=== PATIENT | female | born 1950 | race Caucasian/White ===

== ENCOUNTER 2016-02-12 08:45 | Outpatient (RCR) | payer BC ==
--- OUTSIDE RECORDS SUMMARY | 2015-11-29 13:26 | XMS REPORT | Continuity of Care Document ---
Author Author [facility] Organization [facility] Address Unknown Phone Unavailable Care Team Providers Care Architecture Intern Name Role Phone Charles Jesica PCP [phone] Source Comments Some departments are not documenting in the electronic medical record. If you do not see the information that you expected, contact Release of Information in the Health Information Management department at [phone] for further assistance in locating additional records.[facility] Active Allergies and Adverse Reactions Allergen Noted Date Severity Reactions Comments Penicillins 04/20/2014 HIVES, RASH, ITCHING, Entire body turned red, REDNESS had hives, itching and wouldn't go away for a week after only 1 pill. Pneumococcal Vaccine 04/20/2014 EDEMA Upper extremity swells, putting off heat. Current Medications Prescription Sig. Disp. Refills Start End Date Status Date lisinopril (PRINIVIL; Take 20 mg by mouth twice Active ZESTRIL) 20 mg tablet daily. pantoprazole DR Take 40 mg by mouth twice Active (PROTONIX) 40 mg tablet daily. aspirin EC 81 mg tablet Take 81 mg by mouth Active daily. cycloSPORINE (RESTASIS) Apply 1 Drop to both eyes Active 0.05 % ophthalmic twice daily. emulsion VIT A/VIT C/VIT Take 1 Tab by mouth Active E/ZINC/COPPER (OCUVITE daily. PRESERVISION PO) predniSONE (DELTASONE) 1 Take 10 mg by mouth Active mg tablet daily. Calcium-Cholecalciferol Take 1 Tab by mouth twice Active (D3) (CALCIUM 600 + D) daily. 600-125 mg-unit tab rivaroxaban (XARELTO) 20 Take 20 mg by mouth at Active mg tab tablet bedtime daily. traMADol (ULTRAM) 50 mg Take 50 mg by mouth every Active tablet 6 hours as needed. Indications: PAIN atorvastatin (LIPITOR) 20 Take 20 mg by mouth Active mg tablet daily. cetirizine (ZYRTEC) 10 mg Take 10 mg by mouth Active tablet daily. MULTIVITAMIN (MULTIPLE Take 1 Tab by mouth Active VITAMINS DAILY PO) daily. acetaminophen (TYLENOL) Take 325 mg by mouth four Active 325 mg tablet times daily with meals. montelukast (SINGULAIR) Take 10 mg by mouth at Active 10 mg tablet bedtime daily. fish oil /omega-3 fatty Take 1 Cap by mouth three Active acids (SEA-OMEGA) times daily. 340/1000 mg capsule Niacin 500 mg cpER Take 2 Caps by mouth Active daily. Methotrexate Sodium 2.5 Take 4 Tabs by mouth Active mg DsPk every 7 days. Levothyroxine 88 mcg cap Take 1 Cap by mouth at Active bedtime daily. ferrous sulfate 325 mg Take 325 mg by mouth Active (65 mg iron) tablet twice daily. folic acid (FOLVITE) 1 mg Take 1 mg by mouth daily. Active tablet polyethylene glycol 3350 Take 17 g by mouth daily. Active (GLYCOLAX; MIRALAX) 17 gram/dose powder BIFIDOBACTERIUM INFANTIS Take by mouth daily. Active (ALIGN PO) furosemide (LASIX) 40 mg Take 40 mg by mouth Active tablet daily. Patient takes 40mg in the AM and PRN 20mg in the evening if there is weight gain. OXYGEN-AIR DELIVERY Use as directed. Active SYSTEMS (HORIZON NASAL CPAP SYSTEM MISC) Active Problems Problem Noted Date Chronic venous stasis dermatitis of right lower extremity 09/13/2014 Diastolic dysfunction 08/04/2014 Pulmonary hypertension (HCC) 06/22/2014 HLD (hyperlipidemia) 06/22/2014 Chronic anticoagulation, on Xarelto 06/22/2014 Sleep apnea 04/24/2014 SLE (systemic lupus erythematosus) (HCC) 04/24/2014 Factor 5 Leiden mutation, heterozygous ([facility]) 04/24/2014 Raynaud's disease 04/24/2014 Hypertension 04/24/2014 Hypothyroidism 04/24/2014 Osteoporosis 04/24/2014 Resolved Problems Problem Noted Date Resolved Date Chronic renal insufficiency 04/24/2014 06/22/2014 Social History Tobacco Use Types Packs/Day Years Used Date Former Smoker Quit: 08/06/2002 Smokeless Tobacco: Never Used Comments: Start smoking at age 19, stopped in age 51. Alcohol Use Drinks/Week oz/Week Comments No No alcohol use in 40 years. Last Filed Vital Signs Vital Sign Reading Time Taken Blood Pressure 136/74 01/22/2015 1:32 PM FIRMWARE SOFTWARE VERIFICATION ENGINEER Pulse 102 01/22/2015 1:32 PM FIRMWARE SOFTWARE VERIFICATION ENGINEER Temperature 36.6 C (97.9 F) 01/22/2015 1:32 PM FIRMWARE SOFTWARE VERIFICATION ENGINEER Respiratory Rate 20 01/22/2015 1:32 PM FIRMWARE SOFTWARE VERIFICATION ENGINEER Height 1.654 m (5' 5.12") 01/22/2015 1:32 PM FIRMWARE SOFTWARE VERIFICATION ENGINEER Weight 94.802 kg (209 lb) 01/22/2015 1:32 PM FIRMWARE SOFTWARE VERIFICATION ENGINEER Body Mass Index 34.65 01/22/2015 1:32 PM FIRMWARE SOFTWARE VERIFICATION ENGINEER Oxygen Saturation 95% 08/03/2014 10:09 AM CDT Plan of Care Health Maintenance Due Date Last Done Comments Physical (Comprehensive) 04/26/1958 Exam Pertussis Vaccine 04/26/1962 Tetanus Vaccine 04/26/1968 Cervical Cancer Screening 04/26/1972 Breast Cancer Screening 1991 Colorectal Cancer 04/26/2001 Screening Shingles Vaccine 2011 Influenza Vaccine 10/25/2015 Hepatitis C Screening Completed 01/22/2015 Results from Last 3 Months Not on file
[~2016-02-12 08:45] MED LIST: ACET-461 PO; ALBU2.5V52 INH; ALBU8.5HRX INH; ALIGN 4 MG PO; ASP81TEC PO; ASPI81TA45 PO; ATOR20TA66 PO; ATR20T PO; Azithromycin PO; BETA1TAB15 PO; BIFI4CAP PO; CALC-80 PO; CEFD300C3 PO; CETI10TA17 PO; CYCL1DRO OU; DCS100C PO; DICL100G13 TOP; FAMO20TA13 PO; FERR-47 PO; FLC1T PO; FLUT16SP22 NS; FLUT1DIS26 INH; FOLI1TAB24 PO; FURO40TA4 PO; HYDR-3812 PO; LISI20TA PO; LVT.088T PO; LVT.1T PO; METH2.5T PO; METO-333 PO; MNTL10T PO; MONT10TA24 PO; MULT-974 PO; NIAC1CAP PO; OMEG1CAP51 PO; PANT40TA3 PO; POLY17PO6 PO; PRD10T PO; PRD1T PO; PRED1TAB PO; PRED5TAB PO; RIVA20TA2 PO; SILD20TA2 PO; TRAM50TA2 PO; VIT1CAPS5 PO; WARF-48 PO; ZOLE5INF IV
[2016-02-20] MEDS ORDERED: CYCL10TA9 PO (23:36)
[2016-02-20] MEDS ORDERED: CIPR-225 PO (23:36)
[2016-04-11] MEDS ORDERED: HYDR-3812 PO (08:44)
== END 2016-02-27 | disposition home or self-care (01) ==
LOC: WOUNDCARE 08:45
PROVIDERS: ATTEND Surgery
DX: L72.3 Sebaceous cyst (principal); T81.31XA Disruption of external operation (surgical) wound, not elsewhere classified, initial encounter
CPT/HCPCS: 10180; 11042; 87070; 87075; 87205; 99213

== ENCOUNTER 2016-02-27 14:01 | Outpatient (CLI) | payer BC ==
[~2016-02-27] VITALS: Ht 167.6 cm; Wt 82.6 kg
[~2016-02-27 14:01] MED LIST changes: +CIPR-225 PO; +CYCL10TA9 PO
--- OUTSIDE RECORDS SUMMARY | 2016-02-27 14:04 | XMS REPORT | Continuity of Care Document ---
Author Author [facility] Organization [facility] Address Unknown Phone Unavailable Care Team Providers Care Machine Lead Burner Name Role Phone Charles Jesica PCP [phone] Source Comments Some departments are not documenting in the electronic medical record. If you do not see the information that you expected, contact Release of Information in the Health Information Management department at [phone] for further assistance in locating additional records.[facility] Active Allergies and Adverse Reactions Allergen [...] (HCC) 04/24/2014 Factor 5 Leiden mutation, heterozygous ([facility]) 04/24/2014 Raynaud's disease 04/24/2014 Hypertension 04/24/2014 Hypothyroidism [...] Taken Blood Pressure 136/74 01/22/2015 1:32 PM INJECTION MOULDING MACHINE OPERATOR Pulse 102 01/22/2015 1:32 PM INJECTION MOULDING MACHINE OPERATOR Temperature 36.6 C (97.9 F) 01/22/2015 1:32 PM INJECTION MOULDING MACHINE OPERATOR Respiratory Rate 20 01/22/2015 1:32 PM INJECTION MOULDING MACHINE OPERATOR Height 1.654 m (5' 5.12") 01/22/2015 1:32 PM INJECTION MOULDING MACHINE OPERATOR Weight 94.802 kg (209 lb) 01/22/2015 1:32 PM INJECTION MOULDING MACHINE OPERATOR Body Mass Index 34.65 01/22/2015 1:32 PM INJECTION MOULDING MACHINE OPERATOR Oxygen Saturation 95% 08/03/2014 10:09 AM CDT [...]
[2016-04-11] MEDS ORDERED: HYDR-3812 PO (08:44)
== END 2016-02-27 14:16 ==
LOC: PREOP 14:01
PROVIDERS: ATTEND Orthopaedic Surgery Orthopaedic Surgery of the Spine
DX: Z01.818 Encounter for other preprocedural examination (principal); S22.069A Unspecified fracture of T7-T8 vertebra, initial encounter for closed fracture; X58.XXXA Exposure to other specified factors, initial encounter; Y99.8 Other external cause status

== ENCOUNTER 2016-02-29 06:54 | Day surgery (SDC) | payer BC ==
[~2016-02-29] VITALS: Ht 167.6 cm; Wt 82.6 kg
--- OUTSIDE RECORDS SUMMARY | 2016-02-29 06:59 | XMS REPORT | Continuity of Care Document ---
Author Author [facility] Organization [facility] Address Unknown Phone Unavailable Care Team Providers Care Sephora Product Consultant Name Role Phone Charles Jesica PCP [phone] Source Comments Some departments are not documenting in the electronic medical record. If you do not see the information that you expected, contact Release of Information in the Health Information Management department at [phone] for further assistance in locating additional records.[facility] Active Allergies and Adverse Reactions Allergen [...] (HCC) 04/24/2014 Factor 5 Leiden mutation, heterozygous ([facility]) 04/24/2014 Raynaud's disease 04/24/2014 Hypertension 04/24/2014 [...] Taken Blood Pressure 136/74 01/22/2015 1:32 PM HOSPITAL TRAY SERVICE WORKER Pulse 102 01/22/2015 1:32 PM HOSPITAL TRAY SERVICE WORKER Temperature 36.6 C (97.9 F) 01/22/2015 1:32 PM HOSPITAL TRAY SERVICE WORKER Respiratory Rate 20 01/22/2015 1:32 PM HOSPITAL TRAY SERVICE WORKER Height 1.654 m (5' 5.12") 01/22/2015 1:32 PM HOSPITAL TRAY SERVICE WORKER Weight 94.802 kg (209 lb) 01/22/2015 1:32 PM HOSPITAL TRAY SERVICE WORKER Body Mass Index 34.65 01/22/2015 1:32 PM HOSPITAL TRAY SERVICE WORKER Oxygen Saturation 95% 08/03/2014 10:09 AM CDT [...]
--- OUTSIDE RECORDS SUMMARY | 2016-02-29 06:59 | XMS REPORT | Continuity of Care Document ---
Author Author [facility] Organization [facility] Address Unknown Phone Unavailable Care Team Providers Care Ambulance Assistant Name Role Phone Charles Jesica PCP [phone] Source Comments Some departments are not documenting in the electronic medical record. If you do not see the information that you expected, contact Release of Information in the Health Information Management department at [phone] for further assistance in locating additional records.[facility] Active Allergies and Adverse Reactions Allergen Noted [...] (HCC) 04/24/2014 Factor 5 Leiden mutation, heterozygous ([facility]) 04/24/2014 Raynaud's disease 04/24/2014 Hypertension 04/24/2014 Hypothyroidism [...] Taken Blood Pressure 136/74 01/22/2015 1:32 PM POKER DEALER Pulse 102 01/22/2015 1:32 PM POKER DEALER Temperature 36.6 C (97.9 F) 01/22/2015 1:32 PM POKER DEALER Respiratory Rate 20 01/22/2015 1:32 PM POKER DEALER Height 1.654 m (5' 5.12") 01/22/2015 1:32 PM POKER DEALER Weight 94.802 kg (209 lb) 01/22/2015 1:32 PM POKER DEALER Body Mass Index 34.65 01/22/2015 1:32 PM POKER DEALER Oxygen Saturation 95% 08/03/2014 10:09 AM CDT [...]
[2016-02-29] MEDS ORDERED: LACTATED RINGERS 1,000 ML IV PRN (07:16)
[2016-02-29] MEDS ORDERED: ceFAZolin 2GM/50 ML DEXTROSE (PREMIX) IV ONE (07:30)
[2016-02-29] MEDS ORDERED: proPOfol 200 MG/20 ML (DIPRIVAN) VIAL IV ONE (07:36)
[2016-02-29] MEDS ORDERED: LIDOCAINE PF 2% 10 ML (XYLOCAINE) AMP ONE (07:36)
[2016-02-29] MEDS ORDERED: SEVOFLURANE (ULTANE) 15 ML INHAL SOLN ONE (07:36)
[2016-02-29] MEDS ORDERED: SUCCINYLCHOLINE INJ 100 MG/5 ML SYR ONE (07:36)
[2016-02-29] MEDS ORDERED: LACTATED RINGERS 1,000 ML IV ONE (07:36)
[2016-02-29] MEDS ORDERED: MIDAZOLAM 2 MG/2 ML (VERSED) VIAL ONE (07:37)
[2016-02-29] MEDS ORDERED: fentaNYL INJECTION 100 MCG/2 ML AMP ONE (07:37)
[2016-02-29 07:43] VITALS: BP 131/61
[2016-02-29 07:44] LABS: INR 1.1 (0.8-1.4); PROTHROMBIN TIME PATIENT 14.1 SEC (12.2-14.7)
[2016-02-29] MEDS ORDERED: LACT10SO PO (07:56)
[2016-02-29] MEDS ORDERED: MONT10TA21 PO (07:56)
[2016-02-29] MEDS ORDERED: CETI10CA PO (07:56)
[2016-02-29] MEDS ORDERED: OXYC-465 PO (07:56)
[2016-02-29] MEDS ORDERED: BUP/EPI 0.25% 1:200,000 (MARCAINE) 30 ML VIAL ONE (08:45)
--- NOTE | 2016-02-29 10:01 | Progress Note-Post Operative ---
Post-Operative Progess Note Net Finisher Mo Juárez, JEANNETTE Pre-Operative Diagnosis T8 compression Fracture Post-Operative Diagnosis Same, pathology pending Post-Op Procedure Note Date of Procedure: Feb 29, 2016 Name of Procedure: T8 kypho, biopsy with fluro Procedure Note/Findings fx Anesthesia Type GETA Estimated blood loss (mL): min Specimen(s) collected T8 biopsy GO GALVEZ MD Feb 29, 2016 10:01 am
[2016-02-29] MEDS ORDERED: ONDANSETRON 4 MG/2 ML (SDV) Z0FRAN ONE (10:08)
[2016-02-29 11:00] VITALS: BP 138/47
[2016-02-29 11:30] VITALS: BP 141/67
[2016-02-29 11:50] VITALS: BP 141/67
--- NOTE | 2016-02-29 14:48 | Diagnostic Imaging Report ---
INDICATION: Mid back pain, T8 compression fracture. DISCUSSION: Fluoroscopic support is provided during intraoperative T8 kyphoplasty. Please see the operative report for full detail. FLUOROSCOPY TIME: 56 seconds. IMPRESSION: 1. Intraoperative T8 kyphoplasty. Dictated by: Dictated on workstation # [id number]
--- NOTE | 2016-03-03 06:37 | OPERATIVE REPORT ---
PROCEDURE PHYSICIAN: GO HARRELL DATE OF PROCEDURE: 02/29/2016 PREOPERATIVE DIAGNOSIS: T8 osteoporotic pathologic compression fracture. POSTOPERATIVE DIAGNOSIS: T8 osteoporotic pathologic compression fracture. PROCEDURE PERFORMED: T8 kyphoplasty with fluoroscopy. DATE AND TIME OF SURGERY: Please see anesthesia record. SURGEON: Dr. Harrell. REGISTERED SAFETY ENGINEER: DIANA Pfeiffer ROLE OF PUBLIC POLICY ANALYST: Bilateral balloon insufflation, methylmethacrylate insertion. ANESTHESIA: General endotracheal. ESTIMATED BLOOD LOSS: Minimal. IV FLUIDS: Please see anesthesia record. ANTIBIOTICS: Ancef. COMPLICATIONS: None. INDICATIONS FOR THE PROCEDURE: Ms. Mccauley is a 65-year-old female with acute onset of back pain several months ago. She has been tolerating it but it has gotten markedly worse and increasing. She does not remember any inciting event but clearly has worsening pain and acute compression deformity. DESCRIPTION OF PROCEDURE: The patient was taken to the preoperative holding area and brought back to the operative suite after adequate induction of general anesthetic and preoperative antibiotics, she was turned prone on the OR table with chest roll, sterile prep and drape the posterior thoracic spine. Biplanar fluoroscopy was brought in. Localization of the T8 level was performed. Working cannulas were placed. Vertebral biopsy was obtained. Balloon insertion and bone tamp was utilized and then methylmethacrylate was inserted with great fill achieved. Cement was allowed to harden. Cannulas were removed. Wounds were closed and the patient tolerated the procedure well and transferred to the recovery room. Job ID: [id number] Dictated Date: 02/29/2016 10:00:12 Configuration Management Specialist Date: 03/03/2016 06:31:23 / bear
[2016-04-11] MEDS ORDERED: HYDR-3812 PO (08:44)
== END 2016-02-29 11:50 | disposition home or self-care (01) ==
LOC: SDC 06:54
PROVIDERS: ATTEND Orthopaedic Surgery Orthopaedic Surgery of the Spine
DX: M80.08XA Age-related osteoporosis with current pathological fracture, vertebra(e), initial encounter for fracture (principal); Z79.01 Long term (current) use of anticoagulants
CPT/HCPCS: 36415; 85610; 87081

== ENCOUNTER 2016-03-11 14:34 | Outpatient (RCR) | payer BC ==
--- OUTSIDE RECORDS SUMMARY | 2015-12-18 15:09 | XMS REPORT | Continuity of Care Document ---
Author Author [facility] Organization [facility] Address Unknown Phone Unavailable Care Team Providers Care Tower Operator Name Role Phone Charles Jesica PCP [phone] Source Comments Some departments are not documenting in the electronic medical record. If you do not see the information that you expected, contact Release of Information in the Health Information Management department at [phone] for further assistance in locating additional records.[facility] Active Allergies and Adverse Reactions Allergen [...] (HCC) 04/24/2014 Factor 5 Leiden mutation, heterozygous ([facility]) 04/24/2014 Raynaud's disease 04/24/2014 Hypertension 04/24/2014 Hypothyroidism [...] Taken Blood Pressure 136/74 01/22/2015 1:32 PM LICENSED CLINICAL PSYCHOLOGIST Pulse 102 01/22/2015 1:32 PM LICENSED CLINICAL PSYCHOLOGIST Temperature 36.6 C (97.9 F) 01/22/2015 1:32 PM LICENSED CLINICAL PSYCHOLOGIST Respiratory Rate 20 01/22/2015 1:32 PM LICENSED CLINICAL PSYCHOLOGIST Height 1.654 m (5' 5.12") 01/22/2015 1:32 PM LICENSED CLINICAL PSYCHOLOGIST Weight 94.802 kg (209 lb) 01/22/2015 1:32 PM LICENSED CLINICAL PSYCHOLOGIST Body Mass Index 34.65 01/22/2015 1:32 PM LICENSED CLINICAL PSYCHOLOGIST Oxygen Saturation 95% 08/03/2014 10:09 AM CDT [...]
[~2016-03-11 14:34] MED LIST changes: +CETI10CA PO; +LACT10SO PO; +MONT10TA21 PO; +OXYC-465 PO
[2016-04-11] MEDS ORDERED: HYDR-3812 PO (08:44)
== END 2016-03-17 | disposition home or self-care (01) ==
LOC: ONC 14:34
PROVIDERS: ATTEND Internal Medicine Hematology & Oncology
DX: D68.62 Lupus anticoagulant syndrome (principal); M32.10 Systemic lupus erythematosus, organ or system involvement unspecified; R76.9 Abnormal immunological finding in serum, unspecified; I42.8 Other cardiomyopathies; N18.9 Chronic kidney disease, unspecified; I12.9 Hypertensive chronic kidney disease with stage 1 through stage 4 chronic kidney disease, or unspecified chronic kidney disease; E03.9 Hypothyroidism, unspecified; I73.00 Raynaud's syndrome without gangrene; G47.33 Obstructive sleep apnea (adult) (pediatric); M81.0 Age-related osteoporosis without current pathological fracture; Z79.899 Other long term (current) drug therapy; Z79.01 Long term (current) use of anticoagulants
CPT/HCPCS: 99213

== ENCOUNTER → 2016-03-14 | Outpatient (CLI) | payer BC ==
[~2016-03-14] MED LIST changes: +FERR-84 PO; +iron PO
--- OUTSIDE RECORDS SUMMARY | 2016-03-14 07:03 | XMS REPORT | Continuity of Care Document ---
Author Author [facility] Organization [facility] Address Unknown Phone Unavailable Care Team Providers Care Courtesy Van Driver Name Role Phone Charles Jesica PCP [phone] Source Comments Some departments are not documenting in the electronic medical record. If you do not see the information that you expected, contact Release of Information in the Health Information Management department at [phone] for further assistance in locating additional records.[facility] [...] Factor 5 Leiden mutation, heterozygous ([facility]) 04/24/2014 Raynaud's disease 04/24/2014 Hypertension 04/24/2014 Hypothyroidism [...] Taken Blood Pressure 136/74 01/22/2015 1:32 PM SACK REPAIRER Pulse 102 01/22/2015 1:32 PM SACK REPAIRER Temperature 36.6 C (97.9 F) 01/22/2015 1:32 PM SACK REPAIRER Respiratory Rate 20 01/22/2015 1:32 PM SACK REPAIRER Height 1.654 m (5' 5.12") 01/22/2015 1:32 PM SACK REPAIRER Weight 94.802 kg (209 lb) 01/22/2015 1:32 PM SACK REPAIRER Body Mass Index 34.65 01/22/2015 1:32 PM SACK REPAIRER Oxygen Saturation 95% 08/03/2014 10:09 AM CDT [...]
[2016-03-14 08:01] LABS: ALANINE AMINOTRANSFERASE 17 U/L (0-55); ANION GAP 13 MMOL/L (5-14); ASPARTATE AMINO TRANSFERASE 17 U/L (5-34); BILIRUBIN,TOTAL 0.6 MG/DL (0.1-1.0); BLOOD UREA NITROGEN 14 MG/DL (7-18); BUN/CREATININE RATIO 16; CALCIUM 9.6 MG/DL (8.5-10.1); CARBON DIOXIDE 28 MMOL/L (21-32); CHLORIDE 102 MMOL/L (98-107); CREATININE SERUM 0.86 MG/DL (0.60-1.30); GFR ESTIMATED > 60; GLUCOSE 80 MG/DL (70-105); POTASSIUM 3.6 MMOL/L (3.6-5.0); SODIUM 143 MMOL/L (135-145); TOTAL PROTEIN 6.3 G/DL (6.4-8.2)
--- NOTE | 2016-03-14 08:27 | Diagnostic Imaging Report ---
PROCEDURE: US abdomen complete. TECHNIQUE: Multiple real-time grayscale images were obtained over the abdomen in various projections. Indication: Generalized abdominal pain. Comparison: None. Discussion: Sonographic evaluation of the abdomen was performed. The liver appears normal in echotexture and size. No hepatic mass identified. 2 mm echogenic focus within the nondependent gallbladder likely represents a small polyp, benign. Otherwise the gallbladder appears normal without evidence of cholelithiasis, wall thickening, or pericholecystic fluid. No evidence of intra or extrahepatic biliary duct dilatation. The common bile duct is normal measuring 0.4 cm. The pancreas appears normal as visualized. The spleen appears normal in echotexture and size measuring 8.4 cm. The visualized aorta and IVC appear within normal limits. There is mild thinning of the bilateral renal cortices. The right kidney is mildly atrophic as compared to the left. No hydronephrosis or solid renal mass. The right kidney measures 8.6 cm. The left kidney measures 10.5 cm. There is no ascites or abnormal bowel loops identified. No sonographic Blas sign was reported. Impression: 1. Mild renal atrophy, right greater than left. Stable from renal ultrasound 07/19/2013. 2. A 2 mm gallbladder polyp, incidental. No followup required. Dictated by: Dictated on workstation # [id number]
== END ==
LOC: RAD 06:58
PROVIDERS: ATTEND Internal Medicine
DX: R10.84 Generalized abdominal pain (principal); E78.1 Pure hyperglyceridemia
CPT/HCPCS: 36415; 76700; 80053

== ENCOUNTER → 2016-03-31 | Outpatient (CLI) | payer BC ==
[~2016-03-31] MED LIST changes: +CATHETER FLUSH 10 ML SYR IV PRN
--- OUTSIDE RECORDS SUMMARY | 2016-03-31 12:30 | XMS REPORT | Continuity of Care Document ---
Author Author [facility] Organization [facility] Address Unknown Phone Unavailable Care Team Providers Care Health Physics Technician Name Role Phone Charles Jesica PCP [phone] Source Comments Some departments are not documenting in the electronic medical record. If you do not see the information that you expected, contact Release of Information in the Health Information Management department at [phone] for further assistance in locating additional records.[facility] Active Allergies and Adverse Reactions Allergen Noted [...] (HCC) 04/24/2014 Factor 5 Leiden mutation, heterozygous ([facility]) 04/24/2014 Raynaud's disease 04/24/2014 Hypertension [...] Taken Blood Pressure 136/74 01/22/2015 1:32 PM POLICY DIRECTOR Pulse 102 01/22/2015 1:32 PM POLICY DIRECTOR Temperature 36.6 C (97.9 F) 01/22/2015 1:32 PM POLICY DIRECTOR Respiratory Rate 20 01/22/2015 1:32 PM POLICY DIRECTOR Height 1.654 m (5' 5.12") 01/22/2015 1:32 PM POLICY DIRECTOR Weight 94.802 kg (209 lb) 01/22/2015 1:32 PM POLICY DIRECTOR Body Mass Index 34.65 01/22/2015 1:32 PM POLICY DIRECTOR Oxygen Saturation 95% 08/03/2014 10:09 AM CDT [...]
--- NOTE | 2016-03-31 15:03 | Diagnostic Imaging Report ---
EXAMINATION: HIDA with EF measurements Indication: Abdominal pain TECHNIQUE: After the intravenous administration of 5.5 mCi of Tc 99m Choletec, imaging over the abdomen was obtained. This was followed by administration of Ensure orally to stimulate intrinsic CCK secretion, followed by continued imaging with ejection fraction measured. FINDINGS: There is homogeneous uptake in the liver with prompt bile duct and gallbladder filling seen. Bowel activity is seen at 20 minutes. Based on further imaging and gallbladder area of interest activity measurements after the administration of Ensure, the gallbladder ejection fraction is estimated at 4%. IMPRESSION: 1. Normal hepatobiliary uptake and Gallbladder filling. 2. Biliary dyskinesia. Very poor gallbladder ejection fraction. Dictated by: Dictated on workstation # [id number]
== END ==
LOC: CARD 12:26
PROVIDERS: ATTEND Internal Medicine
DX: R10.11 Right upper quadrant pain (principal)
CPT/HCPCS: 78227

== ENCOUNTER 2016-04-08 12:00 | Outpatient (CLI) | payer BC ==
[~2016-04-08] VITALS: Ht 167.6 cm; Wt 81.6 kg
[~2016-04-08 12:00] MED LIST changes: -CATHETER FLUSH 10 ML SYR IV PRN; -FERR-84 PO; -iron PO
[2016-04-08 12:05] VITALS: BP 133/63
--- OUTSIDE RECORDS SUMMARY | 2016-04-08 12:05 | XMS REPORT | Continuity of Care Document ---
Author Author [facility] Organization [facility] Address Unknown Phone Unavailable Care Team Providers Care Manager Foreign Name Role Phone Charles Jesica PCP [phone] Source Comments Some departments are not documenting in the electronic medical record. If you do not see the information that you expected, contact Release of Information in the Health Information Management department at [phone] for further assistance in locating additional records.[facility] [...] Factor 5 Leiden mutation, heterozygous ([facility]) 04/24/2014 Raynaud's disease 04/24/2014 Hypertension 04/24/2014 Hypothyroidism [...] Taken Blood Pressure 136/74 01/22/2015 1:32 PM RABBIT FANCIER Pulse 102 01/22/2015 1:32 PM RABBIT FANCIER Temperature 36.6 C (97.9 F) 01/22/2015 1:32 PM RABBIT FANCIER Respiratory Rate 20 01/22/2015 1:32 PM RABBIT FANCIER Height 1.654 m (5' 5.12") 01/22/2015 1:32 PM RABBIT FANCIER Weight 94.802 kg (209 lb) 01/22/2015 1:32 PM RABBIT FANCIER Body Mass Index 34.65 01/22/2015 1:32 PM RABBIT FANCIER Oxygen Saturation 95% 08/03/2014 10:09 AM CDT [...]
[2016-04-08] MEDS ORDERED: iron PO (12:30)
[2016-04-08] MEDS ORDERED: PRED5TAB PO (12:30)
== END 2016-04-08 12:20 | disposition home or self-care (01) ==
LOC: PREOP 12:00
PROVIDERS: ATTEND Surgery
DX: Z01.818 Encounter for other preprocedural examination (principal); Z11.2 Encounter for screening for other bacterial diseases; K82.4 Cholesterolosis of gallbladder; K82.8 Other specified diseases of gallbladder
CPT/HCPCS: 87081

== ENCOUNTER 2016-04-11 06:05 | Day surgery (SDC) | payer BC ==
[~2016-04-11] VITALS: Ht 167.6 cm; Wt 81.6 kg
[~2016-04-11 06:05] MED LIST changes: +iron PO
--- OUTSIDE RECORDS SUMMARY | 2016-04-11 06:12 | XMS REPORT | Continuity of Care Document ---
Author Author [facility] Organization [facility] Address Unknown Phone Unavailable Care Team Providers Care Silver Wrapper Name Role Phone Charles Jesica PCP [phone] Source Comments Some departments are not documenting in the electronic medical record. If you do not see the information that you expected, contact Release of Information in the Health Information Management department at [phone] for further assistance in locating additional records.[facility] Active Allergies and Adverse Reactions Allergen [...] (HCC) 04/24/2014 Factor 5 Leiden mutation, heterozygous ([facility]) 04/24/2014 Raynaud's disease 04/24/2014 Hypertension 04/24/2014 [...] Taken Blood Pressure 136/74 01/22/2015 1:32 PM BUILDING PERFORMANCE SPECIALIST Pulse 102 01/22/2015 1:32 PM BUILDING PERFORMANCE SPECIALIST Temperature 36.6 C (97.9 F) 01/22/2015 1:32 PM BUILDING PERFORMANCE SPECIALIST Respiratory Rate 20 01/22/2015 1:32 PM BUILDING PERFORMANCE SPECIALIST Height 1.654 m (5' 5.12") 01/22/2015 1:32 PM BUILDING PERFORMANCE SPECIALIST Weight 94.802 kg (209 lb) 01/22/2015 1:32 PM BUILDING PERFORMANCE SPECIALIST Body Mass Index 34.65 01/22/2015 1:32 PM BUILDING PERFORMANCE SPECIALIST Oxygen Saturation 95% 08/03/2014 10:09 AM CDT [...]
--- OUTSIDE RECORDS SUMMARY | 2016-04-11 06:12 | XMS REPORT | Continuity of Care Document ---
Author Author [facility] Organization [facility] Address Unknown Phone Unavailable Care Team Providers Care Industrial Manufacturing Technician Name Role Phone Charles Jesica PCP [phone] Source Comments Some departments are not documenting in the electronic medical record. If you do not see the information that you expected, contact Release of Information in the Health Information Management department at [phone] for further assistance in locating additional records.[facility] Active Allergies and Adverse Reactions Allergen [...] (HCC) 04/24/2014 Factor 5 Leiden mutation, heterozygous ([facility]) 04/24/2014 Raynaud's disease 04/24/2014 Hypertension 04/24/2014 Hypothyroidism [...] Taken Blood Pressure 136/74 01/22/2015 1:32 PM DIET COUNSELOR Pulse 102 01/22/2015 1:32 PM DIET COUNSELOR Temperature 36.6 C (97.9 F) 01/22/2015 1:32 PM DIET COUNSELOR Respiratory Rate 20 01/22/2015 1:32 PM DIET COUNSELOR Height 1.654 m (5' 5.12") 01/22/2015 1:32 PM DIET COUNSELOR Weight 94.802 kg (209 lb) 01/22/2015 1:32 PM DIET COUNSELOR Body Mass Index 34.65 01/22/2015 1:32 PM DIET COUNSELOR Oxygen Saturation 95% 08/03/2014 10:09 AM CDT [...]
[2016-04-11] MEDS ORDERED: LEVOFLOXACIN 500 MG/100 ML IV 100 ML ONE (06:40)
[2016-04-11] MEDS ORDERED: FAMOTIDINE 20MG/2ML IV (PEPCID) ONE (06:40)
[2016-04-11] MEDS ORDERED: LACTATED RINGERS 1,000 ML IV PRN (06:50)
[2016-04-11] MEDS: LACTATED RINGERS 1,000 ML IV PRN ×2 (06:52→08:25)
[2016-04-11 06:59] LABS: INR 1.3 (0.8-1.4); PROTHROMBIN TIME PATIENT 16.2 SEC (12.2-14.7)
[2016-04-11] MEDS ORDERED: FAMOTIDINE 20MG/2ML IV (PEPCID) IV ONE ×2 (07:00)
[2016-04-11 07:05] VITALS: BP 159/69
[2016-04-11] MEDS ORDERED: CATHETER FLUSH 10 ML SYR IV PRN (07:15)
[2016-04-11] MEDS ORDERED: LEVOFLOXACIN 500 MG/D5W 100 ML (PRE-MIX) IV ONE (07:15)
[2016-04-11] MEDS ORDERED: metroNIDAZOLE 500 MG/100 ML IVPB (PRE-MIX) IV ONE (07:15)
[2016-04-11] MEDS ORDERED: LIDOCAINE JELLY 2% (XYLOCAINE) 5 ML TUBE ONE (07:16)
[2016-04-11] MEDS ORDERED: LACTATED RINGERS 1,000 ML IV ONE ×2 (07:16→08:35)
[2016-04-11] MEDS ORDERED: fentaNYL INJECTION 250 MCG/5 ML AMP ONE (07:16)
[2016-04-11] MEDS ORDERED: ONDANSETRON 4 MG/2 ML (SDV) Z0FRAN ONE (07:16)
[2016-04-11] MEDS ORDERED: SEVOFLURANE (ULTANE) 15 ML INHAL SOLN ONE (07:16)
[2016-04-11] MEDS ORDERED: MIDAZOLAM 2 MG/2 ML (VERSED) VIAL ONE (07:16)
[2016-04-11] MEDS ORDERED: proPOfol 200 MG/20 ML (DIPRIVAN) VIAL IV ONE (07:16)
[2016-04-11] MEDS ORDERED: DEXAMETHASONE PF 10 MG/ML (DECADRON) VIAL ONE (07:16)
[2016-04-11] MEDS ORDERED: ROCURONIUM 50 MG/5 ML (ZEMURON) VIAL IV ONE (07:16)
[2016-04-11] MEDS ORDERED: BUP/EPI 0.25% 1:200,000 (MARCAINE) 30 ML VIAL ONE (07:30)
--- NOTE | 2016-04-11 07:52 | Progress Note-Pre Operative ---
Pre-Operative Progress Note H&P Reviewed The H&P was reviewed, patient examined and no changes noted. Date H&P Reviewed: Apr 11, 2016 Time H&P Reviewed: 07:34 Pre-Operative Diagnosis: GB polyp with dyskinesia ZAFAR RAMON MD Apr 11, 2016 7:52 am
[2016-04-11] MEDS ORDERED: NEOSTIGMINE (BLOXIVERZ ) 1 MG/1ML 10 ML VIAL ONE (08:42)
[2016-04-11] MEDS ORDERED: GLYCOPYRROLATE 0.2 MG/ML (ROBINUL) 2 ML VIAL ONE (08:42)
[2016-04-11] MEDS ORDERED: HYDR-3812 PO (08:44)
--- NOTE | 2016-04-11 08:44 | Progress Note-Post Operative ---
Post-Operative Progess Note Pre-Operative Diagnosis GB polyp with dyskinesia Post-Operative Diagnosis same Post-Op Procedure Note Date of Procedure: Apr 11, 2016 Name of Procedure: robotic-assisted cholecystectomy Anesthesia Type Gen. Estimated blood loss (mL): minimal Specimen(s) collected gallbladder ZAFAR RAMON MD Apr 11, 2016 8:44 am
--- NOTE | 2016-04-11 08:46 | Discharge Inst-Simple/Standard ---
Discharge Inst-Standard Discharge Medications New, Converted or Re-Newed RX: RX on Chart Patient Instructions/Follow Up Plan of Care/Instructions/FU: dressings off in 48 hours. Incentive spirometry. Follow-up in 3 weeks. Activity as Tolerated: Yes Discharge Diet: ADA ZAFAR Pedroza MD Apr 11, 2016 8:46 am
[2016-04-11] MEDS ORDERED: HYDROmorphone (DILAUDID) 2 MG/ML VIAL IVP PRN (09:15)
[2016-04-11] MEDS ORDERED: PROMETHAZINE INJ 25 MG/ML (PHENERGAN) AMP IVP PRN (09:15)
[2016-04-11] MEDS ORDERED: morphine INJ 10 MG/ML 1ML (SYR OR VIAL) IVP PRN (09:15)
[2016-04-11] MEDS ORDERED: ONDANSETRON 4 MG/2 ML (SDV) Z0FRAN IVP PRN ×2 (09:15→13:45)
[2016-04-11] MEDS ORDERED: MEPERIDINE (DEMEROL) INJ 50 MG/ML IVP PRN (09:15)
[2016-04-11 09:50] VITALS: BP 124/48
[2016-04-11 10:20] VITALS: BP 134/57
[2016-04-11 10:50] VITALS: BP 137/59
[2016-04-11] MEDS ORDERED: HYDROcodone/APAP 5 MG/325 MG (LORTAB) TAB PO PRN (13:45)
[2016-04-11] MEDS ORDERED: fentaNYL INJECTION 100 MCG/2 ML AMP IVP PRN (13:45)
[2016-04-11] MEDS ORDERED: FERR-84 PO (16:04)
[2016-04-11] MEDS ORDERED: BIFI4CAP PO (16:04)
[2016-04-11] MEDS ORDERED: ACETAMINOPHEN 500 MG TAB (TYLENOL) PO SCH (17:00)
[2016-04-11] MEDS ORDERED: lisINopril 20 MG (ZESTRIL) TAB PO SCH (21:00)
[2016-04-11] MEDS ORDERED: meTOprolol TARTRATE 25 MG (LOPRESSOR) TABLET PO SCH (21:00)
[2016-04-11] MEDS ORDERED: LEVOTHYROXINE 88 MCG (LEVOTHORID) TAB PO SCH (21:00)
[2016-04-12] MEDS ORDERED: FOLIC ACID 1 MG TAB PO SCH (09:00)
[2016-04-12] MEDS ORDERED: LORATADINE (CLARITIN) 10 MG TAB PO SCH (09:00)
[2016-04-12] MEDS ORDERED: ATORVASTATIN 20 MG (LIPITOR) TABLET PO SCH (09:00)
--- NOTE | 2016-04-12 11:12 | OPERATIVE REPORT ---
PROCEDURE PHYSICIAN: ZAFAR RAMON DATE OF PROCEDURE: 04/11/2016 PREOPERATIVE DIAGNOSES: 1. Gallbladder polyp. 2. Severe dyskinesia of the gallbladder. POSTOPERATIVE DIAGNOSES: 1. Gallbladder polyp. 2. Severe dyskinesia of the gallbladder. OPERATION: Robotic assisted cholecystectomy. SURGEON: Dr. Ramon. ANESTHESIA: General anesthesia. BLOOD LOSS: Minimal. FLUIDS: 600 mL crystalloids. TYPE OF WOUND: Type II (clean - contaminant wound). INDICATION FOR THE PROCEDURE: This lady presented with severe symptoms due to a combination of a polyp in the gallbladder and dyskinesia. Therefore, she was offered cholecystectomy using minimally invasive technique. An informed consent was obtained after reviewing the operative details and complications of wound infection, bile leak and persistence of her symptoms but. DESCRIPTION OF PROCEDURE: She was placed supine on the operative table and general anesthesia induced using an endotracheal tube. Levaquin and Flagyl were administered intravenously as prophylaxis against wound infection. Sequential compression devices were placed around her legs, to minimize the risk of venous thrombosis. The abdomen was prepared and draped in the usual sterile manner. A subumbilical incision was made and the pneumoperitoneum established using a Veress needle. Intra-abdominal pressure was maintained at 15 mmHg. A 12 mm trocar was placed and anatomy visualized using high definition, 3 dimensional laparoscope associated with the Coworks system. Under direct view, I placed an 8 mm cannula over each side of the abdomen, followed by a 5 mm trocar over the left upper quadrant. The patient was then turned into reverse Trendelenburg position with the right side tilted up. The robotic system was docked in place. The fundus of the gallbladder was retracted cephalad using a grasper introduced via the left upper quadrant. The omentum was then densely adherent to the body of the gallbladder and taken down using hook cautery. The infundibulum was then grasped with the Cadiere forceps and peritoneum overlying Calot's triangle incised using hook cautery, delineating the cystic duct and artery. Both were divided between locking clips. Cholecystectomy was then completed using hook cautery. The gallbladder was then placed in an Endo Catch bag and removed via the subumbilical trocar site. The fascia over this incision was closed using number 1 Vicryl under direct laparoscopic guidance, using an Endo Close device. The incisions were closed using 4-0 Vicryl, in a subcuticular fashion. 0.25% Marcaine with epinephrine was infiltrated along the incisions, both preemptively and at the conclusion of the operation. She tolerated the procedure well, was extubated in the operating room and taken to the recovery room in a stable condition. Port Reading, sponges, and instruments were correct at the end of the operation. Job ID: [id number] Dictated Date: 04/11/2016 08:42:50 [place] Machine Operator Automatic Date: 04/12/2016 11:03:46 / bear CADE
== END 2016-04-11 11:20 | disposition home or self-care (01) ==
LOC: SDC 06:05
PROVIDERS: ATTEND Surgery
DX: K81.1 Chronic cholecystitis (principal); Z79.01 Long term (current) use of anticoagulants
CPT/HCPCS: 36415; 85610; 88304; 94664

== ENCOUNTER 2016-04-11 12:21 | Inpatient (IN) | payer BC ==
[2016-04-11] VITALS (14 sets, daily range): BP systolic 75–173; BP diastolic 46–103
[~2016-04-11] VITALS: Ht 167.6 cm; Wt 81.6 kg
[~2016-04-11 12:21] MED LIST changes: +CLINDAMYCIN 600 MG/50 ML IVPB 50 ML IV SCH
--- OUTSIDE RECORDS SUMMARY | 2016-04-11 12:26 | XMS REPORT | Continuity of Care Document ---
Author Author [facility] Organization [facility] Address Unknown Phone Unavailable Care Team Providers Care [place] Manager Name Role Phone Charles Jesica PCP [phone] Source Comments Some departments are not documenting in the electronic medical record. If you do not see the information that you expected, contact Release of Information in the Health Information Management department at [phone] for further assistance in locating additional records.[facility] Active Allergies and Adverse Reactions [...] (HCC) 04/24/2014 Factor 5 Leiden mutation, heterozygous ([facility]) 04/24/2014 Raynaud's disease 04/24/2014 Hypertension 04/24/2014 Hypothyroidism [...] Taken Blood Pressure 136/74 01/22/2015 1:32 PM MANAGER [place] Pulse 102 01/22/2015 1:32 PM MANAGER [place] Temperature 36.6 C (97.9 F) 01/22/2015 1:32 PM MANAGER [place] Respiratory Rate 20 01/22/2015 1:32 PM MANAGER [place] Height 1.654 m (5' 5.12") 01/22/2015 1:32 PM MANAGER [place] Weight 94.802 kg (209 lb) 01/22/2015 1:32 PM MANAGER [place] Body Mass Index 34.65 01/22/2015 1:32 PM MANAGER [place] Oxygen Saturation 95% 08/03/2014 10:09 AM CDT [...]
--- OUTSIDE RECORDS SUMMARY | 2016-04-11 12:26 | XMS REPORT | Continuity of Care Document ---
Author Author [facility] Organization [facility] Address Unknown Phone Unavailable Care Team Providers Care Rate Supervisor Name Role Phone Charles Jesica PCP [phone] Source Comments Some departments are not documenting in the electronic medical record. If you do not see the information that you expected, contact Release of Information in the Health Information Management department at [phone] for further assistance in locating additional records.[facility] [...] 04/24/2014 Factor 5 Leiden mutation, heterozygous ([facility]) 04/24/2014 Raynaud's disease 04/24/2014 Hypertension [...] Taken Blood Pressure 136/74 01/22/2015 1:32 PM CERTIFIED TRAVEL COUNSELOR Pulse 102 01/22/2015 1:32 PM CERTIFIED TRAVEL COUNSELOR Temperature 36.6 C (97.9 F) 01/22/2015 1:32 PM CERTIFIED TRAVEL COUNSELOR Respiratory Rate 20 01/22/2015 1:32 PM CERTIFIED TRAVEL COUNSELOR Height 1.654 m (5' 5.12") 01/22/2015 1:32 PM CERTIFIED TRAVEL COUNSELOR Weight 94.802 kg (209 lb) 01/22/2015 1:32 PM CERTIFIED TRAVEL COUNSELOR Body Mass Index 34.65 01/22/2015 1:32 PM CERTIFIED TRAVEL COUNSELOR Oxygen Saturation 95% 08/03/2014 10:09 AM [...]
[2016-04-11] MEDS ORDERED: fentaNYL INJECTION 100 MCG/2 ML AMP IVP PRN (13:45)
[2016-04-11] MEDS ORDERED: LACTATED RINGERS 1,000 ML IV ONE (15:26)
[2016-04-11] MEDS ORDERED: BIFI4CAP PO (16:04)
[2016-04-11] MEDS ORDERED: FERR-84 PO (16:04)
[2016-04-11] MEDS ORDERED: HYDROcodone/APAP 5 MG/325 MG (LORTAB) TAB PO PRN (16:15)
[2016-04-11] MEDS ORDERED: ONDANSETRON 4 MG/2 ML (SDV) Z0FRAN IVP PRN (16:15)
[2016-04-11] MEDS ORDERED: proPOfol 200 MG/20 ML (DIPRIVAN) VIAL IV ONE (16:53)
[2016-04-11] MEDS ORDERED: MIDAZOLAM 2 MG/2 ML (VERSED) VIAL ONE (16:53)
[2016-04-11] MEDS ORDERED: ROCURONIUM 50 MG/5 ML (ZEMURON) VIAL IV ONE (16:53)
[2016-04-11] MEDS ORDERED: fentaNYL INJECTION 100 MCG/2 ML AMP ONE (16:53)
[2016-04-11 17:08] LABS: INR 1.2 (0.8-1.4); PROTHROMBIN TIME PATIENT 15.3 SEC (12.2-14.7)
--- NOTE | 2016-04-11 17:37 | History & Physicial ---
History of Present Illness History of Present Illness Reason for visit/HPI postoperative hematoma of the abdominal wall around the left upper quadrant, in relation to a 5 mm trocar placed during robotic-assisted cholecystectomy. Patient has become hypotensive during the observation period and thereforetoleration is reasonable. Date of Admission I consulted on this patient on 04/11/16 17:34 Attending Physician Zafar Ramon MD Admitting Physician Jesica Soto DO Consult Allergies and Home Medications Allergies Coded Allergies: Penicillins (Verified Allergy, Intermediate, 04/02/15) pneumococcal vaccine (Verified Allergy, Unknown, 04/02/15) PT STATES FEVER IN THE ARM Home Medications Acetaminophen 500 Mg Tablet 500 MG PO QID (Reported) Aspirin 81 Mg Tabec 81 MG PO DAILY (Reported) Atorvastatin Calcium 20 Mg Tablet 20 MG PO 1700 (Reported) Bifidobacterium Infantis 4 Mg Capsule 4 MG PO DAILY (Reported) Calcium Carbonate/Vitamin D3 1 Each Tablet 1 TAB PO 1200,1700 (Reported) Cetirizine Hcl 10 Mg Tablet 10 MG PO 1700 (Reported) Cyclosporine 32 Ea Droperette 1 DROP OU BID (Reported) Ferrous Sulfate 325 Mg Tablet 325 MG PO BID (Reported) Folic Acid 1 Mg Tablet 3 MG PO DAILY (Reported) TAKES 3 (1MG) TABLETS Furosemide 40 Mg Tablet 40 MG PO DAILY (Reported) Hydrocodone/Acetaminophen 1 Each Tablet #30 1-2 TAB PO 4-6HR PRN PRN PAIN Prescribed by: ZAFAR RAMON on 04/11/16 0844 Levothyroxine Sodium 88 Mcg Tablet 88 MCG PO HS (Reported) Lisinopril 20 Mg Tablet 20 MG PO BID (Reported) Methotrexate Sodium 2.5 Mg Tablet 10 MG PO (Reported) TAKES 4 (2.5MG) TABLETS ON TUESDAYS Metoprolol Tartrate 25 Mg Tablet 25 MG PO BID (Reported) Montelukast Sodium 10 Mg Tablet 10 MG PO 1700 (Reported) Multivitamin 1 Each Tablet 1 TAB PO DAILY (Reported) Niacin/Inositol Niacinate 1 Each Capsule 1,000 MG PO 1700 (Reported) TAKES 2 (500MG) CAPSULES [place]-3 Fatty Acids/Fish Oil 1 Each Capsule 1,000 MG PO TID (Reported) Pantoprazole Sodium 40 Mg Tablet.dr 40 MG PO BID (Reported) Polyethylene Glycol 3350 17 Gm Powd.pack 17 GM PO DAILY (Reported) Prednisone 5 Mg Tablet 10 MG PO DAILY (Reported) TAKES 2 (5MG) TABLETS Tramadol Hcl 50 Mg Tab 50 MG PO TID PRN PRN PAIN (Reported) Vit A/Vit C/Vit E/Zinc/Copper 1 Each Tablet 1 TAB PO 1700 (Reported) Warfarin Sodium 5 Mg Tablet 5 MG PO HS (Reported) Zoledronate 5 Mg/100 Ml Btl 5 MG IV ONCE A YEAR (Reported) Past Cutlkis-Swdxqx-Hqxeof Hx Patient Social History Marrital Status: Employed/Student: employed Alcohol Use: Denies Use Recreational Drug Use: No Smoking Status: Never a Smoker Type Used: Cigarettes Physical Abuse Screen: No Sexual Abuse: No Recent Foreign Travel: No Contact w/other who traveled: No Recent Hopitalizations: No Recent Infectious Disease Expo: No Immunizations Up To Date Tetanus Booster (TDap): Less than 5yrs Date of Influenza Vaccine: Nov 30, 2015 Seasonal Allergies Seasonal Allergies: Yes Surgeries HX Surgeries: No (BILAT CATARACTS, EYELID SX (TEAR DUCTS), BIG TOENAILS, CYST REMOVED, KYPHO) Surgeries: Gallbladder, Hysterectomy Respiratory Hx Respiratory Disorders: No (POSS COPD OR ASTHMA, STATES NO LONGER NEEDS MEDS , CPAP) Cardiovascular Hx Cardiovascular Disorders: Yes (VENOUS INSUFFICIENCY IN LEGS, CHF) Cardiac Disorders: High Cholesterol, Hypertension Neurological Hx Neurological Disorders: Yes (RAYNAUDS) Reproductive System Hx Reproductive Disorders: No Sexually Transmitted Disease: No HIV/AIDS: No Female Reproductive Disorders: Denies Genitourinary Hx Genitourinary Disorders: Yes (RENAL INSUFFICIENCY (HAS IMPROVED)) Gastrointestinal Hx Gastrointestinal Disorders: Yes (HX ESOPHAGEAL ULCERS) Gastrointestinal Disorders: Gastroesophageal Reflux, Chronic Constipation, Ulcer Musculoskeletal Hx Musculoskeletal Disorders: Yes (PELVIS FX x6 DUE TO OSTEOPOROSIS, SPINAL STENOSIS, OSTEOSCLEROSIS, BURSITIS) Musculoskeletal Disorders: Osteoporosis, Arthritis, Chronic Back Pain Endocrine Hx Endocrine Disorders: Yes Endocrine Disorders: Hypothyroidsim, Lupus HEENT HX ENT Disorders: Yes (BILAT CATARACT SX, GLASSES) HEENT Disorders: Cataract Loss of Vision: Bilateral Hearing Impairment: Denies Cancer Hx Cancer: No Psychosocial Hx Psychiatric Problems: No Integumentary HX Skin/Integumentary Disorder: Yes (STAGE III ULCER ON BUTTOCKS) Blood Transfusions Hx Blood Disorders: Yes (FACTOR V LEIDEN, 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, HOMOCYSTEINE HIGH) Adverse Reaction to a Blood Tr: No (HAS HAD BLOOD WITH NO REACTION) Family Medical History Family Hx: Cancer 19 FATHER, Onset:60 years & older Cardiovascular disease 19 MOTHER Family history: Cardiovascular disease 19 MOTHER, Onset:60 years & older Family history: Glaucoma 19 FATHER, Onset:40's - 50 Family history: Hypertension 19 MOTHER, Onset:60 years & older Family history: Thyroid disorder 19 MOTHER, Onset:50's - 60 Myocardial infarction 19 MOTHER, Onset:60 years & older Constitutional: dizziness EENTM: no symptoms reported Respiratory: no symptoms reported Cardiovascular: other Gastrointestinal: LUQ abdominal pain (LUQ) Genitourinary: no symptoms reported Skin: see HPI Psychiatric/Neurological: No Symptoms Reported Physical Exam Vital Signs Vital Sign - Last 12Hours Capillary Refill : General Appearance: Anxious HEENT: PERRL/EOMI Neck: Normal Inspection Respiratory: Lungs Clear Cardiovascular: Tachycardia Comments large hematoma over the left upper quadrant in relation to the 5 mm trocar site. Rest of the abdomen is unremarkable Assessment/Plan Assessment and Plan lady with a postoperative hematoma the abdominal wall involving the left upper quadrant. Most likely muscular hematoma. Due to hypotension, reasonable to explore Admission Diagnosis postoperatively hematoma of the abdominal wall Clinical Quality Measures DVT/VTE Risk/Contraindication: Risk Factor Score Per Nursin RFS Level Per Nursing on Admit: 4+=Very High ZAFAR RAMON MD Apr 11, 2016 5:37 pm
--- NOTE | 2016-04-11 17:37 | Progress Note-Pre Operative ---
Pre-Operative Progress Note H&P Reviewed The H&P was reviewed, patient examined and no changes noted. Date H&P Reviewed: Apr 11, 2016 Time H&P Reviewed: 17:37 Pre-Operative Diagnosis: ppostoperative hematoma of abdominal wall ZAFAR RAMON MD Apr 11, 2016 5:37 pm
[2016-04-11] MEDS ORDERED: CLINDAMYCIN 600 MG/4ML (CLEOCIN) VIAL IV ONE (17:45)
[2016-04-11] MEDS ORDERED: morphine INJ 10 MG/ML 1ML (SYR OR VIAL) ONE (17:47)
[2016-04-11] MEDS ORDERED: PHENYLEPHRINE INJ 10 MG/ML (NEO-SYNEPHRINE 1%) ONE (17:48)
[2016-04-11] MEDS ORDERED: GLYCOPYRROLATE 0.2 MG/ML (ROBINUL) 2 ML VIAL ONE (17:48)
[2016-04-11] MEDS ORDERED: PHENYLEPHRINE 100 MCG/ML 10 ML (ANESTHESIA) SYR ONE (17:48)
[2016-04-11] MEDS ORDERED: NS (IVPB) 0 ML ONE ×2 (17:48)
[2016-04-11] MEDS ORDERED: NEOSTIGMINE (BLOXIVERZ ) 1 MG/1ML 10 ML VIAL ONE (17:48)
[2016-04-11] MEDS ORDERED: SEVOFLURANE (ULTANE) 15 ML INHAL SOLN ONE (17:49)
[2016-04-11] MEDS ORDERED: SUCCINYLCHOLINE INJ 100 MG/5 ML SYR ONE (17:49)
[2016-04-11] MEDS ORDERED: NS (IVPB) 100 ML ONE ×2 (17:50)
[2016-04-11] MEDS: LACTATED RINGERS 1,000 ML IV SCH (17:53)
--- NOTE | 2016-04-11 17:55 | Progress Note-Post Operative ---
Post-Operative Progess Note Pre-Operative Diagnosis ppostoperative hematoma of abdominal wall Post-Operative Diagnosis same Post-Op Procedure Note Date of Procedure: Apr 11, 2016 Name of Procedure: incision and drainage of abdominal wall hematoma Anesthesia Type Gen. Estimated blood loss (mL): 550 mL of hematoma ZAFAR RAMON MD Apr 11, 2016 5:55 pm
[2016-04-11] MEDS ORDERED: SUGAMMADEX IV ONE (17:57)
[2016-04-11] MEDS ORDERED: ONDANSETRON 4 MG/2 ML (SDV) Z0FRAN IV PRN (18:15)
[2016-04-11] MEDS: morphine INJ 10 MG/ML 1ML (SYR OR VIAL) IV PRN ×2 (18:18→18:26)
[2016-04-11] MEDS: LEVOTHYROXINE 88 MCG (LEVOTHORID) TAB PO SCH (23:01)
[2016-04-11] MEDS ORDERED: ACETAMINOPHEN 500 MG TAB (TYLENOL) PO PRN (23:15)
[2016-04-12] VITALS (12 sets, daily range): BP systolic 106–136; BP diastolic 52–60
[2016-04-12] MEDS: LACTATED RINGERS 1,000 ML IV SCH ×3 (01:30→15:27)
[2016-04-12] MEDS: CLINDAMYCIN 600 MG/50 ML IVPB 50 ML IV SCH ×2 (01:30→10:52)
[2016-04-12 08:06] LABS: BASOPHILS % (AUTO) 0 % (0-10); EOSINOPHILS % (AUTO) 0 % (0-10); LYMPHOCYTES # (AUTO) 2.4 X 10^3 (1.0-4.0); LYMPHOCYTES % (AUTO) 19 % (12-44); MEAN CORPUSCULAR HEMOGLOBIN 33 PG (25-34); MEAN CORPUSCULAR HGB CONC 33 G/DL (32-36); MEAN CORPUSCULAR VOLUME 101 FL (80-99); MEAN PLATELET VOLUME 9.8 FL (7.4-10.4); MONOCYTES # (AUTO) 1.3 X 10^3 (0.0-1.0); MONOCYTES % (AUTO) 10 % (0-12); NEUTROPHILS # (AUTO) 9.3 X 10^3 (1.8-7.8); NEUTROPHILS % (AUTO) 71 % (42-75); PLATELET COUNT 288 10^3/uL (130-400); RED BLOOD COUNT 2.34 10^6/uL (4.35-5.85); RED CELL DISTRIBUTION WIDTH 13.6 % (10.0-14.5); WHITE BLOOD COUNT 13.1 10^3/uL (4.3-11.0)
[2016-04-12] MEDS ORDERED: NS IV 500 ML 500 ML ONE (08:35)
[2016-04-12] MEDS: ATORVASTATIN 20 MG (LIPITOR) TABLET PO SCH (08:37)
[2016-04-12] MEDS: LORATADINE (CLARITIN) 10 MG TAB PO SCH (08:37)
--- NOTE | 2016-04-12 12:34 | Anesthesia-General Post-Op ---
General Patient Condition Mental Status/LOC: Same as Preop Cardiovascular: Satisfactory Nausea/Vomiting: Absent Respiratory: Satisfactory Pain: Controlled Complications: Absent Post Op Complications Complications None Follow Up Care/Instructions Patient Instructions None needed. Anesthesia/Patient Condition Patient Condition Patient is doing well, no complaints, stable vital signs, no apparent adverse anesthesia problems. No complications reported per nursing. MOISES LEUNG CRNA Apr 12, 2016 12:34
--- NOTE | 2016-04-12 14:22 | Progress Note ---
Subjective Subjective/Events-last exam Pt seen and examined, states minimal LUQ pain. Still moderate amount of drainage looks like just blood. Tolerating diet. Review of Systems General: No Chills, No Night Sweats HEENT: No Head Aches, No Visual Changes Pulmonary: No Dyspnea, No Cough Cardiovascular: No: Chest Pain, Palpitations Gastrointestinal: : Abdominal PainNo: Nausea, Vomiting Objective Exam Vital Signs Date Time Temp Pulse Resp B/P Pulse Ox O2 Delivery O2 Flow Rate FiO2 04/12/16 12:40 98.1 94 18 117/54 97 04/12/16 12:22 98.7 93 20 119/57 97 04/12/16 12:19 98.7 93 20 119/57 97 04/12/16 12:00 98.7 115 18 115/59 96 Room Air 04/12/16 09:56 98.4 115 20 110/57 95 04/12/16 09:47 Room Air 04/12/16 09:32 98.5 117 18 109/52 96 04/12/16 08:00 98.4 126 18 127/56 96 Room Air 04/12/16 04:00 98.5 99 18 122/56 94 NIV/CPAP 04/12/16 00:00 97.5 99 18 106/53 96 NIV/CPAP 04/11/16 21:40 94 18 93/64 04/11/16 21:10 Room Air 04/11/16 20:17 92 20 82/53 95 Room Air 04/11/16 19:00 98.0 101 20 93/61 95 Room Air 04/11/16 16:59 113 97/51 97 04/11/16 16:24 98.4 100 30 84/48 96 Room Air 04/11/16 15:13 118 95/58 04/11/16 15:03 121 30 75/46 04/11/16 14:59 113 97 Room Air 04/11/16 14:55 119 30 92/66 98 Room Air 04/11/16 14:45 Room Air 04/11/16 14:30 99.2 116 18 129/74 97 Room Air I & O 04/12/16 07:00 Intake Total 25 ml Output Total 645 ml Balance -620 ml Capillary Refill : General Appearance: No Apparent Distress WD/WN Anxious HEENT: PERRL/EOMI Pharynx Normal Neck: Normal Inspection Supple Respiratory: Lungs Clear No Accessory Muscle Use Cardiovascular: Tachycardia Gastrointestinal: normal bowel sounds soft other (FRANK drain looks like blood, large hematoma on left side wall, outlined today) Neurologic/Psychiatric: Alert Oriented x3 Results Lab Laboratory Tests 04/11/16 15:17: Glucometer 211H 04/11/16 16:47: Activated Partial Thromboplast Time 26, INR Comment 1.2, Prothrombin Time 15.3H 04/11/16 17:40: Hematocrit 28L, Hemoglobin 9.2#L 04/12/16 07:50: Hematocrit 24L, Hemoglobin 7.8L, Basophils # (Auto) 0.0, Basophils (%) (Auto) 0 , Eosinophils # (Auto) 0.0, Eosinophils (%) (Auto) 0, Lymphocytes # (Auto) 2.4, Lymphocytes (%) (Auto) 19, Mean Corpuscular Hemoglobin 33, Mean Corpuscular Hemoglobin Concent 33, Mean Corpuscular Volume 101H, Mean Platelet Volume 9.8, Monocytes # (Auto) 1.3H, Monocytes (%) (Auto) 10, Neutrophils # (Auto) 9.3H, Neutrophils (%) (Auto) 71, Platelet Count 288, Red Blood Count 2.34L, Red Cell Distribution Width 13.6, White Blood Count 13.1H Assessment/Plan Assessment/Plan Assessment/Plan S/P Lap Roma with subsequent bleeding from port site - monitor output, pt's vitals are stable, ? try to hold pressure at this area. Anemia-- Dr. Yu ordered 2 units, output in drain is 70ml over past 8 hours , recheck Hg in am Clinical Quality Measures DVT/VTE Risk/Contraindication: Risk Factor Score Per Nursin RFS Level Per Nursing on Admit: 4+=Very High ASHLEE BOWLES DO Apr 12, 2016 14:22
[2016-04-12] MEDS: LEVOTHYROXINE 88 MCG (LEVOTHORID) TAB PO SCH (20:25)
[2016-04-13] VITALS: BP 129/70
[2016-04-13 06:57] LABS: BASOPHILS % (AUTO) 0 % (0-10); EOSINOPHILS # (AUTO) 0.2 10^3/uL (0.0-0.3); EOSINOPHILS % (AUTO) 2 % (0-10); LYMPHOCYTES # (AUTO) 3.7 X 10^3 (1.0-4.0); LYMPHOCYTES % (AUTO) 36 % (12-44); MEAN CORPUSCULAR HEMOGLOBIN 32 PG (25-34); MEAN CORPUSCULAR HGB CONC 34 G/DL (32-36); MEAN CORPUSCULAR VOLUME 94 FL (80-99); MEAN PLATELET VOLUME 9.5 FL (7.4-10.4); MONOCYTES # (AUTO) 0.9 X 10^3 (0.0-1.0); MONOCYTES % (AUTO) 9 % (0-12); NEUTROPHILS # (AUTO) 5.3 X 10^3 (1.8-7.8); NEUTROPHILS % (AUTO) 53 % (42-75); PLATELET COUNT 187 10^3/uL (130-400); RED BLOOD COUNT 3.01 10^6/uL (4.35-5.85); RED CELL DISTRIBUTION WIDTH 18.7 % (10.0-14.5); WHITE BLOOD COUNT 10.1 10^3/uL (4.3-11.0)
[2016-04-13 08:00] VITALS: BP 170/77
[2016-04-13] MEDS: LACTATED RINGERS 1,000 ML IV SCH ×2 (08:15→14:29)
[2016-04-13] MEDS: LORATADINE (CLARITIN) 10 MG TAB PO SCH (08:57)
[2016-04-13] MEDS: ATORVASTATIN 20 MG (LIPITOR) TABLET PO SCH (08:57)
--- NOTE | 2016-04-13 10:21 | Progress Note-Standard ---
Standard Progress Note Progress Notes/Assess & Plan Progress/Assessment & Plan Anesthesia Note ([id number]) Called for IV start. 20 G Lt wrist. Flushed with ease. Secured with tegaderm. Pt tolerated well, will be available if needed. CORNELIO ALMODOVAR DO Apr 13, 2016 10:21
[2016-04-13 12:00] VITALS: BP 145/71
[2016-04-13 14:47] VITALS: BP 137/59
[2016-04-13 16:00] VITALS: BP 139/64
--- NOTE | 2016-04-13 17:16 | Progress Note ---
Subjective Subjective/Events-last exam Pt seen and examined, she states she feels better than yesterday. Tolerating diet, + flatus, finally had BM. She states her heart has been racing and she is worried because she had not taken her prednisone for her lupus. She denies abdominal pain, but thinks the bruise is bigger and still has "blood in drain". Review of Systems General: No Chills, No Night Sweats HEENT: No Head Aches, No Visual Changes Pulmonary: No Dyspnea, No Cough Cardiovascular: : Other (heart is "racing")No: Chest Pain Gastrointestinal: : Abdominal Pain (very minimal)No: Nausea, Vomiting Neurological: : Numbness: Weakness Objective Exam Vital Signs Date Time Temp Pulse Resp B/P Pulse Ox O2 Delivery O2 Flow Rate FiO2 04/13/16 16:00 98.7 106 16 139/64 94 Room Air 04/13/16 14:47 98.0 103 18 137/59 97 Room Air 04/13/16 12:00 98.3 104 18 145/71 95 Room Air 04/13/16 09:00 Room Air 04/13/16 08:00 99.0 76 16 170/77 95 Room Air 04/13/16 04:30 98.9 04/13/16 00:00 99.7 88 18 129/70 97 Room Air 04/12/16 20:00 99.5 92 20 136/60 97 Room Air I & O 04/13/16 07:00 Intake Total 2760 ml Output Total 2865 ml Balance -105 ml Capillary Refill : General Appearance: No Apparent Distress WD/WN Anxious HEENT: PERRL/EOMI Pharynx Normal Neck: Normal Inspection Supple Respiratory: Lungs Clear No Accessory Muscle Use Cardiovascular: No Murmur Tachycardia Gastrointestinal: normal bowel sounds soft other (FRANK drain looks like blood, large hematoma on left side wall, has gone past outline today) Extremity: Normal Capillary Refill Non Tender No Calf Tenderness Neurologic/Psychiatric: Alert Oriented x3 Skin: Normal Color Warm/Dry Results Lab Laboratory Tests 04/13/16 06:30: Basophils # (Auto) 0.0, Basophils (%) (Auto) 0, Eosinophils # (Auto) 0.2, Eosinophils (%) (Auto) 2, Hematocrit 28L, Hemoglobin 9.5#L, Lymphocytes # (Auto ) 3.7, Lymphocytes (%) (Auto) 36, Mean Corpuscular Hemoglobin 32, Mean Corpuscular Hemoglobin Concent 34, Mean Corpuscular Volume 94, Mean Platelet Volume 9.5, Monocytes # (Auto) 0.9, Monocytes (%) (Auto) 9, Neutrophils # (Auto ) 5.3, Neutrophils (%) (Auto) 53, Platelet Count 187, Red Blood Count 3.01L, Red Cell Distribution Width 18.7H, White Blood Count 10.1 Assessment/Plan Assessment/Plan Assessment/Plan Hypertension and Tachycardia - will place patient back on Metoprolol Lupus - will restart Prednisone S/P Lap Roma with subsequent bleeding from port site - monitor output, pt's vitals are stable, ? try to hold pressure at this area. Anemia-- S/P 2 units of PRBC and Hg is remaining stable - recheck in am, output in drain is minimal but still looks like blood Clinical Quality Measures DVT/VTE Risk/Contraindication: Risk Factor Score Per Nursin RFS Level Per Nursing on Admit: 4+=Very High ASHLEE BOWLES DO Apr 13, 2016 17:16
[2016-04-13] MEDS ORDERED: predniSONE 10 MG TAB ONE (17:20)
[2016-04-13] MEDS: predniSONE 5 MG TAB PO SCH (17:27)
[2016-04-13 19:53] VITALS: BP 171/74
[2016-04-13] MEDS: LEVOTHYROXINE 88 MCG (LEVOTHORID) TAB PO SCH (21:07)
[2016-04-13] MEDS: meTOprolol TARTRATE 25 MG (LOPRESSOR) TABLET PO SCH (21:07)
[2016-04-14] VITALS: BP 180/73
[2016-04-14] MEDS: LACTATED RINGERS 1,000 ML IV SCH ×2 (00:26→08:55)
--- NOTE | 2016-04-14 03:53 | OPERATIVE REPORT ---
PROCEDURE PHYSICIAN: ZAFAR RAMON DATE OF PROCEDURE: 04/11/2016 PREOPERATIVE DIAGNOSIS: Postoperative abdominal wall hematoma, left upper quadrant of the abdomen. POSTOPERATIVE DIAGNOSIS: Postoperative abdominal wall hematoma, left upper quadrant of the abdomen. OPERATION: Incision and drainage of postop hematoma of the abdominal wall. SURGEON: Dr. Ramon. ANESTHESIA: General anesthesia. BLOOD LOSS: 550 mL of hematoma. FLUIDS: 1 liter of crystalloids. TYPE OF WOUND: Type I (clean wound). INDICATION FOR THE PROCEDURE: This lady underwent an uneventful robotic assisted cholecystomy this morning (04/11/2016). Her recovery was satisfactory and she was discharged as an outpatient. One hour following her arrival in the house, her reported a large swelling over the left upper quadrant. She was then brought back to the outpatient surgery and eventually admitted for observation. Postop hematoma of the abdominal wall was diagnosed and it was elected to observe her and achieve pain control. Due to hypotension and tachycardia, it was felt reasonable to bring her to surgery for exploration and possible evacuation of the hematoma. DESCRIPTION OF PROCEDURE: She was placed supine on the operative table and general anesthesia induced using an endotracheal tube. Clindamycin was administered intravenously as prophylaxis against wound infection. After adequate antiseptic preparation, the incision over the left upper quadrant was extended for about 3 cm. A hematoma containing 550 mL of old blood was found within the intermuscular plane along the left side of the abdomen. It was evacuated and the cavity irrigated with saline. There is no active bleeding encountered. A 15-Kyrgyz Darvin-Garcia drain was left in the hematoma cavity and secured with a 2-0 silk suture. The incision was then closed using 4-0 nylon in an interrupted fashion. A nonadherent dressing was applied. She tolerated the procedure reasonably well and was taken back to the nursing area in a stable condition. Job ID: [id number] Dictated Date: 04/11/2016 17:53:38 Animal Surgeon Date: 04/14/2016 03:48:13 / bear CADE
[2016-04-14 04:00] VITALS: BP 160/83
[2016-04-14 08:00] VITALS: BP 144/67
[2016-04-14] MEDS: ATORVASTATIN 20 MG (LIPITOR) TABLET PO SCH (08:53)
[2016-04-14] MEDS: predniSONE 5 MG TAB PO SCH (08:53)
[2016-04-14] MEDS: meTOprolol TARTRATE 25 MG (LOPRESSOR) TABLET PO SCH (08:53)
[2016-04-14] MEDS: LORATADINE (CLARITIN) 10 MG TAB PO SCH (08:53)
[2016-04-14 12:00] VITALS: BP 170/60
--- NOTE | 2016-04-14 12:36 | Progress Note-Standard ---
Standard Progress Note Progress Notes/Assess & Plan Progress/Assessment & Plan 04/14/16:hemodynamically stable. Last hemoglobin 9.5 g. Serosanguineous drainage from the FRANK. Ecchymosis over the left side of the abdomen. Could be discharged with instructions to monitor output from the FRANK drain. Due to her inherited regulation disorder, Lovenox would be used starting this evening. Final Diagnosis gallbladder polyp with chronic cholecystitis. Postoperative hematoma of the abdominal wall ZAFAR RAMON MD Apr 14, 2016 12:36 pm
[2016-04-14 13:10] VITALS: BP 144/67
--- OUTSIDE RECORDS SUMMARY | 2016-04-15 13:57 | XMS REPORT | Continuity of Care Document ---
Author Author [facility] Organization [facility] Address Unknown Phone Unavailable Care Team Providers Care Supervisor [place] Name Role Phone Charles Jesica PCP [phone] Source Comments Some departments are not documenting in the electronic medical record. If you do not see the information that you expected, contact Release of Information in the Health Information Management department at [phone] for further assistance in locating additional records.[facility] Active Allergies and Adverse Reactions [...] mutation, heterozygous ([facility]) 04/24/2014 Raynaud's disease 04/24/2014 Hypertension 04/24/2014 Hypothyroidism [...] Taken Blood Pressure 136/74 01/22/2015 1:32 PM MARKETING SENIOR RECRUITER Pulse 102 01/22/2015 1:32 PM MARKETING SENIOR RECRUITER Temperature 36.6 C (97.9 F) 01/22/2015 1:32 PM MARKETING SENIOR RECRUITER Respiratory Rate 20 01/22/2015 1:32 PM MARKETING SENIOR RECRUITER Height 1.654 m (5' 5.12") 01/22/2015 1:32 PM MARKETING SENIOR RECRUITER Weight 94.802 kg (209 lb) 01/22/2015 1:32 PM MARKETING SENIOR RECRUITER Body Mass Index 34.65 01/22/2015 1:32 PM MARKETING SENIOR RECRUITER Oxygen Saturation 95% 08/03/2014 10:09 AM CDT [...]
--- NOTE | 2016-04-21 11:07 | Physician Query ---
PQ-Further Specificity Admission/Discharge Admission Date: Apr 11, 2016 at 14:45 Discharge Date: Apr 14, 2016 at 13:10 The medical record reflects the following clinical scenario: History/Risk Factors: Postop hematoma abdominal wall. Bleeding from port site. Clinical Findings: WBC 12.1 on admit, 04/11 1330 down to 7.8 on 04/12 0750. Output in drain is 70 ml over past eight hrs. Treatment: transfused 2U PRBC's, I&D postop hematoma Question: Can you further specify the anemia per the clinical indicators above ? Please document below. 1. Anemia due to acute blood loss 2. Anemia due to chronic blood loss 3. Other, with explanation of the clinical findings. 4. Clinically undetermined, no explanation for the clinical findings. Can you specify per above: 1 Please remember a lack of response to the above will prompt a phone page by CDI/ coding staff. In responding to this query, please exercise your independent professional judgment. The purpose of this communication is to more accurately reflect the complexity of your patients condition. The fact that a question is asked does not imply that any particular answer is desired or expected. Thank you for your timely response to this clarification. Requestors name: Ranulfo THIS PHYSICIAN QUERY FORM IS A PERMANENT PART OF THE MEDICAL RECORD RANULFO PARKER Apr 21, 2016 11:07 ZAFAR RAMON MD Apr 21, 2016 11:59
--- NOTE | 2016-04-24 11:56 | DISCHARGE SUMMARY ---
DATE OF ADMISSION: 04/11 2016 DATE OF DISCHARGE: 04/14/2016 DIAGNOSIS: Postoperative abdominal wall hematoma. This lady underwent minimally invasive cholecystectomy using robotic assistance and was discharged home as an outpatient. About 4 hours following discharge, she returned with a hematoma over the abdominal wall, along the left side. Initially, it was observed. However, due to hypotension and acute anemia, the area was explored and the hematoma within the muscle layers evacuated. She has since made a reasonable recovery. Her anticoagulation was withheld in view of the bleeding. She required 2 units of blood transfusion and was able to maintain adequate hemoglobin levels. She will be followed up in my office in about 3 to 4 days. Job ID: [id number] Dictated Date: 04/23/2016 11:13:33 Site Leasing Agent Date: 04/24/2016 11:52:34/jaki CADE
== END 2016-04-14 13:10 | disposition home or self-care (01) | DRG 908 ==
LOC: SDC 12:21 → 4TH 14:45 → UNDOADMIN 04-12 21:21 → 4TH 04-12 21:21 → SDC 04-12 21:21 → 4TH 04-14 13:10 → SDC 04-14 13:10 → UNDODISIN 04-14 13:10 → EDSTATUS 04-15 13:47
PROVIDERS: ADMIT Surgery; ATTEND Surgery
PROC: 0W9F00Z Drainage of Abdominal Wall with Drainage Device, Open Approach (ICD-10-PCS; principal; 2016-04-11 17:23)
DX: M96.841 Postprocedural hematoma of a musculoskeletal structure following other procedure (principal); I95.9 Hypotension, unspecified; D62 Acute posthemorrhagic anemia; R00.0 Tachycardia, unspecified; I10 Essential (primary) hypertension; M32.9 Systemic lupus erythematosus, unspecified; M81.0 Age-related osteoporosis without current pathological fracture; E03.9 Hypothyroidism, unspecified; K21.9 Gastro-esophageal reflux disease without esophagitis
CPT/HCPCS: 36415; 82962; 85014; 85018; 85025; 85610; 85730; 86850; 86900; 86901; 86920; 88304; 94664

== ENCOUNTER → 2016-04-17 | Outpatient (CLI) | payer BC ==
[~2016-04-17] MED LIST changes: -CLINDAMYCIN 600 MG/50 ML IVPB 50 ML IV SCH; +FERR-84 PO
--- OUTSIDE RECORDS SUMMARY | 2016-04-17 13:34 | XMS REPORT | Continuity of Care Document ---
Author Author [facility] Organization [facility] Address Unknown Phone Unavailable Care Team Providers Care Land Law Examiner Name Role Phone Charles Jesica PCP [phone] Source Comments Some departments are not documenting in the electronic medical record. If you do not see the information that you expected, contact Release of Information in the Health Information Management department at [phone] for further assistance in locating additional records.[facility] [...] (HCC) 04/24/2014 Factor 5 Leiden mutation, heterozygous ([facility]) 04/24/2014 Raynaud's disease 04/24/2014 Hypertension [...] Taken Blood Pressure 136/74 01/22/2015 1:32 PM MOLD F[employer]ER [employer]LLS Pulse 102 01/22/2015 1:32 PM MOLD F[employer]ER [employer]LL[employer] Temperature 36.6 C (97.9 F) 01/22/2015 1:32 PM MOLD F[employer]ER [employer]LLS Respiratory Rate 20 01/22/2015 1:32 PM MOLD F[employer]ER [employer]LLS Height 1.654 m (5' 5.12") 01/22/2015 1:32 PM MOLD F[employer]ER [employer]LLS Weight 94.802 kg (209 lb) 01/22/2015 1:32 PM MOLD F[employer]ER [employer]LLS Body Mass Index 34.65 01/22/2015 1:32 PM MOLD F[employer]ER [employer]IC [employer]LLS Oxygen Saturation 95% 08/03/2014 10:09 AM CDT [...]
== END ==
LOC: LAB 13:29
PROVIDERS: ATTEND Surgery
DX: R53.83 Other fatigue (principal); Z98.890 Other specified postprocedural states
CPT/HCPCS: 36415; 85018

== ENCOUNTER 2016-04-29 08:49 | Outpatient (RCR) | payer BC ==
--- OUTSIDE RECORDS SUMMARY | 2016-03-04 08:48 | XMS REPORT | Continuity of Care Document ---
Author Author [facility] Organization [facility] Address Unknown Phone Unavailable Care Team Providers Care Tennis Instructor Name Role Phone Charles Jesica PCP [phone] Source Comments Some departments are not documenting in the electronic medical record. If you do not see the information that you expected, contact Release of Information in the Health Information Management department at [phone] for further assistance in locating additional records.[facility] Active Allergies and Adverse Reactions [...] mutation, heterozygous ([facility]) 04/24/2014 Raynaud's disease 04/24/2014 Hypertension 04/24/2014 Hypothyroidism [...] Taken Blood Pressure 136/74 01/22/2015 1:32 PM CASE WORK AIDE Pulse 102 01/22/2015 1:32 PM CASE WORK AIDE Temperature 36.6 C (97.9 F) 01/22/2015 1:32 PM CASE WORK AIDE Respiratory Rate 20 01/22/2015 1:32 PM CASE WORK AIDE Height 1.654 m (5' 5.12") 01/22/2015 1:32 PM CASE WORK AIDE Weight 94.802 kg (209 lb) 01/22/2015 1:32 PM CASE WORK AIDE Body Mass Index 34.65 01/22/2015 1:32 PM CASE WORK AIDE Oxygen Saturation 95% 08/03/2014 10:09 AM CDT [...]
== END 2016-04-29 16:00 | disposition home or self-care (01) ==
LOC: WOUNDCARE 08:49
PROVIDERS: ATTEND Surgery
DX: L72.3 Sebaceous cyst (principal); T81.31XA Disruption of external operation (surgical) wound, not elsewhere classified, initial encounter
CPT/HCPCS: 11042; 87070; 87075; 87205; 99212

== ENCOUNTER 2016-05-19 14:58 | Outpatient (RCR) | payer BC ==
--- OUTSIDE RECORDS SUMMARY | 2016-04-01 15:11 | XMS REPORT | Continuity of Care Document ---
Author Author [facility] Organization [facility] Address Unknown Phone Unavailable Care Team Providers Care Construction Site Crossing Guard Name Role Phone Charles Jesica PCP [phone] Source Comments Some departments are not documenting in the electronic medical record. If you do not see the information that you expected, contact Release of Information in the Health Information Management department at [phone] for further assistance in locating additional records.[facility] [...] (HCC) 04/24/2014 Factor 5 Leiden mutation, heterozygous ([facility]) 04/24/2014 Raynaud's disease 04/24/2014 Hypertension 04/24/2014 Hypothyroidism [...] Taken Blood Pressure 136/74 01/22/2015 1:32 PM COORDINATOR CARDIOPULMONARY SERVICES Pulse 102 01/22/2015 1:32 PM COORDINATOR CARDIOPULMONARY SERVICES Temperature 36.6 C (97.9 F) 01/22/2015 1:32 PM COORDINATOR CARDIOPULMONARY SERVICES Respiratory Rate 20 01/22/2015 1:32 PM COORDINATOR CARDIOPULMONARY SERVICES Height 1.654 m (5' 5.12") 01/22/2015 1:32 PM COORDINATOR CARDIOPULMONARY SERVICES Weight 94.802 kg (209 lb) 01/22/2015 1:32 PM COORDINATOR CARDIOPULMONARY SERVICES Body Mass Index 34.65 01/22/2015 1:32 PM COORDINATOR CARDIOPULMONARY SERVICES Oxygen Saturation 95% 08/03/2014 10:09 AM CDT [...]
== END 2016-06-17 | disposition home or self-care (01) ==
LOC: ONC 14:58
PROVIDERS: ATTEND Internal Medicine Hematology & Oncology
DX: D68.62 Lupus anticoagulant syndrome (principal); M32.10 Systemic lupus erythematosus, organ or system involvement unspecified; R76.9 Abnormal immunological finding in serum, unspecified; I42.8 Other cardiomyopathies; N18.9 Chronic kidney disease, unspecified; I12.9 Hypertensive chronic kidney disease with stage 1 through stage 4 chronic kidney disease, or unspecified chronic kidney disease; E03.9 Hypothyroidism, unspecified; I73.00 Raynaud's syndrome without gangrene; G47.33 Obstructive sleep apnea (adult) (pediatric); M81.0 Age-related osteoporosis without current pathological fracture; Z79.899 Other long term (current) drug therapy; Z79.01 Long term (current) use of anticoagulants
CPT/HCPCS: 99213

== ENCOUNTER 2016-09-10 14:59 | Outpatient (RCR) | payer BC | END 2016-10-01 | disposition home or self-care (01) | LOC: ONC 14:59 | PROVIDERS: ATTEND Internal Medicine Hematology & Oncology | DX: D68.62 Lupus anticoagulant syndrome (principal); M32.10 Systemic lupus erythematosus, organ or system involvement unspecified; R76.9 Abnormal immunological finding in serum, unspecified; I42.8 Other cardiomyopathies; N18.9 Chronic kidney disease, unspecified; I12.9 Hypertensive chronic kidney disease with stage 1 through stage 4 chronic kidney disease, or unspecified chronic kidney disease; E03.9 Hypothyroidism, unspecified; I73.00 Raynaud's syndrome without gangrene; G47.33 Obstructive sleep apnea (adult) (pediatric); M81.0 Age-related osteoporosis without current pathological fracture; Z79.899 Other long term (current) drug therapy; Z79.01 Long term (current) use of anticoagulants | CPT/HCPCS: 99213 ==

== ENCOUNTER 2017-02-10 10:57 | Outpatient (RCR) | payer MEDICARE, OTHER ==
[~2017-02-10 10:57] MED LIST changes: +ACHD5005 PO; -HYDR-3812 PO
== END 2017-03-11 | disposition home or self-care (01) ==
LOC: ONC 10:57
PROVIDERS: ATTEND Internal Medicine Hematology & Oncology
DX: D68.62 Lupus anticoagulant syndrome (principal); M32.10 Systemic lupus erythematosus, organ or system involvement unspecified; R76.9 Abnormal immunological finding in serum, unspecified; I42.8 Other cardiomyopathies; N18.9 Chronic kidney disease, unspecified; I12.9 Hypertensive chronic kidney disease with stage 1 through stage 4 chronic kidney disease, or unspecified chronic kidney disease; E03.9 Hypothyroidism, unspecified; I73.00 Raynaud's syndrome without gangrene; G47.33 Obstructive sleep apnea (adult) (pediatric); M81.0 Age-related osteoporosis without current pathological fracture; Z79.899 Other long term (current) drug therapy; Z79.01 Long term (current) use of anticoagulants
CPT/HCPCS: 99213

== ENCOUNTER → 2017-03-10 | Outpatient (CLI) | payer MEDICARE, OTHER | LOC: CARD 08:48 | PROVIDERS: ATTEND Internal Medicine Cardiovascular Disease | DX: I35.0 Nonrheumatic aortic (valve) stenosis (principal); I42.9 Cardiomyopathy, unspecified; I25.10 Atherosclerotic heart disease of native coronary artery without angina pectoris; R07.89 Other chest pain; I73.9 Peripheral vascular disease, unspecified | CPT/HCPCS: 93306 ==

== ENCOUNTER → 2017-03-30 | Outpatient (CLI) | payer MEDICARE, OTHER ==
--- NOTE | 2017-03-31 12:39 | Diagnostic Imaging Report ---
INDICATION: Digital mammogram bilateral screening. This study was compared to the prior exams of 02/01/16 and 02/06/15. At this time, there are no current complaints. The current study was also evaluated with a Computer Aided Detection (CAD) system. FINDINGS: There are scattered fibroglandular densities in both breasts which could obscure a lesion. Overall, there does not appear to have been any significant change when compared to the prior exam. No primary or secondary sign of malignancy is noted. IMPRESSION: There is no radiographic evidence for malignancy. ACR BI-RADS Category 1: Negative. Result letter will be mailed to the patient. Note: At least 10% of breast cancer is not imaged by mammography. Dictated by: Dictated on workstation # [id number]
== END ==
LOC: RAD 10:25
PROVIDERS: ATTEND Internal Medicine
DX: Z12.31 Encounter for screening mammogram for malignant neoplasm of breast (principal)
CPT/HCPCS: 77067

== ENCOUNTER 2017-04-14 10:25 | Outpatient (RCR) | payer MEDICARE, OTHER | END 2017-06-19 08:07 | disposition home or self-care (01) | LOC: ONC 10:25 | PROVIDERS: ATTEND Internal Medicine Hematology & Oncology | DX: D68.62 Lupus anticoagulant syndrome (principal); M32.10 Systemic lupus erythematosus, organ or system involvement unspecified; I42.8 Other cardiomyopathies; I12.9 Hypertensive chronic kidney disease with stage 1 through stage 4 chronic kidney disease, or unspecified chronic kidney disease; N18.3 Chronic kidney disease, stage 3 (moderate); E03.9 Hypothyroidism, unspecified; I73.00 Raynaud's syndrome without gangrene; G47.33 Obstructive sleep apnea (adult) (pediatric); M81.0 Age-related osteoporosis without current pathological fracture; M19.91 Primary osteoarthritis, unspecified site; I73.9 Peripheral vascular disease, unspecified; Z79.899 Other long term (current) drug therapy; Z79.01 Long term (current) use of anticoagulants | CPT/HCPCS: 99213 ==

== ENCOUNTER → 2017-05-12 | Outpatient (CLI) | payer MEDICARE, OTHER ==
--- NOTE | 2017-05-12 16:36 | Diagnostic Imaging Report ---
INDICATION: Left-sided rib pain. TECHNIQUE: A PA chest and three oblique views of the left ribs were obtained. FINDINGS: The lungs are clear. There is no effusion or pneumothorax. There are no displaced rib fractures seen. IMPRESSION: Negative left ribs and chest. Dictated by: Dictated on workstation # [id number]
== END ==
LOC: RAD 15:53
PROVIDERS: ATTEND Internal Medicine
DX: R07.81 Pleurodynia (principal)
CPT/HCPCS: 71101

== ENCOUNTER 2017-06-19 10:31 | Outpatient (RCR) | payer MEDICARE, OTHER | END 2017-09-17 10:56 | disposition home or self-care (01) | LOC: ONC 10:31 | PROVIDERS: ATTEND Internal Medicine Hematology & Oncology | DX: D68.62 Lupus anticoagulant syndrome (principal); M32.10 Systemic lupus erythematosus, organ or system involvement unspecified; I42.8 Other cardiomyopathies; I12.9 Hypertensive chronic kidney disease with stage 1 through stage 4 chronic kidney disease, or unspecified chronic kidney disease; N18.3 Chronic kidney disease, stage 3 (moderate); E03.9 Hypothyroidism, unspecified; I73.00 Raynaud's syndrome without gangrene; G47.33 Obstructive sleep apnea (adult) (pediatric); M81.0 Age-related osteoporosis without current pathological fracture; M19.91 Primary osteoarthritis, unspecified site; I73.9 Peripheral vascular disease, unspecified; Z79.899 Other long term (current) drug therapy; Z79.01 Long term (current) use of anticoagulants | CPT/HCPCS: 99213 ==

== ENCOUNTER → 2017-07-06 | Outpatient (CLI) | payer MEDICARE, OTHER ==
[~2017-07-06] MED LIST changes: +IOHEXOL 350 MG/ML 100 ML (OMNIPAQUE 350) VIAL IV ONE; +NS 250 ML (IVPB) BAG IV ONE
[2017-07-06 14:38] LABS: CREATININE SERUM 0.83 MG/DL (0.60-1.30)
--- NOTE | 2017-07-06 16:31 | Diagnostic Imaging Report ---
PROCEDURE: CT pelvis with contrast. TECHNIQUE: Oral and intravenous contrast were administered with pelvic CT performed. INDICATION: Right hip pain. COMPARISON: CT pelvis of 06/21/2007. FINDINGS: There are old nonunited fractures of the bilateral superior and inferior pubic rami. Each of these fractures show sclerosis of the margins without interosseous bridging. There is hypertrophic periosteal callus present which does not form a bridge across the fracture. The fractures are nondisplaced and have a fracture gap diastasis ranging from 2-4 mm. There is no acute or healing fracture in the proximal femurs. Hips are normal in alignment. No insufficiency fracture of the sacrum. Subchondral sclerosis of both SI joints is likely degenerative in nature. No free pelvic fluid. Sigmoid colon diverticulosis without diverticulitis. Urinary bladder is well distended without wall thickening. IMPRESSION: 1. 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 2. No acute or healing fractures. 3. Hips are normal in alignment without appreciable degenerative change. Dictated by: Dictated on workstation # [id number]
== END ==
LOC: RAD 14:04
PROVIDERS: ATTEND Nurse Practitioner Family
DX: M84.454K Pathological fracture, pelvis, subsequent encounter for fracture with nonunion (principal); M81.0 Age-related osteoporosis without current pathological fracture
CPT/HCPCS: 36415; 72193; 82565; 84520

== ENCOUNTER 2017-09-17 11:05 | Outpatient (RCR) | payer MEDICARE, OTHER ==
[~2017-09-17 11:05] MED LIST changes: -IOHEXOL 350 MG/ML 100 ML (OMNIPAQUE 350) VIAL IV ONE; -NS 250 ML (IVPB) BAG IV ONE
== END 2017-09-22 | disposition home or self-care (01) ==
LOC: ONC 11:05
PROVIDERS: ATTEND Internal Medicine Hematology & Oncology
DX: D68.62 Lupus anticoagulant syndrome (principal); M32.10 Systemic lupus erythematosus, organ or system involvement unspecified; I42.8 Other cardiomyopathies; I12.9 Hypertensive chronic kidney disease with stage 1 through stage 4 chronic kidney disease, or unspecified chronic kidney disease; N18.3 Chronic kidney disease, stage 3 (moderate); E03.9 Hypothyroidism, unspecified; I73.00 Raynaud's syndrome without gangrene; G47.33 Obstructive sleep apnea (adult) (pediatric); M81.0 Age-related osteoporosis without current pathological fracture; M19.91 Primary osteoarthritis, unspecified site; I73.9 Peripheral vascular disease, unspecified; Z79.899 Other long term (current) drug therapy; Z79.01 Long term (current) use of anticoagulants
CPT/HCPCS: 99213

== ENCOUNTER 2018-01-17 11:01 | Inpatient (IN) | payer MEDICARE, OTHER ==
[~2018-01-17] VITALS: Ht 167.6 cm; Wt 88.6 kg
[~2018-01-17 11:01] MED LIST changes: +ACET-168 PO; +AMLO5TAB7 PO; +ASPI-983 PO; +CALC-6 PO; +CYAN10006 PO; +ENOX40DI8 SC; +FLUT9.9S NS; +FOLI0.8T PO; +LEVO88TA54 PO; +LISI-552 PO; +MULT-35 PO; +OMG1KC PO; +POTA99TA21 PO; +WARF2.5T82 PO
--- NOTE | 2018-01-17 12:26 | Diagnostic Imaging Report ---
Portable chest Compared to prior study from 01/07/2018. Indication: Shortness of breath. Findings: There is minor atelectasis at the lung base which appears linear in morphology. No large effusion evident. Some obscuration of the left costophrenic angle is unchanged from prior examination and there was no effusion on recent CT abdomen and pelvis. Heart size appears stable. There is no pneumothorax. Central pulmonary vascularity appears appropriate. Impression: 1. Minimal linear atelectasis at the lung bases. The lungs otherwise appear clear. Dictated by: Dictated on workstation # [id number]
--- NOTE | 2018-01-17 13:16 | Diagnostic Imaging Report ---
PROCEDURE: US Venous Lower Ext Andrade. TECHNIQUE: Multiple real-time grayscale images were obtained over the lower extremities in various projections, bilaterally. Additional duplex Doppler and color Doppler images were also obtained. INDICATION: Shortness of breath. History of DVT. Recent surgery. COMPARISON: Venous Doppler ultrasound performed on 04/09/2012. FINDINGS: The visualized deep venous structures of bilateral lower extremities demonstrate normal compression, flow, and augmentation. IMPRESSION: No evidence of DVT in either lower extremity. Dictated by: Dictated on workstation # [id number]
[2018-01-17 13:25] LABS: BASOPHILS # (AUTO) 0.1 10^3/uL (0.0-0.1); BASOPHILS % (AUTO) 1 % (0-10); EOSINOPHILS # (AUTO) 0.2 10^3/uL (0.0-0.3); EOSINOPHILS % (AUTO) 2 % (0-10); HEMATOCRIT 39 % (35-52); HEMOGLOBIN 12.7 G/DL (11.5-16.0); LYMPHOCYTES % (AUTO) 20 % (12-44); MEAN CORPUSCULAR HEMOGLOBIN 34 PG (25-34); MEAN CORPUSCULAR HGB CONC 33 G/DL (32-36); MEAN CORPUSCULAR VOLUME 104 FL (80-99); MEAN PLATELET VOLUME 9.2 FL (7.4-10.4); MONOCYTES # (AUTO) 1.2 X 10^3 (0.0-1.0); MONOCYTES % (AUTO) 12 % (0-12); NEUTROPHILS # (AUTO) 6.7 X 10^3 (1.8-7.8); NEUTROPHILS % (AUTO) 66 % (42-75); PLATELET COUNT 522 10^3/uL (130-400); RED BLOOD COUNT 3.76 10^6/uL (4.35-5.85); RED CELL DISTRIBUTION WIDTH 15.3 % (10.0-14.5); WHITE BLOOD COUNT 10.2 10^3/uL (4.3-11.0)
[2018-01-17 13:54] LABS: INR 2.5 (0.8-1.4); PROTHROMBIN TIME PATIENT 26.8 SEC (12.2-14.7)
[2018-01-17 14:02] LABS: ALANINE AMINOTRANSFERASE 33 U/L (0-55); ALBUMIN 3.5 GM/DL (3.2-4.5); ALKALINE PHOSPHATASE 72 U/L (40-136); BILIRUBIN,TOTAL 0.7 MG/DL (0.1-1.0); BUN/CREATININE RATIO 11; CALCIUM 9.6 MG/DL (8.5-10.1); CARBON DIOXIDE 31 MMOL/L (21-32); CHLORIDE 94 MMOL/L (98-107); CREATININE SERUM 0.73 MG/DL (0.60-1.30); GFR ESTIMATED > 60; GLUCOSE 88 MG/DL (70-105); SODIUM 141 MMOL/L (135-145); TOTAL PROTEIN 6.3 GM/DL (6.4-8.2)
[2018-01-17 14:09] LABS: POTASSIUM 2.4 MMOL/L (3.6-5.0)
[2018-01-17 14:28] LABS: BILIRUBIN,URINE NEGATIVE (NEGATIVE); CLARITY,URINE SLIGHTLY CLOUDY; COLOR,URINE YELLOW; GLUCOSE, URINE (UA) NEGATIVE (NEGATIVE); KETONES,URINE 1+ (NEGATIVE); LEUKOCYTE ESTERASE ,URINE 3+ (NEGATIVE); NITRITE,URINE NEGATIVE (NEGATIVE); PH,URINE 8 (5-9); PROTEIN,URINE 2+ (NEGATIVE); UROBILINOGEN,URINE NORMAL (NORMAL)
[2018-01-17] MEDS ORDERED: POTASSIUM CL 10MEQ/50ML IVPB 50 ML IV ONE (14:30)
[2018-01-17 14:40] LABS: RBC,URINE RARE /HPF; WBC,URINE 50-100 /HPF
[2018-01-17 14:41] LABS: BACTERIA,URINE MODERATE /HPF
--- NOTE | 2018-01-17 15:09 | ED General ---
General Chief Complaint: Abdominal/GI Problems Stated Complaint: SWELLING AFTER INTESTINE REPAIR SURGERY Nursing Triage Note: PT PRESENTS TO ED WITH COMPLAINTS OF CONSTIPATION, BLOATING, SOA X 2 DAYS. PT REPORTS SHE HAD COLON RESECTION FOR PERF COLON ON 01/07/18. PT ALSO REPORTS R FOOT PAIN AND BILATERAL LEG SWELLING. Nursing Sepsis Screen: No Definite Risk Source of Information: Patient, Old Records Exam Limitations: No Limitations History of Present Illness Date Seen by Provider: Jan 17, 2018 Time Seen by Provider: 11:27 Initial Comments This 67-year-old woman presents to the emergency room with complaints of fatigue , dyspnea, and leg swelling after having surgery on January 07. She had a perforated diverticulitis and had a sigmoid colectomy. She has a history of factor V Leiden and is anticoagulated. She has been on Lovenox injections while bridging over with warfarin. Her last dose of Lovenox was last night. Patient states she is so fatigued she can hardly walk across the room or make it to the bathroom. She had some leg swelling over the past few days. She took 2 extra doses of Lasix, one on each of the last 2 days, which improved her swelling. Right leg is more swollen than the left. She has aching in her legs. She is afebrile. Allergies and Home Medications Allergies Coded Allergies: Penicillins (Verified Allergy, Intermediate, 04/02/15) pneumococcal vaccine (Verified Allergy, Unknown, 04/02/15) PT STATES FEVER IN THE ARM Home Medications Acetaminophen 500 Mg Tablet, 500 MG PO QID, (Reported) Amlodipine Besylate 5 Mg Tablet, 5 MG PO DAILY, (Reported) Aspirin 81 Mg Tablet.dr, 81 MG PO DAILY, (Reported) Atorvastatin Calcium 20 Mg Tablet, 20 MG PO 1800, (Reported) Bifidobacterium Infantis 4 Mg Capsule, 4 MG PO DAILY, (Reported) Calcium Carbonate/Vitamin D3 1 Each Tablet, 1 TAB PO 1200,1800, (Reported) Cetirizine HCl 10 Mg Tablet, 10 MG PO 1800, (Reported) Cyanocobalamin (Vitamin B-12) 1,000 Mcg Tablet, 1,000 MCG PO 1800, (Reported) Enoxaparin Sodium 40 Mg/0.4 Ml Syringe, 40 MG SC Q24H Prescribed by: MIKE CASANOVA on 01/11/18 1151 Ferrous Sulfate 325 Mg Tablet, 325 MG PO BID, (Reported) Fluticasone Propionate 9.9 Ml [place].susp, 2 SPRAY NS DAILY PRN for CONGESTION, ( Reported) Folic Acid 0.8 Mg Tablet, 2.4 MG PO DAILY, (Reported) Furosemide 40 Mg Tablet, 40 MG PO DAILY, (Reported) Levothyroxine Sodium 88 Mcg Tablet, 88 MCG PO HS, (Reported) Lisinopril 20 Mg Tablet, 20 MG PO BID, (Reported) Metoprolol Tartrate 25 Mg Tablet, 25 MG PO BID, (Reported) Montelukast Sodium 10 Mg Tablet, 10 MG PO HS, (Reported) Multivitamin 1 Each Tablet, 1 TAB PO DAILY, (Reported) Niacin (Inositol Niacinate) 500 Mg Capsule, 1,000 MG PO 1800, (Reported) Mutual 3 Polyunsat Fatty Acids 1,000 Mg Cap, 1,000 MG PO TID, (Reported) Pantoprazole Sodium 40 Mg Tablet.dr, 40 MG PO BID, (Reported) Potassium Gluconate 99 Mg Tablet, 99 MG PO DAILY, (Reported) Prednisone 5 Mg Tablet, 10 MG PO DAILY, (Reported) TAKES 2 (5MG) TABLETS Tramadol HCl 50 Mg Tablet, 50 MG PO 0800,1800,2200, (Reported) Vit A/Vit C/Vit E/Zinc/Copper 1 Each Tablet, 1 TAB PO 1700, (Reported) Warfarin Sodium 2.5 Mg Tablet, 2.5 MG PO 1800, (Reported) Zoledronate 5 Mg/100 Ml Btl, 5 MG IV ONCE A YEAR, (Reported) Patient Home Medication List Home Medication List Reviewed: Yes Review of Systems Review of Systems Constitutional: see HPI EENTM: no symptoms reported Respiratory: see HPI Cardiovascular: see HPI Gastrointestinal: see HPI Musculoskeletal: see HPI Skin: no symptoms reported Psychiatric/Neurological: No Symptoms Reported Hematologic/Lymphatic: No Symptoms Reported Past Lfcygti-Txpquo-Urpxix Hx Past Med/Social Hx: Reviewed and Corrections made Patient Social History Alcohol Use: Denies Use Recreational Drug Use: No Type Used: Cigarettes Former Smoker, Quit: Aug 05, 2002 Recent Foreign Travel: No Contact w/Someone Who Travel: No Recent Infectious Disease Expo: No Recent Hopitalizations: No Physical Abuse: No Sexual Abuse: No Mistreated: No Fear: No Immunizations Up To Date Tetanus Booster (TDap): Less than 5yrs Date of Influenza Vaccine: Nov 27, 2017 Seasonal Allergies Seasonal Allergies: Yes Past Medical History Surgeries: Yes Abdominal (sigmoid colon resection), Gallbladder, Hysterectomy Respiratory: Yes (POSS COPD OR ASTHMA, STATES NO LONGER NEEDS MEDS, CPAP) Asthma, Sleep Apnea, COPD Currently Using CPAP: Yes Cardiac: Yes (congestive heart failure) Cardiomyopathy, High Cholesterol, Hypertension Neurological: Yes (RAYNAUDS) Neuropathy Reproductive Disorders: No Female Reproductive Disorders: Denies Sexually Transmitted Disease: No HIV/AIDS: No Genitourinary: Yes (current UTI) Bladder Infection Gastrointestinal: Yes (ruptured diverticuli) Gastroesophageal Reflux, Chronic Constipation, Ulcer Musculoskeletal: Yes (hx broken pelvis) Osteoporosis, Arthritis, Chronic Back Pain, Fractures Endocrine: Yes (chronic prednisone use) Hypothyroidsim, Lupus HEENT: Yes Cataract Loss of Vision: Bilateral Hearing Impairment: Denies Cancer: Yes Melanoma Did You Recieve Any Treatments: Yes What Type of Treatment Did You: Surgical Intervention Psychosocial: No Integumentary: Yes (STAGE III ULCER ON BUTTOCKS, melanoma removed from nose) Blood Disorders: Yes (FACTOR V LEIDEN, 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, HOMOCYSTEINE HIGH) Adverse Reaction/Blood Tranf: No (HAS HAD BLOOD WITH NO REACTION) Family Medical History Reviewed Nursing Family Hx Cancer 19 FATHER, Onset:60 years & older Cardiovascular disease 19 MOTHER Family history: Cardiovascular disease 19 MOTHER, Onset:60 years & older Family history: Glaucoma 19 FATHER, Onset:40's - 50 Family history: Hypertension 19 MOTHER, Onset:60 years & older Family history: Thyroid disorder 19 MOTHER, Onset:50's - 60 Myocardial infarction 19 MOTHER, Onset:60 years & older Cancer, CAD Under 55 Years Old, Hypertension Physical Exam Vital Signs Vital Signs - First Documented 01/17/18 11:49 Temp 98.7 Pulse 98 Resp 18 B/P (MAP) 128/80 (96) Pulse Ox 92 Capillary Refill : Less Than 3 Seconds Height, Weight, BMI Height: 5'6.00" Weight: 191lbs. 8.0oz. 86.263387mt; 32.4 BMI Method:Stated General Appearance: WD/WN, Mild Distress HEENT: PERRL/EOMI, Normal ENT Inspection, Other (mucous membranes somewhat dry) Neck: Normal Inspection Respiratory: Lungs Clear, Normal Breath Sounds, No Accessory Muscle Use, No Respiratory Distress, Other (mild dyspnea) Cardiovascular: No Edema, No Murmur, Tachycardia Gastrointestinal: Normal Bowel Sounds, Non Tender, Soft Extremity: Calf Tenderness (mild bilaterally), Swelling (mild) Neurologic/Psychiatric: Alert, Oriented x3, No Motor/Sensory Deficits, Normal Mood/Affect, surgical resident II-XII Norm as Tested Skin: Normal Color, Warm/Dry Focused Exam Lactate Level 01/17/18 13:13: Lactic Acid Level 1.96 Lactic Acid Level Laboratory Tests Test 01/17/18 13:13 Lactic Acid Level 1.96 MMOL/L (0.50-2.00) Progress/Results/Core Measures Suspected Sepsis Recent Fever Within 48 Hours: No Infection Criteria Present: None New/Unexplained Altered Menta: No Sepsis Screen: No Definite Risk SIRS Temperature:98.7 Pulse: 98 Respiratory Rate: 18 Laboratory Tests 01/17/18 13:13: White Blood Count 10.2 Blood Pressure 128 /80 Mean: 96 01/17/18 13:13: Lactic Acid Level 1.96 Laboratory Tests 01/17/18 13:13: Creatinine 0.73, INR Comment 2.5H, Platelet Count 522H, Total Bilirubin 0.7 Results/Orders Lab Results Laboratory Tests Test 01/17/18 11:33 01/17/18 13:13 01/17/18 13:40 Range/Units B-Type Natriuretic Peptide 276.6 H <100.0 PG/ML White Blood Count 10.2 4.3-11.0 10^3/uL Red Blood Count 3.76 L 4.35-5.85 10^6/uL Hemoglobin 12.7 11.5-16.0 G/DL Hematocrit 39 35-52 % Mean Corpuscular Volume 104 H 80-99 FL Mean Corpuscular Hemoglobin 34 25-34 PG Mean Corpuscular Hemoglobin Concent 33 32-36 G/DL Red Cell Distribution Width 15.3 H 10.0-14.5 % Platelet Count 522 H 130-400 10^3/uL Mean Platelet Volume 9.2 7.4-10.4 FL Neutrophils (%) (Auto) 66 42-75 % Lymphocytes (%) (Auto) 20 12-44 % Monocytes (%) (Auto) 12 0-12 % Eosinophils (%) (Auto) 2 0-10 % Basophils (%) (Auto) 1 0-10 % Neutrophils # (Auto) 6.7 1.8-7.8 X 10^3 Lymphocytes # (Auto) 2.0 1.0-4.0 X 10^3 Monocytes # (Auto) 1.2 H 0.0-1.0 X 10^3 Eosinophils # (Auto) 0.2 0.0-0.3 10^3/uL Basophils # (Auto) 0.1 0.0-0.1 10^3/uL Prothrombin Time 26.8 H 12.2-14.7 SEC INR Comment 2.5 H 0.8-1.4 Activated Partial Thromboplast Time 40 H 24-35 SEC Sodium Level 141 135-145 MMOL/L Potassium Level 2.4 *L 3.6-5.0 MMOL/L Chloride Level 94 L 98-107 MMOL/L Carbon Dioxide Level 31 21-32 MMOL/L Anion Gap 16 H 5-14 MMOL/L Blood Urea Nitrogen 8 7-18 MG/DL Creatinine 0.73 0.60-1.30 MG/DL Estimat Glomerular Filtration Rate > 60 BUN/Creatinine Ratio 11 Glucose Level 88 70-105 MG/DL Lactic Acid Level 1.96 0.50-2.00 MMOL/L Calcium Level 9.6 8.5-10.1 MG/DL Corrected Calcium 10.0 8.5-10.1 MG/DL Magnesium Level 1.1 L 1.8-2.4 MG/DL Total Bilirubin 0.7 0.1-1.0 MG/DL Aspartate Amino Transf (AST/SGOT) 37 H 5-34 U/L Alanine Aminotransferase (ALT/SGPT) 33 0-55 U/L Alkaline Phosphatase 72 40-136 U/L C-Reactive Protein High Sensitivity 2.62 H 0.00-0.50 MG/DL Total Protein 6.3 L 6.4-8.2 GM/DL Albumin 3.5 3.2-4.5 GM/DL Urine Color YELLOW Urine Clarity SLIGHTLY CLOUDY Urine pH 8 5-9 Urine Specific Woodrow 1.010 L 1.016-1.022 Urine Protein 2+ H NEGATIVE Urine Glucose (UA) NEGATIVE NEGATIVE Urine Ketones 1+ H NEGATIVE Urine Nitrite NEGATIVE NEGATIVE Urine Bilirubin NEGATIVE NEGATIVE Urine Urobilinogen NORMAL NORMAL MG/DL Urine Leukocyte Esterase 3+ H NEGATIVE Urine RBC (Auto) 3+ H NEGATIVE Urine RBC RARE /HPF Urine WBC 50-100 H /HPF Urine Squamous Epithelial Cells 2-5 /HPF Urine Crystals NONE /LPF Urine Bacteria MODERATE H /HPF Urine Casts NONE /LPF Urine Mucus NEGATIVE /LPF Urine Culture Indicated YES My Orders Orders - JENNA PANDEY MD Cbc With Automated Diff (01/17/18 11:33) Comprehensive Metabolic Panel (01/17/18 11:33) Blood Culture (01/17/18 11:33) Sputum Culture (01/17/18 11:33) Urinalysis (01/17/18 11:33) Urine Culture (01/17/18 11:33) Protime With Inr (01/17/18 11:33) Partial Thromboplastin Time (01/17/18 11:33) Chest 1 View, Ap/Pa Only (01/17/18 11:33) Saline Lock/Iv-Start (01/17/18 11:33) Saline Lock/Iv-Start (01/17/18 11:33) Vital Signs Adult Sepsis Patie Q15M (01/17/18 11:33) O2 (01/17/18 11:33) Remove Rings In Anticipation O (01/17/18 11:33) Lactic Acid Analyzer (01/17/18 11:33) BNP (01/17/18 11:33) Hs C Reactive Protein (01/17/18 11:33) Ekg Tracing (01/17/18 11:33) Monitor-Rhythm Ecg Trace Only (01/17/18 11:33) Us Venous Lower Ext Toñito (01/17/18 12:23) Potassium Cl 10meq/50ml Ivpb (Kcl 10 Meq (01/17/18 14:30) Urine Culture (01/17/18 13:40) Magnesium (01/17/18 14:53) Cefepime Injection (Maxipime Injection) (01/17/18 15:15) Medications Given in ED Current Medications Medications Dose Ordered Sig/Elysia Route Start Time Stop Time Status Last Admin Dose Admin Potassium Chloride 50 ml @ 50 mls/hr ONCE ONCE IV 01/17/18 14:30 01/17/18 15:29 01/17/18 14:31 50 MLS/HR Vital Signs/I&O 01/17/18 11:49 Temp 98.7 Pulse 98 Resp 18 B/P (MAP) 128/80 (96) Pulse Ox 92 Capillary Refill : Less Than 3 Seconds Blood Pressure Mean: 96 Progress Note #1: Progress Note Patient was found to be severely hypokalemic with a potassium of 2.4. 10 mEq of potassium was infused in the ER. She was also found to have a urinary tract infection. Dr. Casanova requested an additional 80 mEq of potassium to run over 8 hours. She also requested magnesium 2 g to run over 2 hours. She selected cefepime as the initial antibiotic therapy. Cefepime 2 g IV was ordered to start in the ER. I requested recent urine culture results from [facility] Dr. Worthington was consulted at Dr. Casanova's request and presented to the ER to assess the patient. Progress Note #2: Time: 15:18 Progress Note Culture results were received [place] [facility]. On January 06 patient had a urine culture positive for pansensitive Escherichia coli. ECG Initial ECG Impression Date: Jan 17, 2018 Initial ECG Impression Time: 12:02 Initial ECG Rate: 98 Initial ECG Rhythm: Normal Sinus Comment Sinus rhythm with borderline tachycardia. No ST elevation or depression. No definite axis deviation. Normal intervals. Diagnostic Imaging Diagonstic Imaging: Xray Plain Films/CT/US/NM/MRI: chest Comments Chest x-ray viewed by me and report reviewed. See report below: NAME: JALIL VIDES [facility] REC#: [id number] PT STATUS: REG ER : 1950 PHYSICIAN: JENNA PANDEY MD ADMIT DATE: 01/17/18/ER Signed Date of Exam: 01/17/18 CHEST 1 VIEW, AP/PA ONLY Portable chest Compared to prior study from 01/07/2018. Indication: Shortness of breath. Findings: There is minor atelectasis at the lung base which appears linear in morphology. No large effusion evident. Some obscuration of the left costophrenic angle is unchanged from prior examination and there was no effusion on recent CT abdomen and pelvis. Heart size appears stable. There is no pneumothorax. Central pulmonary vascularity appears appropriate. Impression: 1. Minimal linear atelectasis at the lung bases. The lungs otherwise appear clear. Dictated by: Dictated on workstation # [id number] Dict: 01/17/18 1221 Trans: 01/17/18 1248 Interpreted by: EUGENE BRIONES MD Electronically signed by: EUGENE BRIONES MD 01/17/18 1248 Diagonstic Imaging: Ultrasound Plain Films/CT/US/NM/MRI: leg Comments NAME: JALIL VIDES [facility] REC#: [id number] PT STATUS: REG ER : 1950 PHYSICIAN: JENNA PANDEY MD ADMIT DATE: 01/17/18/ER Draft Date of Exam:01/17/18 US VENOUS LOWER EXT TOÑITO PROCEDURE: US Venous Lower Ext Toñito. TECHNIQUE: Multiple real-time grayscale images were obtained over the lower extremities in various projections, bilaterally. Additional duplex Doppler and color Doppler images were also obtained. INDICATION: Shortness of breath. History of DVT. Recent surgery. COMPARISON: Venous Doppler ultrasound performed on 04/09/2012. FINDINGS: The visualized deep venous structures of bilateral lower extremities demonstrate normal compression, flow, and augmentation. IMPRESSION: No evidence of DVT in either lower extremity. Dictated on workstation # [id number] Dict: 01/17/18 1312 Trans: 01/17/18 1316 [id number] Interpreted by: GARETH WHEAT DO Departure Communication (Admissions) Time/Spoke to Admitting Phy: 14:50 Dr. Casanova Time/Spoke to Consulting Phy: 15:10 Dr. Worthington on behalf of Dr. Koroma Impression Primary Impression: Hypokalemia Additional Impressions: Urinary tract infection Qualified Codes: N39.0 - Urinary tract infection, site not specified Dyspnea Qualified Codes: R06.00 - Dyspnea, unspecified Fatigue Qualified Codes: R53.83 - Other fatigue Disposition: ADMITTED INPATIENT Condition: Improved Admissions Decision to Admit Reason: Admit from ER (General) Decision to Admit/Date: Jan 17, 2018 Time/Decision to Admit Time: 14:15 Departure-Patient Inst. Referrals: MIKE CASANOVA DO (PCP/Family) Primary Care Physician JENNA PANDEY MD Jan 17, 2018 15:09
[2018-01-17] MEDS ORDERED: CEFEPIME INJECTION 2,000 MG in NS (IVPB) 50 ML IV ONE (15:15)
--- NOTE | 2018-01-17 15:30 | Consultation-Cardiology ---
HPI-Cardiology Cardiology Consultation: Date of Consultation 01/17/18 Date of Admission Attending Physician Admitting Physician Jesica Casanova DO Consulting Physician Samantha WORTHINGTON MD HPI: Time Seen by a Provider: 15:30 Chief Complaint: Shortness of breath This is a 67-year-old lady with history of congestive heart failure, atrial fibrillation. She presents with recent intestinal perforation requiring surgery. She presents with worsening shortness of breath and lower extremity swelling. She denies any chest pain, near-syncope, syncope, palpitation. Review of Systems-Cardiology Review of Systems Constitutional: As described under HPI; No As described under HPI, No no symptoms reported, No chills, No fever, No lightheadedness Eyes: No As described under HPI, No no symptoms reported, No blindness, No blurred vision, No contact lenses, No drainage, No decreased acuity, No foreign body sensation, No pain, No vision change Ears/Nose/Throat: No As described under HPI, No no symptoms reported, No chronic hearing loss, No ear discharge, No ear pain, No nasal drainage, No ulcerations Respiratory: No no symptoms reported; As described under HPI; No As described under HPI, No cough, No orthopnea; shortness of breath; No SOB with excertion Cardiovascular: No no symptoms reported; As described under HPI; No As described under HPI, No chest pain; edema; No irregular heart rate, No lightheadedness, No palpitations Gastrointestinal: No no symptoms reported, No As described under HPI, No abdomen distended, No abdominal pain, No blood streaked bowels, No constipation , No diarrhea, No nausea, No vomiting, No stool coloration changes Genitourinary: No As described under HPI, No burning, No dysuria, No discharge , No frequency, No flank pain, No hematuria, No urgency : Yes : No Musculoskeletal: No no symptoms reported, No As describe under HPI, No back pain, No gout, No joint pain, No joint swelling, No muscle pain, No muscle stiffness, No neck pain, No other Skin: No no symptoms reported, No As described under HPI, No change in color, No change in hair/nails, No dryness, No lesions, No lumps, No rash, No other, No skin related problems, No ulcerations, No rash on exposed areas, No ulcerations on exposed areas Psychiatric/Neurological: No anxiety, No depression, No seizure, No focal weakness, No syncope Hematologic: No bleeding abnormalities FWC-Frdpft-Lwybrz Hx Patient Social History Alcohol Use: Denies Use Recreational Drug Use: No Type Used: Cigarettes Recent Foreign Travel: No Recent Infectious Disease Expo: No Immunizations Up To Date Tetanus Booster (TDap): Less than 5yrs Date of Influenza Vaccine: Nov 27, 2017 Past Medical History PMH As described under Assessment. Family Medical History Family History: Cancer 19 FATHER, Onset:60 years & older Cardiovascular disease 19 MOTHER Family history: Cardiovascular disease 19 MOTHER, Onset:60 years & older Family history: Glaucoma 19 FATHER, Onset:40's - 50 Family history: Hypertension 19 MOTHER, Onset:60 years & older Family history: Thyroid disorder 19 MOTHER, Onset:50's - 60 Myocardial infarction 19 MOTHER, Onset:60 years & older Allergies and Home Medications Allergies Coded Allergies: Penicillins (Verified Allergy, Intermediate, 04/02/15) pneumococcal vaccine (Verified Allergy, Unknown, 04/02/15) PT STATES FEVER IN THE ARM Home Medications Acetaminophen 500 Mg Tablet, 500 MG PO QID, (Reported) Amlodipine Besylate 5 Mg Tablet, 5 MG PO DAILY, (Reported) Aspirin 81 Mg Tablet.dr, 81 MG PO DAILY, (Reported) Atorvastatin Calcium 20 Mg Tablet, 20 MG PO 1800, (Reported) Bifidobacterium Infantis 4 Mg Capsule, 4 MG PO DAILY, (Reported) Calcium Carbonate/Vitamin D3 1 Each Tablet, 1 TAB PO 1200,1800, (Reported) Cetirizine HCl 10 Mg Tablet, 10 MG PO 1800, (Reported) Cyanocobalamin (Vitamin B-12) 1,000 Mcg Tablet, 1,000 MCG PO 1800, (Reported) Enoxaparin Sodium 40 Mg/0.4 Ml Syringe, 40 MG SC Q24H Prescribed by: JESICA CASANOVA on 01/11/18 1151 Ferrous Sulfate 325 Mg Tablet, 325 MG PO BID, (Reported) Fluticasone Propionate 9.9 Ml [place].susp, 2 SPRAY NS DAILY PRN for CONGESTION, ( Reported) Folic Acid 0.8 Mg Tablet, 2.4 MG PO DAILY, (Reported) Furosemide 40 Mg Tablet, 40 MG PO DAILY, (Reported) Levothyroxine Sodium 88 Mcg Tablet, 88 MCG PO HS, (Reported) Lisinopril 20 Mg Tablet, 20 MG PO BID, (Reported) Metoprolol Tartrate 25 Mg Tablet, 25 MG PO BID, (Reported) Montelukast Sodium 10 Mg Tablet, 10 MG PO HS, (Reported) Multivitamin 1 Each Tablet, 1 TAB PO DAILY, (Reported) Niacin (Inositol Niacinate) 500 Mg Capsule, 1,000 MG PO 1800, (Reported) [place] 3 Polyunsat Fatty Acids 1,000 Mg Cap, 1,000 MG PO TID, (Reported) Pantoprazole Sodium 40 Mg Tablet.dr, 40 MG PO BID, (Reported) Potassium Gluconate 99 Mg Tablet, 99 MG PO DAILY, (Reported) Prednisone 5 Mg Tablet, 10 MG PO DAILY, (Reported) TAKES 2 (5MG) TABLETS Tramadol HCl 50 Mg Tablet, 50 MG PO 0800,1800,2200, (Reported) Vit A/Vit C/Vit E/Zinc/Copper 1 Each Tablet, 1 TAB PO 1700, (Reported) Warfarin Sodium 2.5 Mg Tablet, 2.5 MG PO 1800, (Reported) Zoledronate 5 Mg/100 Ml Btl, 5 MG IV ONCE A YEAR, (Reported) Patient Home Medication List Home Medication List Reviewed: Yes Physical Exam-Cardiology Physical Exam Vital Signs/I&O 01/17/18 01/17/18 01/17/18 01/17/18 11:49 16:13 16:20 16:30 Temp 98.7 98.3 Pulse 98 106 108 Resp 18 20 20 B/P (MAP) 128/80 (96) 147/88 (107) 158/74 (102) Pulse Ox 92 96 95 O2 Delivery Room Air Room Air 01/17/18 01/17/18 17:00 17:30 Temp 97.5 Pulse 106 108 Resp 20 B/P (MAP) 160/86 (110) Pulse Ox 96 94 O2 Delivery Room Air Capillary Refill : Less Than 3 Seconds Constitutional: appears stated age; No apparent distress; well-developed, well- nourished HEENT: PERRL; No normal ENT inspection, No TMs normal, No pharynx normal, No scleral icterus (R), No scleral icterus (L), No pale conjunctivae (R), No pale conjunctivae (L), No photophobia, No TM abnormal (R), No TM abnormal (L), No pharyngeal erythema, No tonsillar exudate, No other, No discharge, No EOMI; hearing is well preserved; No hard of hearing; oral hygience is good; No ulceration, No xanthelasmas are seen Neck: No non-tender, No full range of motion, No supple, No normal inspection, No carotid bruit, No limited range of motion, No lymphadenopathy (R), No lymphadenopathy (L), No tender lateral, No tender midline, No thyromegaly, No other; carotid pulses are 2 + bilaterally; No with good upstrokes Respiratory: No accessory muscle use, No respiratory distress, No chest tender , No chest expansion is symmetric; chest is bilaterally symmetric; No lungs clear to percussion; lungs clear to auscultation; No crackles, No rhonchi, No rales, No stridor, No wheezing, No pleural rub, No other Cardiovascular: irregularly irregular, S1 and S2 Gastrointestinal: No tender, No soft, No round, No distended, No pulsatile mass , No organomegaly, No guarding, No rebound, No tenderness, No hernia, No mass, No audible bowel sounds, No abnormal bowel sounds, No abdominal bruits, No spleenomegaly, No other Extremities: No normal range of motion, No non-tender, No normal inspection; pedal edema; No calf tenderness, No normal capillary refill, No pelvis stable, No calf tenderness, No inflammation, No pedal edema, No slow capillary refill; swelling; No other, No abrasion, No clubbing, No cyanosis, No ecchymosis, No laceration, No no lower extremity edema bilateral, No significant edema, No tenderness, No wound Neurologic/Psychiatric: no motor/sensory deficits, alert, normal mood/affect, oriented x 3, power is 5/5 both on sides Skin: No normal color, No warm/dry, No cyanosis, No cool, No diaphoresis, No damp, No ecchymosis, No jaundice, No mottled, No pallor, No rash, No tattoos/ piercings, No ulcerations, No rash on exposed areas, No ulcerations on exposed areas, No other Data Review Labs Laboratory Tests 01/17/18 11:33: B-Type Natriuretic Peptide 276.6H 01/17/18 13:13: White Blood Count 10.2, Red Blood Count 3.76L, Hemoglobin 12.7, Hematocrit 39, Mean Corpuscular Volume 104H, Mean Corpuscular Hemoglobin 34, Mean Corpuscular Hemoglobin Concent 33, Red Cell Distribution Width 15.3H, Platelet Count 522H, Mean Platelet Volume 9.2, Neutrophils (%) (Auto) 66, Lymphocytes (%) (Auto) 20, Monocytes (%) (Auto) 12, Eosinophils (%) (Auto) 2, Basophils (%) (Auto) 1, Neutrophils # (Auto) 6.7, Lymphocytes # (Auto) 2.0, Monocytes # (Auto) 1.2H, Eosinophils # (Auto) 0.2, Basophils # (Auto) 0.1, Prothrombin Time 26.8H, INR Comment 2.5H, Activated Partial Thromboplast Time 40H, Sodium Level 141, Potassium Level 2.4*L, Chloride Level 94L, Carbon Dioxide Level 31, Anion Gap 16H, Blood Urea Nitrogen 8, Creatinine 0.73, Estimat Glomerular Filtration Rate > 60, BUN/Creatinine Ratio 11, Glucose Level 88, Lactic Acid Level 1.96, Calcium Level 9.6, Corrected Calcium 10.0, Magnesium Level 1.1L, Total Bilirubin 0.7, Aspartate Amino Transf (AST/SGOT) 37H, Alanine Aminotransferase ( ALT/SGPT) 33, Alkaline Phosphatase 72, C-Reactive Protein High Sensitivity 2.62H , Total Protein 6.3L, Albumin 3.5 01/17/18 13:40: Urine Color YELLOW, Urine Clarity SLIGHTLY CLOUDY, Urine pH 8, Urine Specific [place] 1.010L, Urine Protein 2+H, Urine Glucose (UA) NEGATIVE, Urine Ketones 1+ H, Urine Nitrite NEGATIVE, Urine Bilirubin NEGATIVE, Urine Urobilinogen NORMAL, Urine Leukocyte Esterase 3+H, Urine RBC (Auto) 3+H, Urine RBC RARE, Urine WBC 50 -100H, Urine Squamous Epithelial Cells 2-5, Urine Crystals NONE, Urine Bacteria MODERATEH, Urine Casts NONE, Urine Mucus NEGATIVE, Urine Culture Indicated YES ECG Impression ECG Initial ECG Impression: Atrial Fibrillation A/P-Cardiology Assessment/Admission Diagnosis Shortness of breath, History of colonic perforation, Likely congestive heart failure, Persistent atrial fibrillation, UTI Plan Continue Lasix. Recommend echocardiogram. Likely acute diastolic congestive heart failure with elevated BNP. Normal oxygenation. Chest clear with no significant hypervolemia. Persistent atrial fibrillation: Continue beta rubi and warfarin. UTI: Defer to the primary team. Dr. Moore to take over cardiology care tomorrow. Thank you for your consultation. Please call me if you have any questions. Haris Worthington MD, FACP, FACC, FSCAI, FHRS, CCDS Interventional Cardiology Cardiac Electrophysiology Vascular Medicine and Endovascular Interventions Samantha WORTHINGTON MD Jan 17, 2018 3:30 pm
[2018-01-17] MEDS ORDERED: NS IV 1000 ML 1,000 ML ONE (16:20)
[2018-01-17] MEDS ORDERED: MAGNESIUM 1 GM/100 ML IVPB 200 ML IV ONE (16:21)
[2018-01-17 16:30] VITALS: BP 158/74
[2018-01-17 17:00] VITALS: BP 147/88
[2018-01-17] MEDS ORDERED: FLU QUADRIvalent (5+ YOA) 2018-2019 (AFLURIA) 0.5 ML IM ONE (17:00)
[2018-01-17] MEDS ORDERED: NS IV 1000 ML 1,000 ML IV SCH (17:00)
[2018-01-17] MEDS ORDERED: RT-ALBUTEROL/IPRATROPIUM 3 ML (DUONEB) VIAL INH PRN (17:15)
[2018-01-17 17:30] VITALS: BP 160/86
[2018-01-17] MEDS: MAGNESIUM 1 GM/D5W 100 ML IVPB IV SCH ×2 (17:33→17:34)
[2018-01-17] MEDS: POTASSIUM CL 10 MEQ/50 ML IVPB (PRE-MIX) IV SCH ×5 (17:34→22:30)
[2018-01-17] MEDS ORDERED: warFARin 3 MG (COUMADIN) TAB ONE (18:25)
[2018-01-17 18:30] VITALS: BP 134/63
[2018-01-17] MEDS ORDERED: warFARin 3 MG (COUMADIN) TAB PO ONE (18:30)
[2018-01-17] MEDS ORDERED: ONDANSETRON 4 MG/2 ML (SDV) Z0FRAN IVP PRN (18:30)
[2018-01-17] MEDS ORDERED: RX-TRAMADOL 50 MG (ULTRAM) TAB PPK#4 PO PRN (18:30)
[2018-01-17] MEDS ORDERED: fentaNYL INJECTION 100 MCG/2 ML AMP IVP PRN (18:30)
[2018-01-17] MEDS ORDERED: CALCIUM CARBONATE 500 MG (TUMS) TAB.CHEW PO PRN (18:30)
[2018-01-17] MEDS ORDERED: ALPRAZolam 0.25 MG (XANAX) TAB PO PRN (18:30)
[2018-01-17 19:30] VITALS: BP 136/60
[2018-01-17] MEDS: CEFEPIME 2 GM/NS 50 ML IVPB IV SCH ×2 (20:45)
[2018-01-18] VITALS (7 sets, daily range): BP systolic 113–195; BP diastolic 58–95
[2018-01-18] MEDS: POTASSIUM CL 10 MEQ/50 ML IVPB (PRE-MIX) IV SCH (00:01)
[2018-01-18] MEDS: ACETAMINOPHEN 500 MG TAB (TYLENOL) PO PRN ×2 (03:56→10:38)
[2018-01-18 06:06] LABS: BASOPHILS % (AUTO) 0 % (0-10); EOSINOPHILS # (AUTO) 0.2 10^3/uL (0.0-0.3); EOSINOPHILS % (AUTO) 2 % (0-10); HEMATOCRIT 38 % (35-52); HEMOGLOBIN 12.2 G/DL (11.5-16.0); LYMPHOCYTES # (AUTO) 1.6 X 10^3 (1.0-4.0); LYMPHOCYTES % (AUTO) 17 % (12-44); MEAN CORPUSCULAR HEMOGLOBIN 33 PG (25-34); MEAN CORPUSCULAR HGB CONC 32 G/DL (32-36); MEAN CORPUSCULAR VOLUME 103 FL (80-99); MEAN PLATELET VOLUME 9.3 FL (7.4-10.4); MONOCYTES # (AUTO) 1.2 X 10^3 (0.0-1.0); MONOCYTES % (AUTO) 13 % (0-12); NEUTROPHILS # (AUTO) 6.3 X 10^3 (1.8-7.8); NEUTROPHILS % (AUTO) 68 % (42-75); PLATELET COUNT 505 10^3/uL (130-400); RED BLOOD COUNT 3.65 10^6/uL (4.35-5.85); RED CELL DISTRIBUTION WIDTH 15.6 % (10.0-14.5); WHITE BLOOD COUNT 9.2 10^3/uL (4.3-11.0)
[2018-01-18 06:19] LABS: INR 2.2 (0.8-1.4); PROTHROMBIN TIME PATIENT 24.8 SEC (12.2-14.7)
[2018-01-18 06:32] LABS: BUN/CREATININE RATIO 8; CALCIUM 8.7 MG/DL (8.5-10.1); CARBON DIOXIDE 24 MMOL/L (21-32); CHLORIDE 101 MMOL/L (98-107); CREATININE SERUM 0.71 MG/DL (0.60-1.30); GFR ESTIMATED > 60; GLUCOSE 102 MG/DL (70-105); MAGNESIUM 1.5 MG/DL (1.8-2.4); POTASSIUM 2.9 MMOL/L (3.6-5.0); SODIUM 141 MMOL/L (135-145)
--- NOTE | 2018-01-18 08:47 | Cardiology Progress Note ---
Subjective Date Seen by Provider: Jan 18, 2018 Time Seen by Provider: 08:41 Subjective/Events-last exam Patient is sitting in chair. No new complaints. States dyspnea has improved. Denies any chest pain or dizziness. Focused Exam Lactate Level 01/17/18 13:13: Lactic Acid Level 1.96 Objective-Cardiology Exam Last Set of Vital Signs Vital Signs 01/18/18 01/18/18 04:00 07:00 Temp 99.7 Pulse 122 Resp 26 B/P (MAP) 175/85 (115) Pulse Ox 96 O2 Delivery Room Air Capillary Refill : Less Than 3 Seconds I&O Intake and Output 01/18/18 00:00 Intake Total 820 ml Output Total 300 ml Balance 520 ml Intake Oral 220 ml IV Total 600 ml Output Urine Total 300 ml Daily Weight Change No General: Alert, Oriented X3, Cooperative HEENT: Atraumatic, PERRLA Neck: Supple, No JVD, No Thyromegaly Lungs: Clear to Auscultation, Normal Air Movement Heart: Regular Rate, Normal S1, Normal S2, No Murmurs Abdomen: Normal Bowel Sounds, Soft, No Tenderness, No Hepatosplenomegaly, No Masses Extremities: No Clubbing, No Cyanosis, No Edema, Normal Pulses, No Tenderness/ Swelling Skin: No Rashes, No Breakdown, No Significant Lesion Neuro: Normal Gait, Normal Speech, Strength at 5/5 X4 Ext, Normal Tone, Sensation Intact Psych/Mental Status: Mental Status NL, Mood NL Results Lab Laboratory Tests 01/17/18 13:13 01/18/18 05:45 A/P-Cardiology Admission Diagnosis Dyspnea CHF Hypokalemia HTN Assessment/Plan Dyspnea, patient reports improvement. Continue to monitor. Congestive heart failure, last echocardiogram was done in February 2017 showing ejection fraction 60-65 percent, normal diastolic function, mild MR, PA 20-25 mmHg. Continue to diurese and continue to monitor. s/p colon perforation Hypokalemia- replace and continue to monitor. History of multiple cardiac catheterization done in 2004, 2013, 2014, showing moderate pulmonary hypertension and mild coronary artery disease nonobstructive disease, continue to monitor History of Moderate pulmonary hypertension, last evaluation showed PA pressure 20-25 mmHg Systemic lupus erythematous, antiphospholipid antibody syndrome, seen by stock cutter at [facility], no history of DVT, maintained on Coumadin. Has family history of DVT and factor V Leiden deficiency. Hypertension- controlled. Continue to monitor. Hyperlipidemia, continue to monitor as outpatient. Obesity, BMI is 31 Nonobstructive carotid artery stenosis per most recent carotid duplex done May 2016. Continue to monitor. Obstructive sleep apnea, COPD, followed and managed by Dr. Leeanne Ledesma, stopped smoking in July 2002. Encouraged to continue. Clinical Quality Measures DVT/VTE Risk/Contraindication: Risk Factor Score Per Nursin RFS Level Per Nursing on Admit: 4+=Very High WAYLON ZUÑIGA Jan 18, 2018 08:47
--- NOTE | 2018-01-18 09:28 | History & Physical-Hospitalist ---
JESICA CASANOVA DO 01/18/18 0928: History of Present Illness HPI/Chief Complaint CC: Dyspnea HPI: This is a 67yoWF clinic patient of mine who presented to the ER with dyspnea and severe weakness following an uncomplicated emergent partial colon resection following a perforated diverticula performed by DR Walsh. INR was 2.5 taking Lovenox and Coumadin once restarted at DC last week. Pt was found to have severe hypokalemia of 2.4 and edema in need of in-pt hospitalization. Source: patient, family, RN/MD Exam Limitations: no limitations Date Seen 01/18/18 Time Seen by a Provider: 09:00 Attending Physician Jesica Casanova DO PCP Jesica Casanova DO Referring Physician Date of Admission Jan 17, 2018 at 16:19 Home Medications & Allergies Home Medications Reviewed patient Home Medication Reconciliation performed by pharmacy medication reconciliations digital field service technician and/or nursing. Patients Allergies have been reviewed. Allergies Allergies Coded Allergies Penicillins (Verified Allergy, Intermediate, 04/02/15) pneumococcal vaccine (Verified Allergy, Unknown, 04/02/15) PT STATES FEVER IN THE ARM Past Nsqlyfw-[id number]-Inlxwa Hx Past Med/Social Hx: Reviewed Nursing Past Med/Soc Hx, Reviewed and Corrections made Patient Social History Marrital Status: Employed/Student: retired Alcohol Use: Denies Use Recreational Drug Use: No Smoking Status: Never a Smoker Former Smoker, Quit: Aug 06, 2002 Type Used: Cigarettes Physical Abuse Screen: No Sexual Abuse: No Recent Foreign Travel: No Contact w/other who traveled: No Recent Hopitalizations: No Recent Infectious Disease Expo: No Immunizations Up To Date Tetanus Booster (TDap): Less than 5yrs Pediatric: No Date of Influenza Vaccine: Nov 27, 2017 Seasonal Allergies Seasonal Allergies: Yes Past Medical History Surgeries: Abdominal (sigmoid colon resection), Gallbladder, Hysterectomy Respiratory: Pneumonia Currently Using CPAP: Yes Currently Using BIPAP: No Cardiac: Cardiomyopathy, High Cholesterol, Hypertension Neurological: Neuropathy Reproductive: No Sexually Transmitted Disease: No HIV/AIDS: No Female Reproductive Disorders: Denies Genitourinary: Bladder Infection Gastrointestinal: Gastroesophageal Reflux, Chronic Constipation, Ulcer Musculoskeletal: Osteoporosis, Arthritis, Chronic Back Pain, Fractures Endocrine: Hypothyroidsim, Lupus Are Your Blood Sugars Over 250: No HEENT: Cataract Loss of Vision: Bilateral Hearing Impairment: Denies Cancer: Melanoma Did You Recieve Any Treatments: Yes What Type of Treatment Did You: Surgical Intervention History of Blood Disorders: Yes (FACTOR V LEID[facility], 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, HOMOCYSTEINE HIGH) Adverse Reaction to Blood Dong: No (HAS HAD BLOOD WITH NO REACTION) Family History Reviewed Nursing Family Hx Cancer 19 FATHER, Onset:60 years & older Cardiovascular disease 19 MOTHER Family history: Cardiovascular disease 19 MOTHER, Onset:60 years & older Family history: Glaucoma 19 FATHER, Onset:40's - 50 Family history: Hypertension 19 MOTHER, Onset:60 years & older Family history: Thyroid disorder 19 MOTHER, Onset:50's - 60 Myocardial infarction 19 MOTHER, Onset:60 years & older Cancer, CAD Under 55 Years Old, Hypertension Review of Systems Constitutional: see HPI, weakness EENTM: no symptoms reported Respiratory: dyspnea on exertion, short of breath Cardiovascular: no symptoms reported Gastrointestinal: no symptoms reported Genitourinary: no symptoms reported Musculoskeletal: no symptoms reported Skin: no symptoms reported Psychiatric/Neurological: No Symptoms Reported All Other Systems Reviewed Negative Unless Noted: Yes Physical Exam Physical Exam Vital Signs Vital Signs - First Documented 01/17/18 01/17/18 11:49 16:20 Temp 98.7 Pulse 98 Resp 18 B/P (MAP) 128/80 (96) Pulse Ox 92 O2 Delivery Room Air Capillary Refill : Less Than 3 Seconds Height, Weight, BMI Height: 5'6.00" Weight: 195lbs. 4.0oz. [id number]; 31.5 BMI Method:Stated General Appearance: No Apparent Distress, WD/WN, Chronically ill Eyes: Bilateral Eye Normal Inspection, Bilateral Eye PERRL HEENT: PERRL/EOMI, Normal ENT Inspection, Pharynx Normal Neck: Full Range of Motion, Normal Inspection, Non Tender, Supple, Carotid Bruit Respiratory: Chest Non Tender, Lungs Clear, Normal Breath Sounds, No Accessory Muscle Use, No Respiratory Distress Cardiovascular: Regular Rate, Rhythm, No Edema, No Gallop, No JVD, No Murmur, Normal Peripheral Pulses Gastrointestinal: Normal Bowel Sounds, No Organomegaly, No Pulsatile Mass, Non Tender, Soft Back: Normal Inspection, No CVA Tenderness, No Vertebral Tenderness Extremity: Normal Capillary Refill, Normal Inspection, Normal Range of Motion, Non Tender, No Calf Tenderness, No Pedal Edema Neurologic/Psychiatric: Alert, Oriented x3, No Motor/Sensory Deficits, Normal Mood/Affect Skin: Normal Color, Warm/Dry Lymphatic: No Adenopathy Results Results/Procedures Labs Laboratory Tests 01/17/18 13:13 01/18/18 05:45 Patient resulted labs reviewed. Assessment/Plan Admission Diagnosis Assessment: Severe weakness following uncomplicated partial colon resection from diverticular perforation Severe hypokalemia Hypercoagulable state with therapeutic INR on admit taking both Lovenox and Coumadin at DC last week Elevated BNP HTN Plan: Potassium replacement with magnesium Monitor labs Admission Status: Inpatient Order (span 2 midnights) Reason for Inpatient Admission: Severe hypokalemia and weakness and edema will require 3 days of hospital stay Diagnosis/Problems Diagnosis/Problems (1) Weakness Status: Acute (2) Hypokalemia Status: Acute (3) Hypercoagulable state Status: Chronic (4) Elevated brain natriuretic peptide (BNP) level Status: Acute Clinical Quality Measures DVT/VTE Risk/Contraindication: Risk Factor Score Per Nursin RFS Level Per Nursing on Admit: 4+=Very High JENNA LLOYD MED STUDENT 01/18/18 1007: History of Present Illness HPI/Chief Complaint CC: Abdominal swelling HPI: The patient is a 67 y/o woman who present to [facility] ER with complaints of dyspnea, fatigue, and leg swelling after having surgery on January 07 for a perforated diverticulum that resulted in a sigmoid colectomy. The patient states that she is very fatigued and can hardly walk across the room or ambulate to the bathroom. She was found to be severely hypokalemic with a urinary tract infection. Potassium was given in the ER and she was admitted to the 4th floor for observation and continued potassium and antibiotic therapy. Home Medications & Allergies Home Medications Active Scripts Medications Dose Route/Sig Max Daily Dose Days Date Category Dose Instructions Enoxaparin Sodium 40 Mg/0.4 Ml Syringe 40 Mg SC Q24H 01/11/18 Rx Flonase Allergy Relief (Fluticasone Propionate) 9.9 Ml [place].susp 2 [place] NS DAILY PRN 01/08/18 Reported Vitamin B-12 (Cyanocobalamin (Vitamin B-12)) 1,000 Mcg Tablet 1,000 Mcg PO 1800 01/08/18 Reported Furosemide 40 Mg Tablet 40 Mg PO DAILY 01/08/18 Reported Potassium (Potassium Gluconate) 99 Mg Tablet 99 Mg PO DAILY 01/08/18 Reported Tramadol HCl 50 Mg Tablet 50 Mg PO 0800,1800,2200 01/08/18 Reported Montelukast Sodium 10 Mg Tablet 10 Mg PO HS 01/08/18 Reported Atorvastatin Calcium 20 Mg Tablet 20 Mg PO 1800 01/08/18 Reported Levothyroxine Sodium 88 Mcg Tablet 88 Mcg PO HS 01/08/18 Reported Lisinopril 20 Mg Tablet 20 Mg PO BID 01/08/18 Reported Amlodipine Besylate 5 Mg Tablet 5 Mg PO DAILY 01/08/18 Reported Warfarin Sodium 2.5 Mg Tablet 2.5 Mg PO 1800 01/08/18 Reported Folic Acid 0.8 Mg Tablet 2.4 Mg PO DAILY 01/08/18 Reported Aspirin EC (Aspirin) 81 Mg Tablet.dr 81 Mg PO DAILY 01/08/18 Reported Cetirizine HCl 10 Mg Tablet 10 Mg PO 1800 01/08/18 Reported Niacin 500 mg Capsule (Niacin (Inositol Niacinate)) 500 Mg Capsule 1,000 Mg PO 1800 01/08/18 Reported Calcium 600 + Vit D 200 Tablet (Calcium Carbonate/Vitamin D3) 1 Each Tablet 1 Tab PO 1200,1800 01/08/18 Reported Fish Oil 1,000 mg Capsule ([place] 3 Polyunsat Fatty Acids) 1,000 Mg Cap 1,000 Mg PO TID 01/08/18 Reported Acetaminophen Extra Strength (Acetaminophen) 500 Mg Tablet 500 Mg PO QID 01/08/18 Reported Daily Multiple Vitamin (Multivitamin) 1 Each Tablet 1 Tab PO DAILY 01/08/18 Reported Iron (Ferrous Sulfate) 325 Mg Tablet 325 Mg PO BID 04/11/16 Reported Align (Bifidobacterium Infantis) 4 Mg Capsule 4 Mg PO DAILY 04/11/16 Reported Prednisone 5 Mg Tablet 10 Mg PO DAILY 04/08/16 Reported TAKES 2 (5MG) TABLETS Reclast 5 mg/100 ml Solution (Zoledronate) 5 Mg/100 Ml Btl 5 Mg IV ONCE A YEAR 10/22/15 Reported Preservision Areds Tablet (Vit A/Vit C/Vit E/Zinc/Copper) 1 Each Tablet 1 Tab PO 1700 10/22/15 Reported Pantoprazole Sodium 40 Mg Tablet.dr 40 Mg PO BID 10/22/15 Reported Metoprolol Tartrate 25 Mg Tablet 25 Mg PO BID 10/22/15 Reported Past [id number]-Gkrcla-Qibcmo Hx Past Med/Social Hx: Reviewed Nursing Past Med/Soc Hx Family History Cancer 19 FATHER, Onset:60 years & older Cardiovascular disease 19 MOTHER Family history: Cardiovascular disease 19 MOTHER, Onset:60 years & older Family history: Glaucoma 19 FATHER, Onset:40's - 50 Family history: Hypertension 19 MOTHER, Onset:60 years & older Family history: Thyroid disorder 19 MOTHER, Onset:50's - 60 Myocardial infarction 19 MOTHER, Onset:60 years & older Review of Systems Constitutional: no symptoms reported EENTM: no symptoms reported Respiratory: dyspnea on exertion, short of breath Cardiovascular: no symptoms reported Gastrointestinal: no symptoms reported Genitourinary: no symptoms reported Musculoskeletal: no symptoms reported Skin: no symptoms reported Psychiatric/Neurological: No Symptoms Reported Physical Exam Physical Exam General Appearance: No Apparent Distress, WD/WN Respiratory: Chest Non Tender, Lungs Clear, Normal Breath Sounds, No Accessory Muscle Use, No Respiratory Distress Cardiovascular: Regular Rate, Rhythm, No Edema, No Gallop, No JVD, No Murmur Neurologic/Psychiatric: Alert, Oriented x3, No Motor/Sensory Deficits, Normal Mood/Affect Skin: Normal Color, Warm/Dry Results Results/Procedures Labs Assessment/Plan Assessment and Plan Assessment: 1) Hypokalemia 2) UTI Plan: 1) continue IV potassium infusion 2) continue broad spectrum abx JESICA CASANOVA DO Jan 18, 2018 09:28 JENNA LLOYD MED STUDENT Jan 18, 2018 10:07
[2018-01-18] MEDS ORDERED: NS IV 1000 ML 1,000 ML ONE (09:32)
[2018-01-18] MEDS: POTASSIUM CL 10MEQ/50ML IVPB 50 ML IV SCH ×8 (09:37→18:00)
[2018-01-18] MEDS: CEFEPIME 2 GM/NS 50 ML IVPB IV SCH ×4 (09:37→20:16)
[2018-01-18] MEDS: MAGNESIUM 1 GM/100 ML IVPB 100 ML IV SCH ×4 (09:38→12:56)
[2018-01-18] MEDS ORDERED: FUROSEMIDE 40 MG/4 ML INJ (LASIX) IVP NR (10:37)
--- NOTE | 2018-01-18 10:38 | Cardiology Progress Note ---
Subjective Date Seen by Provider: Jan 18, 2018 Time Seen by Provider: 10:34 Subjective/Events-last exam Patient is sitting in a chair, still having some dyspnea, mild pedal edema, events since admission reviewed Review of Systems General: No Chills, No Night Sweats, No Fatigue, No Malaise, No Appetite, No Other HEENT: No Head Aches, No Visual Changes, No Eye Pain, No Ear Pain, No Dysphasia , No Sinus Congestion, No Post Nasal Drip, No Sore Throat, No Other Pulmonary: Dyspnea; No Cough, No Pleuritic Chest Pain, No Other Cardiovascular: Edema; No: Chest Pain, Palpitations, Orthopnea, Paroxysmal Noc. Dyspnea, Lt Headedness, Other Focused Exam Lactate Level 01/17/18 13:13: Lactic Acid Level 1.96 Objective-Cardiology Exam Last Set of Vital Signs Vital Signs 01/18/18 08:00 Temp 98.7 Pulse 116 Resp 22 B/P (MAP) 195/95 (128) Pulse Ox 96 O2 Delivery Room Air Capillary Refill : Less Than 3 Seconds I&O Intake and Output 01/18/18 00:00 Intake Total 820 ml Output Total 300 ml Balance 520 ml Intake Oral 220 ml IV Total 600 ml Output Urine Total 300 ml Daily Weight Change No General: Alert, Oriented X3, Cooperative HEENT: Atraumatic, PERRLA Neck: Supple, No JVD, No Thyromegaly Lungs: Clear to Auscultation, Normal Air Movement Heart: Regular Rate, Normal S1, Normal S2, No Murmurs Abdomen: Normal Bowel Sounds, Soft, No Tenderness, No Hepatosplenomegaly, No Masses Extremities: No Clubbing, No Cyanosis, No Edema, Normal Pulses, No Tenderness/ Swelling Skin: No Rashes, No Breakdown, No Significant Lesion Neuro: Normal Gait, Normal Speech, Strength at 5/5 X4 Ext, Normal Tone, Sensation Intact Psych/Mental Status: Mental Status NL, Mood NL Results Lab Laboratory Tests 01/17/18 13:13 01/18/18 05:45 A/P-Cardiology Admission Diagnosis Dyspnea CHF Hypokalemia HTN Assessment/Plan Dyspnea, still having some shortness of breath, I will repeat BMP, give additional dose of Lasix and monitor closely. Hypokalemia, hypomagnesemia, receiving large amount of potassium and magnesium in addition to fluid, will give additional Lasix and monitor electrolytes closely. Congestive heart failure, last echocardiogram was done in February 2017 showing ejection fraction 60-65 percent, normal diastolic function, mild MR, PA 20-25 , mildly elevated BNP, repeat BMP tomorrow, reevaluate 2-D echocardiogram. S/p colon perforation, had surgical repair on 01/08/18, managed by Dr Walsh History of multiple cardiac catheterization done in 2004, 2013, 2014, showing moderate pulmonary hypertension and mild coronary artery disease nonobstructive disease, continue to monitor History of Moderate pulmonary hypertension, last PA pressure 20-25 mmHg, planning to repeat echocardiogram Obstructive sleep apnea, using C Pap. Managed by Dr. Fallon Systemic lupus erythematous, antiphospholipid antibody syndrome, seen by implementation project coordinator at [facility], strong family history of DVT, no history of DVT with the patient, maintained on Coumadin. Hypertension- controlled. Continue to monitor. Hyperlipidemia, continue to monitor as outpatient. Obesity, BMI is 31 Nonobstructive carotid artery stenosis per most recent carotid duplex done May 2016. Continue to monitor. Tobaccoism, stopped smoking in July 2002. Encouraged to continue. Clinical Quality Measures DVT/VTE Risk/Contraindication: Risk Factor Score Per Nursin RFS Level Per Nursing on Admit: 4+=Very High RADHA RANGEL MD Jan 18, 2018 10:38
--- NOTE | 2018-01-18 10:56 | Physical Therapy Evaluation ---
PT Evaluation-General Medical Diagnosis Admission Date Jan 17, 2018 at 16:19 Medical Diagnosis: Hypokalmeia, UTI, Fatigue Onset Date: Jan 17, 2018 Therapy Diagnosis Therapy Diagnosis: General weakness Height/Weight Height (Feet): 5 Height (Inches): 6.00 Weight (Pounds): 195 Weight (Ounces): 4.0 Precautions Precautions/Isolations: Fall Prevention, Standard Precautions Weight Bear Status Right Lower Extremity: Right Full Weight Bearing Left Lower Extremity: Left Full Weight Bearing Referral Physician: Jesica Love DO Reason for Referral: Evaluation/Treatment Medical History Pertinent Medical History: Arthritis, COPD, GERD, HTN, Hypothroidism Current History Pt reported to ER with C/O fatigue, dyspnea, and leg swelling after her surgery on 2017 Social History Home: Multilevel Current Living Status: Spouse Entry Into Home: Stairs With Railing PT Steps Into Home: 2 PT Steps Inside Home: 7 limits going upstairs to once a day Prior/Core FIM Prior Level of Function Functional [place] Measure 0=Not Assessed/NA 4=Minimal Assistance 1=Total Assistance 5=Supervision or Setup 2=Maximal Assistance 6=Modified [place] 3=Moderate Assistance 7=Complete IndependenceIRFPAI Quality Coding Scale 6 Independent with activity with or without an assistive device 5 Patient requires set up or clean up by helper. Patient completes activity by themselves 4 Supervision or touching assist (CGA). [place] provide cues , steadying assist 3 The helper provides less than half the effort to complete the activity 2 The helper provides more than half the effort to complete the activity 1 Dependent. The helper does all the effort to complete an activity 7 Patient refused to complete or attempt activity 9 The patient did not perform the activity before the current illness or injury 88 Not attempted due to Medical conditions or safety concerns Bed Mobility: 6 Transfers (B,C,W/C) (FIM): 6 Gait: 5 Stairs: 6 Wheelchair Mobility: 6 Prior Equipment Used: FWW, Electric WC PT Evaluation-Current Subjective Pt watching tv in chair with spouse when PT arrived. Pt agreed to PT evaluation. Pain Numeric Pain Scale: 0-No Pain Location: No Pain Reported Location Body Site: Abdomen Pain Description: Acute Objective Patient Orientation: Normal For Age Problem Solving: Fair Attachments: IV ROM/Strength ROM Upper Extremities WNL ROM Lower Extremities WNL Strength Upper Extremities NT Strength Lower Extremities 3+/5 BL Hip flexors, 4/5 BLE Integumentary/Posture Bowel Incontinence: No Bladder Incontinence: No Posture WFL Neuromuscular (Tone, Coordination, Reflexes) grossly intact Sensory Vision: Wears Glasses Hearing: Functional Sensation Right Upper Extremit: Intact Sensation Left Upper Extremity: Intact Sensation Right Lower Extremit: Intact Sensation Left Lower Extremity: Intact Transfers Functional [place] Measure 0=Not Assessed/NA 4=Minimal Assistance 1=Total Assistance 5=Supervision or Setup 2=Maximal Assistance 6=Modified [place] 3=Moderate Assistance 7=Complete [place] Transfers (B, C, W/C) (FIM): 5 Sit to/from Stand: 5 Gait Mode of Locomotion: Walk Anticipated Mode of Locomotion: Walk Gait (FIM): 1 Distance (FIM): 1=up to 49 ft Distance: 30' Gait Level of Assist: 4 Gait Persons Needed: 1 Gait Assistive Device: FWW Balance Sitting Static: Good Sitting Dynamic: Good Standing Static: Good Standing Dynamic: Good Assessment/Needs Pt was able to ambulate to hallway with a FWW requiring CGA. Patient wanted to return to chair due to fatigue like symptoms. Patient appears extremely tired throughout entire evaluation and will be monitored closely in future PT visits. Rehab Potential: Fair PT Retirement Goals Retirement Goals PT Retirement Goals Time Frame: Jan 25, 2018 Transfers (B,C,W/C) (FIM): 6 Gait (FIM): 6 Gait distance (FIM): 3=150 ft Distance: 150' Gait Level of Assist: 6 Gait Assistive Device: FWW PT Plan Problem List Problem List: Activity Tolerance, Functional Strength, Safety, Balance, Gait, Transfer, Bed Mobility, ROM Treatment/Plan Treatment Plan: Continue Plan of Care Treatment Plan: Bed Mobility, Education, Functional Activity Jes, Functional Strength, Gait, Safety, Therapeutic Exercise, Transfers Treatment Duration: Jan 25, 2018 Frequency: 6 times per week Estimated Hrs Per Day: .25 hour per day Patient and/or Family Agrees t: Yes Discharge Recommendations Therapy D/C Recommendations: Home w/ Family Support Time/GCodes Time In: 1015 Time Out: 1026 Total Billed Treatment Time: 11 [facility]ARINA [facility] PT Jan 18, 2018 10:56
[2018-01-18] MEDS ORDERED: NON-FORMULARY MEDICATION 1 EA EA (Fluticasone Propionate (Flonase Allergy Relief) 2 SPRAY) NS PRN (12:15)
[2018-01-18] MEDS ORDERED: FLUTICASONE NASAL SPRAY (FLONASE) 16 GM BTL NS PRN (12:45)
[2018-01-18] MEDS: ACETAMINOPHEN 500 MG TAB (TYLENOL) PO SCH ×3 (12:57→20:17)
[2018-01-18] MEDS ORDERED: NON-FORMULARY MEDICATION 1 EA EA (Acetaminophen (Acetaminophen Extra Strength) 500 MG) PO SCH (13:00)
[2018-01-18] MEDS ORDERED: METH2.5T PO (15:26)
--- NOTE | 2018-01-18 16:46 | Progress Note ---
Subjective Time Seen by a Provider: 09:12 Subjective/Events-last exam Patient states she came into the hospital because she was feeling weak and found to be dehydrated with hypokalemia and a UTI. She denies abdominal pain was otherwise tolerating diet. Review of Systems General: Fatigue, Malaise Pulmonary: No Dyspnea, No Cough Cardiovascular: No: Chest Pain, Palpitations Gastrointestinal: No: Nausea, Vomiting Focused Exam Lactate Level 01/17/18 13:13: Lactic Acid Level 1.96 Objective Exam Vital Signs Date Time Temp Pulse Resp B/P (MAP) Pulse Ox O2 Delivery O2 Flow Rate FiO2 01/18/18 15:10 97.3 118 18 134/70 (91) 96 Room Air 01/18/18 13:00 113 01/18/18 12:00 97.6 117 18 113/58 (76) 96 Room Air 01/18/18 08:00 96 Room Air 01/18/18 08:00 98.7 116 22 195/95 (128) 96 Room Air 01/18/18 07:00 122 01/18/18 04:00 99.7 121 26 175/85 (115) 96 Room Air 01/18/18 01:00 115 01/18/18 00:00 99.2 114 30 158/82 (107) 93 Room Air 01/17/18 20:00 Room Air 01/17/18 19:56 Room Air 01/17/18 19:30 98.6 112 20 136/60 (85) 95 Room Air 01/17/18 19:02 108 01/17/18 18:30 99.1 111 20 134/63 (86) 95 Room Air 01/17/18 17:30 97.5 108 20 160/86 (110) 94 Room Air 01/17/18 17:00 106 96 I & O 01/18/18 07:00 Intake Total 1270 ml Output Total 900 ml Balance 370 ml Capillary Refill : Less Than 3 Seconds General Appearance: WD/WN, Chronically ill, Mild Distress HEENT: PERRL/EOMI Respiratory: Chest Non Tender, Lungs Clear, Normal Breath Sounds, No Accessory Muscle Use, No Respiratory Distress Cardiovascular: Regular Rate, Rhythm, No Murmur, Normal Peripheral Pulses Gastrointestinal: other (abdomen is soft and incisions are clean dry and intact ) Neurologic/Psychiatric: Normal Mood/Affect Skin: Normal Color, Warm/Dry Results Lab Laboratory Tests 01/18/18 05:45: White Blood Count 9.2, Red Blood Count 3.65L, Hemoglobin 12.2, Hematocrit 38, Mean Corpuscular Volume 103H, Mean Corpuscular Hemoglobin 33, Mean Corpuscular Hemoglobin Concent 32, Red Cell Distribution Width 15.6H, Platelet Count 505H, Mean Platelet Volume 9.3, Neutrophils (%) (Auto) 68, Lymphocytes (%) (Auto) 17, Monocytes (%) (Auto) 13H, Eosinophils (%) (Auto) 2, Basophils (%) (Auto) 0, Neutrophils # (Auto) 6.3, Lymphocytes # (Auto) 1.6, Monocytes # (Auto) 1.2H, Eosinophils # (Auto) 0.2, Basophils # (Auto) 0.0, Prothrombin Time 24.8H, INR Comment 2.2H, Sodium Level 141, Potassium Level 2.9L, Chloride Level 101, Carbon Dioxide Level 24, Anion Gap 16H, Blood Urea Nitrogen 6L, Creatinine 0.71 , Estimat Glomerular Filtration Rate > 60, BUN/Creatinine Ratio 8, Glucose Level 102, Calcium Level 8.7, Magnesium Level 1.5L Microbiology 01/17/18 Urine Culture - Preliminary, Resulted Gram Negative Zbigniew Assessment/Plan Assessment/Plan Assessment/Plan Hypokalemia Dehydration Patient is getting her potassium replaced as well as her magnesium and is on IV fluids. She was told to drink as much fluid as possible; was supposed to see me in the office tomorrow, we will reschedule for next week. Clinical Quality Measures DVT/VTE Risk/Contraindication: Risk Factor Score Per Nursin RFS Level Per Nursing on Admit: 4+=Very High ASHLEE BOWLES DO Jan 18, 2018 16:46
[2018-01-18] MEDS: FERROUS SULF 325 MG (IRON) TAB PO SCH (16:53)
[2018-01-18] MEDS ORDERED: NON-FORMULARY MEDICATION 1 EA EA (Cetirizine HCl 10 MG) PO SCH (18:00)
[2018-01-18] MEDS: warFARin 3 MG (COUMADIN) TAB PO SCH (18:02)
[2018-01-18] MEDS: LORATADINE (CLARITIN) 10 MG TAB PO SCH (18:03)
[2018-01-18] MEDS: ATORVASTATIN 20 MG (LIPITOR) TABLET PO SCH (18:04)
[2018-01-18] MEDS: CYANOCOBALAMIN 1,000 MCG (VITAMIN B-12) TABLET PO SCH (18:09)
[2018-01-18] MEDS: lisINopril 20 MG (PRINIVIL) TABLET PO SCH (20:17)
[2018-01-18] MEDS: LEVOTHYROXINE 88 MCG (LEVOTHORID) TAB PO SCH (20:17)
[2018-01-18] MEDS: MONTELUKAST 10 MG (SINGULAIR) TAB PO SCH (20:17)
[2018-01-18] MEDS: meTOprolol TARTRATE 25 MG (LOPRESSOR) TABLET PO SCH (20:17)
[2018-01-18] MEDS: PANTOPRAZOLE 40 MG (PROTONIX) TAB PO SCH (20:17)
[2018-01-19 04:00] VITALS: BP 158/72
[2018-01-19 05:56] LABS: BASOPHILS % (AUTO) 0 % (0-10); EOSINOPHILS # (AUTO) 0.3 10^3/uL (0.0-0.3); EOSINOPHILS % (AUTO) 5 % (0-10); HEMATOCRIT 36 % (35-52); HEMOGLOBIN 12.3 G/DL (11.5-16.0); LYMPHOCYTES # (AUTO) 1.2 X 10^3 (1.0-4.0); LYMPHOCYTES % (AUTO) 16 % (12-44); MEAN CORPUSCULAR HEMOGLOBIN 35 PG (25-34); MEAN CORPUSCULAR HGB CONC 34 G/DL (32-36); MEAN CORPUSCULAR VOLUME 102 FL (80-99); MEAN PLATELET VOLUME 9.6 FL (7.4-10.4); MONOCYTES # (AUTO) 0.9 X 10^3 (0.0-1.0); MONOCYTES % (AUTO) 12 % (0-12); NEUTROPHILS # (AUTO) 4.9 X 10^3 (1.8-7.8); NEUTROPHILS % (AUTO) 67 % (42-75); PLATELET COUNT 509 10^3/uL (130-400); RED BLOOD COUNT 3.55 10^6/uL (4.35-5.85); RED CELL DISTRIBUTION WIDTH 15.4 % (10.0-14.5); WHITE BLOOD COUNT 7.3 10^3/uL (4.3-11.0)
[2018-01-19 06:12] LABS: INR 2.8 (0.8-1.4); PROTHROMBIN TIME PATIENT 29.4 SEC (12.2-14.7)
[2018-01-19 06:22] LABS: ALANINE AMINOTRANSFERASE 30 U/L (0-55); ALBUMIN 3.4 GM/DL (3.2-4.5); ALKALINE PHOSPHATASE 70 U/L (40-136); BILIRUBIN,TOTAL 0.6 MG/DL (0.1-1.0); BUN/CREATININE RATIO 5; CALCIUM 8.7 MG/DL (8.5-10.1); CARBON DIOXIDE 23 MMOL/L (21-32); CHLORIDE 103 MMOL/L (98-107); CREATININE SERUM 0.74 MG/DL (0.60-1.30); GFR ESTIMATED > 60; GLUCOSE 110 MG/DL (70-105); POTASSIUM 2.8 MMOL/L (3.6-5.0); SODIUM 142 MMOL/L (135-145); TOTAL PROTEIN 6.2 GM/DL (6.4-8.2)
[2018-01-19] MEDS: PANTOPRAZOLE 40 MG (PROTONIX) TAB PO SCH ×2 (06:48→20:28)
[2018-01-19] MEDS: predniSONE 10 MG TAB PO SCH (06:48)
[2018-01-19] MEDS: FERROUS SULF 325 MG (IRON) TAB PO SCH ×2 (06:50→16:35)
[2018-01-19 08:00] VITALS: BP 160/84
[2018-01-19] MEDS: lisINopril 20 MG (PRINIVIL) TABLET PO SCH ×2 (08:24→20:28)
[2018-01-19] MEDS: FOLIC ACID 1 MG TAB PO SCH (08:24)
[2018-01-19] MEDS: CEFEPIME 2 GM/NS 50 ML IVPB IV SCH ×4 (08:24→20:28)
[2018-01-19] MEDS: meTOprolol TARTRATE 25 MG (LOPRESSOR) TABLET PO SCH ×2 (08:24→20:28)
[2018-01-19] MEDS: ACETAMINOPHEN 500 MG TAB (TYLENOL) PO SCH ×4 (08:24→20:28)
[2018-01-19] MEDS: amLODIPine 5 MG (NORVASC) TAB PO SCH (08:24)
[2018-01-19] MEDS: ASPIRIN E.C. 81 MG (ECOTRIN) TAB PO SCH (08:25)
--- NOTE | 2018-01-19 08:27 | Cardiology Progress Note ---
Subjective Date Seen by Provider: Jan 19, 2018 Time Seen by Provider: 08:22 Subjective/Events-last exam Patient is sitting up in chair, no new complaints. Denies any chest pain or dyspnea. Review of Systems General: No Night Sweats, No Fatigue, No Malaise HEENT: No Visual Changes, No Ear Pain, No Dysphasia, No Sinus Congestion Pulmonary: No Dyspnea, No Pleuritic Chest Pain Cardiovascular: No: Chest Pain, Palpitations, Paroxysmal Noc. Dyspnea, Edema Gastrointestinal: No: Nausea, Vomiting, Abdominal Pain Genitourinary: No Dysuria, No Frequency Musculoskeletal: No: neck pain, back pain Neurological: No: Weakness, Numbness, Change in speech, Confusion Focused Exam Lactate Level 01/17/18 13:13: Lactic Acid Level 1.96 Objective-Cardiology Exam Last Set of Vital Signs Vital Signs 01/19/18 08:00 Temp 99.1 Pulse 104 Resp 16 B/P (MAP) 160/84 (109) Pulse Ox 95 O2 Delivery Room Air Capillary Refill : Less Than 3 Seconds I&O Intake and Output 01/19/18 00:00 Intake Total 3360 ml Output Total 3300 ml Balance 60 ml Intake Oral 1560 ml IV Total 1800 ml Output Urine Total 3300 ml # Bowel Movements 6 General: Alert, Oriented X3, Cooperative HEENT: Atraumatic, PERRLA Neck: Supple, No JVD, No Thyromegaly Lungs: Clear to Auscultation, Normal Air Movement Heart: Regular Rate, Normal S1, Normal S2, No Murmurs Abdomen: Normal Bowel Sounds, Soft, No Tenderness, No Hepatosplenomegaly, No Masses Extremities: No Clubbing, No Cyanosis, No Edema, Normal Pulses, No Tenderness/ Swelling Skin: No Rashes, No Breakdown, No Significant Lesion Neuro: Normal Gait, Normal Speech, Strength at 5/5 X4 Ext, Normal Tone, Sensation Intact Psych/Mental Status: Mental Status NL, Mood NL Results Lab Laboratory Tests 01/19/18 05:19 A/P-Cardiology Admission Diagnosis Dyspnea CHF Hypokalemia HTN Assessment/Plan Dyspnea, patient reports improvement today. Continue to monitor. Hypokalemia, hypomagnesemia, receiving large amount of potassium and magnesium in addition to fluid,magnesium improved, continues to be hypokalemic. Congestive heart failure, last echocardiogram was done yesterday showing ejection fraction 50-55 percent, PA 20mmHg. S/p colon perforation, had surgical repair on 01/08/18, managed by Dr Walsh History of multiple cardiac catheterization done in 2004, 2013, 2014, showing moderate pulmonary hypertension and mild coronary artery disease nonobstructive disease, continue to monitor History of Moderate pulmonary hypertension, last PA pressure 20-25 mmHg, planning to repeat echocardiogram Obstructive sleep apnea, using C Pap. Managed by Dr. Fallon Systemic lupus erythematous, antiphospholipid antibody syndrome, seen by software engineer sales at [facility], strong family history of DVT, no history of DVT with the patient, maintained on Coumadin. Hypertension- controlled. Continue to monitor. Hyperlipidemia, continue to monitor as outpatient. Obesity, BMI is 31 Nonobstructive carotid artery stenosis per most recent carotid duplex done May 2016. Continue to monitor. Tobaccoism, stopped smoking in July 2002. Encouraged to continue. Clinical Quality Measures DVT/VTE Risk/Contraindication: Risk Factor Score Per Nursin RFS Level Per Nursing on Admit: 4+=Very High WAYLON ZUÑIGA Jan 19, 2018 08:26
[2018-01-19] MEDS ORDERED: NON-FORMULARY MEDICATION 1 EA EA (Amlodipine Besylate 5 MG) PO SCH (09:00)
[2018-01-19] MEDS ORDERED: FOLIC ACID PO SCH (09:00)
[2018-01-19] MEDS ORDERED: predniSONE 5 MG TAB PO SCH (09:00)
[2018-01-19] MEDS ORDERED: KCL 10 MEQ TAB (MICRO K) PO NR (09:00)
--- NOTE | 2018-01-19 09:56 | Cardiology Progress Note ---
Subjective Date Seen by Provider: Jan 19, 2018 Time Seen by Provider: 09:55 Subjective/Events-last exam Patient is sitting in a chair, feeling better, denied any chest pain Review of Systems General: No Chills, No Night Sweats, No Fatigue, No Malaise, No Appetite, No Other HEENT: No Head Aches, No Visual Changes, No Eye Pain, No Ear Pain, No Dysphasia , No Sinus Congestion, No Post Nasal Drip, No Sore Throat, No Other Pulmonary: No Dyspnea, No Cough, No Pleuritic Chest Pain, No Other Cardiovascular: No: Chest Pain, Palpitations, Orthopnea, Paroxysmal Noc. Dyspnea, Edema, Lt Headedness, Other Focused Exam Lactate Level 01/17/18 13:13: Lactic Acid Level 1.96 Objective-Cardiology Exam Last Set of Vital Signs Vital Signs 01/19/18 08:00 Temp 99.1 Pulse 104 Resp 16 B/P (MAP) 160/84 (109) Pulse Ox 95 O2 Delivery Room Air Capillary Refill : Less Than 3 Seconds I&O Intake and Output 01/19/18 00:00 Intake Total 3360 ml Output Total 3300 ml Balance 60 ml Intake Oral 1560 ml IV Total 1800 ml Output Urine Total 3300 ml # Bowel Movements 6 General: Alert, Oriented X3, Cooperative HEENT: Atraumatic, PERRLA Neck: Supple, No JVD, No Thyromegaly Lungs: Clear to Auscultation, Normal Air Movement Heart: Regular Rate, Normal S1, Normal S2, No Murmurs Abdomen: Normal Bowel Sounds, Soft, No Tenderness, No Hepatosplenomegaly, No Masses Extremities: No Clubbing, No Cyanosis, No Edema, Normal Pulses, No Tenderness/ Swelling Skin: No Rashes, No Breakdown, No Significant Lesion Neuro: Normal Gait, Normal Speech, Strength at 5/5 X4 Ext, Normal Tone, Sensation Intact Psych/Mental Status: Mental Status NL, Mood NL Results Lab Laboratory Tests 01/19/18 05:19 A/P-Cardiology Admission Diagnosis Dyspnea CHF Hypokalemia HTN Assessment/Plan Dyspnea, patient reports improvement today. Continue to monitor. Hypokalemia, hypomagnesemia, continue to monitor and replace, managed by primary care team Congestive heart failure, last echocardiogram was done yesterday showing ejection fraction 50-55 percent, PA 20mmHg. S/p colon perforation, had surgical repair on 01/08/18, managed by Dr Walsh History of multiple cardiac catheterization done in 2004, 2013, 2014, showing moderate pulmonary hypertension and mild coronary artery disease nonobstructive disease, continue to monitor History of Moderate pulmonary hypertension, last PA pressure 20-25 mmHg, planning to repeat echocardiogram Obstructive sleep apnea, using C Pap. Managed by Dr. Fallon Systemic lupus erythematous, antiphospholipid antibody syndrome, seen by packing supervisor at [facility], strong family history of DVT, no history of DVT with the patient, maintained on Coumadin. Hypertension- controlled. Continue to monitor. Hyperlipidemia, continue to monitor as outpatient. Obesity, BMI is 31 Nonobstructive carotid artery stenosis per most recent carotid duplex done May 2016. Continue to monitor. Tobaccoism, stopped smoking in July 2002. Encouraged to continue. Clinical Quality Measures DVT/VTE Risk/Contraindication: Risk Factor Score Per Nursin RFS Level Per Nursing on Admit: 4+=Very High RADHA RANGEL MD Jan 19, 2018 09:56
--- NOTE | 2018-01-19 10:14 | Progress Note-Hospitalist ---
MIKE CASANOVA 01/19/18 1014: Subjective HPI/CC On Admission Date Seen by Provider: Jan 19, 2018 Time Seen by Provider: 09:00 CC: Dyspnea HPI: This is a 67yoWF clinic patient of mine who presented to the ER with dyspnea and severe weakness following an uncomplicated emergent partial colon resection following a perforated diverticula performed by DR Walsh. INR was 2.5 taking Lovenox and Coumadin once restarted at DC last week. Pt was found to have severe hypokalemia of 2.4 and edema in need of in-pt hospitalization. Subjective/Events-last exam Potassium level is still minimally improved Will DC Tely Initiate another round of aggressive potassium supplementation BM+ Review of Systems General: Fatigue Focused Exam Lactate Level 01/17/18 13:13: Lactic Acid Level 1.96 Objective Exam Vital Signs Vital Signs Date Time Temp Pulse Resp B/P (MAP) Pulse Ox O2 Delivery O2 Flow Rate FiO2 01/19/18 16:00 99.0 96 17 179/85 (116) 95 Room Air Capillary Refill : Less Than 3 Seconds General Appearance: No Apparent Distress, WD/WN, Chronically ill Respiratory: Chest Non Tender, Lungs Clear, Normal Breath Sounds, No Accessory Muscle Use, No Respiratory Distress Cardiovascular: Regular Rate, Rhythm, No Edema, No Gallop, No JVD, No Murmur, Normal Peripheral Pulses Neurologic/Psychiatric: Alert, Oriented x3, No Motor/Sensory Deficits, Normal Mood/Affect Skin: Normal Color, Warm/Dry Results/Procedures Lab Laboratory Tests 01/19/18 05:19 Patient resulted labs reviewed. Assessment/Plan Assessment and Plan Assess & Plan/Chief Complaint Assessment: Severe weakness from severe hypokalemia Recent perforated diverticula s/p resection Dr Walsh Hypercoagulable state Therapeutic INR Plan: Potassium supplement Monitor closely Diagnosis/Problems Diagnosis/Problems (1) Weakness Status: Acute (2) Hypokalemia Status: Acute (3) Hypercoagulable state Status: Chronic (4) Elevated brain natriuretic peptide (BNP) level Status: Acute Clinical Quality Measures DVT/VTE Risk/Contraindication: Risk Factor Score Per Nursin RFS Level Per Nursing on Admit: 4+=Very High JENNA LLOYD MED STUDENT 01/19/18 1103: Subjective Subjective/Events-last exam Patient states that she is feeling much better Still experiencing some SOB Is wanting to go home Appetite has increased Objective Exam General Appearance: No Apparent Distress, WD/WN Respiratory: Chest Non Tender, Lungs Clear, Normal Breath Sounds, No Accessory Muscle Use, No Respiratory Distress Cardiovascular: Regular Rate, Rhythm, No Edema, No Gallop, No JVD, No Murmur Neurologic/Psychiatric: Alert, Oriented x3, No Motor/Sensory Deficits, Normal Mood/Affect Skin: Normal Color, Warm/Dry Assessment/Plan Assessment and Plan Assess & Plan/Chief Complaint Assessment: 1) severe hypokalemia Plan: 1) continue IV potassium MIKE CASANOVA DO Jan 19, 2018 10:14 JENNA LLOYD MED STUDENT Jan 19, 2018 11:03
[2018-01-19] MEDS ORDERED: NS IV 1000 ML 1,000 ML IV ONE (11:00)
[2018-01-19] MEDS: POTASSIUM CL 10MEQ/50ML IVPB 50 ML IV SCH ×8 (11:03→21:15)
--- NOTE | 2018-01-19 11:56 | Physical Therapy Daily Note ---
PT Daily Note-Current Subjective Pt awake in chair visiting with when PT arrived. Pt agreed to get up and walk for therapy. Pain Numeric Pain Scale: 0-No Pain Location: No Pain Reported Mental Status Patient Orientation: Normal For Age Attachments: IV Transfers Functional [place] Measure 0=Not Assessed/NA 4=Minimal Assistance 1=Total Assistance 5=Supervision or Setup 2=Maximal Assistance 6=Modified [place] 3=Moderate Assistance 7=Complete [place] IRFPAI Quality Coding Scale 6 Independent with activity with or without an assistive device 5 Patient requires set up or clean up by helper. Patient completes activity by themselves 4 Supervision or touching assist (CGA). [place] provide cues , steadying assist 3 The helper provides less than half the effort to complete the activity 2 The helper provides more than half the effort to complete the activity 1 Dependent. The helper does all the effort to complete an activity 7 Patient refused to complete or attempt activity 9 The patient did not perform the activity before the current illness or injury 88 Not attempted due to Medical conditions or safety concerns Transfers (B, C, W/C) (FIM): 5 Scootin Sit to/from Stand: 5 Weight Bearing Right Lower Extremity: Right Full Weight Bearing Left Lower Extremity: Left Full Weight Bearing Gait Training Gait (FIM): 5 Distance (FIM): 3=150 ft Distance: 200' Gait Level of Assist: 5 Gait Persons Needed: 1 Gait Assistive Device: FWW Assessment Pt was able to ambulate for 200' with FWW requiring SBA. Patient informed if she can get up and walk with nursing staff as long as someone is guiding IV pole for her. Patient will continue with therapy to help increase endurance for daily demands. PT Application Manager Goals Application Manager Goals PT Application Manager Goals Time Frame: Jan 25, 2018 Transfers (B,C,W/C) (FIM): 6 Gait (FIM): 6 Gait distance (FIM): 3=150 ft Distance: 150' Gait Level of Assist: 6 Gait Assistive Device: FWW PT Plan Problem List Problem List: Activity Tolerance, Functional Strength, Balance, Gait, Transfer Treatment/Plan Treatment Plan: Continue Plan of Care Treatment Plan: Bed Mobility, Education, Functional Activity Jes, Functional Strength, Gait, Safety, Therapeutic Exercise, Transfers Treatment Duration: Jan 25, 2018 Frequency: 6 times per week Estimated Hrs Per Day: .25 hour per day Patient and/or Family Agrees t: Yes Time/GCodes Time In: 1109 Time Out: 1119 Total Billed Treatment Time: 10 Total Billed Treatment 1 Visit [facility] - 10' KARINA LIMA PT Jan 19, 2018 11:56
[2018-01-19 12:00] VITALS: BP 132/81
[2018-01-19] MEDS: KCL 10 MEQ TAB (MICRO K) PO SCH ×3 (12:36→20:28)
[2018-01-19 16:00] VITALS: BP 179/85
[2018-01-19] MEDS: warFARin 3 MG (COUMADIN) TAB PO SCH (17:52)
[2018-01-19] MEDS: LORATADINE (CLARITIN) 10 MG TAB PO SCH (17:52)
[2018-01-19] MEDS: CYANOCOBALAMIN 1,000 MCG (VITAMIN B-12) TABLET PO SCH (17:52)
[2018-01-19] MEDS: ATORVASTATIN 20 MG (LIPITOR) TABLET PO SCH (17:52)
[2018-01-19] MEDS: LEVOTHYROXINE 88 MCG (LEVOTHORID) TAB PO SCH (20:28)
[2018-01-19] MEDS: MONTELUKAST 10 MG (SINGULAIR) TAB PO SCH (20:28)
[2018-01-19 20:57] VITALS: BP 197/89
[2018-01-20] VITALS: BP 170/90
[2018-01-20 04:00] VITALS: BP 150/90
[2018-01-20 05:46] LABS: BASOPHILS % (AUTO) 1 % (0-10); EOSINOPHILS # (AUTO) 0.3 10^3/uL (0.0-0.3); EOSINOPHILS % (AUTO) 4 % (0-10); HEMATOCRIT 37 % (35-52); HEMOGLOBIN 11.8 G/DL (11.5-16.0); LYMPHOCYTES # (AUTO) 1.6 X 10^3 (1.0-4.0); LYMPHOCYTES % (AUTO) 20 % (12-44); MEAN CORPUSCULAR HEMOGLOBIN 34 PG (25-34); MEAN CORPUSCULAR HGB CONC 32 G/DL (32-36); MEAN CORPUSCULAR VOLUME 105 FL (80-99); MEAN PLATELET VOLUME 9.1 FL (7.4-10.4); MONOCYTES # (AUTO) 1.1 X 10^3 (0.0-1.0); MONOCYTES % (AUTO) 14 % (0-12); NEUTROPHILS # (AUTO) 5.2 X 10^3 (1.8-7.8); NEUTROPHILS % (AUTO) 62 % (42-75); PLATELET COUNT 498 10^3/uL (130-400); RED BLOOD COUNT 3.47 10^6/uL (4.35-5.85); RED CELL DISTRIBUTION WIDTH 15.2 % (10.0-14.5); WHITE BLOOD COUNT 8.3 10^3/uL (4.3-11.0)
[2018-01-20 06:15] LABS: INR 3.6 (0.8-1.4); PROTHROMBIN TIME PATIENT 36.3 SEC (12.2-14.7)
[2018-01-20 06:21] LABS: ALANINE AMINOTRANSFERASE 28 U/L (0-55); ALBUMIN 3.4 GM/DL (3.2-4.5); ALKALINE PHOSPHATASE 63 U/L (40-136); BILIRUBIN,TOTAL 0.4 MG/DL (0.1-1.0); BUN/CREATININE RATIO 10; CALCIUM 8.7 MG/DL (8.5-10.1); CARBON DIOXIDE 21 MMOL/L (21-32); CHLORIDE 110 MMOL/L (98-107); CREATININE SERUM 0.69 MG/DL (0.60-1.30); GFR ESTIMATED > 60; GLUCOSE 100 MG/DL (70-105); MAGNESIUM 1.7 MG/DL (1.8-2.4); POTASSIUM 4.3 MMOL/L (3.6-5.0); SODIUM 141 MMOL/L (135-145); TOTAL PROTEIN 6.2 GM/DL (6.4-8.2)
[2018-01-20] MEDS: PANTOPRAZOLE 40 MG (PROTONIX) TAB PO SCH (06:32)
[2018-01-20] MEDS: FERROUS SULF 325 MG (IRON) TAB PO SCH (06:32)
[2018-01-20] MEDS: KCL 10 MEQ TAB (MICRO K) PO SCH (06:32)
[2018-01-20] MEDS: predniSONE 10 MG TAB PO SCH (06:32)
--- NOTE | 2018-01-20 08:14 | Cardiology Progress Note ---
Subjective Date Seen by Provider: Jan 20, 2018 Time Seen by Provider: 08:13 Subjective/Events-last exam Patient is sitting in a chair, feeling cold, denied any chest pain or shortness of breath. No nausea or vomiting. Review of Systems General: No Chills, No Night Sweats, No Fatigue, No Malaise, No Appetite, No Other HEENT: No Head Aches, No Visual Changes, No Eye Pain, No Ear Pain, No Dysphasia , No Sinus Congestion, No Post Nasal Drip, No Sore Throat, No Other Pulmonary: No Dyspnea, No Cough, No Pleuritic Chest Pain, No Other Cardiovascular: No: Chest Pain, Palpitations, Orthopnea, Paroxysmal Noc. Dyspnea, Edema, Lt Headedness, Other Focused Exam Lactate Level 01/17/18 13:13: Lactic Acid Level 1.96 Objective-Cardiology Exam Last Set of Vital Signs Vital Signs 01/20/18 04:00 Temp 98.0 Pulse 92 Resp 18 B/P (MAP) 150/90 (110) Pulse Ox 97 O2 Delivery Room Air Capillary Refill : Less Than 3 Seconds I&O Intake and Output 01/20/18 00:00 Intake Total 1990 ml Output Total 2600 ml Balance -610 ml Intake Oral 1840 ml IV Total 150 ml Output Urine Total 2600 ml # Bowel Movements 5 General: Alert, Oriented X3, Cooperative HEENT: Atraumatic, PERRLA Neck: Supple, No JVD, No Thyromegaly Lungs: Clear to Auscultation, Normal Air Movement Heart: Regular Rate, Normal S1, Normal S2, No Murmurs Abdomen: Normal Bowel Sounds, Soft, No Tenderness, No Hepatosplenomegaly, No Masses Extremities: No Clubbing, No Cyanosis, No Edema, Normal Pulses, No Tenderness/ Swelling Skin: No Rashes, No Breakdown, No Significant Lesion Neuro: Normal Gait, Normal Speech, Strength at 5/5 X4 Ext, Normal Tone, Sensation Intact Psych/Mental Status: Mental Status NL, Mood NL Results Lab Laboratory Tests 01/20/18 05:30 01/20/18 05:34 A/P-Cardiology Admission Diagnosis Dyspnea CHF Hypokalemia HTN Assessment/Plan Dyspnea, reporting improvement, continue to monitor, no changes are recommended Hypokalemia, better today. Continue to monitor Hypomagnesemia, better, continue to monitor Congestive heart failure, last echocardiogram was done yesterday showing ejection fraction 50-55 percent, PA 20mmHg. continue to monitor S/p colon perforation, had surgical repair on 01/08/18, managed by Dr Walsh History of multiple cardiac catheterization done in 2004, 2013, 2014, showing moderate pulmonary hypertension and mild coronary artery disease nonobstructive disease, continue to monitor History of Moderate pulmonary hypertension, last PA pressure 20-25 mmHg, planning to repeat echocardiogram Obstructive sleep apnea, using C Pap. Managed by Dr. 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 Hypertension- controlled. Continue to monitor. Hyperlipidemia, continue to monitor as outpatient. Obesity, BMI is 31 Nonobstructive carotid artery stenosis per most recent carotid duplex done May 2016. Continue to monitor. Tobaccoism, stopped smoking in July 2002. Encouraged to continue. Clinical Quality Measures DVT/VTE Risk/Contraindication: Risk Factor Score Per Nursin RFS Level Per Nursing on Admit: 4+=Very High RADHA RANGEL MD Jan 20, 2018 8:14 am
--- NOTE | 2018-01-20 08:24 | Cardiology Progress Note ---
Subjective Date Seen by Provider: Jan 20, 2018 Time Seen by Provider: 08:22 Subjective/Events-last exam Patient sitting up in chair, no new complaints. Hoping to be discharged home today. Denies any CP or dyspnea. Review of Systems General: No Chills, No Night Sweats, No Fatigue, No Malaise, No Appetite, No Other HEENT: No Head Aches, No Visual Changes, No Eye Pain, No Ear Pain, No Dysphasia , No Sinus Congestion, No Post Nasal Drip, No Sore Throat, No Other Pulmonary: No Dyspnea, No Cough, No Pleuritic Chest Pain, No Other Cardiovascular: No: Chest Pain, Palpitations, Orthopnea, Paroxysmal Noc. Dyspnea, Edema, Lt Headedness, Other Gastrointestinal: No: Nausea, Vomiting, Abdominal Pain, Diarrhea, Constipation , Melena, Hematochezia, Other Genitourinary: No Dysuria, No Frequency, No Incontinence, No Hematuria, No Retention, No Other Musculoskeletal: No: other, neck pain, shoulder pain, arm pain, back pain, hand pain, leg pain, foot pain Neurological: No: Weakness, Numbness, Incoordination, Change in speech, Confusion, Seizures, Other Focused Exam Lactate Level 01/17/18 13:13: Lactic Acid Level 1.96 Objective-Cardiology Exam Last Set of Vital Signs Vital Signs 01/20/18 04:00 Temp 98.0 Pulse 92 Resp 18 B/P (MAP) 150/90 (110) Pulse Ox 97 O2 Delivery Room Air Capillary Refill : Less Than 3 Seconds I&O Intake and Output 01/20/18 00:00 Intake Total 1990 ml Output Total 2600 ml Balance -610 ml Intake Oral 1840 ml IV Total 150 ml Output Urine Total 2600 ml # Bowel Movements 5 General: Alert, Oriented X3, Cooperative HEENT: Atraumatic, PERRLA Neck: Supple, No JVD, No Thyromegaly Lungs: Clear to Auscultation, Normal Air Movement Heart: Regular Rate, Normal S1, Normal S2, No Murmurs Abdomen: Normal Bowel Sounds, Soft, No Tenderness, No Hepatosplenomegaly, No Masses Extremities: No Clubbing, No Cyanosis, No Edema, Normal Pulses, No Tenderness/ Swelling Skin: No Rashes, No Breakdown, No Significant Lesion Neuro: Normal Gait, Normal Speech, Strength at 5/5 X4 Ext, Normal Tone, Sensation Intact Psych/Mental Status: Mental Status NL, Mood NL Results Lab Laboratory Tests 01/20/18 05:30 01/20/18 05:34 A/P-Cardiology Admission Diagnosis Dyspnea CHF Hypokalemia HTN Assessment/Plan Dyspnea, reporting improvement, continue to monitor, no changes are recommended Hypokalemia, better today. Continue to monitor Hypomagnesemia, better, continue to monitor Congestive heart failure, last echocardiogram was done yesterday showing ejection fraction 50-55 percent, PA 20mmHg. continue to monitor S/p colon perforation, had surgical repair on 01/08/18, managed by Dr Walsh History of multiple cardiac catheterization done in 2004, 2013, 2014, showing moderate pulmonary hypertension and mild coronary artery disease nonobstructive disease, continue to monitor History of Moderate pulmonary hypertension, last PA pressure 20 mmHg. Obstructive sleep apnea, using C Pap. Managed by Dr. 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 Supratherapeutic INR today, hold Coumadin dose today. Hypertension- elevated, I will increase Lopressor, continue to monitor. Hyperlipidemia, continue to monitor as outpatient. Obesity, BMI is 31 Nonobstructive carotid artery stenosis per most recent carotid duplex done May 2016. Continue to monitor. Tobaccoism, stopped smoking in July 2002. Encouraged to continue. Clinical Quality Measures DVT/VTE Risk/Contraindication: Risk Factor Score Per Nursin RFS Level Per Nursing on Admit: 4+=Very High WAYLON ZUÑIGA Jan 20, 2018 08:24
[2018-01-20 08:48] VITALS: BP 163/83
[2018-01-20] MEDS ORDERED: meTOprolol TARTRATE 50 MG (LOPRESSOR) TAB PO SCH (09:00)
[2018-01-20] MEDS: lisINopril 20 MG (PRINIVIL) TABLET PO SCH (09:21)
[2018-01-20] MEDS: ASPIRIN E.C. 81 MG (ECOTRIN) TAB PO SCH (09:21)
[2018-01-20] MEDS: CEFEPIME 2 GM/NS 50 ML IVPB IV SCH ×2 (09:22)
[2018-01-20] MEDS: ACETAMINOPHEN 500 MG TAB (TYLENOL) PO SCH (09:22)
[2018-01-20] MEDS: amLODIPine 5 MG (NORVASC) TAB PO SCH (09:22)
[2018-01-20] MEDS: FOLIC ACID 1 MG TAB PO SCH (09:22)
--- NOTE | 2018-01-20 10:04 | Physical Therapy Daily Note ---
PT Daily Note-Current Subjective Agreeable to PT. no complaints. Mental Status Patient Orientation: Person, Place, Time, Situation Transfers Functional [place] Measure 0=Not Assessed/NA 4=Minimal Assistance 1=Total Assistance 5=Supervision or Setup 2=Maximal Assistance 6=Modified [place] 3=Moderate Assistance 7=Complete [place] IRFPAI Quality Coding Scale 6 Independent with activity with or without an assistive device 5 Patient requires set up or clean up by helper. Patient completes activity by themselves 4 Supervision or touching assist (CGA). [place] provide cues , steadying assist 3 The helper provides less than half the effort to complete the activity 2 The helper provides more than half the effort to complete the activity 1 Dependent. The helper does all the effort to complete an activity 7 Patient refused to complete or attempt activity 9 The patient did not perform the activity before the current illness or injury 88 Not attempted due to Medical conditions or safety concerns Transfers (B, C, W/C) (FIM): 7 Pt is indep with all transfers. Weight Bearing Right Lower Extremity: Right Full Weight Bearing Left Lower Extremity: Left Full Weight Bearing Gait Training Gait (FIM): 6 Distance (FIM): 3=150 ft Distance: 250 ft Gait Level of Assist: 6 Gait Assistive Device: Walker 4 Wheeled safe and steady gait; decreased foot clearance B but no noted LOB. Assessment Current Status: Good Progress Safe and steady with gait. PT Halfway Goals Infrastructure Design Engineer Goals PT Halfway Goals Time Frame: Jan 25, 2018 Transfers (B,C,W/C) (FIM): 6 (met) Gait (FIM): 6 Gait distance (FIM): 3=150 ft Distance: 150' Gait Level of Assist: 6 Gait Assistive Device: FWW PT Plan Problem List Problem List: Activity Tolerance, Functional Strength, Safety Treatment/Plan Treatment Plan: Continue Plan of Care Treatment Plan: Bed Mobility, Education, Functional Activity Jes, Functional Strength, Gait, Safety, Therapeutic Exercise, Transfers Treatment Duration: Jan 25, 2018 Frequency: 6 times per week Estimated Hrs Per Day: .25 hour per day Patient and/or Family Agrees t: Yes Safety Risks/Education Patient Education: Safety Issues Teaching Recipient: Patient Teaching Methods: Discussion Response to Teaching: Verbalize Understanding Discharge Recommendations Plan Plan dc tomorrow if pt remains at mod indep level. Time/GCodes Time In: 925 Time Out: 940 Total Billed Treatment Time: 15 Total Billed Treatment visit GT 15 CATRACHITO NIX PT Jan 20, 2018 10:03
[2018-01-20] MEDS ORDERED: POTA10CA43 PO (10:20)
[2018-01-20] MEDS ORDERED: CIPR-225 PO (10:20)
--- NOTE | 2018-01-20 10:23 | Discharge Summary-Hospitalist ---
Diagnosis/Chief Complaint Date of Admission Jan 17, 2018 at 16:19 Date of Discharge Discharge Date: Jan 20, 2018 Admission Diagnosis Assessment: Severe weakness following uncomplicated partial colon resection from diverticular perforation Severe hypokalemia Hypercoagulable state with therapeutic INR on admit taking both Lovenox and Coumadin at DC last week Elevated BNP HTN Plan: Potassium replacement with magnesium Monitor labs Discharge Diagnosis (1) Weakness Status: Resolved (2) Hypokalemia Status: Resolved (3) Hypercoagulable state Status: Chronic (4) Elevated brain natriuretic peptide (BNP) level Status: Resolved (5) UTI (urinary tract infection) Status: Acute (6) Anticoagulated on warfarin Status: Chronic (7) Steroid dependence Status: Chronic (8) [facility] Status: Chronic (9) Adult idiopathic generalized osteoporosis Status: Chronic (10) Brittle bone disease Status: Chronic (11) Coagulopathy Status: Chronic Discharge Summary Discharge Physical Exam Allergies: Coded Allergies: Penicillins (Verified Allergy, Intermediate, 04/02/15) pneumococcal vaccine (Verified Allergy, Unknown, 04/02/15) PT STATES FEVER IN THE ARM Vitals & I&Os Vital Signs Date Time Temp Pulse Resp B/P (MAP) Pulse Ox O2 Delivery O2 Flow Rate FiO2 01/20/18 11:20 97 14 163/83 97 Room Air 01/20/18 08:48 98.0 General Appearance: No Apparent Distress, WD/WN, Chronically ill Respiratory: Chest Non Tender, Lungs Clear, Normal Breath Sounds, No Accessory Muscle Use, No Respiratory Distress Cardiovascular: Regular Rate, Rhythm, No Edema, No Gallop, No JVD, No Murmur, Normal Peripheral Pulses Neurologic/Psychiatric: Alert, Oriented x3, No Motor/Sensory Deficits, Normal Mood/Affect Hospital Course Hospital course: patient had a short hospital course although aggressive potassium supplementation was required due to the severity of the hypokalemia. INR was monitored closely and Lovenox was DC due to therapeutic range. Dr Koroma was consulted along with Dr Walsh who monitored the patient closely. Pt did well throughout the stay and was deemed stable for DC with potassium normal at 4.3. UTI was treated with Cefepime and transitioned to Cipro at DC due to multiple abx allergies abd I notified Rach of the INR 3.6 and FQ initiated and they will monitor INR closely while holding the home 2.5mg dose. Labs (last 24 hrs) Laboratory Tests 11/28/18 05:30: Prothrombin Time 36.3H, INR Comment 3.6H, Sodium Level 141, Potassium Level 4.3 , Chloride Level 110H, Carbon Dioxide Level 21, Anion Gap 10, Blood Urea Nitrogen 7, Creatinine 0.69, Estimat Glomerular Filtration Rate > 60, BUN/ Creatinine Ratio 10, Glucose Level 100, Calcium Level 8.7, Corrected Calcium 9.2 , Magnesium Level 1.7L, Total Bilirubin 0.4, Aspartate Amino Transf (AST/SGOT) 27, Alanine Aminotransferase (ALT/SGPT) 28, Alkaline Phosphatase 63, Total Protein 6.2L, Albumin 3.4 01/20/18 05:34: White Blood Count 8.3, Red Blood Count 3.47L, Hemoglobin 11.8, Hematocrit 37, Mean Corpuscular Volume 105H, Mean Corpuscular Hemoglobin 34, Mean Corpuscular Hemoglobin Concent 32, Red Cell Distribution Width 15.2H, Platelet Count 498H, Mean Platelet Volume 9.1, Neutrophils (%) (Auto) 62, Lymphocytes (%) (Auto) 20, Monocytes (%) (Auto) 14H, Eosinophils (%) (Auto) 4, Basophils (%) (Auto) 1, Neutrophils # (Auto) 5.2, Lymphocytes # (Auto) 1.6, Monocytes # (Auto) 1.1H, Eosinophils # (Auto) 0.3, Basophils # (Auto) 0.0 Microbiology 01/17/18 Blood Culture - Preliminary, Resulted No growth 01/17/18 Urine Culture - Final, Complete Proteus mirabilis Escherichia coli Patient resulted labs reviewed. Pending Labs Discussion & Recommendations Discharge Planning: <30 minutes discharge planning Discharge Home Medications: Active Scripts Active Cipro (Ciprofloxacin HCl) 500 Mg Tablet 500 Mg PO BID Potassium Chloride 10 Meq Capsule.er 10 Meq PO DAILY Reported Methotrexate (Methotrexate Sodium) 2.5 Mg Tablet 10 Mg PO TU TAKES 4 (2.5MG) TABLETS Flonase Allergy Relief (Fluticasone Propionate) 9.9 Ml [place].susp 2 [place] NS DAILY PRN Vitamin B-12 (Cyanocobalamin (Vitamin B-12)) 1,000 Mcg Tablet 1,000 Mcg PO 1800 Furosemide 40 Mg Tablet 40 Mg PO DAILY Tramadol HCl 50 Mg Tablet 50 Mg PO 0800,1800,2200 Montelukast Sodium 10 Mg Tablet 10 Mg PO HS Atorvastatin Calcium 20 Mg Tablet 20 Mg PO 1800 Levothyroxine Sodium 88 Mcg Tablet 88 Mcg PO HS Lisinopril 20 Mg Tablet 20 Mg PO BID Amlodipine Besylate 5 Mg Tablet 5 Mg PO DAILY Folic Acid 0.8 Mg Tablet 2.4 Mg PO DAILY Aspirin EC (Aspirin) 81 Mg Tablet.dr 81 Mg PO DAILY Cetirizine HCl 10 Mg Tablet 10 Mg PO 1800 Niacin 500 mg Capsule (Niacin (Inositol Niacinate)) 500 Mg Capsule 1,000 Mg PO 1800 Calcium 600 + Vit D 200 Tablet (Calcium Carbonate/Vitamin D3) 1 Each Tablet 1 Tab PO 1200,1800 Fish Oil 1,000 mg Capsule ([place] 3 Polyunsat Fatty Acids) 1,000 Mg Cap 1,000 Mg PO TID Acetaminophen Extra Strength (Acetaminophen) 500 Mg Tablet 500 Mg PO QID Daily Multiple Vitamin (Multivitamin) 1 Each Tablet 1 Tab PO DAILY Iron (Ferrous Sulfate) 325 Mg Tablet 325 Mg PO BID Align (Bifidobacterium Infantis) 4 Mg Capsule 4 Mg PO DAILY Prednisone 5 Mg Tablet 10 Mg PO DAILY TAKES 2 (5MG) TABLETS Reclast 5 mg/100 ml Solution (Zoledronate) 5 Mg/100 Ml Btl 5 Mg IV ONCE A YEAR Preservision Areds Tablet (Vit A/Vit C/Vit E/Zinc/Copper) 1 Each Tablet 1 Tab PO 1700 Pantoprazole Sodium 40 Mg Tablet.dr 40 Mg PO BID Metoprolol Tartrate 25 Mg Tablet 25 Mg PO BID Instructions to patient/family Please see electronic discharge instructions given to patient. Clinical Quality Measures DVT/VTE Risk/Contraindication: Risk Factor Score Per Nursin RFS Level Per Nursing on Admit: 4+=Very High Problem Qualifiers (1) UTI (urinary tract infection): Urinary tract infection type: acute cystitis Hematuria presence: without hematuria Qualified Codes: N30.00 - Acute cystitis without hematuria MIKE CASANOVA DO Jan 20, 2018 10:22
[2018-01-20 11:20] VITALS: BP 163/83
== END 2018-01-20 11:20 | disposition home or self-care (01) | DRG 640 ==
LOC: EDUNIT# 11:01 → ER 11:02 → UNDOADMIN 15:11 → 4TH 15:11
PROVIDERS: ADMIT Internal Medicine; ATTEND Internal Medicine
DX: E87.6 Hypokalemia (principal); I11.0 Hypertensive heart disease with heart failure; I50.31 Acute diastolic (congestive) heart failure; N39.0 Urinary tract infection, site not specified; I48.1 Persistent atrial fibrillation; I42.9 Cardiomyopathy, unspecified; D68.2 Hereditary deficiency of other clotting factors; D68.61 Antiphospholipid syndrome; E86.0 Dehydration; J44.9 Chronic obstructive pulmonary disease, unspecified; E83.42 Hypomagnesemia; I25.10 Atherosclerotic heart disease of native coronary artery without angina pectoris; M32.9 Systemic lupus erythematosus, unspecified; G47.33 Obstructive sleep apnea (adult) (pediatric); E78.00 Pure hypercholesterolemia, unspecified; I73.00 Raynaud's syndrome without gangrene; I27.20 Pulmonary hypertension, unspecified; I34.0 Nonrheumatic mitral (valve) insufficiency; G62.9 Polyneuropathy, unspecified; K21.9 Gastro-esophageal reflux disease without esophagitis; E03.9 Hypothyroidism, unspecified; M81.0 Age-related osteoporosis without current pathological fracture; M19.91 Primary osteoarthritis, unspecified site; M54.9 Dorsalgia, unspecified; E66.9 Obesity, unspecified; Z68.31 Body mass index [BMI] 31.0-31.9, adult; Z79.01 Long term (current) use of anticoagulants; Z79.52 Long term (current) use of systemic steroids; Z87.891 Personal history of nicotine dependence
CPT/HCPCS: 36415; 71045; 80048; 80053; 81000; 83605; 83735; 83880; 85025; 85610; 85730; 86141; 87040; 87077; 87088; 87186; 93005; 93041; 93306; 93970; 96365; 96366; 96375

== ENCOUNTER 2018-01-26 13:46 | Outpatient (RCR) | payer MEDICARE, OTHER ==
[~2018-01-26 13:46] MED LIST changes: +POTA10CA43 PO
[2018-01-26] MEDS ORDERED: NS IV 1000 ML (CANCER CTR) 1,000 ML ONE (14:13)
[2018-01-26 15:42] LABS: BASOPHILS % (AUTO) 0 % (0-10); EOSINOPHILS # (AUTO) 0.1 10^3/uL (0.0-0.3); EOSINOPHILS % (AUTO) 2 % (0-10); HEMATOCRIT 39 % (35-52); HEMOGLOBIN 12.4 G/DL (11.5-16.0); LYMPHOCYTES # (AUTO) 1.2 X 10^3 (1.0-4.0); LYMPHOCYTES % (AUTO) 15 % (12-44); MEAN CORPUSCULAR HEMOGLOBIN 33 PG (25-34); MEAN CORPUSCULAR HGB CONC 32 G/DL (32-36); MEAN CORPUSCULAR VOLUME 105 FL (80-99); MEAN PLATELET VOLUME 9.2 FL (7.4-10.4); MONOCYTES # (AUTO) 0.8 X 10^3 (0.0-1.0); MONOCYTES % (AUTO) 9 % (0-12); NEUTROPHILS % (AUTO) 74 % (42-75); PLATELET COUNT 404 10^3/uL (130-400); RED BLOOD COUNT 3.73 10^6/uL (4.35-5.85); RED CELL DISTRIBUTION WIDTH 14.9 % (10.0-14.5); WHITE BLOOD COUNT 8.1 10^3/uL (4.3-11.0)
== END 2018-02-05 10:54 | disposition home or self-care (01) ==
LOC: ONC 13:46
PROVIDERS: ATTEND Internal Medicine Hematology & Oncology
DX: D68.62 Lupus anticoagulant syndrome (principal); M32.10 Systemic lupus erythematosus, organ or system involvement unspecified; I42.8 Other cardiomyopathies; I12.9 Hypertensive chronic kidney disease with stage 1 through stage 4 chronic kidney disease, or unspecified chronic kidney disease; N18.3 Chronic kidney disease, stage 3 (moderate); E03.9 Hypothyroidism, unspecified; I73.00 Raynaud's syndrome without gangrene; G47.33 Obstructive sleep apnea (adult) (pediatric); M81.0 Age-related osteoporosis without current pathological fracture; M19.91 Primary osteoarthritis, unspecified site; I73.9 Peripheral vascular disease, unspecified; Z79.899 Other long term (current) drug therapy; Z79.01 Long term (current) use of anticoagulants
CPT/HCPCS: 36415; 83883; 84155; 84165; 85025; 96360; 96361; 99213

== ENCOUNTER → 2018-02-05 | Outpatient (CLI) | payer MEDICARE, OTHER ==
[2018-02-05 13:10] LABS: ALANINE AMINOTRANSFERASE 21 U/L (0-55); ALBUMIN 4.4 GM/DL (3.2-4.5); ALKALINE PHOSPHATASE 55 U/L (40-136); BILIRUBIN,TOTAL 0.5 MG/DL (0.1-1.0); BUN/CREATININE RATIO 14; CALCIUM 9.2 MG/DL (8.5-10.1); CARBON DIOXIDE 23 MMOL/L (21-32); CHLORIDE 103 MMOL/L (98-107); CREATININE SERUM 0.87 MG/DL (0.60-1.30); GFR ESTIMATED > 60; GLUCOSE 130 MG/DL (70-105); PHOSPHORUS 3.5 MG/DL (2.3-4.7); SODIUM 141 MMOL/L (135-145); TOTAL PROTEIN 7.5 GM/DL (6.4-8.2)
== END ==
LOC: ONC 10:57
PROVIDERS: ATTEND Internal Medicine Hematology & Oncology
DX: E83.52 Hypercalcemia (principal); E55.9 Vitamin D deficiency, unspecified; D68.62 Lupus anticoagulant syndrome; M32.10 Systemic lupus erythematosus, organ or system involvement unspecified; I42.8 Other cardiomyopathies; I12.9 Hypertensive chronic kidney disease with stage 1 through stage 4 chronic kidney disease, or unspecified chronic kidney disease; N18.3 Chronic kidney disease, stage 3 (moderate); E03.9 Hypothyroidism, unspecified; I73.00 Raynaud's syndrome without gangrene; G47.33 Obstructive sleep apnea (adult) (pediatric); M81.0 Age-related osteoporosis without current pathological fracture; M19.91 Primary osteoarthritis, unspecified site; Z79.899 Other long term (current) drug therapy; Z79.01 Long term (current) use of anticoagulants
CPT/HCPCS: 80053; 82306; 82330; 82652; 83519; 83970; 84100; 99213

== ENCOUNTER → 2018-02-08 | Outpatient (CLI) | payer MEDICARE, OTHER ==
--- NOTE | 2018-02-08 14:47 | Diagnostic Imaging Report ---
PROCEDURE: CT chest without contrast. TECHNIQUE: Multiple contiguous axial images were obtained through the chest without the use of intravenous contrast. INDICATION: CT from 07/07/2013. FINDINGS: The heart is mildly large. There is coronary and aortic atherosclerosis which appears mild. There is no pericardial effusion. No mediastinal adenopathy is seen. There is mild elevation of the right hemidiaphragm. There is a stable subpleural 7 mm nodule in the anterior right upper lobe (image 17 series 2). There is atelectasis at the right lung base. There is atelectasis/scarring at the left lower lobe, which appear stable. No pleural effusion is seen. There is no pneumothorax. Imaged portions of the upper abdomen demonstrate no acute abnormality. There are kyphoplasty changes at T8, with chronic compression deformity of T9 and degenerative changes at these levels as well. IMPRESSION: 1. Stable subpleural pulmonary nodule in the right upper lobe compared to 2014. No new nodules or new consolidation is seen. There is atelectasis/scarring in the lung bases with elevation of the right hemidiaphragm. 2. Kyphoplasty changes at T8. Compression deformity of T9 appears chronic as well. Dictated by: Dictated on workstation # [id number]
== END ==
LOC: RAD 13:48
PROVIDERS: ATTEND Internal Medicine Hematology & Oncology
DX: M43.8X4 Other specified deforming dorsopathies, thoracic region (principal); R91.1 Solitary pulmonary nodule; R06.02 Shortness of breath; Z47.89 Encounter for other orthopedic aftercare
CPT/HCPCS: 71250

== ENCOUNTER → 2018-02-19 | Outpatient (CLI) | payer MEDICARE, OTHER ==
[~2018-02-19] MED LIST changes: +IOHEXOL 350 MG/ML 150 ML (OMNIPAQUE 350) VIAL IV ONE; +NS 100 ML (IVPB) BAG IV ONE; +RECEIVED CONTRAST (Hold Metformin) IV SCH
--- NOTE | 2018-02-19 12:48 | Diagnostic Imaging Report ---
PROCEDURE: CT angiography of the chest with contrast. TECHNIQUE: Multiple contiguous axial images were obtained through the chest after uneventful bolus administration of intravenous contrast. 2D reconstructed CTA MIP acquisitions were also performed. INDICATION: Shortness of breath, chronic anticoagulation. COMPARISON: 02/08/2018. FINDINGS: There are no intraluminal pulmonary arterial filling defects. There are no findings of pulmonary arterial embolus. Elevation of the right hemidiaphragm with subjacent lower lobe and right middle lobe dependent basilar atelectasis, unchanged. There is a tiny amount of right-sided pleural fluid of less than 1 cm thickness. There is some benign prominence of the mediastinal fat. No pericardial effusion. There is mild enlargement of the heart, unchanged. There are coronary and aortic nonaneurysmal atherosclerotic vascular calcifications. The upper abdomen demonstrates tiny stones within what is presumed to be contracted gallbladder, unchanged. IMPRESSION: Negative for PE. New tiny right pleural effusion. Chronic elevation of the right diaphragm with subjacent atelectasis. Cholelithiasis noted. Dictated by: Dictated on workstation # [id number]
== END ==
LOC: RAD 08:29
PROVIDERS: ATTEND Nurse Practitioner Adult Health
DX: K80.20 Calculus of gallbladder without cholecystitis without obstruction (principal); J98.11 Atelectasis; Q79.1 Other congenital malformations of diaphragm; R06.02 Shortness of breath; D68.51 Activated protein C resistance; Z79.01 Long term (current) use of anticoagulants
CPT/HCPCS: 71275

== ENCOUNTER → 2018-03-22 | Outpatient (CLI) | payer MEDICARE, OTHER ==
[~2018-03-22] MED LIST changes: -AMLO5TAB7 PO; +AMLO5TAB9 PO; -IOHEXOL 350 MG/ML 150 ML (OMNIPAQUE 350) VIAL IV ONE; -NS 100 ML (IVPB) BAG IV ONE; -RECEIVED CONTRAST (Hold Metformin) IV SCH; +RT-ALBUTEROL SULF 2.5 MG/3 ML PRE-MIX VIAL INH ONE; +RT-ALBUTEROL SULF 2.5 MG/3 ML PRE-MIX VIAL ONE
--- NOTE | 2018-03-22 12:25 | Diagnostic Imaging Report ---
INDICATION: DYSPNEA COMPARISON: 01/17/2018. FINDINGS: Frontal and lateral views of the chest demonstrate normal heart size and pulmonary vascularity. The lungs show asymmetric elevation of the right hemidiaphragm, but are otherwise clear. There are no signs of infiltrate, pleural effusions or pneumothoraces. The visualized osseous structures show no acute abnormalities. IMPRESSION: 1. No acute process. No signs of infiltrates, effusions or pneumothoraces. Dictated by: Dictated on workstation # [id number]
== END ==
LOC: RT 11:54
PROVIDERS: ATTEND Internal Medicine
DX: R06.00 Dyspnea, unspecified (principal)
CPT/HCPCS: 71046; 94060; 94726; 94729

== ENCOUNTER → 2018-04-06 | Outpatient (CLI) | payer MEDICARE, OTHER ==
[~2018-04-06] MED LIST changes: -RT-ALBUTEROL SULF 2.5 MG/3 ML PRE-MIX VIAL INH ONE; -RT-ALBUTEROL SULF 2.5 MG/3 ML PRE-MIX VIAL ONE
--- NOTE | 2018-04-06 16:14 | Diagnostic Imaging Report ---
INDICATION: Routine screening. COMPARISON: 03/30/2017 and 02/01/2016. TECHNIQUE: 2D and 3D bilateral screening mammography was performed with CAD. FINDINGS: Scattered fibroglandular densities are identified bilaterally. Benign-appearing parenchymal and vascular calcifications are noted bilaterally. A small nodular density in the outer left breast appears stable. No mass or malignant appearing microcalcifications are seen. The axillae are unremarkable. IMPRESSION: No mammographic features suspicious for malignancy are identified. ACR BI-RADS Category 2: Benign findings. Result letter will be mailed to the patient. Note: At least 10% of breast cancer is not imaged by mammography. Dictated by: Dictated on workstation # [id number]
== END ==
LOC: RAD 09:30
PROVIDERS: ATTEND Internal Medicine
DX: Z12.31 Encounter for screening mammogram for malignant neoplasm of breast (principal)
CPT/HCPCS: 77067

== ENCOUNTER 2018-04-15 13:54 | Outpatient (RCR) | payer MEDICARE, OTHER | END 2018-05-19 | disposition home or self-care (01) | LOC: ONC 13:54 | PROVIDERS: ATTEND Internal Medicine Hematology & Oncology | DX: D68.62 Lupus anticoagulant syndrome (principal); M32.10 Systemic lupus erythematosus, organ or system involvement unspecified; I42.8 Other cardiomyopathies; I12.9 Hypertensive chronic kidney disease with stage 1 through stage 4 chronic kidney disease, or unspecified chronic kidney disease; N18.3 Chronic kidney disease, stage 3 (moderate); E03.9 Hypothyroidism, unspecified; I73.00 Raynaud's syndrome without gangrene; G47.33 Obstructive sleep apnea (adult) (pediatric); M81.0 Age-related osteoporosis without current pathological fracture; M19.91 Primary osteoarthritis, unspecified site; I73.9 Peripheral vascular disease, unspecified; Z79.899 Other long term (current) drug therapy; Z79.01 Long term (current) use of anticoagulants | CPT/HCPCS: 99213 ==

== ENCOUNTER 2018-04-26 08:05 | Outpatient (RCR) | payer MEDICARE, OTHER | END 2018-07-25 | disposition home or self-care (01) | LOC: PULM 08:05 | PROVIDERS: ATTEND Nurse Practitioner Family | DX: I42.9 Cardiomyopathy, unspecified (principal); R06.02 Shortness of breath; M32.8 Other forms of systemic lupus erythematosus; R94.2 Abnormal results of pulmonary function studies; J98.4 Other disorders of lung | CPT/HCPCS: 99211 ==

== ENCOUNTER 2018-08-12 12:48 | Outpatient (RCR) | payer MEDICARE, OTHER ==
[~2018-08-12 12:48] MED LIST changes: +CYAN-41 PO; -CYAN10006 PO
== END 2018-11-10 | disposition home or self-care (01) ==
LOC: ONC 12:48
PROVIDERS: ATTEND Internal Medicine Hematology & Oncology
DX: D68.62 Lupus anticoagulant syndrome (principal); M32.10 Systemic lupus erythematosus, organ or system involvement unspecified; I42.8 Other cardiomyopathies; I12.9 Hypertensive chronic kidney disease with stage 1 through stage 4 chronic kidney disease, or unspecified chronic kidney disease; N18.3 Chronic kidney disease, stage 3 (moderate); E03.9 Hypothyroidism, unspecified; I73.00 Raynaud's syndrome without gangrene; G47.33 Obstructive sleep apnea (adult) (pediatric); M81.0 Age-related osteoporosis without current pathological fracture; M19.91 Primary osteoarthritis, unspecified site; I73.9 Peripheral vascular disease, unspecified; Z79.899 Other long term (current) drug therapy; Z79.01 Long term (current) use of anticoagulants
CPT/HCPCS: 99213

== ENCOUNTER → 2018-08-27 | Outpatient (CLI) | payer MEDICARE, OTHER ==
[~2018-08-27] MED LIST changes: -CYAN-41 PO; +CYAN10006 PO; +HOLD METFORMIN - RECEIVED CONTRAST 20 ML VIAL IV SCH; +IOHEXOL 350 MG/ML 100 ML (OMNIPAQUE 350) VIAL IV ONE; +NS 100 ML (IVPB) BAG IV ONE
[2018-08-27 08:35] LABS: BUN/CREATININE RATIO 20; CREATININE SERUM 0.85 MG/DL (0.60-1.30); GFR ESTIMATED > 60
--- NOTE | 2018-08-27 11:31 | Diagnostic Imaging Report ---
PROCEDURE: CT chest with contrast only. TECHNIQUE: Multiple contiguous axial images were obtained through the chest after administration of intravenous contrast. Auto Exposure Controls were utilized during the CT exam to meet ALARA standards for radiation dose reduction. INDICATION: Shortness of breath. FINDINGS: There is no edema or pneumonia. No suspicious nodules. There is mild dependent atelectasis. No pleural effusion or pneumothorax. No central pulmonary embolism. Aorta is normal in caliber. There is hypoenhancement and thinning of the myocardium at the apex suggestive of a prior infarction. No axillary, supraclavicular or mediastinal lymphadenopathy. Limited views of the upper abdomen reveal atherosclerosis of the aorta. There are no suspicious osseous lesions. There is a chronic healed fracture deformity of the spinous process of the scapula. There has been vertebroplasty of a mid thoracic vertebrae. There is an unchanged compression fracture of multiple lower thoracic vertebrae. There is unchanged cortical thickening and increased trabeculation of the sternum likely reflecting Paget's disease. IMPRESSION: 1. No acute abnormality in the chest to explain shortness of breath. 2. CT findings suggestive of prior left anterior descending artery territory myocardial infarction. Dictated by: Dictated on workstation # [id number]
== END ==
LOC: RAD 07:49
PROVIDERS: ATTEND Nurse Practitioner Family
DX: J45.998 Other asthma (principal); J98.4 Other disorders of lung; M32.8 Other forms of systemic lupus erythematosus; I42.9 Cardiomyopathy, unspecified
CPT/HCPCS: 36415; 71260; 82565; 84520

== ENCOUNTER 2018-09-16 19:51 | Outpatient (CLI) | payer MEDICARE, OTHER ==
[~2018-09-16 19:51] MED LIST changes: -HOLD METFORMIN - RECEIVED CONTRAST 20 ML VIAL IV SCH; -IOHEXOL 350 MG/ML 100 ML (OMNIPAQUE 350) VIAL IV ONE; -NS 100 ML (IVPB) BAG IV ONE
== END 2018-09-17 06:35 | disposition home or self-care (01) ==
LOC: RAD 19:51
PROVIDERS: ATTEND Nurse Practitioner Family
DX: G47.34 Idiopathic sleep related nonobstructive alveolar hypoventilation (principal); G47.36 Sleep related hypoventilation in conditions classified elsewhere; G47.30 Sleep apnea, unspecified; J98.4 Other disorders of lung; I42.9 Cardiomyopathy, unspecified; M32.8 Other forms of systemic lupus erythematosus; J45.998 Other asthma
CPT/HCPCS: 95811

== ENCOUNTER 2018-11-30 12:46 | Outpatient (RCR) | payer MEDICARE, OTHER ==
[~2018-11-30 12:46] MED LIST changes: +CYAN-41 PO; -CYAN10006 PO; +TRM50T PO
[2019-02-02] MEDS ORDERED: POTA10TA36 PO (13:07)
[2019-02-02] MEDS ORDERED: RT-ALBUINH IH (13:09)
[2019-02-02] MEDS ORDERED: WARF2.5T82 PO (13:09)
[2019-02-02] MEDS ORDERED: METO50TA15 PO (13:10)
[2019-02-02] MEDS ORDERED: POLY17PO6 PO (13:14)
[2019-02-02] MEDS ORDERED: FLUT1DIS26 IH (13:14)
[2019-02-02] MEDS ORDERED: PRD10T PO (13:32)
== END 2019-02-28 | disposition home or self-care (01) ==
LOC: ONC 12:46
PROVIDERS: ATTEND Internal Medicine Hematology & Oncology
DX: D68.62 Lupus anticoagulant syndrome (principal); M32.10 Systemic lupus erythematosus, organ or system involvement unspecified; I42.8 Other cardiomyopathies; I12.9 Hypertensive chronic kidney disease with stage 1 through stage 4 chronic kidney disease, or unspecified chronic kidney disease; N18.3 Chronic kidney disease, stage 3 (moderate); E03.9 Hypothyroidism, unspecified; I73.00 Raynaud's syndrome without gangrene; G47.33 Obstructive sleep apnea (adult) (pediatric); M81.0 Age-related osteoporosis without current pathological fracture; M19.91 Primary osteoarthritis, unspecified site; I73.9 Peripheral vascular disease, unspecified; E83.52 Hypercalcemia; M19.90 Unspecified osteoarthritis, unspecified site; Z86.73 Personal history of transient ischemic attack (TIA), and cerebral infarction without residual deficits; Z79.899 Other long term (current) drug therapy; Z79.01 Long term (current) use of anticoagulants
CPT/HCPCS: 99213

== ENCOUNTER 2019-01-19 10:13 | Outpatient (RCR) | payer MEDICARE, OTHER ==
[~2019-01-19 10:13] MED LIST changes: +MONT10TA26 PO
[2019-02-02] MEDS ORDERED: POTA10TA36 PO (13:07)
[2019-02-02] MEDS ORDERED: WARF2.5T82 PO (13:09)
[2019-02-02] MEDS ORDERED: RT-ALBUINH IH (13:09)
[2019-02-02] MEDS ORDERED: METO50TA15 PO (13:10)
[2019-02-02] MEDS ORDERED: FLUT1DIS26 IH (13:14)
[2019-02-02] MEDS ORDERED: POLY17PO6 PO (13:14)
[2019-02-02] MEDS ORDERED: PRD10T PO (13:32)
== END 2019-04-19 | disposition home or self-care (01) ==
LOC: CARD 10:13
PROVIDERS: ATTEND Physician Assistant
DX: I25.10 Atherosclerotic heart disease of native coronary artery without angina pectoris (principal); I10 Essential (primary) hypertension; I35.0 Nonrheumatic aortic (valve) stenosis; R06.09 Other forms of dyspnea
CPT/HCPCS: 93225; 93226

== ENCOUNTER → 2019-01-25 | Outpatient (CLI) | payer MEDICARE, OTHER ==
[~2019-01-25] MED LIST changes: +FLUT1DIS26 IH; +METO50TA15 PO; -MONT10TA26 PO; +POTA10TA36 PO; +RT-ALBUINH IH; -TRM50T PO
== END ==
LOC: CARD 08:18
PROVIDERS: ATTEND Physician Assistant
DX: I08.1 Rheumatic disorders of both mitral and tricuspid valves (principal); I35.0 Nonrheumatic aortic (valve) stenosis; I25.10 Atherosclerotic heart disease of native coronary artery without angina pectoris; I10 Essential (primary) hypertension
CPT/HCPCS: 93306

== ENCOUNTER → 2019-01-26 | Outpatient (CLI) | payer MEDICARE, OTHER ==
[~2019-01-26] VITALS: Ht 167 cm; Wt 87.0 kg
[~2019-01-26] MED LIST changes: +CATHETER FLUSH 10 ML SYR IV PRN; +REGADENOSON 0.4 MG/5 ML SYR (LEXISCAN) IV ONE; +TRM50T PO
[2019-01-26 09:23] VITALS: BP 156/82
[2019-01-26 09:24] VITALS: BP 157/82
--- NOTE | 2019-01-26 15:51 | STRESS TEST ---
DATE OF SERVICE: 01/26/2019 LEXISCAN MYOVIEW STRESS TEST REPORT REFERRING PHYSICIAN: Dr. Love. Baseline heart rate is 79, baseline blood pressure 156/82. Baseline EKG is sinus rhythm with no ischemic changes. In summary, the patient was injected with 10.61 mCi of technetium-99 Myoview and the resting images were obtained. Then, the patient received 0.4 mg of Lexiscan followed by 31.0 mCi of technetium-99 Myoview. Throughout the test, there were no EKG changes. The resting and stress images were reviewed and compared in the short axis, horizontal long axis, and vertical long axis views. Review of the images showed breast attenuation affecting the quality of the images, there is mild decreased uptake involving the mid to apical anterolateral wall and inferolateral wall. SSS is 10. SDS 8. TID value 1.1. On the gated images, the left ventricle is small in size with normal contractility. Calculated ejection fraction 87%. CONCLUSION: 1. The patient tolerated Lexiscan well. 2. Reversible ischemia involving the mid to apical anterolateral and inferolateral wall. 3. Normal left ventricular size with normal contractility. Calculated ejection fraction 87%. Job ID: [id number] DocumentID: [id number] Dictated Date: 01/26/2019 13:27:38 Warehouse Supervisor Date: 01/26/2019 15:50:45 Dictated By: RADHA RANGEL MD
== END ==
LOC: CARD 07:17
PROVIDERS: ATTEND Physician Assistant
DX: I35.0 Nonrheumatic aortic (valve) stenosis (principal); I25.10 Atherosclerotic heart disease of native coronary artery without angina pectoris; I10 Essential (primary) hypertension
CPT/HCPCS: 78452; 93017

== ENCOUNTER 2019-02-02 12:05 | Day surgery (SDC) | payer MEDICARE, OTHER ==
[~2019-02-02] VITALS: Ht 167 cm; Wt 87.0 kg
[~2019-02-02 12:05] MED LIST changes: -CATHETER FLUSH 10 ML SYR IV PRN; -FLUT1DIS26 IH; -METO50TA15 PO; -POTA10TA36 PO; -REGADENOSON 0.4 MG/5 ML SYR (LEXISCAN) IV ONE; -RT-ALBUINH IH; -TRM50T PO
[2019-02-02] MEDS ORDERED: NS IV 1000 ML 1,000 ML ONE (12:11)
[2019-02-02] MEDS ORDERED: NS IV 1000 ML 2,000 ML ONE (12:11)
[2019-02-02] MEDS ORDERED: LIDOCAINE 1% INJ 20 ML 20 ML VIAL ONE (12:11)
[2019-02-02] MEDS ORDERED: HEParin 1000 UNIT/ML (10ML VIAL) FOR BOLUS ONE (12:11)
[2019-02-02] MEDS ORDERED: NS IV 1000 ML 1,000 ML IV SCH ×2 (12:15→16:14)
[2019-02-02 12:27] VITALS: BP 162/77
[2019-02-02 12:45] LABS: HEMOGLOBIN 13.6 G/DL (11.5-16.0); MEAN PLATELET VOLUME 9.9 FL (7.4-10.4); RED CELL DISTRIBUTION WIDTH 13.9 % (10.0-14.5)
--- NOTE | 2019-02-02 12:58 | Diagnostic Imaging Report ---
INDICATION: Pre-heart catheterization. Chest pain. COMPARISON: 08/27/2018. FINDINGS: A single frontal radiographic view of the chest was obtained. There is enlargement of the cardiac silhouette but this may be related to prominent pericardial fat. The pulmonary vasculature is within normal limits. The lungs show low inspiratory volumes with bibasilar scarring and/or atelectasis. There is no large effusion or pneumothorax. There is a nodular appearing opacity projecting over the lateral right midlung but this appears to be associated with a posterolateral right rib and may be on the basis of an old healed rib fracture. IMPRESSION: 1. Low lung volumes with bibasilar scarring and/or atelectasis. 2. Prominent cardiac silhouette which again may be exaggerated by portable technique and prominent pericardial fat. 3. Probable healing right-sided rib fracture. A noncontrast CT of the chest could be performed to exclude a true soft tissue pulmonary nodule. Dictated by: Dictated on workstation # [id number]
[2019-02-02 13:03] LABS: INR 1.6 (0.8-1.4); PROTHROMBIN TIME PATIENT 20.2 SEC (12.2-14.7)
[2019-02-02] MEDS ORDERED: POTA10TA36 PO (13:07)
[2019-02-02] MEDS ORDERED: WARF2.5T82 PO (13:09)
[2019-02-02] MEDS ORDERED: RT-ALBUINH IH (13:09)
[2019-02-02 13:10] LABS: ALANINE AMINOTRANSFERASE 22 U/L (0-55); ALBUMIN 4.6 GM/DL (3.2-4.5); ALKALINE PHOSPHATASE 51 U/L (40-136); BILIRUBIN,TOTAL 0.8 MG/DL (0.1-1.0); BUN/CREATININE RATIO 16; CALCIUM 9.3 MG/DL (8.5-10.1); CARBON DIOXIDE 24 MMOL/L (21-32); CHLORIDE 105 MMOL/L (98-107); CHOLESTEROL 233 MG/DL (< 200); CREATININE SERUM 1.01 MG/DL (0.60-1.30); GFR ESTIMATED 55; GLUCOSE 79 MG/DL (70-105); HDL CHOLESTEROL 57 MG/DL (40-60); POTASSIUM 3.8 MMOL/L (3.6-5.0); SODIUM 142 MMOL/L (135-145); TOTAL PROTEIN 7.1 GM/DL (6.4-8.2); TRIGLYCERIDES 360 MG/DL (<150); VLDL CHOLESTEROL 72 MG/DL (5-40)
[2019-02-02] MEDS ORDERED: METO50TA15 PO (13:10)
[2019-02-02] MEDS ORDERED: POLY17PO6 PO (13:14)
[2019-02-02] MEDS ORDERED: FLUT1DIS26 IH (13:14)
[2019-02-02] MEDS ORDERED: PRD10T PO (13:32)
--- NOTE | 2019-02-02 14:04 | NUR ---
SPOKE WITH THE PT (SHE HAD A HOME MED LIST AND HER BOTTLES) WELL CALLING [facility] TO COMPLETE THE MED REC. THE PT WAS ABLE TO TELL ME HOW/WHEN SHE TAKES ALL HER MEDICATIONS. THE FOLLOWING ARE FILL DATES FROM [facility]: 10-19-2018 LISINOPRIL #90/90DS 10-20-2018 LEVOTHYROXINE #90/90DS 11-24-2018 AMLODIPINE #90/90DS 12-21-2018 POTASSIUM #180/90DS 01-06-2019 ADVAIR #1/30DS (PICKED UP FROM [employer]) 01-19-2019 TRAMADOL #90/30DS 01-26-2019 ATORVASTATIN #90/90DS 01-26-2019 FUROSEMIDE #90/90DS 01-27-2019 MONTELUKAST #90/90DS 01-27-2019 PANTOPRAZOLE #90/90DS 01-31-2019 WARFARIN #90/90DS 01-31-2019 PREDNISONE #90/90DS 01-31-2019 METOPROLOL #180/90DS 01-31-2019 METHOTREXATE #48/90DS OTC MEDS: TYLENOL ASPIRIN ALIGN CETIRIZINE VIT B12 IRON FLONASE FOLIC ACID NIACIN OMEGA 3 MIRALAX PRESERVISION
[2019-02-02] MEDS ORDERED: fentaNYL INJECTION 100 MCG/2 ML AMP ONE (15:21)
[2019-02-02] MEDS ORDERED: MIDAZOLAM 5 MG/5 ML (VERSED) VIAL ONE (15:21)
[2019-02-02] MEDS ORDERED: VERAPAMIL 5 MG/2 ML (CALAN) VIAL IV ONE (15:24)
[2019-02-02] MEDS ORDERED: NITRO DRIP 25000 MCG/D5W 250 ML IV ONE (15:25)
--- NOTE | 2019-02-02 16:14 | Cardiac Procedure Note-CS/ASA ---
Pre-Procedure Note Pre-Op Procedure Note H&P Reviewed The H&P was reviewed, patient examined and no changes noted. Date H&P Reviewed: Feb 02, 2019 Time H&P Reviewed: 13:00 Conscious Sedation Pre-Proced Time 13:00 ASA Score 3 For ASA 3 and 4: Consider anesthesia and medical clearance. Also, for patients with a history of failed moderate sedation consider anesthesia. Airway Lungs Heart ASA score ASA 1: a normal healthy patient ASA 2: a patient with a mild systemic disease (mid diabetes, controlled hypertension, obesity x ASA 3: a patient with a severe systemic disease that limits activity (angina, COPD, prior Myocardial infarction) ASA 4: a patient with an incapacitating disease that is a constant threat to life (CHF, renal failure) ASA 5: a moribund patient not expected to survive 24 hrs. (ruptured aneurysm) ASA 6: a declared brain- patient whose organs are being harvested. For emergent operations, add the letter E after the classification Mallampati Classification Grade 3 Sedation Plan Analgesia, Amnesia, Plan communicated to team members, Discussed options with patient/fam, Discussed risks with patient/fam The patient is an appropriate candidate to undergo the planned procedure, sedation, and anesthesia. The patient immediately re-assessed prior to indication. RADHA RANGEL MD Feb 02, 2019 16:14 POS
--- NOTE | 2019-02-02 16:16 | Discharge Inst-Post CATH ---
Discharge Inst-CATH/EP Problems Reviewed?: Yes Post Cardiac Cath/EP D/C Inst Follow Up/Plan Appointment with Dr. Moore's office in 2-4 weeks <b>CARDIAC CATH/EP PROCEDURE DISCHARGE INSTRUCTIONS</b> ACTIVITY * Go Home directly and rest. * Limit activity of the leg (or wrist if it was used) for 7 days including aerob ics, swimming, jogging, bicycling, etc. * Restrict stair-climbing for 7 days if possible, if not, climb up with your non-cath leg, then bring together on the same step. * Avoid lifting, pushing, pulling or excessive movement of the affected extremity for 7 days. * Customary sexual activity may be resumed after 2 days-use caution not to use a position that strains or causes pain to the affected extremity. * No driving for 24 hours. * NO SMOKING. * Avoid straining for bowel movements for 7 days. * Gentle walking on level ground is allowed. * Returning to work will depend on the type of procedure and the results. Your doctor will discuss this with you. CALL YOUR DOCTOR FOR ANY OF THE FOLLOWING: *If bleeding from the puncture site occurs- Apply gentle pressure to site with clean cloth and call your doctor or EMS. * If a knot or lump forms under the skin, increases in size, or causes pain. * If bruising appears to be worsening or moving further down your leg instead of disappearing. * Temperature above 101 F. CARE OF YOUR GROIN INCISION; * Bruising or purple discoloration of the skin near the puncture site is common. * You may shower only, no bathtub bathing for 5 days. Be careful to avoid slipping as your leg may feel stiff. * If a closure device was used on your femoral artery, please see the attached guide regarding care of the device and your leg. * Leave dressing on FOR 24 hours. CARE OF YOUR WRIST INCISION; * Bruising or purple discoloration of the skin near the puncture site is common. * You may shower. * DO NOT submerge wrist. * Leave dressing on FOR 24 hours. RADHA MOORE MD Feb 02, 2019 16:16 POS
--- NOTE | 2019-02-02 16:20 | Cardiac Cath Report ---
Cardiac Cath Report Physician (s)/Tariff Clerk (s) Physician RADHA RANGEL MD Pre-Procedure Diagnosis Pre-Procedure Diagnosis: Coronary artery disease Post-Procedure Note Procedure Start Date: Feb 02, 2019 Name of Procedure: Left heart catheterization Findings/Procedure Note PROCEDURE NOTE: 68-year-old lady with history of mild coronary artery disease has been having increasing chest pain, had borderline stress test, continue to have worsening chest is scheduled for cardiac catheterization possible PTCA. After explaining the procedure to the patient, all pros and cons were explained, all questions were answered. The patient signed the consent and then she was placed on the cardiac catheterization laboratory. Groin was prepped SL fashion local anesthesia was used. Sheath placed in the Right radial artery, Tigrer catheter was used to access the right and left carotid system and advanced to the left ventricular cavity, angiogram was done, no left ventricular gram was done, pressure was measured At the end of the procedure the sheath was removed. vascular band was used FINDINGS: Hemodynamics LV 113/17, end-diastolic pressure of 17 Aorta 108/70 mean of 85 ANATOMY: Left Main is free of obstructive disease Left Anterior Descending has mild disease nonobstructive disease Left Circumflex has mild disease with no obstructive disease Right Coronory Artery has mild disease with no obstructive disease LV Gram was not done, pressure was measured CONCLUSION: 1. Mild coronary artery disease nonobstructive disease 2. Normal left ventricular end-diastolic pressure DISCUSSION AND RECOMMENDATION: medical therapy is requested no intervention is needed Anesthesia Type: Conscious Sedation Estimated blood loss (mL): 5 ml Contrast Amount: 27 ml Total Radiation Dose: 327 mGy Post-Procedure Diagnosis Post-operative diagnosis: Chest pain Coronary artery disease Hypertension Hyperlipidemia RADHA RANGEL MD Feb 02, 2019 16:20 POS
[2019-02-02 16:26] VITALS: BP 147/82
--- NOTE | 2019-02-02 16:26 | NUR ---
Patient arrived to floor via bed. Vasc band in place to left radial wrist. No bleeding or oozing noted at puncture site to right wrist. Patient is alert and oriented, VSS. Bed in low position, call light in reach, will continue to monitor. Patients is at bedside. 1737- 2mL air removed from vasc band, no bleeding or oozing from puncture site noted, brachial and radial pulses palpable and equal bilaterally. 1757- 2mL air removed from vasc band, no bleeding or oozing from puncture site noted, brachial and radial pulses palpable and equal bilaterally. 1820- 2mL air removed from vasc band, no bleeding or oozing from puncture site noted, brachial and radial pulses palpable and equal bilaterally. 1837- 2mL air removed from vasc band, no bleeding or oozing from puncture site noted, brachial and radial pulses palpable and equal bilaterally. 1855-2mL air removed from vasc band, no bleeding or oozing from puncture site noted, brachial and radial pulses palpable and equal bilaterally.
[2019-02-02 20:00] VITALS: BP 131/73
--- NOTE | 2019-02-02 20:18 | NUR ---
VASC BAND REMOVED FROM PT'S RT WRIST, NO BLEEDING NOTED. 2INCH BANDAID APPLIED.
[2019-02-02 20:45] VITALS: BP 119/73
--- NOTE | 2019-02-02 20:45 | NUR ---
JALIL VIDES demonstrates understanding of discharge instructions and accurately returns instructions upon questioning. Copy of Post-Discharge Instructions given to . JALIL VIDES is able to manage continuing needs after discharge. Patients belongings returned to PATIENT. Patient discharged from [facility]- on 02/02/19 at 2045. JALIL VIDES left floor via WHEELCHAIR, accompanied by PCCT AND SIGNIFICANT OTHER.
== END 2019-02-02 20:45 | disposition home or self-care (01) ==
LOC: CATH 12:05 → CSD 16:35 → CATH 20:45
PROVIDERS: ATTEND Internal Medicine Cardiovascular Disease
DX: I25.10 Atherosclerotic heart disease of native coronary artery without angina pectoris (principal); E11.51 Type 2 diabetes mellitus with diabetic peripheral angiopathy without gangrene; I73.00 Raynaud's syndrome without gangrene; M32.9 Systemic lupus erythematosus, unspecified; I42.8 Other cardiomyopathies; I50.9 Heart failure, unspecified; I08.3 Combined rheumatic disorders of mitral, aortic and tricuspid valves; I13.0 Hypertensive heart and chronic kidney disease with heart failure and stage 1 through stage 4 chronic kidney disease, or unspecified chronic kidney disease; I25.2 Old myocardial infarction; I87.2 Venous insufficiency (chronic) (peripheral); N18.9 Chronic kidney disease, unspecified; E78.5 Hyperlipidemia, unspecified; G47.36 Sleep related hypoventilation in conditions classified elsewhere; I27.20 Pulmonary hypertension, unspecified; M81.0 Age-related osteoporosis without current pathological fracture; E03.9 Hypothyroidism, unspecified; D38.2 Neoplasm of uncertain behavior of pleura; M19.90 Unspecified osteoarthritis, unspecified site; Z88.0 Allergy status to penicillin; Z88.7 Allergy status to serum and vaccine; Z79.82 Long term (current) use of aspirin; Z90.710 Acquired absence of both cervix and uterus; Z90.49 Acquired absence of other specified parts of digestive tract; Z87.891 Personal history of nicotine dependence; Z82.49 Family history of ischemic heart disease and other diseases of the circulatory system
CPT/HCPCS: 36415; 71045; 80053; 80061; 85027; 85610; 85730; 87081; 93458

== ENCOUNTER 2019-03-29 12:55 | Outpatient (RCR) | payer MEDICARE, OTHER ==
[~2019-03-29 12:55] MED LIST changes: +FLUT1DIS26 IH; +METO50TA15 PO; +MONT10TA26 PO; +POTA10TA36 PO; +RT-ALBUINH IH; +TRM50T PO
== END 2019-06-27 | disposition home or self-care (01) ==
LOC: ONC 12:55
PROVIDERS: ATTEND Internal Medicine Hematology & Oncology
DX: D68.62 Lupus anticoagulant syndrome (principal); M32.10 Systemic lupus erythematosus, organ or system involvement unspecified; I42.8 Other cardiomyopathies; I12.9 Hypertensive chronic kidney disease with stage 1 through stage 4 chronic kidney disease, or unspecified chronic kidney disease; N18.3 Chronic kidney disease, stage 3 (moderate); E03.9 Hypothyroidism, unspecified; I73.00 Raynaud's syndrome without gangrene; G47.33 Obstructive sleep apnea (adult) (pediatric); M81.0 Age-related osteoporosis without current pathological fracture; M19.91 Primary osteoarthritis, unspecified site; I73.9 Peripheral vascular disease, unspecified; E83.52 Hypercalcemia; M19.90 Unspecified osteoarthritis, unspecified site; Z86.73 Personal history of transient ischemic attack (TIA), and cerebral infarction without residual deficits; Z79.899 Other long term (current) drug therapy; Z79.01 Long term (current) use of anticoagulants
CPT/HCPCS: 99213

== ENCOUNTER → 2019-04-11 | Outpatient (CLI) | payer MEDICARE, OTHER ==
[~2019-04-11] MED LIST changes: -MONT10TA26 PO
--- NOTE | 2019-04-11 11:42 | Diagnostic Imaging Report ---
INDICATION: Screening. The current study was also evaluated with a Computer Aided Detection (CAD) system. 3-D Tomographic imaging was also performed. Comparison made with prior examinations from 04/06/2018, 03/30/2017, and 02/01/2016. FINDINGS: There are scattered fibroglandular densities bilaterally. There are vascular and benign-type calcifications in both breasts. There is no new dominant mass, spiculated lesion, or suspicious calcification identified. Skin, nipples, and axillae are unremarkable. IMPRESSION: Benign. ACR BI-RADS Category 2: Benign findings. Result letter will be mailed to the patient. Note: At least 10% of breast cancer is not imaged by mammography. Dictated by: Dictated on workstation # [id number]
== END ==
LOC: RAD 10:42
PROVIDERS: ATTEND Internal Medicine
DX: Z12.31 Encounter for screening mammogram for malignant neoplasm of breast (principal)
CPT/HCPCS: 77067

== ENCOUNTER → 2019-08-03 | Outpatient (CLI) | payer MEDICARE, OTHER ==
[~2019-08-03] MED LIST changes: +MONT10TA26 PO
--- NOTE | 2019-08-03 13:54 | Diagnostic Imaging Report ---
EXAMINATION: CT Chest without contrast. TECHNIQUE: Multiple contiguous axial images were obtained through the chest without the use of intravenous contrast. All CT scans use one or more of the following dose optimizing techniques: automated exposure control, MA and/or KvP adjustment based on a patient size and exam type, or iterative reconstruction. HISTORY: Dyspnea on exertion. COMPARISON: 08/27/2018. FINDINGS: There is no edema or pneumonia. No pleural effusion. No pneumothorax. Peripheral 5 mm right upper lobe nodule is stable. No follow-up required. There is basilar atelectasis. Heart size is normal. There are mild coronary artery calcifications. No pericardial effusion. Aorta is normal in caliber. There is no axillary or supraclavicular lymphadenopathy. There is no mediastinal lymphadenopathy. Limited views of the upper abdomen are unremarkable. There are no suspicious osseus lesions. There are old fractures of the right scapula and bilateral ribs. There has been vertebroplasty of a mid thoracic compression fracture. Lower thoracic compression fractures are unchanged. Heterogeneity of the sternum is stable. IMPRESSION: 1. No acute abnormality in the chest. Dictated by: Dictated on workstation # [id number]
== END ==
LOC: RAD 13:14
PROVIDERS: ATTEND Nurse Practitioner Family
DX: J45.998 Other asthma (principal); N18.9 Chronic kidney disease, unspecified; M32.8 Other forms of systemic lupus erythematosus
CPT/HCPCS: 71250

== ENCOUNTER → 2019-08-16 | Outpatient (CLI) | payer MEDICARE, OTHER | LOC: EDSTATUS 06-28 10:25 → ONC 09:55 | PROVIDERS: ATTEND Internal Medicine Hematology & Oncology | DX: D68.61 Antiphospholipid syndrome (principal); Z86.73 Personal history of transient ischemic attack (TIA), and cerebral infarction without residual deficits; E83.52 Hypercalcemia; R06.00 Dyspnea, unspecified | CPT/HCPCS: 99213 ==

== ENCOUNTER → 2020-03-05 | Outpatient (CLI) | payer MEDICARE, OTHER ==
[~2020-03-05] MED LIST changes: +AMLO-250 PO; -AMLO5TAB9 PO; +ASPI-1238 PO; -ASPI-983 PO; -CALC-6 PO; +CALC1TAB84 PO; -MONT10TA26 PO; +MONT10TA97 PO; -OXYC-465 PO; +OXYC-556 PO; -PANT40TA3 PO; +PANT40TA52 PO; -WARF2.5T82 PO; +WRF2.5T PO
== END ==
LOC: ONC 14:06
PROVIDERS: ATTEND Internal Medicine Hematology & Oncology
DX: Z51.81 Encounter for therapeutic drug level monitoring (principal); D68.62 Lupus anticoagulant syndrome
CPT/HCPCS: 99213

== ENCOUNTER → 2020-04-19 | Outpatient (CLI) | payer MEDICARE, OTHER ==
[~2020-04-19] MED LIST changes: -LACT10SO PO; +LACT10SO3 PO; -LISI-552 PO; +LISI20TA26 PO; +MONT10TA32 PO; -MONT10TA97 PO
== END ==
LOC: WOUNDCARE 10:09
PROVIDERS: ATTEND Surgery
DX: L97.312 Non-pressure chronic ulcer of right ankle with fat layer exposed (principal); I70.233 Atherosclerosis of native arteries of right leg with ulceration of ankle; E11.622 Type 2 diabetes mellitus with other skin ulcer; L03.115 Cellulitis of right lower limb; D68.51 Activated protein C resistance; I73.00 Raynaud's syndrome without gangrene
CPT/HCPCS: A6260; G0463; 99214

== ENCOUNTER → 2020-04-23 | Outpatient (CLI) | payer MEDICARE, OTHER ==
--- NOTE | 2020-04-24 12:33 | Diagnostic Imaging Report ---
Indication: Routine screening. Comparison is made with prior mammogram 04/11/2019 and 04/06/2018. 2-D and 3-D bilateral screening mammography was performed with CAD. Scattered fibroglandular densities are identified bilaterally. Parenchymal and vascular calcifications are again noted. The benign nodules in the outer left breast appears stable. No spiculated mass or malignant appearing microcalcifications are seen. Axillae are unremarkable. IMPRESSION: BI-RADS Category 2 No mammographic features suspicious for malignancy are identified. ACR BI-RADS Category 2: Benign findings. Result letter will be mailed to the patient. Note: At least 10% of breast cancer is not imaged by mammography. Dictated by: Dictated on workstation # [id number]
== END ==
LOC: RAD 15:15
PROVIDERS: ATTEND Internal Medicine
DX: Z12.31 Encounter for screening mammogram for malignant neoplasm of breast (principal)
CPT/HCPCS: 77063; 77067

== ENCOUNTER → 2020-04-26 | Outpatient (CLI) | payer MEDICARE, OTHER ==
[~2020-04-26] MED LIST changes: -FOLI0.8T PO; +FOLI0.8T4 PO
== END ==
LOC: WOUNDCARE 12:27
PROVIDERS: ATTEND Orthopaedic Surgery Hand Surgery
DX: I70.233 Atherosclerosis of native arteries of right leg with ulceration of ankle (principal); L97.312 Non-pressure chronic ulcer of right ankle with fat layer exposed; E11.622 Type 2 diabetes mellitus with other skin ulcer; L03.115 Cellulitis of right lower limb; D68.51 Activated protein C resistance; I73.00 Raynaud's syndrome without gangrene
CPT/HCPCS: 97597; G0463

== ENCOUNTER → 2020-05-02 | Outpatient (CLI) | payer MEDICARE, OTHER | LOC: WOUNDCARE 14:17 | PROVIDERS: ATTEND Surgery | DX: E11.622 Type 2 diabetes mellitus with other skin ulcer (principal); L97.312 Non-pressure chronic ulcer of right ankle with fat layer exposed; I73.01 Raynaud's syndrome with gangrene; L03.115 Cellulitis of right lower limb; D68.51 Activated protein C resistance; E11.52 Type 2 diabetes mellitus with diabetic peripheral angiopathy with gangrene | CPT/HCPCS: 99213 ==

== ENCOUNTER → 2020-05-10 | Outpatient (CLI) | payer MEDICARE, OTHER | LOC: WOUNDCARE 09:52 | PROVIDERS: ATTEND Surgery | DX: E11.621 Type 2 diabetes mellitus with foot ulcer (principal); L97.312 Non-pressure chronic ulcer of right ankle with fat layer exposed | CPT/HCPCS: A6454; G0463; 99212 ==

== ENCOUNTER → 2020-05-17 | Outpatient (CLI) | payer MEDICARE, OTHER | LOC: WOUNDCARE 13:11 | PROVIDERS: ATTEND Surgery | DX: E11.622 Type 2 diabetes mellitus with other skin ulcer (principal); L97.312 Non-pressure chronic ulcer of right ankle with fat layer exposed; I73.00 Raynaud's syndrome without gangrene; D68.51 Activated protein C resistance | CPT/HCPCS: 11042; A6454; G0463 ==

== ENCOUNTER → 2020-05-24 | Outpatient (CLI) | payer MEDICARE, OTHER | LOC: WOUNDCARE 13:03 | PROVIDERS: ATTEND Surgery | DX: E11.622 Type 2 diabetes mellitus with other skin ulcer (principal); L97.312 Non-pressure chronic ulcer of right ankle with fat layer exposed; I73.00 Raynaud's syndrome without gangrene; D68.51 Activated protein C resistance | CPT/HCPCS: 99212 ==

== ENCOUNTER → 2020-05-29 | Outpatient (CLI) | payer MEDICARE, OTHER | LOC: WOUNDCARE 12:22 | PROVIDERS: ATTEND Surgery | DX: L03.115 Cellulitis of right lower limb (principal); L97.322 Non-pressure chronic ulcer of left ankle with fat layer exposed; I73.00 Raynaud's syndrome without gangrene; E11.622 Type 2 diabetes mellitus with other skin ulcer; D68.51 Activated protein C resistance | CPT/HCPCS: A6260; G0463; 99213 ==

== ENCOUNTER → 2020-06-07 | Outpatient (CLI) | payer MEDICARE, OTHER | LOC: WOUNDCARE 13:07 | PROVIDERS: ATTEND Orthopaedic Surgery Hand Surgery | DX: E11.52 Type 2 diabetes mellitus with diabetic peripheral angiopathy with gangrene (principal); E11.622 Type 2 diabetes mellitus with other skin ulcer; I96 Gangrene, not elsewhere classified; L03.115 Cellulitis of right lower limb; L97.312 Non-pressure chronic ulcer of right ankle with fat layer exposed; D68.51 Activated protein C resistance | CPT/HCPCS: 99212 ==

== ENCOUNTER → 2020-06-14 | Outpatient (CLI) | payer MEDICARE, OTHER | LOC: WOUNDCARE 13:05 | PROVIDERS: ATTEND Surgery | DX: L03.115 Cellulitis of right lower limb (principal); L97.312 Non-pressure chronic ulcer of right ankle with fat layer exposed; I73.01 Raynaud's syndrome with gangrene; E11.622 Type 2 diabetes mellitus with other skin ulcer; D68.51 Activated protein C resistance; I87.331 Chronic venous hypertension (idiopathic) with ulcer and inflammation of right lower extremity; E11.52 Type 2 diabetes mellitus with diabetic peripheral angiopathy with gangrene | CPT/HCPCS: 99212 ==

== ENCOUNTER → 2020-06-21 | Outpatient (CLI) | payer MEDICARE, OTHER | LOC: WOUNDCARE 13:05 | PROVIDERS: ATTEND Surgery | DX: L95.8 Other vasculitis limited to the skin (principal); L03.115 Cellulitis of right lower limb; L97.312 Non-pressure chronic ulcer of right ankle with fat layer exposed; I73.00 Raynaud's syndrome without gangrene; E11.622 Type 2 diabetes mellitus with other skin ulcer; D68.51 Activated protein C resistance | CPT/HCPCS: A6197; G0463; 99212 ==

== ENCOUNTER → 2020-06-28 | Outpatient (CLI) | payer MEDICARE, OTHER | LOC: WOUNDCARE 13:01 | PROVIDERS: ATTEND Surgery | DX: L95.8 Other vasculitis limited to the skin (principal); M32.19 Other organ or system involvement in systemic lupus erythematosus; L97.312 Non-pressure chronic ulcer of right ankle with fat layer exposed; I73.01 Raynaud's syndrome with gangrene; E11.622 Type 2 diabetes mellitus with other skin ulcer; D68.51 Activated protein C resistance; E11.52 Type 2 diabetes mellitus with diabetic peripheral angiopathy with gangrene | CPT/HCPCS: A6212; G0463; 99212 ==

== ENCOUNTER → 2020-07-12 | Outpatient (CLI) | payer MEDICARE, OTHER | LOC: WOUNDCARE 13:03 | PROVIDERS: ATTEND Surgery | DX: L95.8 Other vasculitis limited to the skin (principal); M32.19 Other organ or system involvement in systemic lupus erythematosus; L97.312 Non-pressure chronic ulcer of right ankle with fat layer exposed; I73.00 Raynaud's syndrome without gangrene; E11.622 Type 2 diabetes mellitus with other skin ulcer; D68.51 Activated protein C resistance | CPT/HCPCS: A6212; G0463; 99212 ==

== ENCOUNTER 2020-07-19 11:18 | Outpatient (CLI) | payer MEDICARE, OTHER ==
[~2020-07-19] VITALS: Ht 165.1 cm; Wt 87.0 kg
[2020-07-19] MEDS ORDERED: DENOSUMAB 60 MG/1 ML (PROLIA) SQ SCH (12:00)
[2020-07-19 12:25] VITALS: BP 107/64
== END 2020-07-19 12:25 | disposition home or self-care (01) ==
LOC: SDC 11:18
PROVIDERS: ATTEND Internal Medicine
DX: M81.0 Age-related osteoporosis without current pathological fracture (principal)
CPT/HCPCS: 96372

== ENCOUNTER → 2020-07-19 | Outpatient (CLI) | payer MEDICARE, OTHER | LOC: WOUNDCARE 12:35 | PROVIDERS: ATTEND Surgery | DX: L95.8 Other vasculitis limited to the skin (principal); M32.19 Other organ or system involvement in systemic lupus erythematosus; L97.312 Non-pressure chronic ulcer of right ankle with fat layer exposed; I73.01 Raynaud's syndrome with gangrene; E11.622 Type 2 diabetes mellitus with other skin ulcer; D68.51 Activated protein C resistance; E11.52 Type 2 diabetes mellitus with diabetic peripheral angiopathy with gangrene | CPT/HCPCS: A6212; G0463; 99212 ==

== ENCOUNTER → 2020-07-27 | Outpatient (CLI) | payer MEDICARE, OTHER | LOC: WOUNDCARE 12:38 | PROVIDERS: ATTEND Orthopaedic Surgery Hand Surgery | DX: E11.622 Type 2 diabetes mellitus with other skin ulcer (principal); L97.315 Non-pressure chronic ulcer of right ankle with muscle involvement without evidence of necrosis; L95.8 Other vasculitis limited to the skin; M32.19 Other organ or system involvement in systemic lupus erythematosus; I73.00 Raynaud's syndrome without gangrene; D68.51 Activated protein C resistance | CPT/HCPCS: 97597; A6212; G0463 ==

== ENCOUNTER → 2020-08-03 | Outpatient (CLI) | payer MEDICARE, OTHER ==
[~2020-08-03] MED LIST changes: +CATHETER FLUSH 10 ML SYR IV PRN; +HOLD METFORMIN - RECEIVED CONTRAST 20 ML VIAL IV SCH; +IOHEXOL 350 MG/ML 100 ML (OMNIPAQUE 350) VIAL IV ONE; +NS 100 ML (IVPB) BAG IV ONE
[2020-08-03 13:50] LABS: BUN/CREATININE RATIO 22; CREATININE SERUM 0.74 MG/DL (0.60-1.30); GFR ESTIMATED > 60
--- NOTE | 2020-08-03 15:01 | Diagnostic Imaging Report ---
PROCEDURE: CT chest with contrast only. TECHNIQUE: Multiple contiguous axial images were obtained through the chest after administration of intravenous contrast. Auto Exposure Controls were utilized during the CT exam to meet ALARA standards for radiation dose reduction. INDICATION: Abnormal findings on diagnostic imaging of the lungs, shortness of air. COMPARISON: 08/03/2019 and 08/27/2018 FINDINGS: No significant adenopathy of the chest. Moderate scattered vascular calcifications. Thinning of the apex of the myocardium is again identified and stable from the prior examinations. The heart is mildly enlarged. No significant pericardial effusion. No pleural effusion. No pneumothorax. Mild bibasilar scarring and/or atelectasis. Pleural-based right upper lobe pulmonary nodules again identified and unchanged since August 2018, felt to be benign. The lungs are otherwise clear. The trachea is patent. Stable elevation right hemidiaphragm. The visualized upper abdomen is unchanged. Bilateral chronic rib fractures and chronic right scapular fracture again noted. Vertebroplasty changes within the T8 vertebral body are again identified. Chronic compression deformities of T9, T12, and L1 are again identified, stable from the prior examination. Inferior to the cavity within the lower cervical spine is again identified and stable. No new acute osseous abnormality with scattered osseous degenerative changes. Accentuation of normal thoracic kyphosis. IMPRESSION: Stable examination without acute abnormality with additional stable chronic findings as described above. Dictated by: Dictated on workstation # [id number]
== END ==
LOC: RAD 14:45
PROVIDERS: ATTEND Nurse Practitioner Family
DX: R91.8 Other nonspecific abnormal finding of lung field (principal); I51.7 Cardiomegaly; S22.43XD Multiple fractures of ribs, bilateral, subsequent encounter for fracture with routine healing; S42.101D Fracture of unspecified part of scapula, right shoulder, subsequent encounter for fracture with routine healing; S22.070D Wedge compression fracture of T9-T10 vertebra, subsequent encounter for fracture with routine healing; S22.080D Wedge compression fracture of T11-T12 vertebra, subsequent encounter for fracture with routine healing
CPT/HCPCS: 36415; 71260; 82565; 84520

== ENCOUNTER → 2020-08-03 | Outpatient (CLI) | payer MEDICARE, OTHER ==
[~2020-08-03] MED LIST changes: -CATHETER FLUSH 10 ML SYR IV PRN; -HOLD METFORMIN - RECEIVED CONTRAST 20 ML VIAL IV SCH; -IOHEXOL 350 MG/ML 100 ML (OMNIPAQUE 350) VIAL IV ONE; -NS 100 ML (IVPB) BAG IV ONE
== END ==
LOC: WOUNDCARE 12:29
PROVIDERS: ATTEND Orthopaedic Surgery Hand Surgery
DX: L95.8 Other vasculitis limited to the skin (principal); M32.19 Other organ or system involvement in systemic lupus erythematosus; L97.315 Non-pressure chronic ulcer of right ankle with muscle involvement without evidence of necrosis; I73.00 Raynaud's syndrome without gangrene; E11.622 Type 2 diabetes mellitus with other skin ulcer; D68.51 Activated protein C resistance
CPT/HCPCS: A6212; G0463; 99212

== ENCOUNTER → 2020-08-08 | Outpatient (CLI) | payer MEDICARE, OTHER | LOC: WOUNDCARE 14:52 | PROVIDERS: ATTEND Surgery | DX: E11.622 Type 2 diabetes mellitus with other skin ulcer (principal); L03.115 Cellulitis of right lower limb; L95.8 Other vasculitis limited to the skin; L97.312 Non-pressure chronic ulcer of right ankle with fat layer exposed; M32.19 Other organ or system involvement in systemic lupus erythematosus; I73.00 Raynaud's syndrome without gangrene; D68.51 Activated protein C resistance | CPT/HCPCS: A6197; A6212; G0463; 99212 ==

== ENCOUNTER 2020-08-15 09:00 | Day surgery (SDC) | payer MEDICARE, OTHER ==
[2020-08-15] VITALS (13 sets, daily range): BP systolic 97–151; BP diastolic 52–77
[~2020-08-15] VITALS: Ht 157 cm; Wt 59.0 kg
[2020-08-15 07:23] LABS: HEMATOCRIT 43 % (35-52); MEAN CORPUSCULAR HEMOGLOBIN 34 pg (25-34); MEAN CORPUSCULAR HGB CONC 33 g/dL (32-36); MEAN CORPUSCULAR VOLUME 105 fL (80-99); MEAN PLATELET VOLUME 9.6 fL (9.0-12.2); PLATELET COUNT 267 10^3/uL (130-400); WHITE BLOOD COUNT 9.1 10^3/uL (4.3-11.0)
[2020-08-15 07:34] LABS: INR 1.3 (0.8-1.4); PROTHROMBIN TIME PATIENT 16.5 SEC (12.2-14.7)
[2020-08-15 07:48] LABS: ALANINE AMINOTRANSFERASE 20 U/L (0-55); ALBUMIN 4.3 GM/DL (3.2-4.5); ALKALINE PHOSPHATASE 36 U/L (40-136); BILIRUBIN,TOTAL 0.6 MG/DL (0.1-1.0); BUN/CREATININE RATIO 24; CALCIUM 9.5 MG/DL (8.5-10.1); CARBON DIOXIDE 29 MMOL/L (21-32); CHLORIDE 97 MMOL/L (98-107); CHOLESTEROL 304 MG/DL (< 200); CREATININE SERUM 0.91 MG/DL (0.60-1.30); GFR ESTIMATED > 60; GLUCOSE 90 MG/DL (70-105); HDL CHOLESTEROL 52 MG/DL (40-60); POTASSIUM 3.2 MMOL/L (3.6-5.0); SODIUM 139 MMOL/L (135-145); TOTAL PROTEIN 6.7 GM/DL (6.4-8.2); TRIGLYCERIDES 317 MG/DL (<150); VLDL CHOLESTEROL 63 MG/DL (5-40)
--- NOTE | 2020-08-15 07:58 | Diagnostic Imaging Report ---
INDICATION: Preop for peripheral angiography. Time of exam 7:20 AM Correlation is made with prior chest 02/02/2019. Right convexity thoracic scoliotic curvature is noted. There appears to be midthoracic kyphoplasty changes. The heart is enlarged. There is some linear atelectasis or scarring right base. There is also some chronic-appearing opacity in the left base at the costophrenic angle which may represent some pleural thickening. Partially healed left posterior rib fractures noted. No infiltrates are seen. There is no pneumothorax. IMPRESSION: Chronic changes. No acute features detected. Dictated by: Dictated on workstation # [id number]
--- NOTE | 2020-08-15 08:45 | Conscious Sedation/ASA ---
Conscious Sedation Pre-Proced Time 08:45 ASA Score 3 For ASA 3 and 4: Consider anesthesia and medical clearance. Also, for patients with a history of failed moderate sedation consider anesthesia. Airway Lungs Heart ASA score ASA 1: a normal healthy patient ASA 2: a patient with a mild systemic disease (mid diabetes, controlled hypertension, obesity x ASA 3: a patient with a severe systemic disease that limits activity (angina, COPD, prior Myocardial infarction) ASA 4: a patient with an incapacitating disease that is a constant threat to life (CHF, renal failure) ASA 5: a moribund patient not expected to survive 24 hrs. (ruptured aneurysm) ASA 6: a declared brain- patient whose organs are being harvested. For emergent operations, add the letter E after the classification Mallampati Classification Grade 3 Sedation Plan Analgesia, Amnesia, Plan communicated to team members, Discussed options with patient/fam, Discussed risks with patient/fam The patient is an appropriate candidate to undergo the planned procedure, sedation, and anesthesia. The patient immediately re-assessed prior to indication. RADHA RANGEL MD Aug 15, 2020 08:45
[~2020-08-15 09:00] MED LIST changes: +ALLO100T PO; +CYAN50003 PO; +DENO60DI SQ; +DOXY-311 PO; +EVOL140P3 SQ; +FENO54TA PO; +FISH400C PO; +FOLI1TAB33 PO; +LATA2.5D19 OU; +NIAC1CAP12 PO; +NS IV 1000 ML 1,000 ML IV SCH; +TRAM50TA3 PO
[2020-08-15] MEDS ORDERED: NITRO DRIP 25000 MCG/D5W 250 ML IV ONE (09:36)
--- NOTE | 2020-08-15 09:52 | Discharge Inst-Post CATH ---
Discharge Inst-CATH/EP Problems Reviewed?: Yes Post Cardiac Cath/EP D/C Inst Follow Up/Plan Appointment with Dr. Moore's office in 2 to 4 weeks <b>CARDIAC CATH/EP PROCEDURE DISCHARGE INSTRUCTIONS</b> ACTIVITY * Go Home directly and rest. * Limit activity of the leg (or wrist if it was used) for 7 days including aer obics, swimming, jogging, bicycling, etc. * Restrict stair-climbing for 7 days if possible, if not, climb up with your non-cath leg, then bring together on the same step. * Avoid lifting, pushing, pulling or excessive movement of the affected extremi ty for 7 days. * Customary sexual activity may be resumed after 2 days-use caution not to use a position that strains or causes pain to the affected extremity. * No driving for 24 hours. * NO SMOKING. * Avoid straining for bowel movements for 7 days. * Gentle walking on level ground is allowed. * Returning to work will depend on the type of procedure and the results. Your doctor will discuss this with you. CALL YOUR DOCTOR FOR ANY OF THE FOLLOWING: *If bleeding from the puncture site occurs- Apply gentle pressure to site with clean cloth and call your doctor or EMS. * If a knot or lump forms under the skin, increases in size, or causes pain. * If bruising appears to be worsening or moving further down your leg instead of disappearing. * Temperature above 101 F. CARE OF YOUR GROIN INCISION; * Bruising or purple discoloration of the skin near the puncture site is common. * You may shower only, no bathtub bathing for 5 days. Be careful to avoid slipping as your leg may feel stiff. * If a closure device was used on your femoral artery, please see the attached guide regarding care of the device and your leg. * Leave dressing on FOR 24 hours. CARE OF YOUR WRIST INCISION; * Bruising or purple discoloration of the skin near the puncture site is common. * You may shower. * DO NOT submerge wrist. * Leave dressing on FOR 24 hours. RADHA MOORE MD Aug 15, 2020 09:52
--- NOTE | 2020-08-15 09:57 | Peripheral Report ---
Peripheral Report Physician (s)/Supervisor [place] (s) Physician RADHA RANGEL MD Pre-Procedure Diagnosis Pre-Procedure Diagnosis: Nonhealing foot ulcer Post-Procedure Note Procedure Start Date: Aug 15, 2020 Name of Procedure: Bilateral lower extremity runoff Third order Additional imaging x3 Findings/Procedure Note PROCEDURE NOTE: 70-year-old lady with history of peripheral arterial disease, hypertension, has nonhealing foot ulcer, HAYDEN was normal, has slightly abnormal TBI and abnormal waveforms at the foot, scheduled for bilateral runoff. After explaining the procedure to the patient, all pros and cons were explained, all questions were answered. The patient signed the consent and then she was placed on the cardiac catheterization laboratory. The patient was placed on the cardiac catheterization laboratory. Groin was prepped SL fashion local anesthesia was used. Sheath placed in the left femoral artery, runoff to the left leg was showing small vessel with good flow down to the trifurcation. I could not see the arteries below the trifurcation. I advanced the rim catheter and crossed over with Storq wire and exchanged it to straight catheter placed at the right common femoral artery and did runoff to the right leg. There was also small vessels, mild disease, below the trifurcation I could not see the arteries. I advanced the straight catheter down to the popliteal artery gave the patient 100 mcg of intra-arterial nitroglycerin and did DSA imaging at the level of the trifurcation which showed small arteries with good flow after nitroglycerin, repeat DSA imaging was done at the level of the foot showing small vessels patent vessel with no obstructive disease. The straight catheter was removed then I gave another 200 mcg of intra-arterial nitroglycerin through the left groin sheath and did DSA imaging at the level of the trifurcation showing good flow with small vessels. Nonobstructive disease FINDINGS: Right lower extremity, has overall small vessels, mild disease in the SFA and popliteal artery, below the trifurcation the arteries are fairly small with no significant obstructive disease, responded well to nitroglycerin with excellent flow. Left lower extremity, has small vessels overall, mild disease nonobstructive disease, below the trifurcation the posterior tibial artery and peroneal artery are fairly small with significant improvement in the flow after nitroglycerin injection. CONCLUSIONS: 1. Small vessel disease with slow flow, no significant obstructive disease, responded well to intra-arterial nitroglycerin injection 2. Venous stasis changes and probably the ulceration is due to venous stasis DISCUSSION AND RECOMMENDATIONS: Continue with medical therapy no intervention is warranted Anesthesia Type: Conscious Sedation Estimated blood loss (mL): 15 ml Contrast Amount: 25ml Total Radiation Dose: 42 mGy Post-Procedure Diagnosis Post-operative diagnosis: Nonhealing foot ulcer Peripheral arterial disease Venous stasis changes Hypertension RADHA RANEGL MD Aug 15, 2020 09:57
[2020-08-15] MEDS ORDERED: PATIENT MAY USE OWN MEDS, ALL PO SCH (10:00)
[2020-08-15] MEDS: NS IV 1000 ML 1,000 ML IV SCH (19:57)
[2020-08-16 04:25] VITALS: BP 100/50
[2020-08-16] MEDS: NS IV 1000 ML 1,000 ML IV SCH (06:11)
[2020-08-16 06:29] LABS: HEMATOCRIT 34 % (35-52); HEMOGLOBIN 11.5 g/dL (11.5-16.0); MEAN CORPUSCULAR HEMOGLOBIN 35 pg (25-34); MEAN CORPUSCULAR HGB CONC 33 g/dL (32-36); MEAN CORPUSCULAR VOLUME 104 fL (80-99); MEAN PLATELET VOLUME 9.5 fL (9.0-12.2); PLATELET COUNT 203 10^3/uL (130-400); WHITE BLOOD COUNT 7.8 10^3/uL (4.3-11.0)
[2020-08-16 07:09] LABS: BUN/CREATININE RATIO 24; CALCIUM 8.9 MG/DL (8.5-10.1); CARBON DIOXIDE 24 MMOL/L (21-32); CHLORIDE 101 MMOL/L (98-107); CREATININE SERUM 0.62 MG/DL (0.60-1.30); GFR ESTIMATED > 60; GLUCOSE 108 MG/DL (70-105); POTASSIUM 3.7 MMOL/L (3.6-5.0); SODIUM 136 MMOL/L (135-145)
[2020-08-16 07:44] VITALS: BP 118/61
--- NOTE | 2020-08-16 08:10 | Cardiology Progress Note ---
Subjective Date Seen by Provider: Aug 16, 2020 Time Seen by Provider: 08:09 Subjective/Events-last exam Patient was seen at bedside, laying down comfortably, has large bruise on her left groin Review of Systems General: No Chills, No Night Sweats, No Fatigue, No Malaise, No Appetite, No Ot her HEENT: No Head Aches, No Visual Changes, No Eye Pain, No Ear Pain, No Dysp hasia, No Sinus Congestion, No Post Nasal Drip, No Sore Throat, No Other Pulmonary: No Dyspnea, No Cough, No Pleuritic Chest Pain, No Other Cardiovascular: No: Chest Pain, Palpitations, Orthopnea, Paroxysmal Noc. Dyspnea, Edema, Lt Headedness, Other Objective-Cardiology Exam Last Set of Vital Signs Vital Signs 08/15/20 08/16/20 08/16/20 11:00 04:25 07:44 Temp 36.6 Pulse 73 Resp 18 B/P (MAP) 118/61 (80) Pulse Ox 96 O2 Delivery Room Air O2 Flow Rate 1.00 Capillary Refill : Less Than 3 Seconds I&O Intake and Output 08/16/20 00:00 Intake Total 2152 ml Balance 2152 ml Intake Oral 1752 ml IV Total 400 ml # Voids 4 # Bowel Movements 2 General: Alert, Oriented X3, Cooperative HEENT: Atraumatic, PERRLA Neck: Supple, No JVD, No Thyromegaly Lungs: Clear to Auscultation, Normal Air Movement Heart: Regular Rate, Normal S1, Normal S2, No Murmurs Abdomen: Normal Bowel Sounds, Soft, No Tenderness, No Hepatosplenomegaly, No Masses Extremities: No Clubbing, No Cyanosis, No Edema, Normal Pulses, No Tenderness/Swelling Skin: No Rashes, No Breakdown, No Significant Lesion Neuro: Normal Gait, Normal Speech, Strength at 5/5 X4 Ext, Normal Tone, Sensation Intact Psych/Mental Status: Mental Status NL, Mood NL Results Lab Laboratory Tests 08/16/20 06:15 A/P-Cardiology Admission Diagnosis Nonhealing foot ulcer Left groin hematoma Hypertension Hyperlipidemia Assessment/Plan Nonhealing foot ulcer, angiogram showed small vessel disease, slow flow, nonobstructive disease Venous stasis changes. Status post large hematoma on the left groin, H&H are stable. Monitor as an outpatient Hypertension, monitor blood pressure Hyperlipidemia RADHA RANGEL MD Aug 16, 2020 8:10 am
[2020-08-16 08:36] VITALS: BP 93/71
[2020-08-16 11:18] VITALS: BP 93/71
== END 2020-08-16 11:05 | disposition home or self-care (01) ==
LOC: CATH 09:00 → SDC 10:20 → CSD 16:45 → CATH 08-16 11:05
PROVIDERS: ATTEND Internal Medicine Cardiovascular Disease
DX: L97.519 Non-pressure chronic ulcer of other part of right foot with unspecified severity (principal); I73.9 Peripheral vascular disease, unspecified; I10 Essential (primary) hypertension; R00.2 Palpitations; M32.9 Systemic lupus erythematosus, unspecified; J44.9 Chronic obstructive pulmonary disease, unspecified; G47.33 Obstructive sleep apnea (adult) (pediatric); E78.2 Mixed hyperlipidemia; I65.29 Occlusion and stenosis of unspecified carotid artery; Z86.79 Personal history of other diseases of the circulatory system; Z79.82 Long term (current) use of aspirin; Z79.899 Other long term (current) drug therapy; Z79.891 Long term (current) use of opiate analgesic; Z87.891 Personal history of nicotine dependence; Z79.890 Hormone replacement therapy
CPT/HCPCS: 36247; 36248; 71045; 75716; 80048; 80053; 80061; 85027 ×2; 85610; 85730; 87081; C1760; C1769; C1887 ×2; C1894; 36415

== ENCOUNTER → 2020-08-16 | Outpatient (CLI) | payer MEDICARE, OTHER ==
[~2020-08-16] MED LIST changes: -NS IV 1000 ML 1,000 ML IV SCH
== END ==
LOC: WOUNDCARE 13:04
PROVIDERS: ATTEND Surgery
DX: L03.115 Cellulitis of right lower limb (principal); L95.8 Other vasculitis limited to the skin; M32.19 Other organ or system involvement in systemic lupus erythematosus; L97.312 Non-pressure chronic ulcer of right ankle with fat layer exposed; I73.01 Raynaud's syndrome with gangrene; E11.622 Type 2 diabetes mellitus with other skin ulcer; D68.51 Activated protein C resistance; E11.52 Type 2 diabetes mellitus with diabetic peripheral angiopathy with gangrene
CPT/HCPCS: 99212

== ENCOUNTER → 2020-08-28 | Outpatient (CLI) | payer MEDICARE, OTHER | LOC: ONC 13:02 | PROVIDERS: ATTEND Internal Medicine Hematology & Oncology | DX: D68.61 Antiphospholipid syndrome (principal); M32.9 Systemic lupus erythematosus, unspecified; Z79.01 Long term (current) use of anticoagulants; I42.9 Cardiomyopathy, unspecified; I12.9 Hypertensive chronic kidney disease with stage 1 through stage 4 chronic kidney disease, or unspecified chronic kidney disease; N18.30 Chronic kidney disease, stage 3 unspecified; E03.9 Hypothyroidism, unspecified; G47.33 Obstructive sleep apnea (adult) (pediatric); R06.00 Dyspnea, unspecified; L97.519 Non-pressure chronic ulcer of other part of right foot with unspecified severity; Z86.73 Personal history of transient ischemic attack (TIA), and cerebral infarction without residual deficits; Z79.82 Long term (current) use of aspirin; Z79.899 Other long term (current) drug therapy; Z87.891 Personal history of nicotine dependence | CPT/HCPCS: 87070; 87077; 87205; G0463; 99213 ==

== ENCOUNTER → 2020-08-30 | Outpatient (CLI) | payer MEDICARE, OTHER | LOC: WOUNDCARE 12:55 | PROVIDERS: ATTEND Surgery | DX: L03.115 Cellulitis of right lower limb (principal); L95.8 Other vasculitis limited to the skin; M32.19 Other organ or system involvement in systemic lupus erythematosus; L97.322 Non-pressure chronic ulcer of left ankle with fat layer exposed; I73.01 Raynaud's syndrome with gangrene; E11.622 Type 2 diabetes mellitus with other skin ulcer; D68.51 Activated protein C resistance; E11.52 Type 2 diabetes mellitus with diabetic peripheral angiopathy with gangrene | CPT/HCPCS: 99212 ==

== ENCOUNTER 2021-01-07 05:34 | Outpatient (CLI) | payer MEDICARE, OTHER ==
[~2021-01-07] VITALS: Ht 157.5 cm; Wt 54.2 kg
[2021-01-07] MEDS ORDERED: NIAC100045 PO (13:44)
[2021-01-07] MEDS ORDERED: MV-M1TAB20 PO (13:44)
[2021-01-07] MEDS ORDERED: CADE40GE TP (13:44)
[2021-01-07] MEDS ORDERED: LEVO88TA68 PO (13:44)
[2021-01-07] MEDS ORDERED: ATOR40TA70 PO (13:44)
[2021-01-07] MEDS ORDERED: POLY17PO6 PO (13:44)
== END 2021-01-07 16:18 | disposition home or self-care (01) ==
LOC: PREOP 05:34
PROVIDERS: ATTEND Surgery
DX: Z01.818 Encounter for other preprocedural examination (principal)

== ENCOUNTER 2021-01-14 07:05 | Day surgery (SDC) | payer MEDICARE, OTHER ==
[~2021-01-14] VITALS: Ht 157.5 cm; Wt 54.2 kg
[2021-01-14] VITALS (7 sets, daily range): BP systolic 110–176; BP diastolic 66–95
[~2021-01-14 07:05] MED LIST changes: +ATOR40TA70 PO; +CADE40GE TP; +CYCL10TA25 PO; -CYCL10TA9 PO; +LEVO88TA68 PO; +MONT-40 PO; -MONT10TA32 PO; +MV-M1TAB20 PO; +NIAC100045 PO; -POTA10TA36 PO; +POTA10TA37 PO; -POTA99TA21 PO; +POTA99TA26 PO
[2021-01-14] MEDS ORDERED: LACTATED RINGERS 1,000 ML IV STA (07:17)
[2021-01-14] MEDS ORDERED: PROPOFOL INJECTION 50 ML IV ONE (07:17)
[2021-01-14] MEDS ORDERED: MIDAZOLAM 2 MG/2 ML (VERSED) VIAL ONE (07:17)
[2021-01-14] MEDS ORDERED: LACTATED RINGERS 1,000 ML IV ONE (07:23)
--- NOTE | 2021-01-14 08:13 | Progress Note-Pre Operative ---
Pre-Operative Progress Note H&P Reviewed The H&P was reviewed, patient examined and no changes noted. Time Seen by Provider: 08:08 Date H&P Reviewed: Jan 14, 2021 Time H&P Reviewed: 08:08 Pre-Operative Diagnosis: Hx of diverticulitis ASHLEE BOWLES DO Jan 14, 2021 08:12
--- NOTE | 2021-01-14 08:40 | Progress Note-Post Operative ---
Post-Operative Progess Note Surgeon (s)/Vice President Sales (s) Surgeon ASHLEE BOWLES DO Vice President Sales: PURNIMA Johnson Pre-Operative Diagnosis Hx of diverticulitis Post-Operative Diagnosis polyp diverticula int hemorrhoids Procedure & Operative Findings Date of Procedure 01/14/21 Procedure Performed/Findings Colon with Snare PROCEDURE NOTE: After informed consent was obtained, the patient was brought to the endoscopy suite, placed in bed in left lateral decubitus position. She was administered IV sedation by the CREATIVE/ART DIRECTOR who then monitored her vitals the entire time, heart rate, blood pressure and pulse ox and the scope was inserted, pushed all the way to about 110 cm and pushed into the cecum. On the way in saw some diverticula and her colonic anastomosis; took a picture of these. Once in the cecum, noted the ileo-cecal valve and took a picture of appendiceal orifice,. Then started slowly withdrawing the scope insufflating to look circumferentially at the martel. From the cecum, up the ascending colon to the hepatic flexure, then down the transverse colon, splenic flexure, into the descending colon. Found a large polyp here, proximal to the anastomosis and did a snare polypectomy. Continued down to the rectum and in the rectal vault, retroflexed the scope. Took a picture of the internal hemorrhoids. The patient tolerated the procedure. She was recovered in endoscopy suite. Anesthesia Type IV sedation by CREATIVE/ART DIRECTOR Estimated Blood Loss Estimated blood loss (mL): scant Specimens/Packing Specimens Removed descending colon polyp ASHLEE BOWLES DO Jan 14, 2021 08:40
--- NOTE | 2021-01-14 08:41 | Endoscopy Discharge Instruct ---
Endo Procedure/Findings Findings 1.: Polyp 2.: Diverticulosis 3.: Internal Hemorrhoids Discharge Instructions - Activity: You might feel a little sleepy until tomorrow. This is due to the medicine you received to relax you. Until tomorrow, you should: NOT drive a car, operate machinery or power tools. NOT drink any alcoholic beverages. NOT make any important decisions or sign importortant papers. Do not return to work until tomorrow, unless otherwise instructed. Resume previous activities tomorrow. Diet: Start by taking liquids. If you tolerate liquids, advance to solid food. 1.: Colonscopy in 5 years Notify Physician - If you experience excessive bleeding, unusual abdominal pain, fever, or chest pain, contact your doctor immediately. ASHLEE BOWLES DO Jan 14, 2021 08:41
--- NOTE | 2021-01-14 11:41 | Anesthesia-General Post-Op ---
MAC Patient Condition Mental Status/LOC: Same as Preop Cardiovascular: Satisfactory Nausea/Vomiting: Absent Respiratory: Satisfactory Pain: Controlled Complications: Absent Post Op Complications Complications None Follow Up Care/Instructions Patient Instructions None needed. Anesthesiology Discharge Order Discharge Order Patient is doing well, no complaints, stable vital signs, no apparent adverse anesthesia problems. No complications reported per nursing. SILKE RIGN CRNA Jan 14, 2021 11:41
== END 2021-01-14 09:15 | disposition home or self-care (01) ==
LOC: ENDO 07:05
PROVIDERS: ATTEND Surgery
DX: D12.4 Benign neoplasm of descending colon (principal); K57.30 Diverticulosis of large intestine without perforation or abscess without bleeding; K64.8 Other hemorrhoids; E78.5 Hyperlipidemia, unspecified; I11.0 Hypertensive heart disease with heart failure; I50.30 Unspecified diastolic (congestive) heart failure; N28.9 Disorder of kidney and ureter, unspecified; M19.90 Unspecified osteoarthritis, unspecified site; M81.0 Age-related osteoporosis without current pathological fracture; D68.51 Activated protein C resistance; J45.909 Unspecified asthma, uncomplicated; G47.33 Obstructive sleep apnea (adult) (pediatric); J44.9 Chronic obstructive pulmonary disease, unspecified; E03.9 Hypothyroidism, unspecified; E66.9 Obesity, unspecified; Z98.0 Intestinal bypass and anastomosis status; Z79.82 Long term (current) use of aspirin; Z79.890 Hormone replacement therapy; Z79.899 Other long term (current) drug therapy; Z79.01 Long term (current) use of anticoagulants; Z87.891 Personal history of nicotine dependence; Z90.49 Acquired absence of other specified parts of digestive tract; Z90.710 Acquired absence of both cervix and uterus; Z80.1 Family history of malignant neoplasm of trachea, bronchus and lung
CPT/HCPCS: 82947; 88305

== ENCOUNTER 2021-02-01 11:28 | Inpatient (IN) | payer MEDICARE, OTHER ==
[2021-02-01] VITALS (31 sets, daily range): BP systolic 69–156; BP diastolic 23–90
[~2021-02-01] VITALS: Ht 157.5 cm; Wt 54.7 kg
--- NOTE | 2021-02-01 11:48 | ED General ---
General Stated Complaint: WEAK Source of Information: Patient Exam Limitations: No Limitations History of Present Illness Date Seen by Provider: Feb 01, 2021 Time Seen by Provider: 11:46 Initial Comments To ER by EMS from home with reports of weakness and cough onset Thursday of this week. She has fevers of 102 for EMS. She was 85% on room air on arrival. She has an appointment with Dr. Casanova this afternoon but felt too weak to go. She informs me that she has full CODE STATUS but does not want intubated. Timing/Duration: 3-4 Days Severity: Moderate, Severe Associated Systoms: Cough, Fever/Chills Allergies and Home Medications Allergies Coded Allergies: Penicillins (Verified Allergy, Intermediate, 04/02/15) pneumococcal vaccine (Verified Allergy, Unknown, 04/02/15) PT STATES FEVER IN THE ARM Patient Home Medication List Home Medication List Reviewed: Yes Acetaminophen (Acetaminophen Extra Strength) 500 Mg Tablet, 500 MG PO QID PRN f or PAIN-MILD (1-4), (Reported) Entered as Reported by: SAPNA DUNN on 01/08/18 0935 Albuterol Sulfate (Proair Hfa) 1 Puff Puff, 2 PUFF IH Q4H PRN for SHORTNESS OF BREATH, (Reported) Entered as Reported by: ROLDAN MATSON on 02/02/19 1309 Allopurinol (Allopurinol) 100 Mg Tablet, 100 MG PO DAILY, (Reported) Entered as Reported by: ROLDAN MATSON on 08/15/20 0836 Aspirin (Aspirin EC) 81 Mg Tablet.dr, 81 MG PO DAILY, (Reported) Entered as Reported by: SAPNA DUNN on 01/08/18 0935 Atorvastatin Calcium (Atorvastatin Calcium) 40 Mg Tablet, 40 MG PO DAILY, (Reported) Entered as Reported by: JAMARCUS LAW on 01/07/21 1344 Bifidobacterium Infantis (Align) 4 Mg Capsule, 4 MG PO DAILY, (Reported) Entered as Reported by: SAPNA DUNN on 04/11/16 1604 Cadexomer Iodine (Iodosorb) 40 Gm Gel..gram., 40 GM TP UD, (Reported) Entered as Reported by: JAMARCUS LAW on 01/07/21 1344 Cetirizine HCl (Cetirizine HCl) 10 Mg Tablet, 10 MG PO 1800, (Reported) Entered as Reported by: SAPNA DUNN on 01/08/18 0935 Cyanocobalamin (Vitamin B-12) (Vitamin B-12) 5,000 Mcg Tab.rapdis, 5,000 MCG PO 1800, (Reported) Entered as Reported by: ROLDAN MATSON on 08/15/20 0836 Denosumab (Prolia) 60 Mg/1 Ml Disp.syrin, 60 MG SQ EVERY 6 MONTHS, (Reported) Entered as Reported by: ROLDAN MATSON on 08/15/20 08 Evolocumab (Repatha Sureclick) 140 Mg/1 Ml Pen.injctr, 140 MG SQ EVERY 2 WEEKS, (Reported) Entered as Reported by: ROLDAN MATSON on 08/15/20 08 Fenofibrate (Fenofibrate) 54 Mg Tablet, 54 MG PO DAILY, (Reported) Entered as Reported by: ROLDAN MATSON on 08/15/20 0836 Ferrous Sulfate (Iron) 325 Mg Tablet, 325 MG PO BID WITH MEALS, (Reported) Entered as Reported by: SAPNA DUNN on 04/11/16 1604 Fish Oil/Borage/Flax/Om3,6,9#1 ([place] 3-6-9 Complex Softgel) 400 Mg Capsule, 800 MG PO BID WITH MEALS, (Reported) Entered as Reported by: ROLDAN MATSON on 08/15/20 0836 Fluticasone Propionate (Flonase Allergy Relief) 9.9 Ml [place].susp, 2 SPRAY NS DAILY PRN for CONGESTION, (Reported) Entered as Reported by: SAPNA DUNN on 01/08/18 0939 Fluticasone/Salmeterol (Advair 250-50 Diskus) 1 Each Blst.w.dev, 1 EACH IH BID, (Reported) Entered as Reported by: ROLDAN MATSON on 02/02/19 1314 Folic Acid (Folic Acid) 1 Mg Tablet, 3 MG PO DAILY, (Reported) Entered as Reported by: ROLDAN MATSON on 08/15/20 0836 Furosemide (Furosemide) 40 Mg Tablet, 40 MG PO DAILY, (Reported) Entered as Reported by: SAPNA DUNN on 01/08/18 0935 Latanoprost (Xalatan) 2.5 Ml Drops, 1 DROP OU HS, (Reported) Entered as Reported by: ROLDAN MATSON on 08/15/20 0836 Levothyroxine Sodium (Euthyrox) 88 Mcg Tablet, 88 MCG PO DAILY, (Reported) Entered as Reported by: JAMARCUS LAW on 01/07/21 1344 Lisinopril (Lisinopril) 20 Mg Tablet, 20 MG PO BID, (Reported) Entered as Reported by: SAPNA DUNN on 01/08/18 0935 Methotrexate Sodium (Methotrexate) 2.5 Mg Tablet, 10 MG PO Tu, (Reported) Entered as Reported by: SAPNA DUNN on 01/18/18 1526 Metoprolol Tartrate (Metoprolol Tartrate) 50 Mg Tablet, 50 MG PO BID, (Reported) Entered as Reported by: ROLDAN MATSON on 02/02/19 1310 Montelukast Sodium (Montelukast Sodium) 10 Mg Tablet, 10 MG PO 1800, (Reported) Entered as Reported by: SAPNA DUNN on 01/08/18 0935 Mv-Mn/Iron/FA/Herbal Cmplx#190 (Vitamin D3 Complete Caplet) 1 Each Tablet, 1 EACH PO DAILY, (Reported) Entered as Reported by: JAMARCUS LAW on 01/07/21 1344 Niacin (Niacin ER) 1,000 Mg Tab.er.24h, 1,000 MG PO DAILY, (Reported) Entered as Reported by: JAMARCUS LAW on 01/07/21 1344 Pantoprazole Sodium (Pantoprazole Sodium) 40 Mg Tablet.dr, 40 MG PO BID, (Reported) Entered as Reported by: LI DOMINGO on 10/22/15 1414 Polyethylene Glycol 3350 (Miralax) 17 Gm Powd.pack, 17 GM PO DAILY, (Reported) Entered as Reported by: JAMARCUS LAW on 01/07/21 1344 Potassium Chloride (Potassium Chloride) 10 Meq Tab.er.prt, 10 MEQ PO BID, (Reported) Entered as Reported by: ROLDAN MATSON on 02/02/19 1307 Prednisone (Prednisone) 10 Mg Tab, 10 MG PO DAILY, (Reported) Entered as Reported by: ROLDAN MATSON on 02/02/19 1332 Tramadol HCl (Tramadol HCl) 50 Mg Tablet, 50 MG PO 0800,1800,2200, (Reported) Entered as Reported by: SAPNA DNUN on 01/08/18 0935 Vit A/Vit C/Vit E/Zinc/Copper (Preservision Areds Tablet) 1 Each Tablet, 1 TAB PO 1800, (Reported) Entered as Reported by: LI DOMINGO on 10/22/15 1414 Warfarin Sodium (Warfarin Sodium) 2.5 Mg Tablet, 2.5 MG PO SUN,TU,WE,TH,SAT, (Reported) Entered as Reported by: ROLDAN MATSON on 02/02/19 1309 Warfarin Sodium (Warfarin Sodium) 2.5 Mg Tablet, 5 MG PO MON,FR, (Reported) Entered as Reported by: ROLDAN MATSON on 08/15/20 0836 Review of Systems Review of Systems Constitutional: see HPI, fever EENTM: see HPI Respiratory: see HPI, cough, short of breath Cardiovascular: no symptoms reported Genitourinary: no symptoms reported Musculoskeletal: no symptoms reported Skin: no symptoms reported Psychiatric/Neurological: No Symptoms Reported Hematologic/Lymphatic: No Symptoms Reported Past Vucalnc-Lsknds-Vxcrpb Hx Immunizations Up To Date Tetanus Booster (TDap): Less than 5yrs PED Vaccines UTD: No First/Initial COVID19 Vaccinat: MAY 09, 2020 Seasonal Allergies Seasonal Allergies: Yes Past Medical History Surgeries: Yes (BILAT CATARACTS, EYELID SX (TEAR DUCTS), BIG TOENAILS, CYST REMOVED, KYPHO) Abdominal, Gallbladder, Hysterectomy Respiratory: Yes (POSS COPD OR ASTHMA, STATES NO LONGER NEEDS MEDS, CPAP) Asthma, Sleep Apnea, COPD Currently Using CPAP: Yes Currently Using BIPAP: No Cardiac: Yes (congestive heart failure) Cardiomyopathy, High Cholesterol, Hypertension Neurological: Yes (RAYNAUDS) Neuropathy Reproductive Disorders: No Female Reproductive Disorders: Denies Sexually Transmitted Disease: No HIV/AIDS: No Genitourinary: Yes (current UTI) Bladder Infection Gastrointestinal: Yes (ruptured diverticuli) Gastroesophageal Reflux, Chronic Constipation, Ulcer Musculoskeletal: Yes (hx broken pelvis) Osteoporosis, Arthritis, Chronic Back Pain, Fractures Endocrine: Yes (chronic prednisone use, DIABETIC DIET CONTROLLED) Hypothyroidsim, Lupus HEENT: Yes Cataract Loss of Vision: Bilateral Hearing Impairment: Denies Cancer: Yes Melanoma Did You Recieve Any Treatments: Yes What Type of Treatment Did You: Surgical Intervention Psychosocial: No Integumentary: Yes (STAGE III ULCER ON BUTTOCKS, melanoma removed from nose) Blood Disorders: Yes (FACTOR V LEIDEN, 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, HOMOCYSTEINE HIGH) Adverse Reaction/Blood Tranf: No (HAS HAD BLOOD WITH NO REACTION) Family Medical History Cancer 19 FATHER, Onset:60 years & older Cardiovascular disease 19 MOTHER Family history: Cardiovascular disease 19 MOTHER, Onset:60 years & older Family history: Glaucoma 19 FATHER, Onset:40's - 50 Family history: Hypertension 19 MOTHER, Onset:60 years & older Family history: Thyroid disorder 19 MOTHER, Onset:50's - 60 Myocardial infarction 19 MOTHER, Onset:60 years & older Cancer, CAD Under 55 Years Old, Hypertension Physical Exam Vital Signs Vital Signs - First Documented Capillary Refill : Height, Weight, BMI Height: 5'6.00" Weight: 195lbs. 4.0oz. [id number]; 21.84 BMI Method:Stated General Appearance: Severe Distress, Thin, Other (Very weak. She is arousable to verbal stimuli and answers questions appropriately. She is 84% on 10 L simple mask. We will start BiPAP. Her heart rate is 103, respiratory rate 26 blood pressure 86/54.) Eyes: Bilateral Eye Normal Inspection, Bilateral Eye PERRL, Bilateral Eye EOMI Respiratory: No Accessory Muscle Use, No Respiratory Distress Cardiovascular: Normal Peripheral Pulses, Tachycardia Gastrointestinal: Normal Bowel Sounds, Non Tender, Soft Extremity: Normal Capillary Refill, Normal Inspection Neurologic/Psychiatric: Oriented x3, Other (Lethargic) Skin: Normal Color, Cool, Pallor Focused Exam Lactate Level 02/01/21 11:35: Lactic Acid Level 3.29*H Lactic Acid Level Laboratory Tests Test 02/01/21 11:35 Lactic Acid Level 3.29 MMOL/L (0.50-2.00) *H Procedures/Interventions Lumen: triple Central Line Procedure: betadine prep, sterile drapes applied, sterile dressing applied Position: internal jugular (L) Anesthesia: local Volume Anesthetic (ccs): 5 Complications: none Post Position: sutured, good blood return, position confirmed w/ CXR Progress/Results/Core Measures Suspected Sepsis SIRS Temperature: Pulse: Respiratory Rate: Laboratory Tests 02/01/21 11:35: White Blood Count 9.7 Blood Pressure / Mean: 02/01/21 11:35: Lactic Acid Level 3.29*H Laboratory Tests 02/01/21 11:35: Creatinine 1.30, INR Comment 3.6H, Platelet Count 269, Total Bilirubin 0.9 Results/Orders Lab Results Laboratory Tests Test 02/01/21 11:35 02/01/21 12:05 Range/Units White Blood Count 9.7 4.3-11.0 10^3/uL Red Blood Count 4.33 3.80-5.11 10^6/uL Hemoglobin 14.9 11.5-16.0 g/dL Hematocrit 44 35-52 % Mean Corpuscular Volume 103 H 80-99 fL Mean Corpuscular Hemoglobin 34 25-34 pg Mean Corpuscular Hemoglobin Concent 34 32-36 g/dL Red Cell Distribution Width 14.5 10.0-14.5 % Platelet Count 269 130-400 10^3/uL Mean Platelet Volume 10.0 9.0-12.2 fL Immature Granulocyte % (Auto) 1 % Neutrophils (%) (Auto) 68 42-75 % Lymphocytes (%) (Auto) 26 12-44 % Monocytes (%) (Auto) 6 0-12 % Eosinophils (%) (Auto) 0 0-10 % Basophils (%) (Auto) 0 0-10 % Neutrophils # (Auto) 6.5 1.8-7.8 10^3/uL Lymphocytes # (Auto) 2.5 1.0-4.0 10^3/uL Monocytes # (Auto) 0.6 0.0-1.0 10^3/uL Eosinophils # (Auto) 0.0 0.0-0.3 10^3/uL Basophils # (Auto) 0.0 0.0-0.1 10^3/uL Immature Granulocyte # (Auto) 0.1 0.0-0.1 10^3/uL Prothrombin Time 36.6 H 12.2-14.7 SEC INR Comment 3.6 H 0.8-1.4 Activated Partial Thromboplast Time 54 H 24-35 SEC D-Dimer 0.42 0.00-0.49 UG/ML Urine Color YELLOW Urine Clarity CLEAR Urine pH 6.0 5-9 Urine Specific [place] 1.010 L 1.016-1.022 Urine Protein NEGATIVE NEGATIVE Urine Glucose (UA) NEGATIVE NEGATIVE Urine Ketones NEGATIVE NEGATIVE Urine Nitrite NEGATIVE NEGATIVE Urine Bilirubin NEGATIVE NEGATIVE Urine Urobilinogen 0.2 < = 1.0 MG/DL Urine Leukocyte Esterase NEGATIVE NEGATIVE Urine RBC (Auto) NEGATIVE NEGATIVE Urine RBC RARE /HPF Urine WBC NONE /HPF Urine Squamous Epithelial Cells 2-5 /HPF Urine Crystals NONE /LPF Urine Bacteria NEGATIVE /HPF Urine Casts NONE /LPF Urine Mucus NEGATIVE /LPF Urine Culture Indicated NO Sodium Level 138 135-145 MMOL/L Potassium Level 2.9 L 3.6-5.0 MMOL/L Chloride Level 95 L 98-107 MMOL/L Carbon Dioxide Level 26 21-32 MMOL/L Anion Gap 17 H 5-14 MMOL/L Blood Urea Nitrogen 18 7-18 MG/DL Creatinine 1.30 0.60-1.30 MG/DL Estimat Glomerular Filtration Rate 41 BUN/Creatinine Ratio 14 Glucose Level 83 70-105 MG/DL Lactic Acid Level 3.29 *H 0.50-2.00 MMOL/L Calcium Level 9.5 8.5-10.1 MG/DL Corrected Calcium 9.6 8.5-10.1 MG/DL Total Bilirubin 0.9 0.1-1.0 MG/DL Aspartate Amino Transf (AST/SGOT) 31 5-34 U/L Alanine Aminotransferase (ALT/SGPT) 22 0-55 U/L Alkaline Phosphatase 35 L 40-136 U/L C-Reactive Protein High Sensitivity 13.53 H 0.00-0.50 MG/DL Total Protein 6.4 6.4-8.2 GM/DL Albumin 3.9 3.2-4.5 GM/DL Procalcitonin 20.05 H <0.10 NG/ML SARS-CoV-2 RNA (RT-PCR) Detected H Not Detecte Blood Gas Puncture Site R RADIAL Blood Gas Patient Temperature 102 Arterial Blood pH 7.37 7.37-7.43 Arterial Blood Partial Pressure CO2 39 35-45 MMHG Arterial Blood Partial Pressure O2 55 L 79-93 MMHG Arterial Blood HCO3 21 L 23-27 MMOL/L Arterial Blood Total CO2 22.5 21.0-31.0 MMOL/L Arterial Blood Oxygen Saturation 77 L 94-100 % Arterial Blood Base Excess -2.6 L -2.5-2.5 MMOL/L Ian Test YES-POS Blood Gas Ventilator Setting NO Blood Gas Inspired Oxygen 5 My Orders Orders - COREEN COOK APRN Cbc With Automated Diff (02/01/21 11:34) Comprehensive Metabolic Panel (02/01/21 11:34) Blood Culture (02/01/21 11:34) Sputum Culture (02/01/21 11:34) Urinalysis (02/01/21 11:34) Urine Culture (02/01/21 11:34) Protime With Inr (02/01/21 11:34) Partial Thromboplastin Time (02/01/21 11:34) Chest 1 View, Ap/Pa Only (02/01/21 11:34) Ed Iv/Invasive Line Start (02/01/21 11:34) Ed Iv/Invasive Line Start (02/01/21 11:34) Vital Signs Adult Sepsis Patie Q15M (02/01/21 11:34) O2 (02/01/21 11:34) Remove Rings In Anticipation O (02/01/21 11:34) Lactic Acid Analyzer (02/01/21 11:34) Procalcitonin (Pct) (02/01/21 11:34) Covid 19 Inhouse Test (02/01/21 11:34) Hydrocortisone Injection (Solu-Cortef In (02/01/21 11:56) Lactated Ringers (Lr 1000 Ml Iv Solution (02/01/21 11:58) Arterial Blood Gas (02/01/21 12:09) Ns Iv 1000 Ml (Sodium Chloride 0.9%) (02/01/21 12:23) Norepinephrine 8 Mg/250 Ml (Norepinephri (02/01/21 12:30) Lactated Ringers (Lr 1000 Ml Iv Solution (02/01/21 12:30) Cefepime Injection (Maxipime Injection) (02/01/21 12:30) Hydrocortisone Injection (Solu-Cortef In (02/01/21 12:30) C Difficile Ag + Toxin A/B. (02/01/21 12:32) Hs C Reactive Protein (02/01/21 12:32) Fibrin Degradation Products (02/01/21 12:32) Ed Admission (Communication) (02/01/21 12:46) Mehta Cath (02/01/21 12:51) Medications Given in ED Current Medications Medications Dose Ordered Sig/Elysia Route Start Time Stop Time Status Last Admin Dose Admin Cefepime HCl 1000 mg/Sodium Chloride 50 ml @ 100 mls/hr ONCE ONCE IV 02/01/21 12:30 02/01/21 12:59 DC 02/01/21 12:46 100 MLS/HR Hydrocortisone Sodium Succinate 100 mg STK-MED ONCE .ROUTE 02/01/21 11:56 02/01/21 12:00 DC 02/01/21 12:11 100 MG Lactated Ringer's 1,000 ml @ ud STK-MED ONCE IV 02/01/21 11:58 02/01/21 12:00 DC 02/01/21 12:11 1,000 MLS/HR Sodium Chloride 1,000 ml @ ud STK-MED ONCE .ROUTE 02/01/21 12:23 02/01/21 12:24 DC 02/01/21 12:20 999 MLS/HR Vital Signs/I&O 02/01/21 02/01/21 11:30 11:30 Temp 36.9 Pulse 110 Resp 14 B/P (MAP) 102/36 (58) Pulse Ox 94 O2 Delivery Nasal Cannula Nasal Cannula O2 Flow Rate 3.00 4.00 Capillary Refill : Departure Communication (Admissions) NAME: JALIL VDIES [facility] REC#: [id number] PT STATUS: ADM IN : 1950 PHYSICIAN: COREEN COOK APRN ADMIT DATE: 02/01/21/ICU Draft Date of Exam:02/01/21 CHEST 1 VIEW, AP/PA ONLY INDICATION: COVID positive COMPARISON: 08/15/2020 FINDINGS: Single view of the chest demonstrates infiltrate in the right base. The left lung is stable. The heart is prominent without pulmonary edema. There is no pneumothorax or large effusion. IMPRESSION: Infiltrate in the right lung base. Dictated on workstation # [id number] Dict: 02/01/21 1249 Trans: 02/01/[address] [facility] [id number] Interpreted by: [employer] Electronically signed by: Impression Primary Impression: Respiratory failure Additional Impressions: COVID-19 Septic shock Disposition: ADMITTED INPATIENT Condition: Stable Admissions Decision to Admit Reason: Admit from ER (General) Decision to Admit/Date: Feb 01, 2021 Time/Decision to Admit Time: 12:32 Departure-Patient Inst. Referrals: MIKE CASANOVA DO (PCP/Family) Primary Care Physician COREEN COOK APRN Feb 01, 2021 11:48
[2021-02-01 11:52] LABS: BASOPHILS % (AUTO) 0 % (0-10); EOSINOPHILS % (AUTO) 0 % (0-10); HEMATOCRIT 44 % (35-52); HEMOGLOBIN 14.9 g/dL (11.5-16.0); LYMPHOCYTES # (AUTO) 2.5 10^3/uL (1.0-4.0); LYMPHOCYTES % (AUTO) 26 % (12-44); MEAN CORPUSCULAR HEMOGLOBIN 34 pg (25-34); MEAN CORPUSCULAR HGB CONC 34 g/dL (32-36); MEAN CORPUSCULAR VOLUME 103 fL (80-99); MONOCYTES # (AUTO) 0.6 10^3/uL (0.0-1.0); MONOCYTES % (AUTO) 6 % (0-12); NEUTROPHILS # (AUTO) 6.5 10^3/uL (1.8-7.8); NEUTROPHILS % (AUTO) 68 % (42-75); PLATELET COUNT 269 10^3/uL (130-400); WHITE BLOOD COUNT 9.7 10^3/uL (4.3-11.0)
[2021-02-01] MEDS ORDERED: HYDROCORTISONE 100 MG/2 ML (Solu-CORTEF) VIAL ONE (11:56)
[2021-02-01] MEDS ORDERED: LACTATED RINGERS 1,000 ML IV ONE (11:58)
[2021-02-01 12:03] LABS: ALBUMIN 3.9 GM/DL (3.2-4.5); POTASSIUM 2.9 MMOL/L (3.6-5.0)
[2021-02-01 12:04] LABS: BILIRUBIN,URINE NEGATIVE (NEGATIVE); CLARITY,URINE CLEAR; COLOR,URINE YELLOW; GLUCOSE, URINE (UA) NEGATIVE (NEGATIVE); KETONES,URINE NEGATIVE (NEGATIVE); LEUKOCYTE ESTERASE ,URINE NEGATIVE (NEGATIVE); NITRITE,URINE NEGATIVE (NEGATIVE); PROTEIN,URINE NEGATIVE (NEGATIVE)
[2021-02-01 12:05] LABS: CALCIUM 9.5 MG/DL (8.5-10.1)
[2021-02-01 12:06] LABS: TOTAL PROTEIN 6.4 GM/DL (6.4-8.2)
[2021-02-01 12:07] LABS: INR 3.6 (0.8-1.4); PROTHROMBIN TIME PATIENT 36.6 SEC (12.2-14.7)
[2021-02-01 12:08] LABS: BILIRUBIN,TOTAL 0.9 MG/DL (0.1-1.0)
[2021-02-01 12:09] LABS: CREATININE SERUM 1.3 MG/DL (0.60-1.30)
[2021-02-01 12:13] LABS: BACTERIA,URINE NEGATIVE /HPF; RBC,URINE RARE /HPF
[2021-02-01 12:17] LABS: ABG BASE EXCESS -2.6 MMOL/L (-2.5-2.5); ABG OXYGEN SATURATION 77 % (94-100); ABG PCO2 39 MMHG (35-45); ABG PH 7.37 (7.37-7.43); ABG PO2 55 MMHG (79-93); ABG TCO2 22.5 MMOL/L (21.0-31.0)
[2021-02-01 12:19] LABS: ALLENS TEST YES-POS; INSPIRED O2 5; PATIENT TEMP 102; VENTILATOR NO
[2021-02-01] MEDS ORDERED: NS IV 1000 ML 1,000 ML ONE (12:23)
[2021-02-01] MEDS ORDERED: HYDROCORTISONE 100 MG/2 ML (Solu-CORTEF) VIAL IV ONE (12:30)
[2021-02-01] MEDS ORDERED: CEFEPIME INJECTION 1,000 MG in NS (IVPB) 50 ML IV ONE (12:30)
[2021-02-01] MEDS ORDERED: LACTATED RINGERS 1,000 ML IV SCH (12:30)
[2021-02-01] MEDS ORDERED: NOREPINEPHRINE 8 MG/250 ML 250 ML IV SCH (12:30)
--- NOTE | 2021-02-01 12:57 | Diagnostic Imaging Report ---
INDICATION: COVID positive COMPARISON: 08/15/2020 FINDINGS: Single view of the chest demonstrates infiltrate in the right base. The left lung is stable. The heart is prominent without pulmonary edema. There is no pneumothorax or large effusion. IMPRESSION: Infiltrate in the right lung base. Dictated by: Dictated on workstation # [id number]
[2021-02-01] MEDS ORDERED: ALPRAZolam 0.25 MG (XANAX) TAB PO PRN (14:00)
[2021-02-01] MEDS ORDERED: NS IV 1000 ML 1,000 ML IV SCH ×3 (14:00→21:59)
[2021-02-01] MEDS ORDERED: DOCUSATE SODIUM 100 MG (COLACE) CAP PO PRN (14:00)
[2021-02-01] MEDS ORDERED: guaiFENesin/CODEINE (ROBITUSSIN AC) 10ML UDC PO PRN (14:00)
[2021-02-01] MEDS ORDERED: diphenhydrAMINE 25 MG TAB (BENADRYL) PO PRN (14:00)
[2021-02-01] MEDS ORDERED: HYDROcodone/APAP 5 MG/325 MG (LORTAB) TAB PO PRN (14:00)
[2021-02-01] MEDS ORDERED: morphine INJ 10 MG/ML 1ML (SYR OR VIAL) IVP PRN (14:00)
[2021-02-01] MEDS ORDERED: LOPERAMIDE 2 MG (IMODIUM) TABLET PO PRN (14:00)
[2021-02-01] MEDS ORDERED: CALCIUM CARBONATE 500 MG (TUMS) TAB.CHEW PO PRN (14:00)
[2021-02-01] MEDS ORDERED: VANCOMYCIN INJECTION 1,000 MG in NS (IVPB) 250 ML IV SCH (14:00)
[2021-02-01] MEDS ORDERED: MELATONIN 3 MG TABLET PO PRN (14:00)
[2021-02-01] MEDS ORDERED: ACETAMINOPHEN 500 MG TAB (TYLENOL) PO PRN (14:00)
[2021-02-01] MEDS ORDERED: morphine INJ 4 MG/ML 1 ML (VIAL/SYRINGE) IV PRN (14:15)
[2021-02-01] MEDS ORDERED: ACETAMINOPHEN 325 MG TABLET PO PRN (14:15)
[2021-02-01] MEDS ORDERED: VANCOMYCIN 1250 MG/NS 250 ML IVPB IV SCH ×2 (14:30)
--- NOTE | 2021-02-01 14:33 | Tele-ICU Consult ---
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 Emergency room physician medical technician assistant called me with this patient and he did insert a CVC catheter. Subsequently she is transferred to the intensive care unit where I made a video visit and reviewed and discussed with the patient VOCATIONAL TRAINER in detail. Currently she is resting comfortably but blood pressure is still low. I have given additional orders to treat her blood pressure. She already received IV Solu- Cortef and subsequently IV dexamethasone has been ordered. Apparently she had some history of asthma per her she is on fluticasone salmeterol inhaler. Further details are still evolving. Allergies and Home Medications Allergies Coded Allergies: Penicillins (Verified Allergy, Intermediate, 04/02/15) pneumococcal vaccine (Verified Allergy, Unknown, 04/02/15) PT STATES FEVER IN THE ARM Home Medications Acetaminophen 500 Mg Tablet, 500 MG PO QID PRN for PAIN-MILD (1-4), (Reported) Albuterol Sulfate 1 Puff Puff, 2 PUFF IH Q4H PRN for SHORTNESS OF BREATH, (Reported) Allopurinol 100 Mg Tablet, 100 MG PO DAILY, (Reported) Aspirin 81 Mg Tablet.dr, 81 MG PO DAILY, (Reported) Atorvastatin Calcium 40 Mg Tablet, 40 MG PO DAILY, (Reported) Bifidobacterium Infantis 4 Mg Capsule, 4 MG PO DAILY, (Reported) Cadexomer Iodine 40 Gm Gel..gram., 40 GM TP UD, (Reported) Cetirizine HCl 10 Mg Tablet, 10 MG PO 1800, (Reported) Cyanocobalamin (Vitamin B-12) 5,000 Mcg Tab.rapdis, 5,000 MCG PO 1800, (Rep orted) Denosumab 60 Mg/1 Ml Disp.syrin, 60 MG SQ EVERY 6 MONTHS, (Reported) Evolocumab 140 Mg/1 Ml Pen.injctr, 140 MG SQ EVERY 2 WEEKS, (Reported) Fenofibrate 54 Mg Tablet, 54 MG PO DAILY, (Reported) Ferrous Sulfate 325 Mg Tablet, 325 MG PO BID WITH MEALS, (Reported) Fish Oil/Borage/Flax/Om3,6,9#1 400 Mg Capsule, 800 MG PO BID WITH MEALS, (Reported) Fluticasone Propionate 9.9 Ml Arpin.susp, 2 SPRAY NS DAILY PRN for CONGESTION, (Reported) Fluticasone/Salmeterol 1 Each Blst.w.dev, 1 EACH IH BID, (Reported) TAKES AT 0000 AND 1200 Folic Acid 1 Mg Tablet, 3 MG PO DAILY, (Reported) TAKES 3 (1MG) TABS Furosemide 40 Mg Tablet, 40 MG PO DAILY, (Reported) Latanoprost 2.5 Ml Drops, 1 DROP OU HS, (Reported) Levothyroxine Sodium 88 Mcg Tablet, 88 MCG PO DAILY, (Reported) Lisinopril 20 Mg Tablet, 20 MG PO BID, (Reported) Methotrexate Sodium 2.5 Mg Tablet, 10 MG PO Tu, (Reported) TAKES 4 (2.5MG) TABLETS Metoprolol Tartrate 50 Mg Tablet, 50 MG PO BID, (Reported) LAST FILLED 02-27-2020 #180/90 DAY SUPPLY Montelukast Sodium 10 Mg Tablet, 10 MG PO 1800, (Reported) Mv-Mn/Iron/FA/Herbal Cmplx#190 1 Each Tablet, 1 EACH PO DAILY, (Reported) Niacin 1,000 Mg Tab.er.24h, 1,000 MG PO DAILY, (Reported) Pantoprazole Sodium 40 Mg Tablet.dr, 40 MG PO BID, (Reported) Polyethylene Glycol 3350 17 Gm Powd.pack, 17 GM PO DAILY, (Reported) Potassium Chloride 10 Meq Tab.er.prt, 10 MEQ PO BID, (Reported) Prednisone 10 Mg Tab, 10 MG PO DAILY, (Reported) Tramadol HCl 50 Mg Tablet, 50 MG PO 0800,1800,2200, (Reported) Vit A/Vit C/Vit E/Zinc/Copper 1 Each Tablet, 1 TAB PO 1800, (Reported) Warfarin Sodium 2.5 Mg Tablet, 2.5 MG PO SUN,,,TH,SAT, (Reported) Warfarin Sodium 2.5 Mg Tablet, 5 MG PO MON,FR, (Reported) Past Medical/Social/Family Hx Patient Social History Tobacco Use?: No Smoking Status: Never a Smoker Smokeless Tobacco Frequency: Never a User E-Cig and/or Vaping Freq: Never a User Substance use?: No Alcohol Use?: No Pt stated abuse/neglect: No Immunizations Up To Date First/Initial COVID19 Vaccinat: UNKNOWN DATE Second COVID19 Vaccination Hesham: UNKNOWN DATE Tetanus Booster (TDap): Unknown Hepatitis A: No Hepatitis B: No TB Skin Test: None Current Status status: No status: No Advance Directives: Yes Communicates: Verbally Primary Language: Libyan Preferred Spoken Language: Libyan Is interpretation needed?: No Implanted or Applied Medical D: None Review of Systems Constitutional: see HPI Other ROS PER RN Sepsis Event Evaluation Sepsis Stage: Severe Sepsis Possible Source: Pulmonary Height, Weight, BMI Height: 5'6.00" Weight: 195lbs. 4.0oz. 88.758104xt; 20.00 BMI Method:Stated Exam Exam Patient acknowledged, consented, and participated in this virtual visit which was conducted using real time audio/video Vital Signs Date Time Temp Pulse Resp B/P (MAP) Pulse Ox O2 Delivery O2 Flow Rate FiO2 02/01/21 14:15 92 22 96/39 (58) 91 Nasal Cannula 5.00 02/01/21 14:07 101 02/01/21 14:00 91 28 95/31 (52) 92 Nasal Cannula 5.00 02/01/21 13:45 36.7 93 32 100/46 (64) 94 Nasal Cannula 5.00 02/01/21 13:40 103 17 102/56 94 Nasal Cannula 4.00 02/01/21 11:30 Nasal Cannula 4.00 02/01/21 11:30 36.9 110 14 102/36 (58) 94 Nasal Cannula 3.00 Height & Weight Height: 5'6.00" Weight: 195lbs. 4.0oz. 88.824357jf; 20.00 BMI Method:Stated General Appearance: Severe Distress, Thin, Other (Very weak. She is arousable to verbal stimuli and answers questions appropriately. She is 84% on 10 L simple mask. We will start BiPAP. Her heart rate is 103, respiratory rate 26 blood pressure 86/54.) Respiratory: No Accessory Muscle Use, No Respiratory Distress Cardiovascular: Normal Peripheral Pulses, Tachycardia Capillary Refill: Less Than 3 Seconds Extremity: Normal Capillary Refill, Normal Inspection Neurologic/Psychiatric: Oriented x3, Other (Lethargic) Skin: Normal Color, Cool, Pallor Other comments PE PER RN Results Lab Laboratory Tests 02/01/21 11:35 Radiology NAME: JALIL VIDES [facility] REC#: [id number] PT STATUS: ADM IN : 1950 PHYSICIAN: COREEN COOK APRN ADMIT DATE: 02/01/21/ICU Draft Date of Exam:02/01/21 CHEST 1 VIEW, AP/PA ONLY INDICATION: COVID positive COMPARISON: 08/15/2020 FINDINGS: Single view of the chest demonstrates infiltrate in the right base. The left lung is stable. The heart is prominent without pulmonary edema. There is no pneumothorax or large effusion. IMPRESSION: Infiltrate in the right lung base. Dictated on workstation # [id number] Dict: 02/01/21 1249 Trans: 02/01/21 1256 [facility] [id number] Interpreted by: [employer] Electronically signed by: Assessment/Plan Assessment/Plan 1. Possible septic shock due to pneumonia 2. Covid19 viral pneumonia 3. Hypoxic respiratory failure 4. Factor V Leyden mutation on chronic anticoagulant therapy. Recommendations 1. We will give her IV fluids and start on a Levophed to maintain SBP over 65 2. Continue IV antibiotics with vancomycin and cefepime 3. IV dexamethasone 4. We will start on remdesivir and acyclovir 5. Continue oral anticoagulant therapy to keep INR between 2 and 3 6. I have made a video visit and utilizing the telemetry ICU camera to interview the patient and the and I have discussed with the VOCATIONAL TRAINER. 7. Insulin with sliding scale coverage for hyperglycemia Critical Care: Critically Ill Patient Time spent with patient (mins): 50 IVONE SEALS MD Feb 01, 2021 14:33
[2021-02-01] MEDS ORDERED: NOREPINEPHRINE 8 MG/250 ML 250 ML IV ONE (14:34)
--- NOTE | 2021-02-01 15:23 | Diagnostic Imaging Report ---
INDICATION: Central line placement. TIME OF EXAM: 3:07 p.m. COMPARISON: Correlation is made with prior chest from earlier same day. FINDINGS: A left-sided line appears to have the tip overlying the left innominate vein. There is some consolidation that has increased in the right base. There is also consolidation and pleural fluid in the left base. This has increased since earlier today. Upper lung oates are clear. There is no pneumothorax. IMPRESSION: Central line placement, as described. There has been some increasing consolidation in both bases as well as a left effusion. Dictated by: Dictated on workstation # [id number]
[2021-02-01] MEDS: NS IV 1000 ML 1,000 ML IV SCH (15:32)
[2021-02-01] MEDS: NOREPINEPHRINE 8 MG/250 ML 250 ML IV SCH (15:45)
[2021-02-01] MEDS ORDERED: RT-ALBUTEROL HFA 8.5 GM INHALER IH PRN (16:00)
--- NOTE | 2021-02-01 16:15 | History & Physical ---
KVNG RODRIGUEZ 02/01/21 1615: History of Present Illness History of Present Illness Reason for visit/HPI Patient is a 70 year old female patient that is known to Dr. Casanova who presented to [facility] ER via EMS with complaints of cough and weakness that started on thursday of this week. Patient had a fever of 102 per EMS. Patient was found to be hypoxic at placed on oxygen via nasal cannula. Patient was hypotensive at 86/54 and was given wide open IV fluids. Patient had a central line placed for access. Patient was found to be COVID +. Chest x-ray showed an infiltrate in the right lung base. Patients labs showed a lactic acid of 4.24 and a pro-calcitonin of 20. Patient was administered IV hydrocoritsone and dexamethasone before being transferred to the ICU. Patient has a history of Facto V Leiden mutation and is on chronic anticoagulation therapy with oral warfarin. INR is 3.6. Date of Admission Feb 01, 2021 at 12:51 Time Seen by a Provider: 13:10 I consulted on this patient on 02/01/21 16:09 Attending Physician Jesica Casanova DO Admitting Physician Jesica Casanova DO Consult Allergies and Home Medications Allergies Coded Allergies: Penicillins (Verified Allergy, Intermediate, 04/02/15) pneumococcal vaccine (Verified Allergy, Unknown, 04/02/15) PT STATES FEVER IN THE ARM Patient Home Medication List Home Medication List Reviewed: Yes Acetaminophen (Acetaminophen Extra Strength) 500 Mg Tablet, 500 MG PO QID PRN for PAIN-MILD (1-4), (Reported) Entered as Reported by: SAPNA DUNN on 01/08/18 0935 Albuterol Sulfate (Proair Hfa) 1 Puff Puff, 2 PUFF IH Q4H PRN for SHORTNESS OF BREATH, (Reported) Entered as Reported by: ROLDAN MATSON on 02/02/19 1309 Allopurinol (Allopurinol) 100 Mg Tablet, 100 MG PO DAILY, (Reported) Entered as Reported by: ROLDAN MATSON on 08/15/20 0836 Aspirin (Aspirin EC) 81 Mg Tablet.dr, 81 MG PO DAILY, (Reported) Entered as Reported by: SAPNA DUNN on 01/08/18 0935 Atorvastatin Calcium (Atorvastatin Calcium) 40 Mg Tablet, 40 MG PO DAILY, ( Reported) Entered as Reported by: JAMARCUS LAW on 01/07/21 1344 Bifidobacterium Infantis (Align) 4 Mg Capsule, 4 MG PO DAILY, (Reported) Entered as Reported by: SAPNA DUNN on 04/11/16 1604 Cadexomer Iodine (Iodosorb) 40 Gm Gel..gram., 40 GM TP UD, (Reported) Entered as Reported by: JAMARCUS LAW on 01/07/21 1344 Cetirizine HCl (Cetirizine HCl) 10 Mg Tablet, 10 MG PO 1800, (Reported) Entered as Reported by: SAPNA DUNN on 01/08/18 0935 Cyanocobalamin (Vitamin B-12) (Vitamin B-12) 5,000 Mcg Tab.rapdis, 5,000 MCG PO 1800, (Reported) Entered as Reported by: ROLDAN MATSON on 08/15/20 0836 Denosumab (Prolia) 60 Mg/1 Ml Disp.syrin, 60 MG SQ EVERY 6 MONTHS, (Reported) Entered as Reported by: ROLDAN MATSON on 08/15/20 0836 Evolocumab (Repatha Sureclick) 140 Mg/1 Ml Pen.injctr, 140 MG SQ EVERY 2 WEEKS, (Reported) Entered as Reported by: ROLDAN MATSON on 08/15/20 0836 Fenofibrate (Fenofibrate) 54 Mg Tablet, 54 MG PO DAILY, (Reported) Entered as Reported by: ROLDAN MATSON on 08/15/20 0836 Ferrous Sulfate (Iron) 325 Mg Tablet, 325 MG PO BID WITH MEALS, (Reported) Entered as Reported by: SAPNA DUNN on 04/11/16 1604 Fish Oil/Borage/Flax/Om3,6,9#1 (Sandy 3-6-9 Complex Softgel) 400 Mg Capsule, 800 MG PO BID WITH MEALS, (Reported) Entered as Reported by: ROLDAN MATSON on 08/15/20 0836 Fluticasone Propionate (Flonase Allergy Relief) 9.9 Ml Rusk.susp, 2 SPRAY NS DAILY PRN for CONGESTION, (Reported) Entered as Reported by: SAPNA DUNN on 01/08/18 0939 Fluticasone/Salmeterol (Advair 250-50 Diskus) 1 Each Blst.w.dev, 1 EACH IH BID, (Reported) Entered as Reported by: ROLDAN MATSON on 02/02/19 1314 Folic Acid (Folic Acid) 1 Mg Tablet, 3 MG PO DAILY, (Reported) Entered as Reported by: ROLDAN MATSON on 08/15/20 0836 Furosemide (Furosemide) 40 Mg Tablet, 40 MG PO DAILY, (Reported) Entered as Reported by: SAPNA DUNN on 01/08/18 0935 Latanoprost (Xalatan) 2.5 Ml Drops, 1 DROP OU HS, (Reported) Entered as Reported by: ROLDAN MATSON on 08/15/20 0836 Levothyroxine Sodium (Euthyrox) 88 Mcg Tablet, 88 MCG PO DAILY, (Reported) Entered as Reported by: JAMARCUS LAW on 01/07/21 1344 Lisinopril (Lisinopril) 20 Mg Tablet, 20 MG PO BID, (Reported) Entered as Reported by: SAPNA DUNN on 01/08/18 0935 Methotrexate Sodium (Methotrexate) 2.5 Mg Tablet, 10 MG PO Tu, (Reported) Entered as Reported by: SAPNA DUNN on 01/18/18 1526 Metoprolol Tartrate (Metoprolol Tartrate) 50 Mg Tablet, 50 MG PO BID, (Reported) Entered as Reported by: ROLDAN MATSON on 02/02/19 1310 Montelukast Sodium (Montelukast Sodium) 10 Mg Tablet, 10 MG PO 1800, (Reported) Entered as Reported by: SAPNA DUNN on 01/08/18 0935 Mv-Mn/Iron/FA/Herbal Cmplx#190 (Vitamin D3 Complete Caplet) 1 Each Tablet, 1 EACH PO DAILY, (Reported) Entered as Reported by: JAMARCUS LAW on 01/07/21 1344 Niacin (Niacin ER) 1,000 Mg Tab.er.24h, 1,000 MG PO DAILY, (Reported) Entered as Reported by: JAMARCUS LAW on 01/07/21 1344 Pantoprazole Sodium (Pantoprazole Sodium) 40 Mg Tablet.dr, 40 MG PO BID, (Reported) Entered as Reported by: LI DOMINGO on 10/22/15 1414 Polyethylene Glycol 3350 (Miralax) 17 Gm Powd.pack, 17 GM PO DAILY, (Reported) Entered as Reported by: JAMARCUS LAW on 01/07/21 1344 Potassium Chloride (Potassium Chloride) 10 Meq Tab.er.prt, 10 MEQ PO BID, (Rep orted) Entered as Reported by: ROLDAN MATSON on 02/02/19 1307 Prednisone (Prednisone) 10 Mg Tab, 10 MG PO DAILY, (Reported) Entered as Reported by: ROLDAN MATSON on 02/02/19 1332 Tramadol HCl (Tramadol HCl) 50 Mg Tablet, 50 MG PO 0800,1800,2200, (Reported) Entered as Reported by: SAPNA DUNN on 01/08/18 0935 Vit A/Vit C/Vit E/Zinc/Copper (Preservision Areds Tablet) 1 Each Tablet, 1 TAB PO 1800, (Reported) Entered as Reported by: LI DOMINGO on 10/22/15 1414 Warfarin Sodium (Warfarin Sodium) 2.5 Mg Tablet, 2.5 MG PO SUN,TU,WE,TH,SAT, (Reported) Entered as Reported by: ROLDAN MATSON on 02/02/19 1309 Warfarin Sodium (Warfarin Sodium) 2.5 Mg Tablet, 5 MG PO MON,FR, (Reported) Entered as Reported by: ROLDAN MATSON on 08/15/20 0836 Past Qlljyjd-Memqai-Tqvknk Hx Patient Social History Tobacco Use?: No Smoking Status: Never a Smoker Smokeless Tobacco Frequency: Never a User Use of E-Cig and/or Vaping Juan J: Never a User Substance use?: No Alcohol Use?: No Pt feels they are or have been: No Immunizations Up To Date Date of Influenza Vaccine: Nov 23, 2018 First/Initial COVID19 Vaccinat: UNKNOWN DATE Second COVID19 Vaccination Hesham: UNKNOWN DATE Tetanus Booster (TDap): Unknown Hepatitis A: No Hepatitis B: No PED Vaccines UTD: No Seasonal Allergies Seasonal Allergies: Yes Current Status status: No status: No Advance Directives: Yes Communicates: Verbally Primary Language: Sri Lankan Preferred Spoken Language: Sri Lankan Is interpretation needed?: No Implanted or Applied Medical D: None Past Medical History Surgeries: Abdominal, Gallbladder, Hysterectomy Asthma, Sleep Apnea, COPD Currently Using CPAP: Yes Currently Using BIPAP: No Cardiomyopathy, High Cholesterol, Hypertension Neuropathy Sexually Transmitted Disease: No HIV/AIDS: No Bladder Infection Gastroesophageal Reflux, Chronic Constipation, Ulcer Osteoporosis, Arthritis, Chronic Back Pain, Fractures Hypothyroidsim, Lupus Cataract Loss of Vision: Bilateral Hearing Impairment: Denies Melanoma Did You Recieve Any Treatments: Yes What Type of Treatment Did You: Surgical Intervention Blood Disorders: Yes (FACTOR V LEIDEN, 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, HOMOCYSTEINE HIGH) Adverse Reaction/Blood Tranf: No (HAS HAD BLOOD WITH NO REACTION) Family Medical History Cancer 19 FATHER, Onset:60 years & older Cardiovascular disease 19 MOTHER Family history: Cardiovascular disease 19 MOTHER, Onset:60 years & older Family history: Glaucoma 19 FATHER, Onset:40's - 50 Family history: Hypertension 19 MOTHER, Onset:60 years & older Family history: Thyroid disorder 19 MOTHER, Onset:50's - 60 Myocardial infarction 19 MOTHER, Onset:60 years & older Cancer, CAD Under 55 Years Old, Hypertension Review of Systems Constitutional: fever, weakness, other Respiratory: cough, short of breath Physical Exam Vital Signs Vital Signs - First Documented 02/01/21 15:55 FiO2 97 Capillary Refill : Less Than 3 Seconds Height, Weight, BMI Height: 5'6.00" Weight: 195lbs. 4.0oz. [id number]; 20.00 BMI Method:Stated General Appearance: Moderate Distress, Thin, Other (lethargic) Respiratory: Chest Non Tender, No Accessory Muscle Use Cardiovascular: Normal Peripheral Pulses, Tachycardia Rectal: Deferred Neurologic/Psychiatric: Oriented x3, Other (lethargic) Skin: Normal Color, Cool Assessment/Plan Assessment and Plan Assessment Sepsis COVID pneumonia Acute hypoxic respiratory failure C. Diff Hypotension Hypokalemia Factor V Leiden mutation COPD Asthma Hyperlipidemia Hypertension GERD Osteoporosis Arthritis Plan IV Fluids IV Norepinephrine to maintain SBP over 65 Continue vancomycin and cefepime IV dexamethasone Continue oral anticoagulation with warfarin, target INR between 2-3 Potassium replacement Albuterol inhaler Pain medications PRN Repeat labs Repeat CXR Admission Diagnosis Sepsis due to possible pneumonia; COVID+ Admission Status: Inpatient Order (span 2 midnights) Reason for Inpatient Admission: Possible septic shock due to pneumonia; COVID + JESICA CASANOVA DO 02/02/21 0613: History of Present Illness History of Present Illness Reason for visit/HPI Chief complaint: Septic shock due to COVID-19 pneumonia History present illness: This is a 70-year-old white female clinic patient of mine for 16 years who has a past medical history of factor V Leiden and recurre nt thrombosis on warfarin therapy managed by hematology Dr. MOSQUEDA, oxygen dependent COPD, obstructive sleep apnea, lupus managed by rheumatology, right ankle wound bandaged and wound care at [facility] and prednisone dependency who presented to the ER by EMS in severe critical illness with hypotension and near complete decompensation and cardiac arrest. I assessed her upon arrival and or dered bilateral IV lines and fluid boluses. Central line was placed. Covid swab was positive. Patient received Eris & Eris vaccine 3 months ago. INR 3.6. eICU consulted along with Dr. Moore. Cefepime started empirically for bacterial pneumonia. Allergies and Home Medications Allergies Coded Allergies: Penicillins (Verified Allergy, Intermediate, 04/02/15) pneumococcal vaccine (Verified Allergy, Unknown, 04/02/15) PT STATES FEVER IN THE ARM Patient Home Medication List Home Medication List Reviewed: Yes Acetaminophen (Acetaminophen Extra Strength) 500 Mg Tablet, 500 MG PO QID PRN for PAIN-MILD (1-4), (Reported) Entered as Reported by: SAPNA DUNN on 01/08/18 0935 Albuterol Sulfate (Proair Hfa) 1 Puff Puff, 2 PUFF IH Q4H PRN for SHORTNESS OF BREATH, (Reported) Entered as Reported by: ROLDAN MATSON on 02/02/19 1309 Allopurinol (Allopurinol) 100 Mg Tablet, 100 MG PO DAILY, (Reported) Entered as Reported by: ROLDAN MATSON on 08/15/20 0836 Aspirin (Aspirin EC) 81 Mg Tablet.dr, 81 MG PO DAILY, (Reported) Entered as Reported by: SAPNA DUNN on 01/08/18 0935 Atorvastatin Calcium (Atorvastatin Calcium) 40 Mg Tablet, 40 MG PO DAILY, (Reported) Entered as Reported by: JAMARCUS LAW on 01/07/21 1344 Bifidobacterium Infantis (Align) 4 Mg Capsule, 4 MG PO DAILY, (Reported) Entered as Reported by: SAPNA DUNN on 04/11/16 1604 Cadexomer Iodine (Iodosorb) 40 Gm Gel..gram., 40 GM TP UD, (Reported) Entered as Reported by: JAMARCUS LAW on 01/07/21 1344 Cetirizine HCl (Cetirizine HCl) 10 Mg Tablet, 10 MG PO 1800, (Reported) Entered as Reported by: SAPNA DUNN on 01/08/18 0935 Cyanocobalamin (Vitamin B-12) (Vitamin B-12) 5,000 Mcg Tab.rapdis, 5,000 MCG PO 1800, (Reported) Entered as Reported by: ROLDAN MATSON on 08/15/20835 Denosumab (Prolia) 60 Mg/1 Ml Disp.syrin, 60 MG SQ EVERY 6 MONTHS, (Reported) Entered as Reported by: ROLDAN MATSON on 08/15/20835 Evolocumab (Repatha Sureclick) 140 Mg/1 Ml Pen.injctr, 140 MG SQ EVERY 2 WEEKS, (Reported) Entered as Reported by: ROLDAN MATSON on 08/15/20835 Fenofibrate (Fenofibrate) 54 Mg Tablet, 54 MG PO DAILY, (Reported) Entered as Reported by: ROLDAN MATSON on 08/15/20835 Ferrous Sulfate (Iron) 325 Mg Tablet, 325 MG PO BID WITH MEALS, (Reported) Entered as Reported by: SAPNA DUNN on 04/11/16 1604 Fish Oil/Borage/Flax/Om3,6,9#1 (Sandy 3-6-9 Complex Softgel) 400 Mg Capsule, 800 MG PO BID WITH MEALS, (Reported) Entered as Reported by: ROLDAN MATSON on 08/15/20835 Fluticasone Propionate (Flonase Allergy Relief) 9.9 Ml Rusk.susp, 2 SPRAY NS DAILY PRN for CONGESTION, (Reported) Entered as Reported by: SAPNA DUNN on 01/08/18 0939 Fluticasone/Salmeterol (Advair 250-50 Diskus) 1 Each Blst.w.dev, 1 EACH IH BID, (Reported) Entered as Reported by: ROLDAN MATSON on 02/02/19 1314 Folic Acid (Folic Acid) 1 Mg Tablet, 3 MG PO DAILY, (Reported) Entered as Reported by: ROLDAN MATSON on 08/15/20835 Furosemide (Furosemide) 40 Mg Tablet, 40 MG PO DAILY, (Reported) Entered as Reported by: SAPNA DUNN on 01/08/18 0935 Latanoprost (Xalatan) 2.5 Ml Drops, 1 DROP OU HS, (Reported) Entered as Reported by: ROLDAN MATSON on 6/23/21 0836 Levothyroxine Sodium (Euthyrox) 88 Mcg Tablet, 88 MCG PO DAILY, (Reported) Entered as Reported by: JAMARCUS LAW on 01/07/21 1344 Lisinopril (Lisinopril) 20 Mg Tablet, 20 MG PO BID, (Reported) Entered as Reported by: SAPNA DUNN on 01/08/18 0935 Methotrexate Sodium (Methotrexate) 2.5 Mg Tablet, 10 MG PO Tu, (Reported) Entered as Reported by: SAPNA DUNN on 01/18/18 1526 Metoprolol Tartrate (Metoprolol Tartrate) 50 Mg Tablet, 50 MG PO BID, (Reported) Entered as Reported by: ROLDAN MATSON on 02/02/19 1310 Montelukast Sodium (Montelukast Sodium) 10 Mg Tablet, 10 MG PO 1800, (Reported) Entered as Reported by: SAPNA DUNN on 01/08/18 0935 Mv-Mn/Iron/FA/Herbal Cmplx#190 (Vitamin D3 Complete Caplet) 1 Each Tablet, 1 EACH PO DAILY, (Reported) Entered as Reported by: JAMARCUS LAW on 01/07/21 1344 Niacin (Niacin ER) 1,000 Mg Tab.er.24h, 1,000 MG PO DAILY, (Reported) Entered as Reported by: JAMARCUS LAW on 01/07/21 1344 Pantoprazole Sodium (Pantoprazole Sodium) 40 Mg Tablet.dr, 40 MG PO BID, (Reported) Entered as Reported by: LI DOMINGO on 10/22/15 1414 Polyethylene Glycol 3350 (Miralax) 17 Gm Powd.pack, 17 GM PO DAILY, (Reported) Entered as Reported by: JAMARCUS LAW on 01/07/21 1344 Potassium Chloride (Potassium Chloride) 10 Meq Tab.er.prt, 10 MEQ PO BID, (Reported) Entered as Reported by: ROLDAN MATSON on 02/02/19 1307 Prednisone (Prednisone) 10 Mg Tab, 10 MG PO DAILY, (Reported) Entered as Reported by: ROLDAN MATSON on 02/02/19 1332 Tramadol HCl (Tramadol HCl) 50 Mg Tablet, 50 MG PO 0800,1800,2200, (Reported) Entered as Reported by: SAPNA DUNN on 01/08/18 0935 Vit A/Vit C/Vit E/Zinc/Copper (Preservision Areds Tablet) 1 Each Tablet, 1 TAB PO 1800, (Reported) Entered as Reported by: LI DOMINGO on 10/22/15 1414 Warfarin Sodium (Warfarin Sodium) 2.5 Mg Tablet, 2.5 MG PO SUN,TU,WE,TH,SAT, (Reported) Entered as Reported by: ROLDAN MATSON on 02/02/19 1309 Warfarin Sodium (Warfarin Sodium) 2.5 Mg Tablet, 5 MG PO MON,FR, (Reported) Entered as Reported by: ROLDAN MATSON on 08/15/20 0836 Past Gozigrz-Mkloiq-Iyjwgy Hx Patient Social History Marrital Status: Employed/Student: retired Tobacco Use?: No Smoking Status: Never a Smoker Alcohol Use?: No Current Status Implanted or Applied Medical D: CPAP Past Medical History Surgeries: Gallbladder Sleep Apnea, COPD Currently Using CPAP: Yes High Cholesterol, Hypertension Neuropathy Kidney Infection, Renal Failure Gastroesophageal Reflux Degenerate Disk Disease, Arthritis, Chronic Back Pain Recent Skin Changes Family Medical History Cancer 19 FATHER, Onset:60 years & older Cardiovascular disease 19 MOTHER Family history: Cardiovascular disease 19 MOTHER, Onset:60 years & older Family history: Glaucoma 19 FATHER, Onset:40's - 50 Family history: Hypertension 19 MOTHER, Onset:60 years & older Family history: Thyroid disorder 19 MOTHER, Onset:50's - 60 Myocardial infarction 19 MOTHER, Onset:60 years & older Review of Systems ROS-Unable to Obtain: Critical illness Constitutional: see HPI, weakness EENTM: no symptoms reported Respiratory: short of breath Cardiovascular: no symptoms reported Musculoskeletal: back pain Physical Exam General Appearance: Anxious, Chronically ill, Moderate Distress, Thin, Other (lethargic rose and ashen) Eyes: Bilateral Eye Normal Inspection, Bilateral Eye PERRL, Bilateral Eye EOMI HEENT: PERRL/EOMI, Normal ENT Inspection, Pharynx Normal Neck: Full Range of Motion, Normal Inspection, Non Tender, Supple, Carotid Bruit Respiratory: Chest Non Tender, Lungs Clear, Normal Breath Sounds, No Accessory Muscle Use, No Respiratory Distress Cardiovascular: Regular Rate, Rhythm, No Edema, No Gallop, No JVD, No Murmur, Normal Peripheral Pulses, Tachycardia Gastrointestinal: Normal Bowel Sounds, No Organomegaly, No Pulsatile Mass, Non Tender, Soft Back: Normal Inspection, No CVA Tenderness, No Vertebral Tenderness Extremity: Normal Capillary Refill, Normal Inspection, Normal Range of Motion, Non Tender, No Calf Tenderness, No Pedal Edema Neurologic/Psychiatric: Alert, Oriented x3, No Motor/Sensory Deficits, Normal Mood/Affect, Disoriented, Other (lethargic) Skin: Normal Color, Warm/Dry Lymphatic: No Adenopathy Assessment/Plan Assessment and Plan Assessment: Septic shock COVID-19 pneumonia Bacterial pneumonia Acute hypoxic respiratory failure Severe hypotension due to hypovolemia Factor V Leiden with recurrent thrombosis maintained on warfarin INR 3.6 Right ankle wound managed at [facility] COPD oxygen dependent Obstructive sleep apnea Lupus Prednisone dependency high risk for adrenal insufficiency status post hydrocortisone dose Plan: IV antibiotics ICU IV fluid Hold Coumadin Cardiology eICU Critically ill and updated who was swabbed today and will quarantine Problems: (1) Septic shock Status: Acute (2) Respiratory failure Status: Acute (3) COVID-19 Status: Acute (4) Anticoagulated on warfarin Status: Chronic (5) Steroid dependence Status: Chronic (6) Factor V Leiden Status: Chronic (7) Brittle bone disease Status: Chronic Admission Diagnosis Admission Status: Inpatient Order (span 2 midnights) Reason for Inpatient Admission: Septic shock Supervisory-Addendum Brief Verification & Attestation Participated in pt care: history, MDM, physical Personally performed: exam, history, MDM, supervision of care Care discussed with: Medical Student Procedures: n/a Results interpretation: Verified all documentation Verification and Attestation of Medical Student E/M Service A medical student performed and documented this service in my presence. I reviewed and verified all information documented by the medical student and made modifications to such information, when appropriate. I personally performed the physical exam and medical decision making. Jesica Casanova, Feb 02, 2021,06:07 KVNG RODRIGUEZ Feb 01, 2021 16:15 JESICA CASANOVA DO Feb 02, 2021 06:13
[2021-02-01] MEDS ORDERED: REMDESIVIR INJ 200 MG in NS (IVPB) 210 ML IV NR (16:30)
[2021-02-01] MEDS: ACYCLOVIR 400 MG TABLET (ZOVIRAX) PO SCH (16:59)
[2021-02-01] MEDS ORDERED: FUROSEMIDE 40 MG/4 ML INJ (LASIX) IVP ONE (17:15)
[2021-02-01] MEDS: SENNA W/DOCUSATE (SENOKOT S) TABLET PO SCH (19:30)
[2021-02-01] MEDS: guaiFENesin (MUCINEX) 600 MG TAB PO SCH (20:25)
[2021-02-01] MEDS: CEFEPIME INJECTION 1,000 MG in NS (IVPB) 50 ML IV SCH (20:25)
[2021-02-01 20:57] LABS: POTASSIUM 3.3 MMOL/L (3.6-5.0)
[2021-02-01 20:58] LABS: CALCIUM 7.8 MG/DL (8.5-10.1)
[2021-02-01 21:02] LABS: PHOSPHORUS 3.2 MG/DL (2.3-4.7)
[2021-02-01 21:05] LABS: MAGNESIUM 1.3 MG/DL (1.6-2.4)
[2021-02-01] MEDS: POTASSIUM CL 10MEQ/50ML IVPB 50 ML IV SCH ×2 (22:15→23:07)
[2021-02-01] MEDS: MAGNESIUM 1 GM/100 ML IVPB 100 ML IV SCH ×2 (22:15→23:07)
[2021-02-02] VITALS (24 sets, daily range): BP systolic 112–156; BP diastolic 61–91
[2021-02-02] MEDS: POTASSIUM CL 10MEQ/50ML IVPB 50 ML IV SCH ×3 (00:19→05:33)
[2021-02-02] MEDS: MAGNESIUM 1 GM/100 ML IVPB 100 ML IV SCH ×3 (00:19→05:34)
[2021-02-02] MEDS: RT-ALBUTEROL HFA 8.5 GM INHALER IH SCH ×3 (02:15→14:00)
[2021-02-02] MEDS: NS IV 1000 ML 1,000 ML IV SCH (02:50)
[2021-02-02] MEDS: CEFEPIME INJECTION 1,000 MG in NS (IVPB) 50 ML IV SCH ×3 (05:05→20:11)
[2021-02-02 05:32] LABS: BASOPHILS % (AUTO) 0 % (0-10); EOSINOPHILS % (AUTO) 0 % (0-10); HEMATOCRIT 37 % (35-52); HEMOGLOBIN 12.8 g/dL (11.5-16.0); LYMPHOCYTES # (AUTO) 0.6 10^3/uL (1.0-4.0); LYMPHOCYTES % (AUTO) 5 % (12-44); MEAN CORPUSCULAR HEMOGLOBIN 34 pg (25-34); MEAN CORPUSCULAR HGB CONC 34 g/dL (32-36); MEAN CORPUSCULAR VOLUME 99 fL (80-99); MEAN PLATELET VOLUME 9.6 fL (9.0-12.2); MONOCYTES # (AUTO) 0.8 10^3/uL (0.0-1.0); MONOCYTES % (AUTO) 6 % (0-12); NEUTROPHILS # (AUTO) 10.8 10^3/uL (1.8-7.8); NEUTROPHILS % (AUTO) 87 % (42-75); PLATELET COUNT 194 10^3/uL (130-400); WHITE BLOOD COUNT 12.3 10^3/uL (4.3-11.0)
[2021-02-02] MEDS: KCL 20 MEQ TAB (K-DUR) PO SCH (05:34)
[2021-02-02 05:45] LABS: INR 4.6 (0.8-1.4); PROTHROMBIN TIME PATIENT 43.8 SEC (12.2-14.7)
[2021-02-02 05:46] LABS: ALBUMIN 3.1 GM/DL (3.2-4.5); POTASSIUM 3.3 MMOL/L (3.6-5.0)
[2021-02-02 05:47] LABS: CALCIUM 8.1 MG/DL (8.5-10.1)
[2021-02-02 05:48] LABS: TOTAL PROTEIN 5.4 GM/DL (6.4-8.2)
[2021-02-02 05:50] LABS: BILIRUBIN,TOTAL 0.6 MG/DL (0.1-1.0)
[2021-02-02 05:52] LABS: BAND NEUTROPHILS 28 %; CREATININE SERUM 0.76 MG/DL (0.60-1.30); LYMPHOCYTES % (MANUAL) 7 %; MONOCYTES % (MANUAL) 8 %; NEUTROPHILS % (MANUAL) 57 %; PHOSPHORUS 1.5 MG/DL (2.3-4.7)
[2021-02-02 05:53] LABS: RBC MORPH NORMAL
[2021-02-02 05:55] LABS: MAGNESIUM 2.7 MG/DL (1.6-2.4)
--- NOTE | 2021-02-02 07:17 | Diagnostic Imaging Report ---
CHEST 1 VIEW, AP/PA ONLY Indication: COVID pneumonia Comparison: 02/01/2021 Findings: Unchanged asymmetric elevation of the right hemidiaphragm. Right basilar consolidations are stable. Stable marked enlargement of cardiac silhouette. Blunting of left costophrenic angle is unchanged and could be due to pleural effusion. No pneumothorax. Stable position of left IJ central venous catheter. Impression: 1. No change in bibasilar pulmonary consolidations. Dictated by: Dictated on workstation # [id number]
[2021-02-02] MEDS: ACYCLOVIR 400 MG TABLET (ZOVIRAX) PO SCH ×2 (07:52→14:15)
[2021-02-02] MEDS: guaiFENesin (MUCINEX) 600 MG TAB PO SCH ×2 (07:52→20:11)
[2021-02-02] MEDS: SENNA W/DOCUSATE (SENOKOT S) TABLET PO SCH ×2 (07:53→19:20)
[2021-02-02] MEDS ORDERED: KCL 20 MEQ TAB (K-DUR) PO ONE ×2 (08:00→10:00)
--- NOTE | 2021-02-02 09:40 | Consultation-Cardiology ---
HPI-Cardiology Cardiology Consultation Date of Consultation 02/02/21 Date of Admission Time Seen by Provider: 09:34 Indication: Hypertension HPI 70 years old lady with extensive cardiac history, was feeling tired and had upper respiratory tract infection for few days then progressed to extreme fatigue, on the morning of admission she had fever and hypotension and she was lethargic. EMS were called and she was brought to the emergency room. She was noted to be in hypotensive shock and septic shock. Currently sitting in bed feeling better. No active chest pain. Borderline tachycardic. Home Medications & Allergies Allergies: Coded Allergies: Penicillins (Verified Allergy, Intermediate, 04/02/15) pneumococcal vaccine (Verified Allergy, Unknown, 04/02/15) PT STATES FEVER IN THE ARM Home Medication List Reviewed: Yes [id number] Hx Patient Social History Marital Status: Employed/Student: retired Smoking Status: Never a Smoker Type Used: Cigarettes 2nd Hand Smoke Exposure: No Recent Hopitalizations: No Have you traveled recently?: No Alcohol Use?: No Immunizations Up To Date Tetanus Booster (TDap): Less than 5yrs Date of Influenza Vaccine: Nov 23, 2018 Past Medical History Discussed below Family Medical History Significant Family History: Cancer, CAD Under 55 Years Old, Hypertension Family History: Cancer 19 FATHER, Onset:60 years & older Cardiovascular disease 19 MOTHER Family history: Cardiovascular disease 19 MOTHER, Onset:60 years & older Family history: Glaucoma 19 FATHER, Onset:40's - 50 Family history: Hypertension 19 MOTHER, Onset:60 years & older Family history: Thyroid disorder 19 MOTHER, Onset:50's - 60 Myocardial infarction 19 MOTHER, Onset:60 years & older Review of Systems-General Review of Systems Constitutional: see HPI, weakness EENTM: no symptoms reported Respiratory: see HPI, cough, dyspnea on exertion, short of breath Cardiovascular: no symptoms reported, see HPI Gastrointestinal: no symptoms reported, see HPI Genitourinary: no symptoms reported Musculoskeletal: see HPI, back pain Skin: no symptoms reported, see HPI Psychiatric/Neurological: No Symptoms Reported, See HPI Reviewed Test Results Reviewed Test Results Lab Laboratory Tests Test 02/01/21 11:35 02/01/21 12:05 02/01/21 14:30 02/01/21 20:15 Range/Units White Blood Count 9.7 4.3-11.0 10^3/uL Red Blood Count 4.33 3.80-5.11 10^6/uL Hemoglobin 14.9 11.5-16.0 g/dL Hematocrit 44 35-52 % Mean Corpuscular Volume 103 H 80-99 fL Mean Corpuscular Hemoglobin 34 25-34 pg Mean Corpuscular Hemoglobin Concent 34 32-36 g/dL Red Cell Distribution Width 14.5 10.0-14.5 % Platelet Count 269 130-400 10^3/uL Mean Platelet Volume 10.0 9.0-12.2 fL Immature Granulocyte % (Auto) 1 % Neutrophils (%) (Auto) 68 42-75 % Lymphocytes (%) (Auto) 26 12-44 % Monocytes (%) (Auto) 6 0-12 % Eosinophils (%) (Auto) 0 0-10 % Basophils (%) (Auto) 0 0-10 % Neutrophils # (Auto) 6.5 1.8-7.8 10^3/uL Lymphocytes # (Auto) 2.5 1.0-4.0 10^3/uL Monocytes # (Auto) 0.6 0.0-1.0 10^3/uL Eosinophils # (Auto) 0.0 0.0-0.3 10^3/uL Basophils # (Auto) 0.0 0.0-0.1 10^3/uL Immature Granulocyte # (Auto) 0.1 0.0-0.1 10^3/uL Prothrombin Time 36.6 H 12.2-14.7 SEC INR Comment 3.6 H 0.8-1.4 Activated Partial Thromboplast Time 54 H 24-35 SEC D-Dimer 0.42 0.00-0.49 UG/ML Urine Color YELLOW Urine Clarity CLEAR Urine pH 6.0 5-9 Urine Specific [place] 1.010 L 1.016-1.022 Urine Protein NEGATIVE NEGATIVE Urine Glucose (UA) NEGATIVE NEGATIVE Urine Ketones NEGATIVE NEGATIVE Urine Nitrite NEGATIVE NEGATIVE Urine Bilirubin NEGATIVE NEGATIVE Urine Urobilinogen 0.2 < = 1.0 MG/DL Urine Leukocyte Esterase NEGATIVE NEGATIVE Urine RBC (Auto) NEGATIVE NEGATIVE Urine RBC RARE /HPF Urine WBC NONE /HPF Urine Squamous Epithelial Cells 2-5 /HPF Urine Crystals NONE /LPF Urine Bacteria NEGATIVE /HPF Urine Casts NONE /LPF Urine Mucus NEGATIVE /LPF Urine Culture Indicated NO Sodium Level 138 140 135-145 MMOL/L Potassium Level 2.9 L 3.3 L 3.6-5.0 MMOL/L Chloride Level 95 L 105 98-107 MMOL/L Carbon Dioxide Level 26 18 L 21-32 MMOL/L Anion Gap 17 H 17 H 5-14 MMOL/L Blood Urea Nitrogen 18 16 7-18 MG/DL Creatinine 1.30 1.00 0.60-1.30 MG/DL Estimat Glomerular Filtration Rate 41 55 BUN/Creatinine Ratio 14 16 Glucose Level 83 100 70-105 MG/DL Lactic Acid Level 3.29 *H 1.84 0.50-2.00 MMOL/L Calcium Level 9.5 7.8 L 8.5-10.1 MG/DL Corrected Calcium 9.6 8.5-10.1 MG/DL Total Bilirubin 0.9 0.1-1.0 MG/DL Aspartate Amino Transf (AST/SGOT) 31 5-34 U/L Alanine Aminotransferase (ALT/SGPT) 22 0-55 U/L Alkaline Phosphatase 35 L 40-136 U/L C-Reactive Protein High Sensitivity 13.53 H 0.00-0.50 MG/DL Total Protein 6.4 6.4-8.2 GM/DL Albumin 3.9 3.2-4.5 GM/DL Procalcitonin 20.05 H <0.10 NG/ML SARS-CoV-2 RNA (RT-PCR) Detected H Not Detecte Blood Gas Puncture Site R RADIAL Blood Gas Patient Temperature 102 Arterial Blood pH 7.37 7.37-7.43 Arterial Blood Partial Pressure CO2 39 35-45 MMHG Arterial Blood Partial Pressure O2 55 L 79-93 MMHG Arterial Blood HCO3 21 L 23-27 MMOL/L Arterial Blood Total CO2 22.5 21.0-31.0 MMOL/L Arterial Blood Oxygen Saturation 77 L 94-100 % Arterial Blood Base Excess -2.6 L -2.5-2.5 MMOL/L Ian Test YES-POS Blood Gas Ventilator Setting NO Blood Gas Inspired Oxygen 5 Phosphorus Level 3.2 2.3-4.7 MG/DL Magnesium Level 1.3 L 1.6-2.4 MG/DL Test 02/02/21 05:00 Range/Units White Blood Count 12.3 H 4.3-11.0 10^3/uL Red Blood Count 3.77 L 3.80-5.11 10^6/uL Hemoglobin 12.8 11.5-16.0 g/dL Hematocrit 37 35-52 % Mean Corpuscular Volume 99 80-99 fL Mean Corpuscular Hemoglobin 34 25-34 pg Mean Corpuscular Hemoglobin Concent 34 32-36 g/dL Red Cell Distribution Width 14.4 10.0-14.5 % Platelet Count 194 130-400 10^3/uL Mean Platelet Volume 9.6 9.0-12.2 fL Immature Granulocyte % (Auto) 1 % Neutrophils (%) (Auto) 87 H 42-75 % Lymphocytes (%) (Auto) 5 L 12-44 % Monocytes (%) (Auto) 6 0-12 % Eosinophils (%) (Auto) 0 0-10 % Basophils (%) (Auto) 0 0-10 % Neutrophils # (Auto) 10.8 H 1.8-7.8 10^3/uL Lymphocytes # (Auto) 0.6 L 1.0-4.0 10^3/uL Monocytes # (Auto) 0.8 0.0-1.0 10^3/uL Eosinophils # (Auto) 0.0 0.0-0.3 10^3/uL Basophils # (Auto) 0.0 0.0-0.1 10^3/uL Immature Granulocyte # (Auto) 0.1 0.0-0.1 10^3/uL Neutrophils % (Manual) 57 % Lymphocytes % (Manual) 7 % Monocytes % (Manual) 8 % Band Neutrophils 28 % Blood Morphology Comment NORMAL Prothrombin Time 43.8 H 12.2-14.7 SEC INR Comment 4.6 H 0.8-1.4 Sodium Level 136 135-145 MMOL/L Potassium Level 3.3 L 3.6-5.0 MMOL/L Chloride Level 102 98-107 MMOL/L Carbon Dioxide Level 19 L 21-32 MMOL/L Anion Gap 15 H 5-14 MMOL/L Blood Urea Nitrogen 12 7-18 MG/DL Creatinine 0.76 0.60-1.30 MG/DL Estimat Glomerular Filtration Rate 75 BUN/Creatinine Ratio 16 Glucose Level 104 70-105 MG/DL Calcium Level 8.1 L 8.5-10.1 MG/DL Corrected Calcium 8.8 8.5-10.1 MG/DL Phosphorus Level 1.5 L 2.3-4.7 MG/DL Magnesium Level 2.7 H 1.6-2.4 MG/DL Total Bilirubin 0.6 0.1-1.0 MG/DL Aspartate Amino Transf (AST/SGOT) 35 H 5-34 U/L Alanine Aminotransferase (ALT/SGPT) 22 0-55 U/L Alkaline Phosphatase 27 L 40-136 U/L Total Protein 5.4 L 6.4-8.2 GM/DL Albumin 3.1 L 3.2-4.5 GM/DL Physical Exam Physical Exam Vital Signs Vital Signs - First Documented 02/01/21 15:55 FiO2 97 Capillary Refill : Less Than 3 Seconds Height, Weight, BMI Height: 5'6.00" Weight: 195lbs. 4.0oz. [id number]; 20.00 BMI Method:Stated General Appearance: Anxious, Chronically ill, Moderate Distress, Thin, Other (lethargic rose and ashen) Eyes: Bilateral Eye Normal Inspection, Bilateral Eye PERRL, Bilateral Eye EOMI HEENT: PERRL/EOMI, Normal ENT Inspection, Pharynx Normal Neck: Full Range of Motion, Normal Inspection, Non Tender, Supple, Carotid Bruit Respiratory: Chest Non Tender, Lungs Clear, Normal Breath Sounds, No Accessory Muscle Use, No Respiratory Distress Cardiovascular: Regular Rate, Rhythm, No Edema, No Gallop, No JVD, No Murmur, Normal Peripheral Pulses, Tachycardia Gastrointestinal: Normal Bowel Sounds, No Organomegaly, No Pulsatile Mass, Non Tender, Soft Rectal: Deferred Back: Normal Inspection, No CVA Tenderness, No Vertebral Tenderness Extremity: Normal Capillary Refill, Normal Inspection, Normal Range of Motion, Non Tender, No Calf Tenderness, No Pedal Edema Neurologic/Psychiatric: Alert, Oriented x3, No Motor/Sensory Deficits, Normal Mood/Affect, Disoriented, Other (lethargic) Skin: Normal Color, Warm/Dry Lymphatic: No Adenopathy A/P-Cardiology Admission Diagnosis COVID-19 pneumonia Acute respiratory failure Atrial fibrillation Septic shock Assessment/Plan COVID-19 pneumonia, sepsis and septic shock, blood pressure is better, received IV fluids. Improving. Continue to monitor Acute respiratory failure, on Vapotherm, feeling better today. Managed by medical team. History of chest pain and palpitation, currently asymptomatic. Continue to monitor History of congestive heart failure, resolved, last echocardiogram was done in January 2019 showing normal LV function, ejection fraction 55-65 percent, mild MR, [id number] TR, small pericardial effusion, PA 35-40 mmHg. Continue to monitor History of multiple cardiac catheterization done in 2004, 2013, 2014, showing moderate pulmonary hypertension and mild coronary artery disease nonobstructive disease, last cardiac catheterization was done in January 2019 showing mild coronary artery disease. Continue to monitor History of Moderate pulmonary hypertension, echocardiogram done on January 25, 2019 showing normal LV size with EF 5565 percent, grade 1 diastolic dysfunction, mild MR, [id number] TR, small pericardial effusion, estimated PA pressure of 35-40 mmHg. Continue to monitor Systemic lupus erythematous, antiphospholipid antibody syndrome, seen by cylinder block mechanic at [facility], no history of DVT, maintained on Coumadin. Has family history of DVT and factor V Leiden deficiency. Elevated INR, continue to monitor Bilateral lower extremity claudication pain, right greater than left. HAYDEN November 2015 within normal limits, right lower extremity venous duplex November 2015 revealed no evidence of DVT, venous valvular insufficiency was noted in the GSV from SFG to mid thigh. Has nonhealing wound to right lateral ankle, per ipheral angiogram done July showing small vessel disease with slow flow, likely wound is d/t venous stasis. Will refer to Dr. Monzon. Hypertension, controlled, continue to monitor. Hyperlipidemia, maintained on Lipitor and fish oil. Monitor lipids No history of diabetes, increased risk of diabetes due to the chronic steroid use. Nonobstructive carotid artery stenosis per most recent carotid duplex doneFeb 2020. Obstructive sleep apnea, using C Pap, bronchial asthma, COPD, followed and managed by Dr. Fallon Ex Tobaccoism, stopped smoking in July 2002. Encouraged to continue RADHA RANGEL MD Feb 02, 2021 09:40
--- NOTE | 2021-02-02 11:26 | Progress Note ---
Subjective Date Seen by a Provider: Feb 02, 2021 Time Seen by a Provider: 11:30 Subjective/Events-last exam Patient stable Off pressors HLIVF due to volume overload Patient appears very debilitated acute on chronic though Weight loss noted that has progressed Decadron maintained Holding some home meds due to acute illness and steroid status Family wanted another swab to confirm but not necessary Review of Systems General: Fatigue, Malaise Neurological: Weakness Focused Exam Lactate Level 02/01/21 11:35: Lactic Acid Level 3.29*H 02/01/21 14:30: Lactic Acid Level 1.84 Objective Exam Last Set of Vital Signs Vital Signs Date Time Temp Pulse Resp B/P (MAP) Pulse Ox O2 Delivery O2 Flow Rate FiO2 02/02/21 11:00 102 23 140/79 (99) 94 High Flow N/C 5.00 02/02/21 08:30 37.2 02/01/21 20:59 36 Capillary Refill : Less Than 3 Seconds I&O Intake and Output 02/02/21 00:00 Intake Total 6762.5 ml Output Total 2250 ml Balance 4512.5 ml Intake Oral 350 ml IV Total 6412.5 ml Output Urine Total 2250 ml General: Alert, Oriented X3, Cooperative, No Acute Distress Lungs: Other (diminished) Heart: Regular Rate Psych/Mental Status: Mental Status NL Results Lab Laboratory Tests 02/01/21 11:35: White Blood Count 9.7, Red Blood Count 4.33, Hemoglobin 14.9, Hematocrit 44, Mean Corpuscular Volume 103H, Mean Corpuscular Hemoglobin 34, Mean Corpuscular Hemoglobin Concent 34, Red Cell Distribution Width 14.5, Platelet Count 269, Mean Platelet Volume 10.0, Immature Granulocyte % (Auto) 1, Neutrophils (%) (Auto) 68, Lymphocytes (%) (Auto) 26, Monocytes (%) (Auto) 6, Eosinophils (%) (Auto) 0, Basophils (%) (Auto) 0, Neutrophils # (Auto) 6.5, Lymphocytes # (Auto) 2.5, Monocytes # (Auto) 0.6, Eosinophils # (Auto) 0.0, Basophils # (Auto) 0.0, Immature Granulocyte # (Auto) 0.1, Prothrombin Time 36.6H, INR Comment 3.6H, Activated Partial Thromboplast Time 54H, D-Dimer 0.42, Urine Color YELLOW, Urine Clarity CLEAR, Urine pH 6.0, Urine Specific [place] 1.010L, Urine Protein NEGATIVE, Urine Glucose (UA) NEGATIVE, Urine Ketones NEGATIVE, Urine Nitrite NEGATIVE, Urine Bilirubin NEGATIVE, Urine Urobilinogen 0.2, Urine Leukocyte Esterase NEGATIVE, Urine RBC (Auto) NEGATIVE, Urine RBC RARE, Urine WBC NONE, Urine Squamous Epithelial Cells 2-5, Urine Crystals NONE, Urine Bacteria NEGATIVE, Urine Casts NONE, Urine Mucus NEGATIVE, Urine Culture Indicated NO, Sodium Level 138, Potassium Level 2.9L, Chloride Level 95L, Carbon Dioxide Level 26, Anion Gap 17H, Blood Urea Nitrogen 18, Creatinine 1.30, Estimat Glomerular Filtration Rate 41, BUN/Creatinine Ratio 14, Glucose Level 83, Lactic Acid Level 3.29*H, Calcium Level 9.5, Corrected Calcium 9.6, Total Bilirubin 0.9, Aspartate Amino Transf (AST/SGOT) 31, Alanine Aminotransferase (ALT/SGPT) 22, Alkaline Phosphatase 35L, C-Reactive Protein High Sensitivity 13.53H, Total Protein 6.4, Albumin 3.9, Procalcitonin 20.05H, SARS-CoV-2 RNA (RT-PCR) DetectedH 02/01/21 12:05: Blood Gas Puncture Site R RADIAL, Blood Gas Patient Temperature 102, Arterial Blood pH 7.37, Arterial Blood Partial Pressure CO2 39, Arterial Blood Partial Pressure O2 55L, Arterial Blood HCO3 21L, Arterial Blood Total CO2 22.5, Arterial Blood Oxygen Saturation 77L, Arterial Blood Base Excess -2.6L, Ian Test YES-POS, Blood Gas Ventilator Setting NO, Blood Gas Inspired Oxygen 5 02/01/21 14:30: Lactic Acid Level 1.84 02/01/21 20:15: Sodium Level 140, Potassium Level 3.3L, Chloride Level 105, Carbon Dioxide Level 18L, Anion Gap 17H, Blood Urea Nitrogen 16, Creatinine 1.00, Estimat Glomerular Filtration Rate 55, BUN/Creatinine Ratio 16, Glucose Level 100, Calcium Level 7.8L, Phosphorus Level 3.2, Magnesium Level 1.3L 02/02/21 05:00: White Blood Count 12.3H, Red Blood Count 3.77L, Hemoglobin 12.8, Hematocrit 37, Mean Corpuscular Volume 99, Mean Corpuscular Hemoglobin 34, Mean Corpuscular Hemoglobin Concent 34, Red Cell Distribution Width 14.4, Platelet Count 194, Mean Platelet Volume 9.6, Immature Granulocyte % (Auto) 1, Neutrophils (%) (Auto) 87H, Lymphocytes (%) (Auto) 5L, Monocytes (%) (Auto) 6, Eosinophils (%) (Auto) 0, Basophils (%) (Auto) 0, Neutrophils # (Auto) 10.8H, Lymphocytes # (Auto) 0.6L, Monocytes # (Auto) 0.8, Eosinophils # (Auto) 0.0, Basophils # (Auto) 0.0, Immature Granulocyte # (Auto) 0.1, Neutrophils % (Manual) 57, Lymphocytes % (Manual) 7, Monocytes % (Manual) 8, Band Neutrophils 28, Blood Morphology Comment NORMAL, Prothrombin Time 43.8H, INR Comment 4.6H, Sodium Level 136, Potassium Level 3.3L, Chloride Level 102, Carbon Dioxide Level 19L, Anion Gap 15H, Blood Urea Nitrogen 12, Creatinine 0.76, Estimat Glomerular Filtration Rate 75, BUN/Creatinine Ratio 16, Glucose Level 104, Calcium Level 8.1L, Corrected Calcium 8.8, Phosphorus Level 1.5L, Magnesium Level 2.7H, Total Bilirubin 0.6, Aspartate Amino Transf (AST/SGOT) 35H, Alanine Aminotransferase (ALT/SGPT) 22, Alkaline Phosphatase 27L, Total Protein 5.4L, Albumin 3.1L Microbiology 02/01/21 C. difficile GDH Antigen & Toxins - Final, Complete 02/01/21 Urine Culture - Preliminary, Resulted NO GROWTH Assessment/Plan Assessment/Plan Assess & Plan/Chief Complaint Assessment: Septic shock COVID-19 pneumonia Bacterial pneumonia Acute hypoxic respiratory failure Severe hypotension due to hypovolumia Factor V Leiden with recurrent thrombosis maintained on warfarin INR 3.6 Right ankle wound managed at [facility] wound [facility] COPD oxygen dependent Obstructive sleep apnea Lupus Prednisone dependency high risk for adrenal insufficiency status post hydrocortisone dose Coagulopathy due to Warfarin Plan: IV antibiotics ICU IV fluid Hold Coumadin Cardiology eICU Critically ill and updated who was swabbed today and will quarantine Bandemia 28% on CBC diff 02/02/21: Maintain ICU status today Updated No need for re-swab Checked meds and labs Home meds Hold Coumadin due to elevated INR Diagnosis/Problems Diagnosis/Problems (1) Septic shock Status: Acute (2) Respiratory failure Status: Acute (3) COVID-19 Status: Acute (4) Anticoagulated on warfarin Status: Chronic (5) Steroid dependence Status: Chronic (6) Factor V Leiden Status: Chronic (7) Brittle bone disease Status: Chronic Clinical Quality Measures Admission Status Admission Dx Assessment: Septic shock COVID-19 pneumonia Bacterial pneumonia Acute hypoxic respiratory failure Severe hypotension due to hypovolemia Factor V Leiden with recurrent thrombosis maintained on warfarin INR 3.6 Right ankle wound managed at [facility] COPD oxygen dependent Obstructive sleep apnea Lupus Prednisone dependency high risk for adrenal insufficiency status post hydrocortisone dose Plan: IV antibiotics ICU IV fluid Hold Coumadin Cardiology eICU Critically ill and updated who was swabbed today and will quarantine MIKE CASANOVA DO Feb 02, 2021 11:26
[2021-02-02] MEDS ORDERED: FLUTICASONE NASAL SPRAY (FLONASE) 16 GM BTL NS PRN (12:15)
--- NOTE | 2021-02-02 12:15 | Tele-ICU Progress Note ---
Subjective Date Seen by a Provider: Feb 02, 2021 Time Seen by a Provider: 12:09 Subjective/Events-last exam Patient today is awake alert and she is off the Levophed. She had a small wound on the leg for which she is being referred to wound care. She is currently on high flow nasal cannula with good oxygen saturation. Denies any chest pain or fever. Video visit made and discussed with the patient and assessment made with a telemetry ICU camera Sepsis Event Evaluation Sepsis Stage: Severe Sepsis Possible Source: Pulmonary Height, Weight, BMI Height: 5'6.00" Weight: 195lbs. 4.0oz. [id number]; 20.00 BMI Method:Stated Focused Exam Lactate Level 02/01/21 11:35: Lactic Acid Level 3.29*H 02/01/21 14:30: Lactic Acid Level 1.84 Exam Exam Patient acknowledged, consented, and participated in this virtual visit which was conducted using real time audio/video Vital Signs Date Time Temp Pulse Resp B/P (MAP) Pulse Ox O2 Delivery O2 Flow Rate FiO2 02/02/21 11:00 102 23 140/79 (99) 94 High Flow N/C 5.00 02/02/21 10:00 108 30 122/66 (84) 99 High Flow N/C 5.00 02/02/21 09:00 117 18 122/64 (83) 90 High Flow N/C 5.00 02/02/21 08:30 37.2 02/02/21 08:00 114 35 112/86 (95) 93 High Flow N/C 5.00 02/02/21 08:00 93 Nasal Cannula 5.00 02/02/21 07:36 95 High Flow N/C 5.00 02/02/21 07:00 107 02/02/21 07:00 109 30 144/69 (94) High Flow N/C 5.00 02/02/21 06:00 105 31 138/61 (86) High Flow N/C 5.00 02/02/21 05:00 103 27 136/63 (87) 89 High Flow N/C 5.00 02/02/21 04:00 94 Nasal Cannula 5.00 02/02/21 04:00 101 15 135/74 (94) 92 High Flow N/C 5.00 02/02/21 03:00 101 22 130/61 (84) 95 High Flow N/C 5.00 02/02/21 02:15 95 High Flow N/C 3.00 02/02/21 02:00 96 22 139/70 (93) 97 High Flow N/C 5.00 02/02/21 01:00 101 15 128/62 (84) 92 High Flow N/C 5.00 02/02/21 01:00 104 02/02/21 00:00 92 Nasal Cannula 5.00 02/02/21 00:00 104 20 142/71 (94) 96 High Flow N/C 5.00 02/01/21 23:12 High Flow N/C 5.00 02/01/21 23:00 103 22 156/79 (104) 96 Nasal Cannula 3.00 02/01/21 22:57 37.6 02/01/21 22:00 94 31 145/74 (97) 95 Nasal Cannula 3.00 02/01/21 21:30 94 High Flow N/C 3.00 02/01/21 21:00 89 26 139/71 (93) 95 Nasal Cannula 3.00 02/01/21 20:59 36.9 110 94 36 02/01/21 20:32 37.0 88 26 137/67 (90) 97 Nasal Cannula 3.00 02/01/21 20:00 92 27 137/75 (95) 99 Nasal Cannula 11.00 02/01/21 20:00 98 Nasal Cannula 3.00 02/01/21 20:00 36.7 02/01/21 19:00 Nasal Cannula 11.00 02/01/21 19:00 89 16 128/69 (88) 97 Nasal Cannula 11.00 02/01/21 19:00 90 02/01/21 18:15 86 19 126/62 (83) 96 Nasal Cannula 5.00 02/01/21 18:00 86 16 128/62 (84) 97 02/01/21 17:43 92 35 113/64 (80) 87 02/01/21 17:30 89 22 128/63 (84) 92 02/01/21 17:15 90 8 122/54 (76) 89 02/01/21 17:00 92 35 113/64 (80) 87 Nasal Cannula 5.00 02/01/21 16:45 88 20 119/60 (79) 95 02/01/21 16:30 91 23 119/55 (76) 88 02/01/21 16:15 86 16 109/52 (71) 95 02/01/21 16:00 93 Nasal Cannula 5.00 02/01/21 16:00 90 21 109/52 (71) 95 02/01/21 16:00 82 33 114/62 (79) 93 Nasal Cannula 5.00 02/01/21 15:55 97 02/01/21 15:45 92 22 96/39 (58) 91 Nasal Cannula 5.00 02/01/21 15:45 90 22 125/58 (80) 88 02/01/21 15:45 92 97/38 02/01/21 15:45 86 31 118/75 (89) 95 Nasal Cannula 5.00 02/01/21 15:30 95 27 124/53 (76) 88 02/01/21 15:30 93 36 104/72 (83) 91 Nasal Cannula 5.00 02/01/21 15:15 93 15 121/30 (60) 88 02/01/21 15:15 87 31 122/72 (89) 91 Nasal Cannula 5.00 02/01/21 15:00 90 20 92/50 (59) 96 02/01/21 15:00 36.4 02/01/21 15:00 82 39 115/74 (88) 96 Nasal Cannula 5.00 02/01/21 14:45 94/38 (64) 02/01/21 14:45 90 116/80 (92) 96 Nasal Cannula 5.00 02/01/21 14:30 92 20 95/40 (67) 89 02/01/21 14:20 97 26 91/23 (47) 94 02/01/21 14:15 92 22 96/39 (58) 91 Nasal Cannula 5.00 02/01/21 14:08 96 25 95/31 (60) 94 02/01/21 14:07 101 02/01/21 14:00 93 Nasal Cannula 5.00 02/01/21 14:00 101 49 83/32 (36) 93 Nasal Cannula 5.00 02/01/21 14:00 91 28 95/31 (52) 92 Nasal Cannula 5.00 02/01/21 13:50 100 25 100/46 (73) 91 02/01/21 13:48 101 27 89/30 (45) 90 02/01/21 13:47 95 23 69/29 (37) 90 02/01/21 13:45 36.7 93 32 100/46 (64) 94 Nasal Cannula 5.00 02/01/21 13:45 101 88/39 (70) 90 Nasal Cannula 5.00 02/01/21 13:40 103 17 102/56 94 Nasal Cannula 4.00 I & O 02/02/21 07:00 Intake Total 7412.5 ml Output Total 2900 ml Balance 4512.5 ml Height & Weight Height: 5'6.00" Weight: 195lbs. 4.0oz. 88.910231cv; 20.00 BMI Method:Stated General Appearance: Anxious, Chronically ill, Moderate Distress, Thin, Other (l ethargic rose and ashen) HEENT: PERRL/EOMI, Normal ENT Inspection, Pharynx Normal Neck: Full Range of Motion, Normal Inspection, Non Tender, Supple, Carotid Bruit Respiratory: Chest Non Tender, Lungs Clear, Normal Breath Sounds, No Accessory Muscle Use, No Respiratory Distress Cardiovascular: Regular Rate, Rhythm, No Edema, No Gallop, No JVD, No Murmur, Normal Peripheral Pulses, Tachycardia Capillary Refill: Less Than 3 Seconds Extremity: Normal Capillary Refill, Normal Inspection, Normal Range of Motion, Non Tender, No Calf Tenderness, No Pedal Edema Neurologic/Psychiatric: Alert, Oriented x3, No Motor/Sensory Deficits, Normal Mood/Affect, Disoriented, Other (lethargic) Skin: Normal Color, Warm/Dry Lymphatic: No Adenopathy Other comments PE PER ATTENDING PHYSICIAN Results Lab Laboratory Tests 02/01/21 11:35 02/01/21 20:15 02/02/21 05:00 Assessment/Plan Assessment/Plan 1. Possible septic shock due to pneumonia improving 2. Covid19 viral pneumonia 3. Hypoxic respiratory failure stable 4. Factor V Leyden mutation on chronic anticoagulant therapy. Recommendations 1. We will give her IV fluids and levophed has been weaned off 2. Continue IV antibiotics with vancomycin and cefepime 3. IV dexamethasone 4. We will start on remdesivir and acyclovir 5. Continue oral anticoagulant therapy to keep INR between 2 and 3 6. I have made a video visit and utilizing the telemetry ICU camera to intervie w the patient and the and I have discussed with the LEAD JAVASCRIPT ENGINEER. 7. Insulin with sliding scale coverage for hyperglycemia. Critical Care: Critically Ill Patient Time spent with patient (mins): 25 IVONE SEALS MD Feb 02, 2021 12:14
[2021-02-02] MEDS ORDERED: VANCOMYCIN 1 GM/NS 250 ML IVPB IV SCH ×2 (14:00)
[2021-02-02] MEDS: NOREPINEPHRINE 8 MG/250 ML 250 ML IV SCH (14:32)
[2021-02-02] MEDS ORDERED: REMDESIVIR INJ 100 MG in NS (IVPB) 230 ML IV SCH (15:00)
[2021-02-02 15:32] LABS: INR 5.8 (0.8-1.4); PROTHROMBIN TIME PATIENT 52.8 SEC (12.2-14.7)
[2021-02-02] MEDS: CYANOCOBALAMIN 1,000 MCG (VITAMIN B-12) TABLET PO SCH (17:46)
[2021-02-02] MEDS: MONTELUKAST 10 MG (SINGULAIR) TAB PO SCH (17:47)
[2021-02-02] MEDS: KCL 10 MEQ TAB (MICRO K) PO SCH (17:47)
[2021-02-02] MEDS: LORATADINE (CLARITIN) 10 MG TAB PO SCH (17:47)
[2021-02-02] MEDS: FERROUS SULF 325 MG (IRON) TAB PO SCH (17:47)
[2021-02-02] MEDS: meTOprolol TARTRATE 50 MG (LOPRESSOR) TAB PO SCH (20:11)
[2021-02-02] MEDS: PANTOPRAZOLE 40 MG (PROTONIX) TAB PO SCH (20:11)
[2021-02-02] MEDS: LATANOPROST 0.005% (XALATAN) OPHTH SOLN 2.5 ML OU SCH (20:11)
[2021-02-03] VITALS (15 sets, daily range): BP systolic 107–155; BP diastolic 67–98
[2021-02-03] MEDS: RT-ALBUTEROL HFA 8.5 GM INHALER IH SCH ×4 (02:42→21:12)
[2021-02-03] MEDS: CEFEPIME INJECTION 1,000 MG in NS (IVPB) 50 ML IV SCH ×3 (04:48→21:02)
[2021-02-03] MEDS: ONDANSETRON 4 MG/2 ML (SDV) Z0FRAN IVP PRN (04:48)
[2021-02-03 05:10] LABS: BASOPHILS # (AUTO) 0.1 10^3/uL (0.0-0.1); BASOPHILS % (AUTO) 0 % (0-10); EOSINOPHILS # (AUTO) 0.1 10^3/uL (0.0-0.3); EOSINOPHILS % (AUTO) 0 % (0-10); HEMATOCRIT 37 % (35-52); HEMOGLOBIN 12.6 g/dL (11.5-16.0); LYMPHOCYTES # (AUTO) 0.8 10^3/uL (1.0-4.0); LYMPHOCYTES % (AUTO) 5 % (12-44); MEAN CORPUSCULAR HEMOGLOBIN 34 pg (25-34); MEAN CORPUSCULAR HGB CONC 34 g/dL (32-36); MEAN CORPUSCULAR VOLUME 100 fL (80-99); MEAN PLATELET VOLUME 9.6 fL (9.0-12.2); MONOCYTES % (AUTO) 6 % (0-12); NEUTROPHILS # (AUTO) 14.7 10^3/uL (1.8-7.8); NEUTROPHILS % (AUTO) 88 % (42-75); PLATELET COUNT 180 10^3/uL (130-400); WHITE BLOOD COUNT 16.7 10^3/uL (4.3-11.0)
[2021-02-03 05:18] LABS: ALBUMIN 3.1 GM/DL (3.2-4.5); POTASSIUM 3.8 MMOL/L (3.6-5.0)
[2021-02-03 05:19] LABS: CALCIUM 8.3 MG/DL (8.5-10.1)
[2021-02-03 05:21] LABS: TOTAL PROTEIN 5.7 GM/DL (6.4-8.2)
[2021-02-03 05:22] LABS: BILIRUBIN,TOTAL 0.7 MG/DL (0.1-1.0)
[2021-02-03 05:24] LABS: CREATININE SERUM 0.61 MG/DL (0.60-1.30); PHOSPHORUS 1.2 MG/DL (2.3-4.7)
[2021-02-03 05:27] LABS: MAGNESIUM 2.1 MG/DL (1.6-2.4)
[2021-02-03 05:28] LABS: PROTHROMBIN TIME PATIENT 53.1 SEC (12.2-14.7)
[2021-02-03 05:29] LABS: INR 5.9 (0.8-1.4)
--- NOTE | 2021-02-03 05:39 | Cardiology Progress Note ---
Subjective Date Seen by Provider: Feb 03, 2021 Time Seen by Provider: 05:38 Subjective/Events-last exam Patient is laying down in bed, still having shortness of breath. No change. I did not examine the patient, I visited with the nurse and reviewed her chart. Review of Systems General: Fatigue Pulmonary: Dyspnea Focused Exam Lactate Level 02/01/21 11:35: Lactic Acid Level 3.29*H 02/01/21 14:30: Lactic Acid Level 1.84 Objective-Cardiology Exam Last Set of Vital Signs Vital Signs 02/01/21 02/02/21 02/02/21 02/03/21 02/03/21 20:59 20:09 23:00 01:00 04:00 Temp 37.4 Pulse 102 Resp 25 B/P (MAP) 151/82 (105) Pulse Ox 95 O2 Delivery Nasal Cannula O2 Flow Rate 4.00 FiO2 36 I&O Intake and Output 02/03/21 00:00 Intake Total 1630 ml Output Total 2125 ml Balance -495 ml Intake Oral 1230 ml IV Total 400 ml Output Urine Total 2125 ml # Bowel Movements 1 General: Alert, Cooperative Heart: Regular Rate Neuro: Normal Speech Psych/Mental Status: Mental Status NL Results Lab Laboratory Tests 02/03/21 04:50 A/P-Cardiology Admission Diagnosis COVID-19 pneumonia Acute respiratory failure Atrial fibrillation Septic shock Assessment/Plan COVID-19 pneumonia, sepsis and septic shock, blood pressure is better, received IV fluids. Improving. Continue to monitor Acute respiratory failure, on Vapotherm, feeling better today. Managed by medical team. Coumadin toxicity, INR 5.9, currently Coumadin on hold. No active bleeding was noted. Continue to monitor History of chest pain and palpitation, currently asymptomatic. Continue to monitor History of congestive heart failure, resolved, last echocardiogram was done in January 2019 showing normal LV function, ejection fraction 55-65 percent, mild MR, [id number] TR, small pericardial effusion, PA 35-40 mmHg. Continue to monitor History of multiple cardiac catheterization done in 2005, 2013, 2015, showing moderate pulmonary hypertension and mild coronary artery disease nonobstructive disease, last cardiac catheterization was done in January 2019 showing mild coronary artery disease. Continue to monitor History of Moderate pulmonary hypertension, echocardiogram done on January 25, 2019 showing normal LV size with EF 5565 percent, grade 1 diastolic dysfunction, mild MR, [id number] TR, small pericardial effusion, estimated PA pressure of 35-40 mmHg. Continue to monitor Systemic lupus erythematous, antiphospholipid antibody syndrome, seen by cell room supervisor at [facility], no history of DVT, maintained on Coumadin. Has family history of DVT and factor V Leiden deficiency. Elevated INR, continue to monitor Bilateral lower extremity claudication pain, right greater than left. HAYDEN November 2015 within normal limits, right lower extremity venous duplex November 2015 revealed no evidence of DVT, venous valvular insufficiency was noted in the GSV from SFG to mid thigh. Has nonhealing wound to right lateral ankle, peripheral angiogram done July showing small vessel disease with slow flow, likely wound is d/t venous stasis. Will refer to Dr. Monzon. Hypertension, controlled, continue to monitor. Hyperlipidemia, maintained on Lipitor and fish oil. Monitor lipids No history of diabetes, increased risk of diabetes due to the chronic steroid use. Nonobstructive carotid artery stenosis per most recent carotid duplex doneFeb 2020. Obstructive sleep apnea, using C Pap, bronchial asthma, COPD, followed and managed by Dr. Fallon Ex Tobaccoism, stopped smoking in July 2002. Encouraged to continue RADHA RANGEL MD Feb 03, 2021 05:39
--- NOTE | 2021-02-03 05:46 | Diagnostic Imaging Report ---
HISTORY: Covid COMPARISON: 02/02/2021 TECHNIQUE: Frontal view of the chest FINDINGS: Lung volumes are mildly low. There are central airspace opacities bilaterally, right greater than left. Overall aeration appears slightly improved compared to the prior exam. There is blunting of the left costophrenic angle. The cardiac silhouette is stable in size. There is no pneumothorax. There is old deformity of the right clavicle. IMPRESSION: 1. Perihilar opacities appear mildly improved compared to the prior exam, may be due to infection or edema. 2. Small right pleural effusion appears stable. Dictated by: Dictated on workstation # [id number]
[2021-02-03] MEDS: MAGNESIUM 1 GM/100 ML IVPB 100 ML IV SCH (05:51)
[2021-02-03] MEDS: KCL 20 MEQ TAB (K-DUR) PO SCH (05:51)
[2021-02-03] MEDS: POTASSIUM CL 10MEQ/50ML IVPB 50 ML IV SCH (05:51)
--- NOTE | 2021-02-03 06:12 | Progress Note ---
Subjective Date Seen by a Provider: Feb 03, 2021 Time Seen by a Provider: 11:00 Subjective/Events-last exam Patient doing much better No pain Oxygen supplement down to 3L/min Labs noted INR still high Will move to CSD Will need PT OT IRF likely Review of Systems General: Fatigue, Malaise Pulmonary: Dyspnea, Cough Focused Exam Lactate Level 02/01/21 11:35: Lactic Acid Level 3.29*H 02/01/21 14:30: Lactic Acid Level 1.84 Objective Exam Last Set of Vital Signs Vital Signs Date Time Temp Pulse Resp B/P (MAP) Pulse Ox O2 Delivery O2 Flow Rate FiO2 02/03/21 05:06 High Flow N/C 6.00 02/03/21 05:00 106 28 142/87 (105) 95 02/02/21 20:09 37.4 02/01/21 20:59 36 Capillary Refill : Less Than 3 Seconds I&O Intake and Output 02/03/21 00:00 Intake Total 1630 ml Output Total 2125 ml Balance -495 ml Intake Oral 1230 ml IV Total 400 ml Output Urine Total 2125 ml # Bowel Movements 1 General: Alert, Oriented X3, Cooperative, No Acute Distress Lungs: Clear to Auscultation, Normal Air Movement Heart: Regular Rate, Normal S1, Normal S2, No Murmurs Abdomen: Normal Bowel Sounds, Soft, No Tenderness, No Hepatosplenomegaly, No Masses Psych/Mental Status: Mental Status NL, Mood NL Results Lab Laboratory Tests 02/02/21 14:55: Prothrombin Time 52.8*H, INR Comment 5.8*H 02/03/21 04:50: Prothrombin Time 53.1*H, INR Comment 5.9*H, White Blood Count 16.7H, Red Blood Count 3.72L, Hemoglobin 12.6, Hematocrit 37, Mean Corpuscular Volume 100H, Mean Corpuscular Hemoglobin 34, Mean Corpuscular Hemoglobin Concent 34, Red Cell Distribution Width 14.6H, Platelet Count 180, Mean Platelet Volume 9.6, Immature Granulocyte % (Auto) 0, Neutrophils (%) (Auto) 88H, Lymphocytes (%) (Auto) 5L, Monocytes (%) (Auto) 6, Eosinophils (%) (Auto) 0, Basophils (%) (Auto) 0, Neutrophils # (Auto) 14.7H, Lymphocytes # (Auto) 0.8L, Monocytes # (Auto) 1.0, Eosinophils # (Auto) 0.1, Basophils # (Auto) 0.1, Immature Granulocyte # (Auto) 0.1, Sodium Level 137, Potassium Level 3.8, Chloride Level 105, Carbon Dioxide Level 20L, Anion Gap 12, Blood Urea Nitrogen 10, Creatinine 0.61, Estimat Glomerular Filtration Rate 97, BUN/Creatinine Ratio 16, Glucose Level 101, Calcium Level 8.3L, Corrected Calcium 9.0, Phosphorus Level 1.2L, Magnesium Level 2.1, Total Bilirubin 0.7, Aspartate Amino Transf (AST/SGOT) 29, Alanine Aminotransferase (ALT/SGPT) 17, Alkaline Phosphatase 45, Total Protein 5.7L, Albumin 3.1L Microbiology 02/01/21 C. difficile GDH Antigen & Toxins - Final, Complete 02/01/21 Blood Culture - Preliminary, Resulted No growth 02/01/21 Urine Culture - Final, Complete NO GROWTH Assessment/Plan Assessment/Plan Assess & Plan/Chief Complaint Assessment: Septic shock COVID-19 pneumonia Bacterial pneumonia Acute hypoxic respiratory failure Severe hypotension due to hypovolumia Factor V Leiden with recurrent thrombosis maintained on warfarin INR supratherapeutic Right ankle wound managed at [facility] COPD oxygen dependent Obstructive sleep apnea Lupus Prednisone dependency high risk for adrenal insufficiency status post hydrocortisone dose Coagulopathy due to Warfarin Plan: IV antibiotics ICU IV fluid Hold Coumadin Cardiology eICU Critically ill and updated who was swabbed today and will quarantine Bandemia 28% on CBC diff 02/02/21: Maintain ICU status today Updated No need for re-swab Checked meds and labs Home meds Hold Coumadin due to elevated INR 02/03/21: Transfer to [facility] Monitor closely DC Vanc Cefepime maintained Decadron Diagnosis/Problems Diagnosis/Problems (1) Septic shock Status: Acute (2) Respiratory failure Status: Acute (3) COVID-19 Status: Acute (4) Anticoagulated on warfarin Status: Chronic (5) Steroid dependence Status: Chronic (6) Factor V Leiden Status: Chronic (7) Brittle bone disease Status: Chronic Clinical Quality Measures Admission Status Admission Dx Assessment: Septic shock COVID-19 pneumonia Bacterial pneumonia Acute hypoxic respiratory failure Severe hypotension due to hypovolemia Factor V Leiden with recurrent thrombosis maintained on warfarin INR 3.6 Right ankle wound managed at [facility] COPD oxygen dependent Obstructive sleep apnea Lupus Prednisone dependency high risk for adrenal insufficiency status post hydrocortisone dose Plan: IV antibiotics ICU IV fluid Hold Coumadin Cardiology eICU Critically ill and updated who was swabbed today and will quarantine MIKE CASANOVA DO Feb 03, 2021 06:12
[2021-02-03] MEDS: FUROSEMIDE 40 MG (LASIX) TAB PO SCH (08:20)
[2021-02-03] MEDS: guaiFENesin (MUCINEX) 600 MG TAB PO SCH ×2 (08:20→21:01)
[2021-02-03] MEDS: ACYCLOVIR 400 MG TABLET (ZOVIRAX) PO SCH ×2 (08:20→18:09)
[2021-02-03] MEDS: PANTOPRAZOLE 40 MG (PROTONIX) TAB PO SCH ×2 (08:20→21:01)
[2021-02-03] MEDS: FOLIC ACID 1 MG TAB PO SCH (08:20)
[2021-02-03] MEDS: ASPIRIN E.C. 81 MG (ECOTRIN) TAB PO SCH (08:20)
[2021-02-03] MEDS: FERROUS SULF 325 MG (IRON) TAB PO SCH ×2 (08:21→18:09)
[2021-02-03] MEDS: ALLOPURINOL 100 MG (ZYLOPRIM) TAB PO SCH (08:21)
[2021-02-03] MEDS: SENNA W/DOCUSATE (SENOKOT S) TABLET PO SCH ×2 (08:21→21:01)
[2021-02-03] MEDS: meTOprolol TARTRATE 50 MG (LOPRESSOR) TAB PO SCH ×2 (08:21→21:01)
[2021-02-03] MEDS: KCL 10 MEQ TAB (MICRO K) PO SCH ×2 (08:21→18:09)
[2021-02-03] MEDS: LEVOTHYROXINE 88 MCG (LEVOTHORID) TAB PO SCH (08:21)
[2021-02-03] MEDS: polyethylene glycoL POWDER 17 GM (MIRALAX) PACK PO SCH (08:21)
--- NOTE | 2021-02-03 09:42 | Tele-ICU Progress Note ---
Subjective Date Seen by a Provider: Feb 03, 2021 Time Seen by a Provider: 07:45 Subjective/Events-last exam This virtual visit was conducted using real time audio/video. Thank you for asking us to see this patient for respiratory insufficiency due to Covid pna w septic shock Recent events: Off pressors. PE: resting comfortably. VSS. O2 sat 94% on 4 LPM. HEENT: No obvious masses, adenopathy or JVD. Chest: clear to auscultation. CV: RRR S1 S2 No murmur or added sounds. Abd: Non-tender. Bowel sounds Y. : Unremarkable. Mehta Y. DEVELOPMENT REP/psychiatric: Grossly intact. No obvious focal findings. Extremities: No edema. Capillary refill < 3 seconds. Skin: unremarkable. Results: Elevated WCC 16.7 (?Dex). CXR: B infilts. . Available chart/ vitals / labs / images reviewed. Video assessment done using teleICU camera, rest of exam as per RN. A/P: Respiratory insufficiency: Continue present management with Alb., O2 Monitor for increasing oxygenation needs and/or need for intubation. Critical Care: critically ill patient. Cont. Dex., Cefepime, Vanco, SSI, Remdesivir. Possible transfer. Discussed with ALDA Winkler. Asked RN to reach out to eICU if any questions or concerns later. Time spent with patient/coordination of care with other health professionals (mins): 15 Sepsis Event Evaluation Height, Weight, BMI Height: 5'6.00" Weight: 195lbs. 4.0oz. [id number]; 20.00 BMI Method:Stated Focused Exam Lactate Level 02/01/21 11:35: Lactic Acid Level 3.29*H 02/01/21 14:30: Lactic Acid Level 1.84 Exam Exam Patient acknowledged, consented, and participated in this virtual visit which was conducted using real time audio/video Vital Signs Date Time Temp Pulse Resp B/P (MAP) Pulse Ox O2 Delivery O2 Flow Rate FiO2 02/03/21 09:00 105 27 119/89 (99) 93 High Flow N/C 5.00 02/03/21 08:37 93 High Flow N/C 5.00 02/03/21 08:29 93 High Flow N/C 5.00 02/03/21 08:00 112 21 133/96 (108) 97 High Flow N/C 6.00 02/03/21 08:00 36.2 02/03/21 07:00 112 33 138/87 (104) 97 High Flow N/C 6.00 02/03/21 07:00 113 02/03/21 06:00 111 28 137/87 (104) 97 High Flow N/C 6.00 02/03/21 05:06 High Flow N/C 6.00 02/03/21 05:00 106 28 142/87 (105) 95 High Flow N/C 4.00 02/03/21 04:00 108 21 144/98 (113) 94 High Flow N/C 4.00 02/03/21 04:00 95 Nasal Cannula 4.00 02/03/21 03:00 108 25 135/83 (100) 93 High Flow N/C 4.00 02/03/21 02:43 92 Nasal Cannula 4.00 02/03/21 02:00 102 18 155/94 (114) 92 High Flow N/C 4.00 02/03/21 01:00 101 18 154/94 (114) 92 High Flow N/C 4.00 02/03/21 01:00 102 02/03/21 00:00 95 Nasal Cannula 4.00 02/03/21 00:00 98 18 133/80 (97) 94 High Flow N/C 4.00 02/02/21 23:00 95 25 151/82 (105) 96 High Flow N/C 4.00 02/02/21 22:00 98 22 153/88 (109) 98 High Flow N/C 4.00 02/02/21 21:00 118 25 155/91 (112) 99 High Flow N/C 4.00 02/02/21 20:09 37.4 123 22 146/70 (95) 96 High Flow N/C 4.00 02/02/21 20:00 96 Nasal Cannula 4.00 02/02/21 20:00 37.1 02/02/21 19:00 118 24 156/79 (104) 99 High Flow N/C 5.00 02/02/21 19:00 120 02/02/21 18:00 116 20 144/87 (106) 100 High Flow N/C 5.00 02/02/21 17:00 123 32 144/81 (102) 98 High Flow N/C 5.00 02/02/21 16:26 37.1 02/02/21 16:00 98 Nasal Cannula 5.00 02/02/21 16:00 117 16 140/74 (96) 97 High Flow N/C 5.00 02/02/21 15:00 114 29 137/65 (89) 100 High Flow N/C 5.00 02/02/21 14:00 109 9 133/73 (93) 91 High Flow N/C 5.00 02/02/21 14:00 93 High Flow N/C 6.00 02/02/21 13:00 104 13 138/74 (95) 92 High Flow N/C 5.00 02/02/21 13:00 110 02/02/21 12:21 37.0 02/02/21 12:00 101 20 126/69 (88) 100 High Flow N/C 5.00 02/02/21 12:00 98 Nasal Cannula 5.00 02/02/21 11:30 93 High Flow N/C 5.00 02/02/21 11:00 102 23 140/79 (99) 94 High Flow N/C 5.00 02/02/21 10:00 108 30 122/66 (84) 99 High Flow N/C 5.00 I & O 02/03/21 07:00 Intake Total 1180 ml Output Total 1875 ml Balance -695 ml Height & Weight Height: 5'6.00" Weight: 195lbs. 4.0oz. [id number]; 20.00 BMI Method:Stated General Appearance: No Apparent Distress (see free text), Anxious, Chronically ill, Moderate Distress, Thin, Other (lethargic rose and ashen) HEENT: PERRL/EOMI, Normal ENT Inspection, Pharynx Normal Neck: Full Range of Motion, Normal Inspection, Non Tender, Supple, Carotid Bruit Respiratory: Chest Non Tender, Lungs Clear, Normal Breath Sounds, No Accessory Muscle Use, No Respiratory Distress Cardiovascular: Regular Rate, Rhythm, No Edema, No Gallop, No JVD, No Murmur, Normal Peripheral Pulses, Tachycardia Capillary Refill: Less Than 3 Seconds Peripheral Pulses: 1+ Dorsalis Pedis (R), 1+ Left Dors-Pedis (L) Extremity: Normal Capillary Refill, Normal Inspection, Normal Range of Motion, Non Tender, No Calf Tenderness, No Pedal Edema Neurologic/Psychiatric: Alert, Oriented x3, No Motor/Sensory Deficits, Normal Mood/Affect, Disoriented, Other (lethargic) Skin: Normal Color, Warm/Dry Lymphatic: No Adenopathy Results Lab Laboratory Tests 02/01/21 11:35 02/01/21 20:15 02/02/21 05:00 02/03/21 04:50 Assessment/Plan Assessment/Plan See free text. Critical Care: Critically Ill Patient BLANQUITA JUAREZ MD Feb 03, 2021 09:42
[2021-02-03] MEDS: RT--FLUTICASONE/SALMETEROL 113-14 (AIRDUO RespiCLICK) IH SCH ×2 (09:48→21:11)
[2021-02-03] MEDS ORDERED: TROUGH ORDER-PHARMACY XX NR (13:00)
[2021-02-03] MEDS: CYANOCOBALAMIN 1,000 MCG (VITAMIN B-12) TABLET PO SCH (18:09)
[2021-02-03] MEDS: MONTELUKAST 10 MG (SINGULAIR) TAB PO SCH (18:09)
[2021-02-03] MEDS: LORATADINE (CLARITIN) 10 MG TAB PO SCH (18:10)
[2021-02-03] MEDS: LATANOPROST 0.005% (XALATAN) OPHTH SOLN 2.5 ML OU SCH (21:02)
[2021-02-04] VITALS (8 sets, daily range): BP systolic 96–127; BP diastolic 70–89
[2021-02-04] MEDS: RT-ALBUTEROL HFA 8.5 GM INHALER IH SCH ×4 (03:17→22:15)
[2021-02-04 04:39] LABS: BASOPHILS # (AUTO) 0.1 10^3/uL (0.0-0.1); BASOPHILS % (AUTO) 0 % (0-10); EOSINOPHILS % (AUTO) 0 % (0-10); HEMATOCRIT 38 % (35-52); HEMOGLOBIN 12.7 g/dL (11.5-16.0); LYMPHOCYTES # (AUTO) 0.6 10^3/uL (1.0-4.0); LYMPHOCYTES % (AUTO) 4 % (12-44); MEAN CORPUSCULAR HEMOGLOBIN 34 pg (25-34); MEAN CORPUSCULAR HGB CONC 34 g/dL (32-36); MEAN CORPUSCULAR VOLUME 100 fL (80-99); MEAN PLATELET VOLUME 10.3 fL (9.0-12.2); MONOCYTES # (AUTO) 1.4 10^3/uL (0.0-1.0); MONOCYTES % (AUTO) 8 % (0-12); NEUTROPHILS # (AUTO) 15.5 10^3/uL (1.8-7.8); NEUTROPHILS % (AUTO) 88 % (42-75); PLATELET COUNT 173 10^3/uL (130-400); WHITE BLOOD COUNT 17.7 10^3/uL (4.3-11.0)
[2021-02-04 04:53] LABS: POTASSIUM 3.9 MMOL/L (3.6-5.0)
[2021-02-04 04:54] LABS: CALCIUM 8.4 MG/DL (8.5-10.1)
[2021-02-04 04:55] LABS: TOTAL PROTEIN 5.5 GM/DL (6.4-8.2)
[2021-02-04 04:57] LABS: BILIRUBIN,TOTAL 0.8 MG/DL (0.1-1.0)
[2021-02-04 04:59] LABS: CREATININE SERUM 0.61 MG/DL (0.60-1.30)
[2021-02-04 05:01] LABS: PROTHROMBIN TIME PATIENT 51.8 SEC (12.2-14.7)
[2021-02-04 05:02] LABS: INR 5.7 (0.8-1.4); MAGNESIUM 1.9 MG/DL (1.6-2.4)
[2021-02-04] MEDS: CEFEPIME INJECTION 1,000 MG in NS (IVPB) 50 ML IV SCH ×3 (06:05→20:11)
--- NOTE | 2021-02-04 06:48 | Diagnostic Imaging Report ---
INDICATION: Covid pneumonia. COMPARISON: 02/03/2021. FINDINGS: Single view of the chest demonstrates unchanged bilateral pulmonary infiltrates and small effusions. There is no pneumothorax. Heart remains enlarged. There is no acute osseous abnormality. IMPRESSION: Unchanged bilateral pulmonary infiltrates. Dictated by: Dictated on workstation # [id number]
[2021-02-04] MEDS: RT--FLUTICASONE/SALMETEROL 113-14 (AIRDUO RespiCLICK) IH SCH ×2 (08:25→22:14)
--- NOTE | 2021-02-04 09:47 | Progress Note ---
Subjective Date Seen by a Provider: Feb 04, 2021 Time Seen by a Provider: 09:30 Subjective/Events-last exam Pt doing a lot better Transferring to the floor Very weak PT and OT will be ordered Checked meds and labs No falls Bowels are moving Eating a drinking a bit more Review of Systems General: Fatigue, Malaise Pulmonary: Dyspnea, Cough Focused Exam Lactate Level 02/01/21 11:35: Lactic Acid Level 3.29*H 02/01/21 14:30: Lactic Acid Level 1.84 Objective Exam Last Set of Vital Signs Vital Signs Date Time Temp Pulse Resp B/P (MAP) Pulse Ox O2 Delivery O2 Flow Rate FiO2 02/04/21 08:28 94 High Flow N/C 4.00 02/04/21 07:55 36.3 101 23 125/87 (100) 02/01/21 20:59 36 Capillary Refill : Less Than 3 Seconds I&O Intake and Output 02/04/21 00:00 Intake Total 1930 ml Output Total 1550 ml Balance 380 ml Intake Oral 1780 ml IV Total 150 ml Output Urine Total 1550 ml General: Alert, Oriented X3, Cooperative, No Acute Distress Lungs: Clear to Auscultation, Normal Air Movement Heart: Regular Rate, Normal S1, Normal S2, No Murmurs Psych/Mental Status: Mental Status NL, Mood NL Results Lab Laboratory Tests 02/03/21 10:33: Glucometer 137H 02/04/21 04:30: White Blood Count 17.7H, Red Blood Count 3.78L, Hemoglobin 12.7, Hematocrit 38, Mean Corpuscular Volume 100H, Mean Corpuscular Hemoglobin 34, Mean Corpuscular Hemoglobin Concent 34, Red Cell Distribution Width 14.6H, Platelet Count 173, Mean Platelet Volume 10.3, Immature Granulocyte % (Auto) 0, Neutrophils (%) (Auto) 88H, Lymphocytes (%) (Auto) 4L, Monocytes (%) (Auto) 8, Eosinophils (%) (Auto) 0, Basophils (%) (Auto) 0, Neutrophils # (Auto) 15.5H, Lymphocytes # (Auto) 0.6L, Monocytes # (Auto) 1.4H, Eosinophils # (Auto) 0.0, Basophils # (Auto) 0.1, Immature Granulocyte # (Auto) 0.1, Prothrombin Time 51.8*H, INR Comment 5.7*H, Sodium Level 138, Potassium Level 3.9, Chloride Level 104, Carbon Dioxide Level 21, Anion Gap 13, Blood Urea Nitrogen 14, Creatinine 0.61, Estimat Glomerular Filtration Rate 97, BUN/Creatinine Ratio 23, Glucose Level 111H, Calcium Level 8.4L, Corrected Calcium 9.2, Magnesium Level 1.9, Total Bilirubin 0.8, Aspartate Amino Transf (AST/SGOT) 23, Alanine Aminotransferase (ALT/SGPT) 16, Alkaline Phosphatase 48, Total Protein 5.5L, Albumin 3.0L Microbiology 02/01/21 C. difficile GDH Antigen & Toxins - Final, Complete 02/01/21 Blood Culture - Preliminary, Resulted No growth 02/01/21 Urine Culture - Final, Complete NO GROWTH Assessment/Plan Assessment/Plan Assess & Plan/Chief Complaint Assessment: Septic shock COVID-19 pneumonia Bacterial pneumonia Acute hypoxic respiratory failure Severe hypotension due to hypovolumia Factor V Leiden with recurrent thrombosis maintained on warfarin INR supratherapeutic Right ankle wound managed at [facility] COPD oxygen dependent Obstructive sleep apnea Lupus Prednisone dependency high risk for adrenal insufficiency status post hydrocortisone dose Coagulopathy due to Warfarin Plan: IV antibiotics ICU IV fluid Hold Coumadin Cardiology eICU Critically ill and updated who was swabbed today and will quarantine Bandemia 28% on CBC diff 02/02/21: Maintain ICU status today Updated No need for re-swab Checked meds and labs Home meds Hold Coumadin due to elevated INR 02/03/21: Transfer to [facility] Monitor closely DC Vanc Cefepime maintained Decadron 02/04/2021: Maintain Covid protocol Monitor INR Transfer to floor Diagnosis/Problems Diagnosis/Problems (1) Septic shock Status: Acute (2) Respiratory failure Status: Acute (3) COVID-19 Status: Acute (4) Anticoagulated on warfarin Status: Chronic (5) Steroid dependence Status: Chronic (6) Factor V Leiden Status: Chronic (7) Brittle bone disease Status: Chronic Clinical Quality Measures Admission Status Admission Dx Assessment: Septic shock COVID-19 pneumonia Bacterial pneumonia Acute hypoxic respiratory failure Severe hypotension due to hypovolemia Factor V Leiden with recurrent thrombosis maintained on warfarin INR 3.6 Right ankle wound managed at [facility] COPD oxygen dependent Obstructive sleep apnea Lupus Prednisone dependency high risk for adrenal insufficiency status post hydrocortisone dose Plan: IV antibiotics ICU IV fluid Hold Coumadin Cardiology eICU Critically ill and updated who was swabbed today and will quarantine MIKE CASANOVA DO Feb 04, 2021 09:47
[2021-02-04] MEDS: polyethylene glycoL POWDER 17 GM (MIRALAX) PACK PO SCH (10:08)
[2021-02-04] MEDS: LEVOTHYROXINE 88 MCG (LEVOTHORID) TAB PO SCH (10:08)
[2021-02-04] MEDS: FOLIC ACID 1 MG TAB PO SCH (10:09)
[2021-02-04] MEDS: guaiFENesin (MUCINEX) 600 MG TAB PO SCH ×2 (10:09→20:12)
[2021-02-04] MEDS: FERROUS SULF 325 MG (IRON) TAB PO SCH ×2 (10:10→16:43)
[2021-02-04] MEDS: SENNA W/DOCUSATE (SENOKOT S) TABLET PO SCH ×2 (10:10→20:12)
[2021-02-04] MEDS: KCL 10 MEQ TAB (MICRO K) PO SCH ×2 (10:11→16:42)
[2021-02-04] MEDS: meTOprolol TARTRATE 50 MG (LOPRESSOR) TAB PO SCH ×2 (10:11→20:12)
[2021-02-04] MEDS: ALLOPURINOL 100 MG (ZYLOPRIM) TAB PO SCH (10:11)
[2021-02-04] MEDS: ASPIRIN E.C. 81 MG (ECOTRIN) TAB PO SCH (10:11)
[2021-02-04] MEDS: PANTOPRAZOLE 40 MG (PROTONIX) TAB PO SCH ×2 (10:11→20:12)
[2021-02-04] MEDS: ACYCLOVIR 400 MG TABLET (ZOVIRAX) PO SCH ×2 (10:11→16:42)
[2021-02-04] MEDS: FUROSEMIDE 40 MG (LASIX) TAB PO SCH (10:11)
--- NOTE | 2021-02-04 14:58 | Occupational Therapy Eval ---
OT Evaluation-General/PLF Medical Diagnosis Admission Date Feb 01, 2021 at 12:51 Medical Diagnosis: Covid + Onset Date: Feb 01, 2021 Therapy Diagnosis Therapy Diagnosis: Impaired endurance, strength, balance, adls, iadls Height/Weight Height (Feet): 5 Height (Inches): 6.00 Weight (Pounds): 195 Weight (Ounces): 4.0 Precautions Precautions/Isolations: Airborne Isolation, Fall Prevention Referral Physician: shereen Referral Reason: Evaluation/Treatment Medical History Pertinent Medical History: Arthritis, COPD, GERD, HTN, Hypothroidism Additional Medical History lupus. Current History C/o cough, weakness and fever. Found to be hypoxic (placed on oxygen), hypotensive (86/54) and covid +. Pt reports living with her spouse in a multilevel home. Bed/bath located on second floor. She was indep with adls and shares iadls responsibilities with her spouse. She only walks short distances with a walker and will use a w/c at all other times. She uses an electric scooter at the store. Pt with wound on R foot for past year. Reviewed History: Yes Social History Home: Multilevel Current Living Status: Spouse ADL-Prior Level of Function SCALE: Activities may be completed with or without assistive devices. 3-[id number]-[id number] completes the activity by him/herself with no assistance from a helper. 5-Set-up or Clean-up Assistance-helper sets up or cleans up; patient completes activity. Sigourney assists only prior to or following the activity. 4-Supervision or Touching Assistance-helper provides verbal cues and/or touching/steadying and/or contact guard assistance as patient completes activity. Assistance may be provided throughout the activity or intermittently. 3-Partial/Moderate Assistance-helper does LESS THAN HALF the effort. Sigourney lifts, holds or supports trunk or limbs, but provides less than half the effort. 2-Substantial/Maximal Assistance-helper does MORE THAN HALF the effort. Sigourney lifts or holds trunk or limbs and provides more than half the effort. 7-[id number]-tfnfsd does ALL the effort. Patient does none of the effort to complete the activity. Or, the assistance of 2 or more helpers is required for the patient to complete the activity. If activity was not attempted, code reason: 7-Patient Refused. 9-Not Applicable-not attempted and the patient did not perform the activity before the current illness, exacerbation or injury. 10-Not Attempted due to Environmental Limitations-(lack of equipment, weather restraints, etc.). 88-Not Attempted due to Medical Conditions or Safety Concerns. Self Care: Independent Functional Cognition: Independent DME/Equipment: Bath Chair, Tub/Shower OT Current Status Subjective Denies pain, agreeable to treatment. Appearance Returned to supine, all needs within reach at end of session. Mental Status/Objective Patient Orientation: Person, Place, Situation Attachments: Mehta Catheter, IV, Oxygen, Telemetry Current Hearing Aids: No Dentures/Partials: No Hand Dominance: Right Upper Extremity ROM WNL Upper Extremity Strength 3+/5 grossly ADL-Treatment Eating (QC): 5 Lower Body Dressing (QC): 3 (steadying) On/Off Footwear (QC): 4 Other Treatments Pt supine at OT arrival. On 3L NC. Oxygen remains >92% with activity. Pt able to sit EOB with SBA-CGA. Mild c/o lightheadedness. Able to don/doff maximus socks with use of cross over method. Pt politely declined ambulating due to wound on foot. She was able to scoot to HOB without assist. Reports fatigue post minimal activity. Sit>supine: SBA Education OT Patient Education: Correct positioning, Modified ADL techniques, Progress toward Goal/Update tx plan, Purpose of tx/functional activities, Transfer techniques Teaching Recipient: Patient Teaching Methods: Discussion Response to Teaching: Return Demonstration OT Pigment Presser Goals Pigment Presser Goals Time Frame: Feb 15, 2021 Oral Hygiene (QC): 5 Toileting Hygiene (QC): 5 Upper Body Dressing (QC): 5 Lower Body Dressing (QC): 5 On/Off Footwear (QC): 5 1=Demonstrate adherence to instructed precautions during ADL tasks. 2=Patient will verbalize/demonstrate understanding of assistive devices/modifications for ADL. 3=Patient will improve strength/tolerance for activity to enable patient to perform ADL's. OT Education/Plan Problem List/Assessment Assessment: Decreased Activ Tolerance, Decreased UE Strength, Impaired Funct Balance, Impaired I ADL's, Impaired Self-Care Skills Discharge Recommendations Plan/Recommendations: Continue POC Target Placement Home health pending progress Treatment Plan/Plan of Care Treatment,Training & Education: Yes Patient would benefit from OT for education, treatment and training to promote independence in ADL's, mobility, safety and/or upper extremity function for ADL's. Plan of Care: ADL Retraining, Functional Mobility, Group Exercise/Act as Ind, UE Funct Exercise/Act, W/C Management Training Treatment Duration: Feb 15, 2021 Frequency: 3 times per week Estimated Hrs Per Day: .25 hour per day Agreement: Yes 3-5x/week Time/GCodes Start Time: 14:20 Stop Time: 14:40 Total Time Billed (hr/min): 20 Billed Treatment Time 1 Jennifer Morris OT Feb 04, 2021 14:58
--- NOTE | 2021-02-04 15:21 | Physical Therapy Evaluation ---
PT Evaluation-General Medical Diagnosis Admission Date Feb 01, 2021 at 12:51 Medical Diagnosis: Covid + Onset Date: Feb 01, 2021 Therapy Diagnosis Therapy Diagnosis: Gait deficit, strength deficit Height/Weight Height (Feet): 5 Height (Inches): 6.00 Weight (Pounds): 195 Weight (Ounces): 4.0 Precautions Precautions/Isolations: Airborne Isolation, Fall Prevention Referral Physician: shereen Reason for Referral: Evaluation/Treatment Medical History Pertinent Medical History: Arthritis, COPD, GERD, HTN, Hypothroidism Reviewed History: Yes Social History Home: Multilevel Current Living Status: Spouse Entry Into Home: Stairs With Railing PT Steps Into Home: 3 PT Steps Inside Home: 14 Prior Prior Level of Function SCALE: Activities may be completed with or without assistive devices. 6-Jnrwrkanrq-wedjyzj completes the activity by him/herself with no assistance from a helper. 5-Set-up or Clean-up Assistance-helper sets up or cleans up; patient completes activity. [place] assists only prior to or following the activity. 4-Supervision or Touching Assistance-helper provides verbal cues and/or touching/steadying and/or contact guard assistance as patient completes activity. Assistance may be provided throughout the activity or intermittently. 3-Partial/Moderate Assistance-helper does LESS THAN HALF the effort. [place] lifts, holds or supports trunk or limbs, but provides less than half the effort. 2-Substantial/Maximal Assistance-helper does MORE THAN HALF the effort. [place] lifts or holds trunk or limbs and provides more than half the effort. 4-Fjmtkowkk-wzrjcr does ALL the effort. Patient does none of the effort to complete the activity. Or, the assistance of 2 or more helpers is required for the patient to complete the activity. If activity was not attempted, code reason: 7-Patient Refused. 9-Not Applicable-not attempted and the patient did not perform the activity before the current illness, exacerbation or injury. 10-Not Attempted due to Environmental Limitations-(lack of equipment, weather restraints, etc.). 88-Not Attempted due to Medical Conditions or Safety Concerns. Bed Mobility: 6 Transfers (B,C,W/C): 6 Gait: 6 Stairs: 6 Indoor Mobility (Ambulation): Independent Stairs: Independent Prior Devices Use: Motorized wheelchair, Walker Patient reports she uses an electric wheelchair on the first floor of her house, has a walker at the top of her stairs, but is able to ascend/descend the steps in her home but it takes her a long time. PT Evaluation-Current Subjective Patient lying supine in bed upon PT arrival. States "Some lady just came in here and had me put my socks on, I dont' really think I can do two of you." Objective Patient Orientation: Person, Place, Time, Situation Attachments: Oxygen, Mehta Catheter, IV ROM/Strength ROM Lower Extremities WFLs bilaterally all planes Strength Lower Extremities 3+/5 bilaterally all planes Sensory Vision: Functional Hearing: Functional Hand Dominance: Right Sensation Right Lower Extremit: Intact Sensation Left Lower Extremity: Intact Transfers Roll Left to Right (QC): 3 Sit to Lying (QC): 3 Lying to Sitting/Side of Bed(Q: 3 Sit to Stand (QC): 3 Gait Does the Patient Walk?: No and Walking Goal IS indicated Mode of Locomotion: Walk Anticipated Mode of Locomotion: Walk Walk 10 feet (QC): 88 Balance Sitting Static: Good Sitting Dynamic: Good Standing Static: Fair Standing Dynamic: Fair Treatment Therapeutic exercise of sitting AP, LAQ, Hamstring curls, hip abd/add, marching x 10 each LE. Assessment/Needs Patient tolerated treatment fair. She requires min A for all observed bed mobility and transfers, may be fatigued from previous treatment. Patient performed sitting therapeutic exercise as listed above. Patient performed sit to stand with min A and was able to side step to the left 2-3 steps. Patient in bed post treatment with all needs met, nursing notified, call light in reach. Patient demonstrates good potential to demonstrate improvement with skilled Physical Therapy intervention to focus on the above listed deficits. Rehab Potential: Good PT Short Term Goals Short Term Goals Time Frame: Feb 11, 2021 Roll Left & Right: 4 Sit to lyin Lying to sitting on side of be: 4 Sit to stand: 4 Chair/bym-lj-sqohs transfer: 4 Toilet transfer: 4 Walk 10 feet: 4 Walk 50 feet with two turns: 4 Walk 150 feet: 4 PT Translator/Interpreter Goals Translator/Interpreter Goals PT Translator/Interpreter Goals Time Frame: Feb 22, 2021 Roll Left & Right (QC): 6 Sit to Lying (QC): 6 Lying-Sitting on Side/Bed(QC): 6 Sit to Stand (QC): 6 Chair/Hxh-pv-Nfzoz Xfer(QC): 6 Toilet Transfer (QC): 6 Does the Patient Walk: Yes Walk 10 feet (QC): 5 Walk 50ft with 2 Turns (QC): 5 Walk 150 ft (QC): 5 1 Step (curb) (QC): 5 4 Steps (QC): 5 12 Steps (QC): 5 PT Plan Problem List Problem List: Activity Tolerance, Functional Strength, Safety, Balance, Gait, Transfer, Bed Mobility, ROM Treatment/Plan Treatment Plan: Continue Plan of Care Treatment Plan: Bed Mobility, Education, Functional Activity Jes, Functional Strength, Group Therapy, Gait, Safety, Therapeutic Exercise, Transfers Treatment Duration: Mar 22, 2021 Frequency: 6 times per week Estimated Hrs Per Day: .25 hour per day Safety Risks/Education Patient Education: Gait Training, Transfer Techniques, Safety Issues Teaching Recipient: Patient Teaching Methods: Demonstration, Discussion Response to Teaching: Verbalize Understanding, Return Demonstration Discharge Recommendations Target Placement Home with assistance as patient appears to have all needed assistive devices. Time/GCodes Time In: 1449 Time Out: 1512 Total Billed Treatment Time: 23 Total Billed Treatment Visit, Gil denis, VONNIE ENRIQUEZ PT Feb 04, 2021 15:21
--- NOTE | 2021-02-04 15:53 | Cardiology Progress Note ---
Subjective Date Seen by Provider: Feb 04, 2021 Time Seen by Provider: 15:52 Subjective/Events-last exam Patient is in bed, complaining of generalized fatigue, loss of energy. No chest pain. She was transferred to the cardiac stepdown unit. I did not examine the patient, I reviewed with the nurse, reviewed the chart and reviewed the records and labs. Objective-Cardiology Exam Last Set of Vital Signs Vital Signs 02/01/21 02/04/21 02/04/21 02/04/21 20:59 12:00 12:04 14:56 Temp 36.3 Pulse 101 Resp 23 B/P (MAP) 125/87 (100) Pulse Ox 96 O2 Delivery High Flow N/C O2 Flow Rate 2.00 FiO2 36 I&O Intake and Output 02/04/21 00:00 Intake Total 1930 ml Output Total 1550 ml Balance 380 ml Intake Oral 1780 ml IV Total 150 ml Output Urine Total 1550 ml General: Alert, Cooperative, No Acute Distress Heart: Regular Rate, No Murmurs Abdomen: No Tenderness, No Hepatosplenomegaly, No Masses Neuro: Normal Speech Psych/Mental Status: Mood NL Results Lab Laboratory Tests 02/04/21 04:30 A/P-Cardiology Admission Diagnosis COVID-19 pneumonia Acute respiratory failure Atrial fibrillation Septic shock Assessment/Plan COVID-19 pneumonia, sepsis and septic shock, blood pressure is better, Managed by medical team. Continue to monitor Status post acute respiratory failure, improving, still having generalized fatigue and loss of energy, managed by medical team. Coumadin toxicity, INR 5.7, currently Coumadin on hold. No active bleeding was noted. Continue to monitor History of chest pain and palpitation, currently asymptomatic. Continue to monitor History of congestive heart failure, resolved, last echocardiogram was done in January 2019 showing normal LV function, ejection fraction 55-65 percent, mild MR, [id number]-[id number] TR, small pericardial effusion, PA 35-40 mmHg. Continue to monitor History of multiple cardiac catheterization done in 2004, 2013, 2015, showing moderate pulmonary hypertension and mild coronary artery disease nonobstructive disease, last cardiac catheterization was done in January 2019 showing mild coronary artery disease. Continue to monitor History of Moderate pulmonary hypertension, echocardiogram done on January 25, 2019 showing normal LV size with EF 5565 percent, grade 1 diastolic dysfunction, mild MR, qgdh-[id number] TR, small pericardial effusion, estimated PA pressure of 35-40 mmHg. Continue to monitor Systemic lupus erythematous, antiphospholipid antibody syndrome, seen by athletic team physician at [facility], no history of DVT, maintained on Coumadin. Has family history of DVT and factor V Leiden deficiency. Elevated INR, continue to monitor Bilateral lower extremity claudication pain, right greater than left. HAYDEN November 2015 within normal limits, right lower extremity venous duplex November 2015 revealed no evidence of DVT, venous valvular insufficiency was noted in the GSV from SFG to mid thigh. Has nonhealing wound to right lateral ankle, peripheral angiogram done July showing small vessel disease with slow flow, likely wound is d/t venous stasis. Will refer to Dr. Monzon. Hypertension, controlled, continue to monitor. Hyperlipidemia, maintained on Lipitor and fish oil. Monitor lipids No history of diabetes, increased risk of diabetes due to the chronic steroid use. Nonobstructive carotid artery stenosis per most recent carotid duplex doneFeb 2020. Obstructive sleep apnea, using C Pap, bronchial asthma, COPD, followed and managed by Dr. Fallon Ex Tobaccoism, stopped smoking in July 2002. Encouraged to continue RADHA RANGEL MD Feb 04, 2021 15:53
--- NOTE | 2021-02-04 16:17 | Wound Care Assessment ---
Wound Care Assessment Date Seen by Provider: Feb 04, 2021 Time Seen by Provider: 16:06 Chief Complaint R. ankle ulcer HPI This 70 year old female has been a patient at the [facility] as an outpatient in the past. Unfortunately, our computer system is down today so I am unable to look at her history. Yin is a poor historian and I am unable to ascertain the exact etiology of her R. lateral malleolus ulcer aside from an initial "scratch" on 2020. She does have a normal arterial doppler and venous doppler in our system from several years ago. I do not find segmental studies or a full venous duplex for reflux/valvular insufficiency in the system. I did ask whether this began as a pressure injury but she could not give me a direct answer to this question. She does have underlying autoimmune disease and is on chronic prednisone therapy. An autoimmune type wound is not out of the question either. She states that the wound has never healed but she was unhappy with the care received in our clinic. As a result she is quite resistant to suggestions for her wound care while she is admitted for [facility]. She is currently dressing this ulcer with dry gauze, roller gauze and Coban. She denies any drainage. She complains of significant pain but there is no erythema, edema or induration suggestive of infection. Her current wrap leaves the heal open and the border does seem to rub over the top of her wound. She is agreeable to having the wrap removed. She declines any new dressings but I did convince her to allow us to place a dry telfa over the top of this area in addition to roller gauze and coban to better protect the area from gauze rubbing. I did also offer Primo boots which she declined as well. She states that she plans to have surgery on this area in the near future. I was unable to ascertain what type of surgery or what surgeon would be performing this surgery. (Perhaps a flap or skin graft?) Her wound healing will be complicated by chronic prednisone use, protein energy malnutrition and her autoimmune condition. Past Medical History: Admits Lupas Factor V Leiden, COPD, DEMARCO, SLE, Atrial fibrillation Smoking Status: Never a Smoker Review of Systems Pulmonary: Dyspnea, Cough Exam Vital Signs Date Time Temp Pulse Resp B/P (MAP) Pulse Ox O2 Delivery O2 Flow Rate FiO2 02/04/21 14:56 96 High Flow N/C 2.00 02/04/21 12:04 101 02/04/21 12:00 36.3 23 125/87 (100) 02/01/21 20:59 36 Capillary Refill : Less Than 3 Seconds General Appearance: no apparent distress, thin Neck: full range of motion Cardiovascular: no edema Respiratory: no respiratory distress, no accessory muscle use Extremities: normal range of motion, no pedal edema Neurologic/Psychiatric: alert, normal mood/affect, oriented x 3, other (Poor historian) Skin: normal color, warm/dry Wound assessment: 0.3x0.3x0.2 cm. The epithelialization is none, there is no drainage, there is no tunneling or undermining, the granulation is small and necrotic is large and slough. The wound margins show epibole. This is a full thickness ulcer with subcutaneuous fat exposed. Results Laboratory Tests 02/04/21 04:30: White Blood Count 17.7H, Red Blood Count 3.78L, Hemoglobin 12.7, Hematocrit 38, Mean Corpuscular Volume 100H, Mean Corpuscular Hemoglobin 34, Mean Corpuscular Hemoglobin Concent 34, Red Cell Distribution Width 14.6H, Platelet Count 173, Mean Platelet Volume 10.3, Immature Granulocyte % (Auto) 0, Neutrophils (%) (Auto) 88H, Lymphocytes (%) (Auto) 4L, Monocytes (%) (Auto) 8, Eosinophils (%) (Auto) 0, Basophils (%) (Auto) 0, Neutrophils # (Auto) 15.5H, Lymphocytes # (Auto) 0.6L, Monocytes # (Auto) 1.4H, Eosinophils # (Auto) 0.0, Basophils # (Auto) 0.1, Immature Granulocyte # (Auto) 0.1, Prothrombin Time 51.8*H, INR Comment 5.7*H, Sodium Level 138, Potassium Level 3.9, Chloride Level 104, Carbon Dioxide Level 21, Anion Gap 13, Blood Urea Nitrogen 14, Creatinine 0.61, Estimat Glomerular Filtration Rate 97, BUN/Creatinine Ratio 23, Glucose Level 111H, Calcium Level 8.4L, Corrected Calcium 9.2, Magnesium Level 1.9, Total Bilirubin 0.8, Aspartate Amino Transf (AST/SGOT) 23, Alanine Aminotransferase (ALT/SGPT) 16, Alkaline Phosphatase 48, Total Protein 5.5L, Albumin 3.0L Microbiology 02/01/21 C. difficile GDH Antigen & Toxins - Final, Complete 02/01/21 Blood Culture - Preliminary, Resulted No growth 02/01/21 Urine Culture - Final, Complete NO GROWTH Assessment/Plan/Dx Assessment: 1. Full thickness ulcer R. lateral malleolus of uncertain etiology 2. SLE with chronic oral steroid use 3. COVID-19 4. Suspected PEM Plan: 1. Check Prealbumin and supplement as indicated 2. Remove current dressing. 3. Cleanse wound with NS. Cover with Telfa, roller gauze and Coban. Change qod 4. Patient declines advanced dressings or off loading with Primo boots. She is only agreeable to dry dressings and a new wrap. 5. F/U with wound care at [facility] in [place] as previous upon d/c home DAISY YA MD Feb 04, 2021 16:17
[2021-02-04] MEDS: MONTELUKAST 10 MG (SINGULAIR) TAB PO SCH (16:43)
[2021-02-04] MEDS: CYANOCOBALAMIN 1,000 MCG (VITAMIN B-12) TABLET PO SCH (16:43)
[2021-02-04] MEDS: LORATADINE (CLARITIN) 10 MG TAB PO SCH (16:43)
[2021-02-04] MEDS: LATANOPROST 0.005% (XALATAN) OPHTH SOLN 2.5 ML OU SCH (21:36)
[2021-02-05] VITALS (9 sets, daily range): BP systolic 88–145; BP diastolic 54–79
[2021-02-05] MEDS: RT-ALBUTEROL HFA 8.5 GM INHALER IH SCH ×4 (03:20→21:33)
[2021-02-05] MEDS: CEFEPIME INJECTION 1,000 MG in NS (IVPB) 50 ML IV SCH ×3 (03:44→20:17)
[2021-02-05] MEDS: ONDANSETRON 4 MG/2 ML (SDV) Z0FRAN IVP PRN (04:46)
[2021-02-05 05:50] LABS: BASOPHILS % (AUTO) 0 % (0-10); EOSINOPHILS % (AUTO) 0 % (0-10); HEMATOCRIT 36 % (35-52); LYMPHOCYTES # (AUTO) 0.5 10^3/uL (1.0-4.0); LYMPHOCYTES % (AUTO) 4 % (12-44); MEAN CORPUSCULAR HEMOGLOBIN 34 pg (25-34); MEAN CORPUSCULAR HGB CONC 34 g/dL (32-36); MEAN CORPUSCULAR VOLUME 101 fL (80-99); MEAN PLATELET VOLUME 10.6 fL (9.0-12.2); MONOCYTES # (AUTO) 1.3 10^3/uL (0.0-1.0); MONOCYTES % (AUTO) 10 % (0-12); NEUTROPHILS # (AUTO) 11.4 10^3/uL (1.8-7.8); NEUTROPHILS % (AUTO) 86 % (42-75); PLATELET COUNT 212 10^3/uL (130-400); WHITE BLOOD COUNT 13.4 10^3/uL (4.3-11.0)
[2021-02-05 06:07] LABS: POTASSIUM 4.4 MMOL/L (3.6-5.0)
--- NOTE | 2021-02-05 06:07 | Diagnostic Imaging Report ---
INDICATION: Covid pneumonia. COMPARISON: 02/04/2021 FINDINGS: Single frontal radiographic view of the chest was obtained and again demonstrates diffuse interstitial infiltrate throughout the right lung and more patchy scattered infiltrate on the left. There is also persistent small left basilar effusion. No large effusion is seen on the right. There is no pneumothorax on either side. Overall, aeration is stable. Cardiac silhouette is stable in size as well. Osseous structures show no acute adverse interval change. IMPRESSION: 1. Stable bilateral infiltrate and small left effusion Dictated by: Dictated on workstation # [id number]
[2021-02-05 06:08] LABS: CALCIUM 8.6 MG/DL (8.5-10.1)
[2021-02-05 06:10] LABS: TOTAL PROTEIN 5.6 GM/DL (6.4-8.2)
[2021-02-05 06:11] LABS: BILIRUBIN,TOTAL 0.9 MG/DL (0.1-1.0)
[2021-02-05 06:13] LABS: CREATININE SERUM 0.78 MG/DL (0.60-1.30)
[2021-02-05 06:16] LABS: MAGNESIUM 1.9 MG/DL (1.6-2.4)
[2021-02-05] MEDS: ACYCLOVIR 400 MG TABLET (ZOVIRAX) PO SCH ×2 (06:21→16:22)
[2021-02-05 06:40] LABS: INR 5.3 (0.8-1.4)
--- NOTE | 2021-02-05 07:05 | Progress Note ---
Subjective Date Seen by a Provider: Feb 05, 2021 Time Seen by a Provider: 10:30 Subjective/Events-last exam Pt doing okay Mehta catheter still in place Very weak Checked meds and labs Appears to be very debilitated Lungs are coarse but improved Checked meds and labs RN has no concerns After rounds she became tachycardic and hypotensive given 1 L of fluid by Dr. Moore but continued to have issues so moved to ICU Review of Systems General: Fatigue Pulmonary: Dyspnea Objective Exam Last Set of Vital Signs Vital Signs Date Time Temp Pulse Resp B/P (MAP) Pulse Ox O2 Delivery O2 Flow Rate FiO2 02/05/21 03:37 35.4 80 24 107/74 (85) 97 High Flow N/C 2.00 02/01/21 20:59 36 Capillary Refill : Less Than 3 Seconds I&O Intake and Output 02/05/21 00:00 Intake Total 5470 ml Output Total 1375 ml Balance 4095 ml Intake Oral 1470 ml IV Total 4000 ml Output Urine Total 1375 ml General: Alert, Oriented X3, Cooperative, No Acute Distress, Other (Pale and end stage appearance) Lungs: Other (Crackles lower lobes) Heart: Regular Rate Psych/Mental Status: Mental Status NL Results Lab Laboratory Tests 02/04/21 16:40: 02/05/21 05:38: White Blood Count 13.4H, Red Blood Count 3.53L, Hemoglobin 12.0, Hematocrit 36, Mean Corpuscular Volume 101H, Mean Corpuscular Hemoglobin 34, Mean Corpuscular Hemoglobin Concent 34, Red Cell Distribution Width 14.6H, Platelet Count 212, Mean Platelet Volume 10.6, Immature Granulocyte % (Auto) 1, Neutrophils (%) (Auto) 86H, Lymphocytes (%) (Auto) 4L, Monocytes (%) (Auto) 10, Eosinophils (%) (Auto) 0, Basophils (%) (Auto) 0, Neutrophils # (Auto) 11.4H, Lymphocytes # (Auto) 0.5L, Monocytes # (Auto) 1.3H, Eosinophils # (Auto) 0.0, Basophils # (Auto) 0.0, Immature Granulocyte # (Auto) 0.1, Prothrombin Time 49.0*H, INR Comment 5.3*H, Sodium Level 134L, Potassium Level 4.4, Chloride Level 102, Carbon Dioxide Level 20L, Anion Gap 12, Blood Urea Nitrogen 27H, Creatinine 0.78, Estimat Glomerular Filtration Rate 73, BUN/Creatinine Ratio 35, Glucose Level 137H, Calcium Level 8.6, Corrected Calcium 9.4, Magnesium Level 1.9, Total Bilirubin 0.9, Aspartate Amino Transf (AST/SGOT) 86H, Alanine Aminotransferase (ALT/SGPT) 70H, Alkaline Phosphatase 51, Total Protein 5.6L, Albumin 3.0L Microbiology 02/01/21 C. difficile GDH Antigen & Toxins - Final, Complete 02/01/21 Blood Culture - Preliminary, Resulted No growth 02/01/21 Urine Culture - Final, Complete NO GROWTH Assessment/Plan Assessment/Plan Assess & Plan/Chief Complaint Assessment: Septic shock COVID-19 pneumonia Bacterial pneumonia Acute hypoxic respiratory failure Severe hypotension due to hypovolumia Factor V Leiden with recurrent thrombosis maintained on warfarin INR supratherapeutic Right ankle wound managed at [facility] COPD oxygen dependent Obstructive sleep apnea Lupus Prednisone dependency high risk for adrenal insufficiency status post hydrocortisone dose Coagulopathy due to Warfarin Plan: IV antibiotics ICU IV fluid Hold Coumadin Cardiology eICU Critically ill and updated who was swabbed today and will quarantine Bandemia 28% on CBC diff 02/02/21: Maintain ICU status today Updated No need for re-swab Checked meds and labs Home meds Hold Coumadin due to elevated INR 02/03/21: Transfer to [facility] Monitor closely DC Vanc Cefepime maintained Decadron 02/04/2021: Maintain Covid protocol Monitor INR Transfer to floor 02/05/2021: Patient very fragile Moved to ICU Prognosis poor Diagnosis/Problems Diagnosis/Problems (1) Septic shock Status: Acute (2) Respiratory failure Status: Acute (3) COVID-19 Status: Acute (4) Anticoagulated on warfarin Status: Chronic (5) Steroid dependence Status: Chronic (6) Factor V Leiden Status: Chronic (7) Brittle bone disease Status: Chronic Clinical Quality Measures Admission Status Admission Dx Assessment: Septic shock COVID-19 pneumonia Bacterial pneumonia Acute hypoxic respiratory failure Severe hypotension due to hypovolemia Factor V Leiden with recurrent thrombosis maintained on warfarin INR 3.6 Right ankle wound managed at [facility] COPD oxygen dependent Obstructive sleep apnea Lupus Prednisone dependency high risk for adrenal insufficiency status post hydrocortisone dose Plan: IV antibiotics ICU IV fluid Hold Coumadin Cardiology eICU Critically ill and updated who was swabbed today and will quarantine MIKE CASANOVA DO Feb 05, 2021 07:05
[2021-02-05] MEDS: SENNA W/DOCUSATE (SENOKOT S) TABLET PO SCH ×2 (09:17→20:46)
[2021-02-05] MEDS: FOLIC ACID 1 MG TAB PO SCH (09:17)
[2021-02-05] MEDS: ALLOPURINOL 100 MG (ZYLOPRIM) TAB PO SCH (09:18)
[2021-02-05] MEDS: FUROSEMIDE 40 MG (LASIX) TAB PO SCH (09:18)
[2021-02-05] MEDS: meTOprolol TARTRATE 50 MG (LOPRESSOR) TAB PO SCH ×2 (09:18→20:17)
[2021-02-05] MEDS: ASPIRIN E.C. 81 MG (ECOTRIN) TAB PO SCH (09:18)
[2021-02-05] MEDS: FERROUS SULF 325 MG (IRON) TAB PO SCH ×2 (09:18→17:50)
[2021-02-05] MEDS: LEVOTHYROXINE 88 MCG (LEVOTHORID) TAB PO SCH (09:18)
[2021-02-05] MEDS: guaiFENesin (MUCINEX) 600 MG TAB PO SCH ×2 (09:18→20:17)
[2021-02-05] MEDS: polyethylene glycoL POWDER 17 GM (MIRALAX) PACK PO SCH (09:19)
[2021-02-05] MEDS: KCL 10 MEQ TAB (MICRO K) PO SCH ×2 (09:19→17:50)
[2021-02-05] MEDS: PANTOPRAZOLE 40 MG (PROTONIX) TAB PO SCH ×2 (09:21→20:18)
[2021-02-05] MEDS: RT--FLUTICASONE/SALMETEROL 113-14 (AIRDUO RespiCLICK) IH SCH ×2 (10:30→21:33)
--- NOTE | 2021-02-05 11:48 | Physical Therapy Progress Note ---
Therapy Progress Note Attempted to see patient for PT treatment. She refused stating that she is "just too worn out." Will attempt to see patient and progress at next available treatment if patient willing to participate. VONNIE SOUSA PT Feb 05, 2021 11:48
[2021-02-05] MEDS ORDERED: NS IV 1000 ML 1,000 ML IV ONE ×2 (12:15→16:00)
[2021-02-05] MEDS ORDERED: meTOprolol 5 MG/5 ML (LOPRESSOR) VIAL IV ONE (14:00)
--- NOTE | 2021-02-05 14:09 | Occ Therapy Progress Note ---
Therapy Progress Note Per nrsg, pt is having medical issues this pm. Hold per nrsg. Will attempt to see pt when pt is able to actively participate in skilled therapy. CATRACHITO CUELLAR Feb 05, 2021 14:09
--- NOTE | 2021-02-05 16:10 | Cardiology Progress Note ---
Subjective Date Seen by Provider: Feb 05, 2021 Time Seen by Provider: 16:04 Subjective/Events-last exam Patient became hypotensive and tachycardic complaining of fatigue and loss of energy Review of Systems General: Fatigue, Malaise Objective-Cardiology Exam Last Set of Vital Signs Vital Signs 02/01/21 02/05/21 20:59 15:40 Temp 36.2 Pulse 163 Resp 20 B/P (MAP) 88/62 (71) Pulse Ox 93 O2 Delivery High Flow N/C O2 Flow Rate 2.00 FiO2 36 I&O Intake and Output 02/05/21 00:00 Intake Total 5470 ml Output Total 1375 ml Balance 4095 ml Intake Oral 1470 ml IV Total 4000 ml Output Urine Total 1375 ml General: Alert, No Acute Distress Heart: Other (Tachycardia) Abdomen: No Masses Psych/Mental Status: Mood NL Results Lab Laboratory Tests 02/05/21 05:38 A/P-Cardiology Admission Diagnosis COVID-19 pneumonia Acute respiratory failure Atrial fibrillation Septic shock Assessment/Plan COVID-19 pneumonia, sepsis and septic shock, became hypotensive and tachycardic this afternoon BP is better after IVF, I started Cardizem oral and gave Lopressor IV Placing Telemetry, Evaluate ABG and stop Lasix and monitor May need to go back to ICU Status post acute respiratory failure, improving, still having generalized fatigue and loss of energy, managed by medical team. Coumadin toxicity, INR 5.3, currently Coumadin on hold. No active bleeding was noted. Continue to monitor History of chest pain and palpitation, continue to monitor History of congestive heart failure, resolved, last echocardiogram was done in January 2019 showing normal LV function, ejection fraction 55-65 percent, mild MR, [id number]-[id number] TR, small pericardial effusion, PA 35-40 mmHg. Continue to monitor History of multiple cardiac catheterization done in 2004, 2013, 2014, showing moderate pulmonary hypertension and mild coronary artery disease nonobstructive disease, last cardiac catheterization was done in January 2019 showing mild coronary artery disease. Continue to monitor History of Moderate pulmonary hypertension, echocardiogram done on January 25, 2019 showing normal LV size with EF 5565 percent, grade 1 diastolic dysfunction, mild MR, [id number] TR, small pericardial effusion, estimated PA pressure of 35-40 mmHg. Continue to monitor Systemic lupus erythematous, antiphospholipid antibody syndrome, seen by quality control director at [facility], no history of DVT, maintained on Coumadin. Has family history of DVT and factor V Leiden deficiency. Elevated INR, continue to monitor Bilateral lower extremity claudication pain, right greater than left. HAYDEN November 2015 within normal limits, right lower extremity venous duplex November 2015 revealed no evidence of DVT, venous valvular insufficiency was noted in the GSV from SFG to mid thigh. Has nonhealing wound to right lateral ankle, peripheral angiogram done July showing small vessel disease with slow flow, likely wound is d/t venous stasis. Will refer to Dr. Monzon. Hypertension, controlled, continue to monitor. Hyperlipidemia, maintained on Lipitor and fish oil. Monitor lipids No history of diabetes, increased risk of diabetes due to the chronic steroid use. Nonobstructive carotid artery stenosis per most recent carotid duplex doneFeb 2020. Obstructive sleep apnea, using C Pap, bronchial asthma, COPD, followed and managed by Dr. Fallon Ex Tobaccoism, stopped smoking in July 2002. Encouraged to continue RADHA RANGEL MD Feb 05, 2021 16:10
[2021-02-05 16:59] LABS: ABG OXYGEN SATURATION 96 % (94-100); ABG PCO2 28 MMHG (35-45); ABG PH 7.42 (7.37-7.43); ABG PO2 77 MMHG (79-93); ABG TCO2 18.7 MMOL/L (21.0-31.0)
[2021-02-05 17:05] LABS: ALLENS TEST POS; INSPIRED O2 2L; PATIENT TEMP 36.2; VENTILATOR NO
[2021-02-05] MEDS: MONTELUKAST 10 MG (SINGULAIR) TAB PO SCH (17:49)
[2021-02-05] MEDS: CYANOCOBALAMIN 1,000 MCG (VITAMIN B-12) TABLET PO SCH (17:49)
[2021-02-05] MEDS: LORATADINE (CLARITIN) 10 MG TAB PO SCH (17:50)
[2021-02-05] MEDS: LATANOPROST 0.005% (XALATAN) OPHTH SOLN 2.5 ML OU SCH (20:18)
[2021-02-05] MEDS ORDERED: AMIODARONE FOR BOLUS 150 MG in NS (IVPB) 100 ML IV SCH (20:56)
[2021-02-05] MEDS ORDERED: AMIODARONE INJECTION 450 MG in D5W IV SOLUTION (EXCEL) 250 ML IV SCH (21:00)
[2021-02-05] MEDS ORDERED: AMIODARONE (BOLUS) 150 MG/3 ML IV ONE (21:04)
[2021-02-05] MEDS ORDERED: D5W 100 ML IVPB 100 ML IV ONE (21:04)
--- NOTE | 2021-02-05 21:05 | Tele-ICU Progress Note ---
Progress Note 70F with mod pHTN, mild CAD, SLE, antiphospholipid AB sx, factor V leiden, HTN, HLD, DEMARCO on CPAP, COPD initially admitted 02/01 with COVID pna, septic shock. Transferred to floor 02/03, now returns after tachycardia and hypotension. Given IVF with improvement in BP followed by PO cardizema and IV metopropol. Current 92/72, rate 135. - afib with RVR: BP will probably not tolerate additional calcium channel or beta blockade. HR has improved from 150s to 130s. Will start amio if OK with cardiology. Will send electrolytes. - hypotension: has already received 2L IVF with marginal improvement from SBP 88 to 93. Will monitor closely with amio, may improve with rate control. If worsens, will start em. - cogulopathy: supratherapuetic INR, coumadin on hold. Will send h/h, but suspicion low with stable hg 12 and stable inr 5 on monitoring since admit. Focused Exam Height, Weight, BMI Height: 5'6.00" Weight: 195lbs. 4.0oz. [id number]; 20.00 BMI Method:Stated AMOS RAMÍREZ MD Feb 05, 2021 21:05
[2021-02-05] MEDS ORDERED: NS (IVPB) 100 ML ONE (21:12)
[2021-02-05] MEDS ORDERED: AMIODARONE 450 MG/9 ML (CORDARONE) VIAL IV ONE (21:25)
[2021-02-05] MEDS ORDERED: D5W IV SOLUTION (EXCEL) 250 ML IV ONE (21:26)
[2021-02-05] MEDS ORDERED: PHENYLEPHRINE INJ 10 MG/ML (FOR DRIP KITS ONLY) ONE (21:41)
[2021-02-05] MEDS ORDERED: NS (IVPB) 250 ML ONE (21:41)
[2021-02-05 21:46] LABS: BASOPHILS % (AUTO) 0 % (0-10); EOSINOPHILS % (AUTO) 0 % (0-10); HEMATOCRIT 36 % (35-52); LYMPHOCYTES # (AUTO) 0.4 10^3/uL (1.0-4.0); LYMPHOCYTES % (AUTO) 3 % (12-44); MEAN CORPUSCULAR HEMOGLOBIN 34 pg (25-34); MEAN CORPUSCULAR HGB CONC 33 g/dL (32-36); MEAN CORPUSCULAR VOLUME 103 fL (80-99); MEAN PLATELET VOLUME 10.8 fL (9.0-12.2); MONOCYTES # (AUTO) 1.8 10^3/uL (0.0-1.0); MONOCYTES % (AUTO) 15 % (0-12); NEUTROPHILS # (AUTO) 9.7 10^3/uL (1.8-7.8); NEUTROPHILS % (AUTO) 80 % (42-75); PLATELET COUNT 198 10^3/uL (130-400); WHITE BLOOD COUNT 12.1 10^3/uL (4.3-11.0)
[2021-02-05 21:54] LABS: ABG BASE EXCESS -15.4 MMOL/L (-2.5-2.5); ABG OXYGEN SATURATION 94 % (94-100); ABG PCO2 23 MMHG (35-45); ABG PO2 77 MMHG (79-93); ABG TCO2 11.4 MMOL/L (21.0-31.0)
[2021-02-05 21:56] LABS: ABG PH 7.27 (7.37-7.43)
[2021-02-05 21:57] LABS: ALLENS TEST POS; INSPIRED O2 14L; PATIENT TEMP 34.7; VENTILATOR NO
[2021-02-05 22:08] LABS: PROTHROMBIN TIME PATIENT 65.1 SEC (12.2-14.7)
[2021-02-05 22:09] LABS: INR 7.7 (0.8-1.4)
[2021-02-05 22:27] LABS: ALBUMIN 2.9 GM/DL (3.2-4.5); BILIRUBIN,DIRECT 1.1 MG/DL (0.0-0.3); BILIRUBIN,INDIRECT 0.5 MG/DL; BILIRUBIN,TOTAL 1.6 MG/DL (0.1-1.0); CREATININE SERUM 0.9 MG/DL (0.60-1.30); MAGNESIUM 1.9 MG/DL (1.6-2.4); PHOSPHORUS 3.2 MG/DL (2.3-4.7); POTASSIUM 5.6 MMOL/L (3.6-5.0); TOTAL PROTEIN 5.1 GM/DL (6.4-8.2)
[2021-02-05] MEDS ORDERED: NOREPINEPHRINE 8 MG/250 ML 250 ML IV ONE (22:28)
--- NOTE | 2021-02-05 22:28 | Tele-ICU Progress Note ---
Subjective Date Seen by a Provider: Feb 05, 2021 Time Seen by a Provider: 22:26 Subjective/Events-last exam low bp - we will start neosinephrine abg shows metabolic acidosis: pt is dni- we will proceed with bipap and follow up abg Sepsis Event Evaluation Height, Weight, BMI Height: 5'6.00" Weight: 195lbs. 4.0oz. 88.474436ox; 20.00 BMI Method:Stated Exam Exam Patient acknowledged, consented, and participated in this virtual visit which w as conducted using real time audio/video Vital Signs Date Time Temp Pulse Resp B/P (MAP) Pulse Ox O2 Delivery O2 Flow Rate FiO2 02/05/21 21:19 140 02/05/21 21:13 135 02/05/21 17:00 140 02/05/21 16:52 97 Nasal Cannula 2.00 02/05/21 15:40 36.2 163 20 88/62 (71) 93 High Flow N/C 2.00 02/05/21 12:15 34.2 156 19 93/54 (67) 97 High Flow N/C 2.00 02/05/21 10:30 97 Nasal Cannula 2.00 02/05/21 09:00 94 High Flow N/C 1.00 02/05/21 08:40 34.1 156 19 118/77 (91) 97 High Flow N/C 3.00 02/05/21 03:37 35.4 80 24 107/74 (85) 97 High Flow N/C 2.00 02/05/21 03:20 97 High Flow N/C 2.00 02/04/21 23:16 36.1 110 24 96/70 (79) 98 High Flow N/C 2.00 02/04/21 22:48 36.2 110 24 98/74 (82) 96 High Flow N/C 2.00 I & O 02/05/21 07:00 Intake Total 4420 ml Output Total 1150 ml Balance 3270 ml Height & Weight Height: 5'6.00" Weight: 195lbs. 4.0oz. 88.649439wr; 20.00 BMI Method:Stated General Appearance: No Apparent Distress (see free text), Anxious, Chronically ill, Moderate Distress, Thin, Other (lethargic rose and ashen) HEENT: PERRL/EOMI, Normal ENT Inspection, Pharynx Normal Neck: Full Range of Motion, Normal Inspection, Non Tender, Supple, Carotid Bruit Respiratory: Chest Non Tender, Lungs Clear, Normal Breath Sounds, No Accessory Muscle Use, No Respiratory Distress Cardiovascular: Regular Rate, Rhythm, No Edema, No Gallop, No JVD, No Murmur, Normal Peripheral Pulses, Tachycardia Capillary Refill: Less Than 3 Seconds Peripheral Pulses: 1+ Dorsalis Pedis (R), 1+ Left Dors-Pedis (L) Extremity: Normal Capillary Refill, Normal Inspection, Normal Range of Motion, Non Tender, No Calf Tenderness, No Pedal Edema Neurologic/Psychiatric: Alert, Oriented x3, No Motor/Sensory Deficits, Normal Mood/Affect, Disoriented, Other (lethargic) Skin: Normal Color, Warm/Dry Lymphatic: No Adenopathy Results Lab Laboratory Tests 02/04/21 04:30 02/05/21 05:38 02/05/21 21:20 Assessment/Plan Assessment/Plan Hypotension sepsis/ shock start em culture/ abx ro cva metabolic acidosis dni/ we will start bipap IRLANDA HIGGINS MD Feb 05, 2021 22:28
[2021-02-05] MEDS: NOREPINEPHRINE 8 MG/250 ML 250 ML IV SCH (22:30)
--- NOTE | 2021-02-05 22:41 | Diagnostic Imaging Report ---
INDICATION: Left-sided weakness. TECHNIQUE: Multiple contiguous axial images were obtained through the brain without the use of intravenous contrast. Auto Exposure Controls were utilized during the CT exam to meet ALARA standards for radiation dose reduction. COMPARISON made to 06/21/2013. There were no extra-axial fluid collections. No intracranial hemorrhage. No intracranial mass or mass effect. No midline shift. The ventricles are normal in size and position. There is an old lacunar infarct in the left deep frontal white matter. Calvarial windows appear unremarkable. IMPRESSION: No acute hemorrhage or mass effect. Old lacunar infarcts are seen in the left deep frontal white matter. Consider MRI if symptoms persist. Report given to Dr. Nolasco at 10:28 PM 02/05/2021/cb Dictated by: Dictated on workstation # [id number]
[2021-02-05] MEDS ORDERED: NS IV 1000 ML 1,000 ML IV SCH (22:45)
[2021-02-05] MEDS ORDERED: DexMEDEtomidine 250 ML DRIP 250 ML IV ONE (23:09)
[2021-02-05] MEDS ORDERED: NS IV 1000 ML 1,000 ML ONE (23:28)
[2021-02-05] MEDS: PHENYLEPHRINE INJECTION 20 MG in NS (IVPB) 250 ML IV SCH (23:51)
[2021-02-06] VITALS (14 sets, daily range): BP systolic 103–143; BP diastolic 60–92
[2021-02-06] MEDS: PHENYLEPHRINE INJECTION 20 MG in NS (IVPB) 250 ML IV SCH ×2 (00:34→03:21)
[2021-02-06] MEDS: DexMEDEtomidine 250 ML DRIP 250 ML IV SCH ×2 (01:57→13:14)
[2021-02-06] MEDS: CEFEPIME INJECTION 1,000 MG in NS (IVPB) 50 ML IV SCH (03:25)
[2021-02-06 04:02] LABS: ABG BASE EXCESS -15.8 MMOL/L (-2.5-2.5); ABG OXYGEN SATURATION 99 % (94-100); ABG PCO2 26 MMHG (35-45); ABG PH 7.22 (7.37-7.43); ABG PO2 281 MMHG (79-93); ABG TCO2 11.4 MMOL/L (21.0-31.0); BASOPHILS # (AUTO) 0.1 10^3/uL (0.0-0.1); BASOPHILS % (AUTO) 0 % (0-10); EOSINOPHILS % (AUTO) 0 % (0-10); HEMATOCRIT 34 % (35-52); HEMOGLOBIN 10.7 g/dL (11.5-16.0); LYMPHOCYTES # (AUTO) 0.4 10^3/uL (1.0-4.0); LYMPHOCYTES % (AUTO) 2 % (12-44); MEAN CORPUSCULAR HEMOGLOBIN 34 pg (25-34); MEAN CORPUSCULAR HGB CONC 32 g/dL (32-36); MEAN CORPUSCULAR VOLUME 106 fL (80-99); MEAN PLATELET VOLUME 11.3 fL (9.0-12.2); MONOCYTES # (AUTO) 2.1 10^3/uL (0.0-1.0); MONOCYTES % (AUTO) 10 % (0-12); NEUTROPHILS # (AUTO) 16.6 10^3/uL (1.8-7.8); NEUTROPHILS % (AUTO) 81 % (42-75); PLATELET COUNT 178 10^3/uL (130-400); WHITE BLOOD COUNT 20.7 10^3/uL (4.3-11.0)
[2021-02-06 04:03] LABS: ALLENS TEST YES-POS; INSPIRED O2 100%; VENTILATOR YES
[2021-02-06 04:15] LABS: ALBUMIN 2.8 GM/DL (3.2-4.5)
[2021-02-06 04:16] LABS: CALCIUM 7.2 MG/DL (8.5-10.1)
[2021-02-06 04:19] LABS: BILIRUBIN,TOTAL 2.2 MG/DL (0.1-1.0)
[2021-02-06 04:20] LABS: PHOSPHORUS 6.1 MG/DL (2.3-4.7)
[2021-02-06 04:21] LABS: CREATININE SERUM 1.32 MG/DL (0.60-1.30)
[2021-02-06 04:22] LABS: POTASSIUM 6.6 MMOL/L (3.6-5.0)
[2021-02-06 04:34] LABS: INR 14.2 (0.8-1.4)
[2021-02-06 04:45] LABS: BAND NEUTROPHILS 4 %; CRENATED RBC MARKED; LYMPHOCYTES % (MANUAL) 1 %; MONOCYTES % (MANUAL) 11 %; NEUTROPHILS % (MANUAL) 84 %
[2021-02-06] MEDS ORDERED: SOD POLYSTERENE 15 GM/60 ML (KAYEXALATE) UNIT DOSE PO ONE (04:45)
[2021-02-06] MEDS ORDERED: NS IV 500 ML 500 ML IV SCH ×2 (04:45)
[2021-02-06] MEDS ORDERED: inSUlin (REGULAR) HUMAN 1 UNIT/0.01 ML (CHARGE PER UNIT) IV ONE (04:45)
[2021-02-06] MEDS ORDERED: DEXTROSE 50% 50 ML (IMS) SYR IV ONE (04:45)
[2021-02-06] MEDS ORDERED: SODIUM BICARB 8.4% 50 MEQ/50 ML (ABBOTT) SYR IV ONE (04:45)
[2021-02-06] MEDS ORDERED: CALCIUM CHLORIDE 1 GM/10 ML (IMS) SYR IV ONE (04:45)
[2021-02-06] MEDS: NOREPINEPHRINE 8 MG/250 ML 250 ML IV SCH (05:10)
--- NOTE | 2021-02-06 05:49 | Progress Note ---
Subjective Date Seen by a Provider: Feb 06, 2021 Time Seen by a Provider: 09:30 Subjective/Events-last exam Pt is having signs of multisystem organ failure Liver shock and coagulopathy noted Pt unresponsive and comatose Updated family and obtained DNR Pt will be placed on comfort care protocol Grand Daughters at the bedside Objective Exam Last Set of Vital Signs Vital Signs Date Time Temp Pulse Resp B/P (MAP) Pulse Ox O2 Delivery O2 Flow Rate FiO2 02/06/21 05:10 78/53 02/06/21 04:00 36.3 79 23 NIV Bilevel 90.00 02/06/21 03:00 95 02/01/21 20:59 36 Capillary Refill : Less Than 3 Seconds I&O Intake and Output 02/06/21 00:00 Intake Total 5750 ml Output Total 1225 ml Balance 4525 ml Intake Oral 700 ml IV Total 5050 ml Output Urine Total 1225 ml General: Other (Comatose) Lungs: Other (Diminished breath sounds) Heart: Regular Rate Results Lab Laboratory Tests 02/05/21 16:50: Blood Gas Puncture Site RBRACH, Blood Gas Patient Temperature 36.2, Arterial Blood pH 7.42, Arterial Blood Partial Pressure CO2 28L, Arterial Blood Partial Pressure O2 77L, Arterial Blood HCO3 18L, Arterial Blood Total CO2 18.7L, Arterial Blood Oxygen Saturation 96, Arterial Blood Base Excess -6.0L, Ian Test POS, Blood Gas Ventilator Setting NO, Blood Gas Inspired Oxygen 2L 02/05/21 21:20: White Blood Count 12.1H, Red Blood Count 3.51L, Hemoglobin 12.0, Hematocrit 36, Mean Corpuscular Volume 103H, Mean Corpuscular Hemoglobin 34, Mean Corpuscular Hemoglobin Concent 33, Red Cell Distribution Width 14.8H, Platelet Count 198, Mean Platelet Volume 10.8, Immature Granulocyte % (Auto) 2, Neutrophils (%) (Auto) 80H, Lymphocytes (%) (Auto) 3L, Monocytes (%) (Auto) 15H, Eosinophils (%) (Auto) 0, Basophils (%) (Auto) 0, Neutrophils # (Auto) 9.7H, Lymphocytes # (Auto) 0.4L, Monocytes # (Auto) 1.8H, Eosinophils # (Auto) 0.0, Basophils # (Auto) 0.0, Immature Granulocyte # (Auto) 0.2H, Prothrombin Time 65.1*H, INR Comment 7.7*H, Sodium Level 136, Potassium Level 5.6H, Chloride Level 105, Carbon Dioxide Level 13L, Anion Gap 18H, Blood Urea Nitrogen 29H, Creatinine 0.90, Estimat Glomerular Filtration Rate 62, BUN/Creatinine Ratio 32, Glucose Level 96, Calcium Level 8.0L, Phosphorus Level 3.2, Magnesium Level 1.9, Total Bilirubin 1.6H, Direct Bilirubin 1.1H, Indirect Bilirubin 0.5, Aspartate Amino Transf (AST/SGOT) 1460#H, Alanine Aminotransferase (ALT/SGPT) 1009#H, Alkaline Phosphatase 87, Total Protein 5.1L, Albumin 2.9L, Thyroid Stimulating Hormone (TSH) 1.36 02/05/21 21:48: Blood Gas Puncture Site LFT RAD, Blood Gas Patient Temperature 34.7, Arterial Blood pH 7.27*L, Arterial Blood Partial Pressure CO2 23L, Arterial Blood Partial Pressure O2 77L, Arterial Blood HCO3 11*L, Arterial Blood Total CO2 11.4L, Arterial Blood Oxygen Saturation 94, Arterial Blood Base Excess -15.4L, Ian Test POS, Blood Gas Ventilator Setting NO, Blood Gas Inspired Oxygen 14L 02/06/21 03:55: Blood Gas Puncture Site LEFT RADIAL, Blood Gas Patient Temperature 36.0, Arterial Blood pH 7.22*L, Arterial Blood Partial Pressure CO2 26L, Arterial Blood Partial Pressure O2 281H, Arterial Blood HCO3 11*L, Arterial Blood Total CO2 11.4L, Arterial Blood Oxygen Saturation 99, Arterial Blood Base Excess - 15.8L, Ian Test YES-POS, Blood Gas Ventilator Setting YES, Blood Gas Inspired Oxygen 100%, White Blood Count 20.7H, Red Blood Count 3.15L, Hemoglobin 10.7L, Hematocrit 34L, Mean Corpuscular Volume 106H, Mean Corpuscular Hemoglobin 34, Mean Corpuscular Hemoglobin Concent 32, Red Cell Distribution Width 15.0H, Platelet Count 178, Mean Platelet Volume 11.3, Immature Granulocyte % (Auto) 7, Neutrophils (%) (Auto) 81H, Lymphocytes (%) (Auto) 2L, Monocytes (%) (Auto) 10, Eosinophils (%) (Auto) 0, Basophils (%) (Auto) 0, Neutrophils # (Auto) 16.6H, Lymphocytes # (Auto) 0.4L, Monocytes # (Auto) 2.1H, Eosinophils # (Auto) 0.0, Basophils # (Auto) 0.1, Immature Granulocyte # (Auto) 1.4H, Prothrombin Time 105.0*H, INR Comment 14.2*H, Sodium Level 138, Potassium Level 6.6#*H, Chloride Level 109H, Carbon Dioxide Level 10L, Anion Gap 19H, Blood Urea Nitrogen 34H, Creatinine 1.32H, Estimat Glomerular Filtration Rate 40, BUN/Creatinine Ratio 26, Glucose Level 52*L, Calcium Level 7.2L, Phosphorus Level 6.1H, Magnesium Level 2.0, Total Bilirubin 2.2H, Aspartate Amino Transf (AST/SGOT) 5876#H, Alanine Aminotransferase (ALT/SGPT) 3255#H, Alkaline Phosphatase 114, Total Protein 5.0L, Albumin 2.8L, Neutrophils % (Manual) 84, Lymphocytes % (Manual) 1, Monocytes % (Manual) 11, Band Neutrophils 4, Macrocytosis MODERATE, Crenated Cell MARKED, Fibrinogen 721H, Corrected Calcium 8.2L Microbiology 02/01/21 C. difficile GDH Antigen & Toxins - Final, Complete 02/01/21 Blood Culture - Preliminary, Resulted No growth 02/01/21 Urine Culture - Final, Complete NO GROWTH Assessment/Plan Assessment/Plan Assess & Plan/Chief Complaint Assessment: Multisystem organ failure requiring comfort care protocol 02/06/2021 DNR Liver shock Kidney failure Septic shock COVID-19 pneumonia Bacterial pneumonia Acute hypoxic respiratory failure Severe hypotension due to hypovolumia Factor V Leiden with recurrent thrombosis maintained on warfarin INR supratherapeutic Right ankle wound managed at [facility] COPD oxygen dependent Obstructive sleep apnea Lupus Prednisone dependency high risk for adrenal insufficiency status post hydrocortisone dose Coagulopathy due to Warfarin and liver shock Plan: IV antibiotics ICU IV fluid Hold Coumadin Cardiology eICU Critically ill and updated who was swabbed today and will quarantine Bandemia 28% on CBC diff 02/02/21: Maintain ICU status today Updated No need for re-swab Checked meds and labs Home meds Hold Coumadin due to elevated INR 02/03/21: Transfer to [facility] Monitor closely DC Vanc Cefepime maintained Decadron 02/04/2021: Maintain Covid protocol Monitor INR Transfer to floor 02/05/2021: Patient very fragile Moved to ICU Prognosis poor 02/06/2021: DNR Comfort care protocol Diagnosis/Problems Diagnosis/Problems (1) Septic shock Status: Acute (2) Respiratory failure Status: Acute (3) COVID-19 Status: Acute (4) Anticoagulated on warfarin Status: Chronic (5) Steroid dependence Status: Chronic (6) Factor V Leiden Status: Chronic (7) Brittle bone disease Status: Chronic Clinical Quality Measures Admission Status Admission Dx Assessment: Septic shock COVID-19 pneumonia Bacterial pneumonia Acute hypoxic respiratory failure Severe hypotension due to hypovolemia Factor V Leiden with recurrent thrombosis maintained on warfarin INR 3.6 Right ankle wound managed at [facility] COPD oxygen dependent Obstructive sleep apnea Lupus Prednisone dependency high risk for adrenal insufficiency status post hydrocortisone dose Plan: IV antibiotics ICU IV fluid Hold Coumadin Cardiology eICU Critically ill and updated who was swabbed today and will quarantine MIKE CASANOVA DO Feb 06, 2021 05:49
[2021-02-06] MEDS ORDERED: MAGNESIUM 1 GM/100 ML IVPB 100 ML IV SCH (06:00)
[2021-02-06] MEDS ORDERED: POTASSIUM CL 10MEQ/50ML IVPB 50 ML IV SCH (06:00)
[2021-02-06] MEDS ORDERED: KCL 20 MEQ TAB (K-DUR) PO SCH (06:00)
--- NOTE | 2021-02-06 06:51 | Occ Therapy Progress Note ---
Therapy Progress Note Due to decline in medical status, OT to discharge pt. New orders will be needed to initiate treatment when pt is medically stable to actively participate in skilled therapy. CATRACHITO CUELLAR Feb 06, 2021 06:51
[2021-02-06] MEDS: RT-ALBUTEROL HFA 8.5 GM INHALER IH SCH (07:24)
--- NOTE | 2021-02-06 09:37 | Therapy Team Discharge Summary ---
Therapy Discharge Summary Discharge Recommendations Date of Discharge Physical Therapy Patient transferred to ICU-2, PT received evaluation order due to change of medical status. Nursing reports patient place on comfort care. Patient will be D/C from PT plan of care at this time. Should medical changes arise, PT will need an additional order to resume treatment. Occupational Therapy Decreased Activ Tolerance, Decreased UE Strength, Impaired Funct Balance, Impaired I ADL's, Impaired Self-Care Skills PT Shaker Repairer Goals [facility] Goals PT Shaker Repairer Goals Time Frame: Feb 22, 2021 Roll Left to Right (QC): 6 Sit to Lying (QC): 6 Lying-Sitting on Side/Bed(QC): 6 Sit to Stand (QC): 6 Chair/Wdo-cs-Pwigd Xfer(QC): 6 Does the Patient Walk: Yes Walk 10 feet (QC): 5 Walk 50ft with 2 Turns (QC): 5 Walk 150 ft (QC): 5 1 Step (curb) (QC): 5 4 Steps (QC): 5 12 Steps (QC): 5 OT Shaker Repairer Goals Shaker Repairer Goals Time Frame: Feb 15, 2021 Oral Hygiene (QC): 5 Upper Body Dressing (QC): 5 Lower Body Dressing (QC): 5 On/Off Footwear (QC): 5 Toileting Hygiene (QC): 5 Toilet/Commode Transfer (QC): 6 1=Demonstrate adherence to instructed precautions during ADL tasks. 2=Patient will verbalize/demonstrate understanding of assistive devices/modifications for ADL. 3=Patient will improve strength/tolerance for activity to enable patient to perform ADL's. VONNIE SOUSA PT Feb 06, 2021 09:37
[2021-02-06] MEDS ORDERED: RT-ALBUTEROL/IPRATROPIUM 3 ML (DUONEB) VIAL INH PRN (09:45)
[2021-02-06] MEDS ORDERED: SALIVA STIMULANT MOUTH SPRAY (BIOTENE) 1.5 OZ MM PRN (09:45)
[2021-02-06] MEDS ORDERED: ONDANSETRON 4 MG/2 ML (SDV) Z0FRAN IVP PRN (09:45)
[2021-02-06] MEDS ORDERED: BISACODYL 10 MG SUPP (DULCOLAX) PR PRN (09:45)
[2021-02-06] MEDS ORDERED: GLYCOPYRROLATE 0.2 MG/ML (ROBINUL) 2 ML VIAL IV PRN (09:45)
[2021-02-06] MEDS ORDERED: ARTIFICAL TEARS 0.4 ML UNIT DOSE (REFRESH PLUS) OU PRN (09:45)
[2021-02-06] MEDS ORDERED: ACETAMINOPHEN 650 MG SUPP (TYLENOL) PR PRN (09:45)
--- NOTE | 2021-02-06 12:53 | Progress Note ---
JAQUELINE SHIRLEY MED STUDENT 02/06/21 1253: Progress Note Multi-system organ failure Sepsis PNA COPD Nocturnal Hypoxia Respiratory Failure Coagulopathy Factor V Leiden Acute Liver Failure Acute Kidney Failure Metabolic acidosis Hyperkalemia Hyperphosphatemia Covid + Lupus Hx of CHF Chronic Prednisone use Decubitus Ulcers C.diff Hypotension Sleep Apnea JESICA CASANOVA DO 02/07/21 0535: Supervisory-Addendum Brief Verification & Attestation Participated in pt care: history, MDM, physical Personally performed: exam, history, MDM, supervision of care Care discussed with: Medical Student Procedures: n/a Results interpretation: Verified all documentation Verification and Attestation of Medical Student E/M Service A medical student performed and documented this service in my presence. I reviewed and verified all information documented by the medical student and made modifications to such information, when appropriate. I personally performed the physical exam and medical decision making. Jesica Casanova, Feb 07, 2021,05:35 JAQUELINE SHIRLEY MED STUDENT Feb 06, 2021 12:53 JESICA CASANOVA DO Feb 07, 2021 05:35
--- NOTE | 2021-02-06 14:06 | Cardiology Progress Note ---
Subjective Date Seen by Provider: Feb 06, 2021 Time Seen by Provider: 08:00 Subjective/Events-last exam Patient was seen earlier this morning, family around her. Lethargic. On BiPAP Review of Systems General: Other (Unable to provide review of system) Objective-Cardiology Exam Last Set of Vital Signs Vital Signs 02/06/21 02/06/21 02/06/21 02/06/21 07:24 07:50 08:00 13:14 Temp 36.3 Pulse 80 Resp 39 B/P (MAP) 119/69 Pulse Ox 97 O2 Delivery NIV Bilevel O2 Flow Rate 85.00 FiO2 100 I&O Intake and Output 02/06/21 00:00 Intake Total 5750 ml Output Total 1225 ml Balance 4525 ml Intake Oral 700 ml IV Total 5050 ml Output Urine Total 1225 ml General: Alert, Severe Distress, Other (Pale and end stage appearance) Lungs: Other (Crackles lower lobes) Heart: Regular Rate, Normal S1 Abdomen: No Masses Psych/Mental Status: Other (Lethargic) Results Lab Laboratory Tests 02/05/21 21:20 02/06/21 03:55 A/P-Cardiology Admission Diagnosis COVID-19 pneumonia Acute respiratory failure Atrial fibrillation Septic shock Assessment/Plan Multiorgan failure including sepsis, metabolic acidosis, respiratory failure and DIC. Progressed fairly quickly and transferred to ICU. Family and patient requested to proceed with comfort care. Paroxysmal atrial flutter, had episode of atrial flutter with rapid ventricular response and converted to sinus rhythm on amiodarone drip overnight. Currently in sinus rhythm. COVID-19 pneumonia, sepsis and septic shock, still hypotensive, received fluid and pressors. Managed by medical team Coumadin toxicity, progressed to DIC. Secondary to sepsis. Managed by medical team History of congestive heart failure, resolved, last echocardiogram was done in January 2019 showing normal LV function, ejection fraction 55-65 percent, mild MR, [id number] TR, small pericardial effusion, PA 35-40 mmHg. Continue to monitor History of multiple cardiac catheterization done in 2005, 2013, 2015, showing moderate pulmonary hypertension and mild coronary artery disease nonobstructive disease, last cardiac catheterization was done in January 2019 showing mild coronary artery disease. Continue to monitor History of Moderate pulmonary hypertension, echocardiogram done on January 25, 2019 showing normal LV size with EF 55-65 percent, grade 1 diastolic dysfunction, mild MR, [id number] TR, small pericardial effusion, estimated PA pressure of 35-40 mmHg. Continue to monitor Systemic lupus erythematous, antiphospholipid antibody syndrome, seen by rivet hole puncher at Factor V Leiden, no history of DVT, maintained on Coumadin. Has family history of DVT and factor V Leiden deficiency. Elevated INR, continue to monitor Bilateral lower extremity claudication pain, right greater than left. [place] November 2015 within normal limits, right lower extremity venous duplex November 2015 revealed no evidence of DVT, venous valvular insufficiency was noted in the GSV from SFG to mid thigh. Has nonhealing wound to right lateral ankle, peripheral angiogram done July showing small vessel disease with slow flow, likely wound is d/t venous stasis. Will refer to Dr. Monzon. No history of diabetes, increased risk of diabetes due to the chronic steroid use. Nonobstructive carotid artery stenosis per most recent carotid duplex doneFeb 2020. Obstructive sleep apnea, using C Pap, bronchial asthma, COPD, followed and managed by Dr. Fallon Ex Tobaccoism, stopped smoking in July 2002. Encouraged to continue RADHA RANGEL MD Feb 06, 2021 14:06
[2021-02-06] MEDS: morphine INJ 4 MG/ML 1 ML (VIAL/SYRINGE) IV PRN ×2 (14:47→18:36)
[2021-02-06] MEDS: LORazepam INJ 2 MG/ML (ATIVAN) VIAL IVP PRN (18:13)
--- NOTE | 2021-02-07 05:56 | Progress Note ---
Subjective Date Seen by a Provider: Feb 07, 2021 Time Seen by a Provider: 10:30 Subjective/Events-last exam Multiple issues after she became awake and talked to the family briefly Family issues with discontinuing comfort care protocol and wanted to stay in the room but Covid restrictions from the [facility] preclude that Multiple family conferences with administrative team, eventually talked to the in depth but daughters are not very understanding Pt appears to be very declined She has a very poor and grave prognosis Will have speech therapy evaluate her Labs checked and INR is 7.4 and she is having heart failure so can not cause volume overload, she did have an WA with elevated Troponin and her kidneys are failing with creatinine of 1.8 My recommendation is comfort care protocol Family adamant to start IVF and IV abx so will start that. Review of Systems Neurological: Confusion Objective Exam Last Set of Vital Signs Vital Signs Date Time Temp Pulse Resp B/P (MAP) Pulse Ox O2 Delivery O2 Flow Rate FiO2 02/06/21 20:30 Room Air 02/06/21 13:14 80 119/69 02/06/21 12:00 19 86 90.00 02/06/21 08:00 100 02/06/21 07:50 36.3 Capillary Refill : Less Than 3 Seconds I&O Intake and Output 02/06/21 23:59 Intake Total 4500 ml Output Total 675 ml Balance 3825 ml Intake Oral 150 ml IV Total 4350 ml Output Urine Total 675 ml General: Other (end of life status, confused, semi-comatose) Lungs: Normal Air Movement Heart: Other (tachy) Psych/Mental Status: Other (semi-comatose, frail, rose, ashen) Results Lab Microbiology 02/01/21 C. difficile GDH Antigen & Toxins - Final, Complete 02/01/21 Blood Culture - Final, Complete No growth 02/01/21 Urine Culture - Final, Complete NO GROWTH Assessment/Plan Assessment/Plan Assess & Plan/Chief Complaint Assessment: Multisystem organ failure requiring comfort care protocol 02/06/2021 DNR Liver shock Kidney failure Septic shock COVID-19 pneumonia Bacterial pneumonia Acute hypoxic respiratory failure Severe hypotension due to hypovolumia Factor V Leiden with recurrent thrombosis maintained on warfarin INR supratherapeutic Right ankle wound managed at [facility] COPD oxygen dependent Obstructive sleep apnea Lupus Prednisone dependency high risk for adrenal insufficiency status post hydrocortisone dose Coagulopathy due to Warfarin and liver shock Plan: IV antibiotics ICU IV fluid Hold Coumadin Cardiology eICU Critically ill and updated who was swabbed today and will quarantine Bandemia 28% on CBC diff 02/02/21: Maintain ICU status today Updated No need for re-swab Checked meds and labs Home meds Hold Coumadin due to elevated INR 02/03/21: Transfer to [facility] Monitor closely DC Vanc Cefepime maintained Decadron 02/04/2021: Maintain Covid protocol Monitor INR Transfer to floor 02/05/2021: Patient very fragile Moved to ICU Prognosis poor 02/06/2021: DNR Comfort care protocol 02/07/21: Family wishes to reverse the comfort care protocol Family adamant for her to receive IVF and IV abx Palliative care nurse updated Updated at 1245 Diagnosis/Problems Diagnosis/Problems (1) Septic shock Status: Acute (2) Respiratory failure Status: Acute (3) COVID-19 Status: Acute (4) Anticoagulated on warfarin Status: Chronic (5) Steroid dependence Status: Chronic (6) Factor V Leiden Status: Chronic (7) Brittle bone disease Status: Chronic Clinical Quality Measures Admission Status Admission Dx Assessment: Septic shock COVID-19 pneumonia Bacterial pneumonia Acute hypoxic respiratory failure Severe hypotension due to hypovolemia Factor V Leiden with recurrent thrombosis maintained on warfarin INR 3.6 Right ankle wound managed at [facility] COPD oxygen dependent Obstructive sleep apnea Lupus Prednisone dependency high risk for adrenal insufficiency status post hydrocortisone dose Plan: IV antibiotics ICU IV fluid Hold Coumadin Cardiology eICU Critically ill and updated who was swabbed today and will quarantine MIKE CASANOVA DO Feb 07, 2021 05:56
--- NOTE | 2021-02-07 08:34 | Cardiology Progress Note ---
Subjective Date Seen by Provider: Feb 07, 2021 Time Seen by Provider: 08:28 Subjective/Events-last exam Patient is doing better, still on isolation due to COVID-19 She is maintained on comfort care Objective-Cardiology Exam Last Set of Vital Signs Vital Signs 02/06/21 02/06/21 02/06/21 02/06/21 02/06/21 07:50 08:00 12:00 13:14 20:30 Temp 36.3 Pulse 80 Resp 19 B/P (MAP) 119/69 Pulse Ox 86 O2 Delivery Room Air O2 Flow Rate 90.00 FiO2 100 I&O Intake and Output 02/07/21 00:00 Intake Total 4500 ml Output Total 675 ml Balance 3825 ml Intake Oral 150 ml IV Total 4350 ml Output Urine Total 675 ml General: Other (Comatose) Lungs: Other (Diminished breath sounds) Heart: Regular Rate Abdomen: No Masses Psych/Mental Status: Other (Lethargic) A/P-Cardiology Admission Diagnosis COVID-19 pneumonia Acute respiratory failure Atrial fibrillation Septic shock Assessment/Plan Patient is on comfort care, multiorgan failure. Overall poor prognosis I will sign off at this point, thank you for allowing me to part spent in the management of Mrs. Pino, please reconsult if needed Below is a summary of the management during her hospital stay Multiorgan failure including sepsis, metabolic acidosis, respiratory failure and DIC. Progressed fairly quickly and transferred to ICU. Family and patient requested to proceed with comfort care. Paroxysmal atrial flutter, had episode of atrial flutter with rapid ventricular response and converted to sinus rhythm COVID-19 pneumonia, sepsis and septic shock, still hypotensive, received fluid and pressors. Managed by medical team Coumadin toxicity, progressed to DIC. Secondary to sepsis. Managed by medical team History of congestive heart failure, resolved, last echocardiogram was done in January 2019 showing normal LV function, ejection fraction 55-65 percent, mild MR, [id number] TR, small pericardial effusion, PA 35-40 mmHg. Continue to monitor History of multiple cardiac catheterization done in 2004, 2013, 2014, showing m oderate pulmonary hypertension and mild coronary artery disease nonobstructive disease, last cardiac catheterization was done in January 2019 showing mild coronary artery disease. Continue to monitor History of Moderate pulmonary hypertension, echocardiogram done on January 25, 2019 showing normal LV size with EF 55-65 percent, grade 1 diastolic dysfunction, mild MR, [id number] TR, small pericardial effusion, estimated PA pressure of 35-40 mmHg. Continue to monitor Systemic lupus erythematous, antiphospholipid antibody syndrome, seen by assistant store director at [facility], no history of DVT, maintained on Coumadin. Has family history of DVT and factor V Leiden deficiency. Elevated INR, continue to monitor Bilateral lower extremity claudication pain, right greater than left. HAYDEN November 2015 within normal limits, right lower extremity venous duplex November 2015 revealed no evidence of DVT, venous valvular insufficiency was noted in the GSV from SFG to mid thigh. Has nonhealing wound to right lateral ankle, peripheral angiogram done July showing small vessel disease with slow flow, likely wound is d/t venous stasis. Will refer to Dr. Monzon. No history of diabetes, increased risk of diabetes due to the chronic steroid use. Nonobstructive carotid artery stenosis per most recent carotid duplex doneFeb 2020. Obstructive sleep apnea, using C Pap, bronchial asthma, COPD, followed and managed by Dr. Fallon Ex Tobaccoism, stopped smoking in July 2002. Encouraged to continue RADHA RANGEL MD Feb 07, 2021 08:34
[2021-02-07 11:18] VITALS: BP 137/75
[2021-02-07 11:48] LABS: BASOPHILS # (AUTO) 0.1 10^3/uL (0.0-0.1); BASOPHILS % (AUTO) 1 % (0-10); EOSINOPHILS % (AUTO) 0 % (0-10); HEMATOCRIT 36 % (35-52); HEMOGLOBIN 12.1 g/dL (11.5-16.0); LYMPHOCYTES # (AUTO) 0.7 10^3/uL (1.0-4.0); LYMPHOCYTES % (AUTO) 4 % (12-44); MEAN CORPUSCULAR HEMOGLOBIN 34 pg (25-34); MEAN CORPUSCULAR HGB CONC 34 g/dL (32-36); MEAN CORPUSCULAR VOLUME 102 fL (80-99); MEAN PLATELET VOLUME 11.4 fL (9.0-12.2); MONOCYTES # (AUTO) 0.5 10^3/uL (0.0-1.0); MONOCYTES % (AUTO) 3 % (0-12); NEUTROPHILS # (AUTO) 14.5 10^3/uL (1.8-7.8); NEUTROPHILS % (AUTO) 86 % (42-75); PLATELET COUNT 166 10^3/uL (130-400); WHITE BLOOD COUNT 16.9 10^3/uL (4.3-11.0)
[2021-02-07 11:57] LABS: ALBUMIN 2.7 GM/DL (3.2-4.5)
[2021-02-07 11:58] LABS: CHLORIDE 112 MMOL/L (98-107); SODIUM 143 MMOL/L (135-145)
[2021-02-07 11:59] LABS: CALCIUM 7.9 MG/DL (8.5-10.1)
[2021-02-07 12:00] LABS: GLUCOSE 68 MG/DL (70-105); TOTAL PROTEIN 5.1 GM/DL (6.4-8.2)
[2021-02-07 12:01] LABS: CARBON DIOXIDE 19 MMOL/L (21-32)
[2021-02-07 12:02] LABS: BILIRUBIN,TOTAL 1.8 MG/DL (0.1-1.0)
[2021-02-07 12:03] LABS: ALKALINE PHOSPHATASE 150 U/L (40-136)
[2021-02-07 12:04] LABS: CREATININE SERUM 1.81 MG/DL (0.60-1.30); GFR ESTIMATED 28
[2021-02-07 12:05] LABS: BUN/CREATININE RATIO 33
[2021-02-07 12:24] LABS: ALANINE AMINOTRANSFERASE 5037 U/L (0-55); INR 7.4 (0.8-1.4); PROTHROMBIN TIME PATIENT 63.6 SEC (12.2-14.7)
[2021-02-07] MEDS ORDERED: NS IV 1000 ML 1,000 ML ONE (12:28)
[2021-02-07] MEDS: NS IV 1000 ML 1,000 ML IV SCH (12:35)
--- NOTE | 2021-02-07 13:17 | ST Dysphagia Evaluation ---
Speech Evaluation-General Medical Diagnosis Covid + Onset Date: Feb 01, 2021 Therapy Diagnosis Therapy Diagnosis: Suspected Oropharyngeal Dysphagia Precautions Precautions: Aspiration Precautions/Isolations: Airborne Isolation, Droplet Isolation Medical History Pertinent Medical History: Arthritis, COPD, GERD, HTN, Hypothroidism Current History The patient is a 70 year-old female with a past medical history of congestive heart failure, moderate pulmonary hypertension, mild coronary artery disease, nonobstructive disease, systemic lupus erythematous, antiphospholipid antibody syndrome, Factor V Leiden, hypertension, hyperlipidemia, obstructive sleep apnea, bronchial asthma, and COPD, who presented to [facility] with cough and weakness. Upon admission, the patient was found to be COVID +. Chest Exam: 02/05/2021: 1. Stable bilateral infiltrate and small left effusion. Due to decreased responsiveness, the patient's family decided upon comfort care on 02/06/2021. Per RN, the patient displayed a brief period of increased responsiveness on this date therefore comfort care orders were removed. Reviewed History: Yes Social History Current Living Status: Spouse Speech PLF/Current-Dysphagia Prior Level of Function The patient's prior level of function is unknown to this clinician. The patient was unable to provide pertinent past medical history to the clinician. Family members were not present at bedside to receive additional information regarding the patient. Subjective The RN stated the patient does not appear to respond to moist oral swabs and was concerned of her aspiration risks with PO intake as the family requests to feed her while they are present in the patient's room. Due to the RN's concern, speech pathology was consulted for a formal clinical bedside swallowing evaluation. Cognitive Status Patient Orientation: Unresponsive The patient was lying supine in bed, eyes closed upon entrance to her room by the clinician. With increased volume levels, the patient briefly opened her eyes to a verbal greeting from the clinician. Regardless of maximum verbal prompting and encouragement, the patient was unable to remain at an appropriate level of alertness for safe P.O. intake. The patient was unable to respond (verbally or nonverbally) to simple yes/no questions including personal information (the patient's name). The patient does not follow verbal instructions or direct modeling. To note, the RN was present in the patient's room at the time of the evaluation. Oral Motor Skills Dentition: Natural Ability to Follow Directions: Unable Oral Expression Ability: Unable Face Facial Symmetry: Symmetrical (At rest.) The patient does not follow verbal instructions or direct modeling for completion of a formal oral mechanism evaluation. The oral mechanism evaluation was completed informally through clinician observation. Oral-Facial Assessment Oral-Facial Dentition: Normal Labial Seal Description: Weak (The patient is unable to display a labial seal and presents with an open-mouth posture.) Volitional Dry Swallow: No Voluntary Cough: No Can Clear Throat Volitionally: No Productive Cough: No Productive Throat Clear: No Dysphagia Evaluation Consistencies Presented: Thin Liquid (Ice Chip.) The patient received a moist oral swab and one, pencil eraser size ice chip Oral Phase: Anterior Spillage, Unable to Form Bolus, Left Pocketing, Absent Oral Transit The patient displayed minimal lingual or oral manipulation of a moist oral swab or the ice chip, allowing the ice chip to melt and pocket in the left inferior buccal space. The melted bolus displayed anterior spillage from the left labial side and was removed/cleaned from the patient's chin with a tissue. Throughout the clinical bedside swallowing evaluation, the patient was unable to elicit a voluntary swallow response regardless of tactile stimulation, verbal prompting, and the presence of a physical bolus (pencil eraser size ice chip). The patient was unable to elicit a pharyngeal swallow response regardless of tactile stimulation, verbal prompting, and the presence of a physical bolus (pencil eraser size ice chip). Due to the inability to trigger a pharyngeal swallow, the pharyngeal stage of the swallowing function could not be evaluated. Dietary Recommendations: NPO Liquid Recommendations: NPO Recommendations: - The patient should remain NPO at this time. - Frequent and excellent oral care to reduce the transfer of oral bacteria to the lungs should aspiration of secretions occur. - Moist oral swabs for patient comfort and care (by RN, only). - Repetition of oropharyngeal swallow assessment with increased alertness. - Speech pathology to follow the patient daily for ongoing evaluations of the oropharyngeal swallowing function. Dysphagia Evaluation Summary At this time, the patient's poor alertness level places her at an extremely high risk for aspiration (possibly of her own secretions). Throughout the clinical bedside swallowing evaluation, the patient was unable to elicit a voluntary swallow response regardless of tactile stimulation, verbal prompting, and the presence of a physical bolus (pencil eraser size ice chip). The patient displayed minimal lingual or oral manipulation of a moist oral swab or the ice chip, allowing the ice chip to melt and pocket in the left inferior buccal space. The melted bolus displayed anterior spillage from the left labial side and was removed/cleaned from the patient's chin with a tissue. The patient is not appropriate for PO intake at this time due to the above findings. Due to decreased responsiveness, excellent oral care is recommended to reduce the transfer of oral bacteria to the lungs should aspiration of secretions occur. The clinician requested contact from the RN should increased responsiveness be demonstrated from the patient. The results and recommendations were discussed with the RN who verbalized comprehension of the material. Barriers to Learning Decreased level of responsiveness. Speech Short Term Goals Short Term Goals Short Term Goals 1. The patient will display appropriate alertness for full and safe participation in the clinical bedside swallowing assessment. 2. The patient will tolerate the least restrictive diet without s/s of suspected aspiration. Time Frame-STG: Two Weeks Speech Jewel Sorter Goals Residential Goals 1. The patient will tolerate the least restrictive diet without s/s of suspected aspiration to meet nutritional needs. Time Frame: Three Weeks Speech-Plan Patient/Family Goals Patient/Family Goals: The patient's family's goal is to resume an oral diet and reach nutritional goals through PO intake. Treatment Plan Speech Therapy Treatment Plan: Continue Plan of Care Treatment Duration: Mar 07, 2021 Frequency: 4 times per week (Four to Five Times per Week) Estimated Hrs Per Day: .25 hour per day Rehab Potential: Guarded Barriers to Learning: Reduced responsiveness. Safety Risks/Education Teaching Recipient: Patient Teaching Methods: Discussion Response to Teaching: Unable to Comprehend Education Topics Provided: Plan of Care, Goals of Oropharyngeal Swallowing Assessment Time Speech Therapy Time In: 11:17 Speech Therapy Time Out: 11:40 Total Billed Time: 23 Billed Treatment Time 1, JESE ALVES [facility] ST Feb 07, 2021 13:17
[2021-02-07] MEDS: CEFEPIME INJECTION 1,000 MG in NS (IVPB) 50 ML IV SCH (13:46)
--- NOTE | 2021-02-07 14:12 | Diagnostic Imaging Report ---
INDICATION: Covid-19 positive and dyspnea. TIME OF EXAM: 1:47 PM Correlation is made with prior chest from 02/05/2021. FINDINGS: Heart is enlarged, but stable. There are increasing infiltrates in the left lung base, now with complete obscuration left hemidiaphragm. There appear to be some air bronchograms in the left base. There is also some slight increase in left pleural effusion. There is some infiltrate in the right perihilar and right basilar region as well, increasing since 2 days earlier. No pneumothorax is seen. IMPRESSION: Increasing bilateral pulmonary infiltrates and left effusion when with compared exam 2 days earlier. Dictated by: Dictated on workstation # [id number]
[2021-02-07 16:00] VITALS: BP 138/99
[2021-02-07] MEDS: LORazepam INJ 2 MG/ML (ATIVAN) VIAL IVP PRN (16:31)
[2021-02-07 19:19] VITALS: BP 138/93
[2021-02-07 21:54] VITALS: BP 134/92
[2021-02-07] MEDS: meTOprolol 5 MG/5 ML (LOPRESSOR) VIAL IV SCH (21:54)
[2021-02-07 23:06] VITALS: BP 135/98
[2021-02-08] MEDS: meTOprolol 5 MG/5 ML (LOPRESSOR) VIAL IV SCH ×4 (00:48→13:45)
[2021-02-08] MEDS: NS IV 1000 ML 1,000 ML IV SCH ×2 (00:49→08:12)
[2021-02-08] MEDS: CEFEPIME INJECTION 1,000 MG in NS (IVPB) 50 ML IV SCH ×2 (00:49→13:45)
[2021-02-08 03:58] VITALS: BP 145/85
--- NOTE | 2021-02-08 05:52 | Progress Note ---
Subjective Date Seen by a Provider: Feb 08, 2021 Time Seen by a Provider: 09:30 Subjective/Events-last exam Pt declining Mottling is noted Only opens her eye and does not communicate Speech therapy can not get her to follow any commands to safety give her anything PO Her mouth is very dry IV fluid was changed to D5 half normal Updated who required me to list all the medications she was given and and daughters are blaming Remdesivir for giving her these side effects Tachycardia still an issue receiving Lospressor 5mg IV push every six hrs Patient really needs comfort care she appears to be close to Focused Exam Lactate Level 02/07/21 11:40: Lactic Acid Level 2.51*H 02/07/21 13:40: Lactic Acid Level 2.43*H Objective Exam Last Set of Vital Signs Vital Signs Date Time Temp Pulse Resp B/P (MAP) Pulse Ox O2 Delivery O2 Flow Rate FiO2 02/08/21 03:58 36.6 158 32 145/85 (105) 95 Nasal Cannula 4.00 02/06/21 08:00 100 Capillary Refill : Less Than 3 Seconds I&O Intake and Output 02/08/21 00:00 Intake Total 0 ml Output Total 1550 ml Balance -1550 ml Intake Oral 0 ml Output Urine Total 1550 ml # Bowel Movements 2 General: Moderate Distress, Other (Lethargic, opens eyes, cannot communicate, tachypneic, rose, ashen) Lungs: Other (Diminished breath sounds) Heart: Other (Tachycardic) Skin: Other (Mottling) Results Lab Laboratory Tests 02/07/21 11:40: White Blood Count 16.9H, Red Blood Count 3.54L, Hemoglobin 12.1, Hematocrit 36, Mean Corpuscular Volume 102H, Mean Corpuscular Hemoglobin 34, Mean Corpuscular Hemoglobin Concent 34, Red Cell Distribution Width 15.0H, Platelet Count 166, Mean Platelet Volume 11.4, Immature Granulocyte % (Auto) 7, Neutrophils (%) (Auto) 86H, Lymphocytes (%) (Auto) 4L, Monocytes (%) (Auto) 3, Eosinophils (%) (Auto) 0, Basophils (%) (Auto) 1, Neutrophils # (Auto) 14.5H, Lymphocytes # (Auto) 0.7L, Monocytes # (Auto) 0.5, Eosinophils # (Auto) 0.0, Basophils # (Auto) 0.1, Immature Granulocyte # (Auto) 1.2H, Prothrombin Time 63.6*H, INR Comment 7.4*H, Sodium Level 143, Potassium Level 5.0, Chloride Level 112H, C arbon Dioxide Level 19L, Anion Gap 12, Blood Urea Nitrogen 59H, Creatinine 1.81H , Estimat Glomerular Filtration Rate 28, BUN/Creatinine Ratio 33, Glucose Level 68L, Lactic Acid Level 2.51*H, Calcium Level 7.9L, Corrected Calcium 8.9, Total Bilirubin 1.8H, Aspartate Amino Transf (AST/SGOT) > 4202#H, Alanine Aminotransferase (ALT/SGPT) 5037#H, Alkaline Phosphatase 150H, Troponin I 0.329*H, B-Type Natriuretic Peptide 1294.9H, Total Protein 5.1L, Albumin 2.7L, Procalcitonin 7.37H 02/07/21 13:40: Lactic Acid Level 2.43*H Microbiology 02/01/21 C. difficile GDH Antigen & Toxins - Final, Complete 02/01/21 Blood Culture - Final, Complete No growth 02/01/21 Urine Culture - Final, Complete NO GROWTH Assessment/Plan Assessment/Plan Assess & Plan/Chief Complaint Assessment: Multisystem organ failure requiring comfort care protocol 02/06/2021 DNR but family changed mind 2 days ago and required IV fluid and IV antibiotics to be restarted Liver shock Kidney failure Septic shock COVID-19 pneumonia Bacterial pneumonia Acute hypoxic respiratory failure Severe hypotension due to hypovolumia Factor V Leiden with recurrent thrombosis maintained on warfarin INR supratherapeutic Right ankle wound managed at [facility] COPD oxygen dependent Obstructive sleep apnea Lupus Prednisone dependency high risk for adrenal insufficiency status post hydrocortisone dose Coagulopathy due to Warfarin and liver shock Plan: IV antibiotics ICU IV fluid Hold Coumadin Cardiology eICU Critically ill and updated who was swabbed today and will quarantine Bandemia 28% on CBC diff 02/02/21: Maintain ICU status today Updated No need for re-swab Checked meds and labs Home meds Hold Coumadin due to elevated INR 02/03/21: Transfer to [facility] Monitor closely DC Vanc Cefepime maintained Decadron 02/04/2021: Maintain Covid protocol Monitor INR Transfer to floor 02/05/2021: Patient very fragile Moved to ICU Prognosis poor 02/06/2021: DNR Comfort care protocol 02/07/21: Family wishes to reverse the comfort care protocol Family adamant for her to receive IVF and IV abx Palliative care nurse updated Updated at 1245 02/08/2021: Patient appears end-of-life with no meaningful recovery Updated and daughters by phone Diagnosis/Problems Diagnosis/Problems (1) Septic shock Status: Acute (2) Respiratory failure Status: Acute (3) COVID-19 Status: Acute (4) Anticoagulated on warfarin Status: Chronic (5) Steroid dependence Status: Chronic (6) Factor V Leiden Status: Chronic (7) Brittle bone disease Status: Chronic Clinical Quality Measures Admission Status Admission Dx Assessment: Septic shock COVID-19 pneumonia Bacterial pneumonia Acute hypoxic respiratory failure Severe hypotension due to hypovolemia Factor V Leiden with recurrent thrombosis maintained on warfarin INR 3.6 Right ankle wound managed at [facility] COPD oxygen dependent Obstructive sleep apnea Lupus Prednisone dependency high risk for adrenal insufficiency status post hydrocortisone dose Plan: IV antibiotics ICU IV fluid Hold Coumadin Cardiology eICU Critically ill and updated who was swabbed today and will quarantine MIKE CASANOVA DO Feb 08, 2021 05:52
[2021-02-08 06:36] LABS: BASOPHILS # (AUTO) 0.1 10^3/uL (0.0-0.1); BASOPHILS % (AUTO) 1 % (0-10); EOSINOPHILS % (AUTO) 0 % (0-10); HEMATOCRIT 37 % (35-52); HEMOGLOBIN 12.2 g/dL (11.5-16.0); LYMPHOCYTES # (AUTO) 1.2 10^3/uL (1.0-4.0); LYMPHOCYTES % (AUTO) 9 % (12-44); MEAN CORPUSCULAR HEMOGLOBIN 34 pg (25-34); MEAN CORPUSCULAR HGB CONC 33 g/dL (32-36); MEAN CORPUSCULAR VOLUME 102 fL (80-99); MEAN PLATELET VOLUME 11.7 fL (9.0-12.2); MONOCYTES # (AUTO) 0.4 10^3/uL (0.0-1.0); MONOCYTES % (AUTO) 3 % (0-12); NEUTROPHILS # (AUTO) 10.9 10^3/uL (1.8-7.8); NEUTROPHILS % (AUTO) 80 % (42-75); PLATELET COUNT 175 10^3/uL (130-400); WHITE BLOOD COUNT 13.6 10^3/uL (4.3-11.0)
[2021-02-08 06:55] LABS: INR 4.9 (0.8-1.4)
[2021-02-08 06:57] LABS: PROTHROMBIN TIME PATIENT 46.1 SEC (12.2-14.7)
[2021-02-08 06:59] LABS: POTASSIUM 4.5 MMOL/L (3.6-5.0)
[2021-02-08 07:00] LABS: ALBUMIN 2.6 GM/DL (3.2-4.5); BILIRUBIN,TOTAL 1.8 MG/DL (0.1-1.0); CALCIUM 7.7 MG/DL (8.5-10.1); CREATININE SERUM 1.2 MG/DL (0.60-1.30)
[2021-02-08 08:25] VITALS: BP 125/83
[2021-02-08] MEDS ORDERED: D5 1/2 NS 1000 ML IV SOLUTION 1,000 ML IV SCH (09:15)
[2021-02-08 12:32] VITALS: BP 143/95
--- NOTE | 2021-02-08 13:32 | Speech Therapy Daily Note ---
Speech Daily Progress Note Subjective Date Seen by Provider: Feb 08, 2021 Time Seen by Provider: 10:10 The patient was lying supine in bed upon entrance from the clinician. The patient's physician, Dr. Soto, is present at bedside. The patient's eyes are closed with minimal opening appreciated following a verbal greeting from the clinician and physician. The patient currently has supplemental oxygen via nasal cannula present. The patient has audible, raspy, labored respirations at rest. The patient's head of bed is elevated by the clinician for safe swallowing posture. The clinician visited with the patient's RN and professional healthcare representative prior to entering her room. Both individuals stated the patient has remained with absent responsiveness throughout the shift, including periods of physical repositioning. CXR: 01/28/21: "Increasing bilateral pulmonary infiltrates and left effusion when with compared exam 2 days earlier." Objective The clinician instructed the patient verbally and through direct modeling to complete an oral mechanism. The patient does not follow the modeling attempts at this time. The clinician wipes the patient's exterior lips with a moist swab however the p atient does not attempt oral manipulation. Oral care is provided by the clinician with no participation from the patient. The moist oral swab is dampened and placed on the lingual surface. The patient is responsive to this task and does attempt to remove moisture from the swab by pressing her tongue against the palatal surface. The patient elicits a pharyngeal swallow response on this date. The task was repeated five times, each time the patient displayed a delayed pharyngeal swallow response with "rocking" of the larynx prior to completion. Regardless of the effortful pharyngeal swallows displayed, the patient remained with eyes closed and labored, audible wet respirations. Due to the patient's continued poor responsiveness, inability to follow directions (verbally or nonverbally), and worsening (increasing) bilateral pulmonary infiltrates in the absence of PO, the patient remains inappropriate or safe for PO intake at this time. The RN was asked to contact the clinician if increased responsiveness is exp erienced. Recommendations: - The patient should remain NPO at this time. - Frequent and excellent oral care to reduce the transfer of oral bacteria to the lungs should aspiration of secretions occur. - Moist oral swabs for patient comfort and care (by RN, only). - Repetition of oropharyngeal swallow assessment with increased alertness. - Speech pathology to follow the patient for ongoing evaluations of the oropharyngeal swallowing function. Assessment Assessment Current Status: Poor Progress Treatment Plan Continue Plan of Care Speech Short Term Goals Short Term Goals Short Term Goals 1. The patient will display appropriate alertness for full and safe participation in the clinical bedside swallowing assessment. 2. The patient will tolerate the least restrictive diet without s/s of suspected aspiration. Time Frame-STG: Two Weeks Speech Alf Goals Distribution Spec Goals 1. The patient will tolerate the least restrictive diet without s/s of suspected aspiration to meet nutritional needs. Time Frame: Three Weeks Speech-Plan Treatment Plan Speech Therapy Treatment Plan: Continue Plan of Care Treatment Duration: Mar 07, 2021 Frequency: 4 times per week (Four to Five Times per Week) Estimated Hrs Per Day: .25 hour per day Rehab Potential: Guarded Barriers to Learning: Decreased responsiveness. Pt/Family Agrees to Plan: No Safety Risks/Education Teaching Recipient: Patient Teaching Methods: Discussion Response to Teaching: Unable to Comprehend Education Topics Provided: Plam of care, risks of aspiration. Time Speech Therapy Time In: 10:10 Speech Therapy Time Out: 10:30 Total Billed Time: 20 Billed Treatment Time 1, LI Garcia Feb 08, 2021 13:32
--- NOTE | 2021-02-08 14:05 | Discharge Summary ---
Diagnosis/Chief Complaint Date of Admission Feb 01, 2021 at 12:51 Date of Discharge Discharge Diagnosis Assessment: Multisystem organ failure requiring comfort care protocol 02/06/2021 DNR but family changed mind 2 days ago and required IV fluid and IV antibiotics to be restarted Liver shock Kidney failure Septic shock COVID-19 pneumonia Bacterial pneumonia Acute hypoxic respiratory failure Severe hypotension due to hypovolumia Factor V Leiden with recurrent thrombosis maintained on warfarin INR supratherapeutic Right ankle wound managed at [facility] wound care COPD oxygen dependent Obstructive sleep apnea Lupus Prednisone dependency high risk for adrenal insufficiency status post hydro cortisone dose Coagulopathy due to Warfarin and liver shock Plan: IV antibiotics ICU IV fluid Hold Coumadin Cardiology eICU Critically ill and updated who was swabbed today and will quarantine Bandemia 28% on CBC diff 02/02/21: Maintain ICU status today Updated No need for re-swab Checked meds and labs Home meds Hold Coumadin due to elevated INR 02/03/21: Transfer to [facility]SD Monitor closely DC Vanc Cefepime maintained Decadron 02/04/2021: Maintain Covid protocol Monitor INR Transfer to floor 02/05/2021: Patient very fragile Moved to ICU Prognosis poor 02/06/2021: DNR Comfort care protocol 02/07/21: Family wishes to reverse the comfort care protocol Family adamant for her to receive IVF and IV abx Palliative care nurse updated Updated at 1245 02/08/2021: Patient appears end-of-life with no meaningful recovery Updated and daughters by phone Reason Hospital Visit Chief complaint: Septic shock due to COVID-19 pneumonia History present illness: This is a 70-year-old white female clinic patient of [facility] for 16 years who has a past medical history of factor V Leiden and recurrent thrombosis on warfarin therapy managed by hematology Dr. MOSQUEDA, oxygen dependent COPD, obstructive sleep apnea, lupus managed by rheumatology, right ankle wound bandaged and wound care at [facility] and prednisone dependency who presented to the ER by EMS in severe critical illness with hypotension and near complete decompensation and cardiac arrest. I assessed her upon arrival and ordered bilateral IV lines and fluid boluses. Central line was placed. Covid swab was positive. Patient received Eris & Eris vaccine 3 months ago. INR 3.6. eICU consulted along with Dr. Moore. Cefepime started empirically for bacterial pneumonia. Discharge Summary Discharge Physical Examination Allergies: Coded Allergies: Penicillins (Verified Allergy, Intermediate, has received Cefepime in the past, 02/07/21) pneumococcal vaccine (Verified Allergy, Unknown, 04/02/15) PT STATES FEVER IN THE ARM Vitals & I&Os Vital Signs Date Time Temp Pulse Resp B/P (MAP) Pulse Ox O2 Delivery O2 Flow Rate FiO2 02/08/21 12:39 161 02/08/21 12:32 36.9 52 143/95 (111) 93 Nasal Cannula 2.00 02/06/21 08:00 100 General Appearance: Other (Comatose, ashen, mottling, rose) Respiratory: Other ( diminished breath sounds) Cardiovascular: Other (Tachycardic) Psych/Mental Status: Other (Can't communicate) Hospital Course Was the Problem List Reviewed?: Yes Hospital course: Patient had a lengthy 7-day hospital course after she presented in critical status of septic shock from COVID-19 pneumonia. Aggressive IV fluids were initiated along with central line placement. Patient made it clear she did not want to be intubated so she was DO NOT INTUBATE. She was placed in the ICU and eICU help manage acute COVID-19 pneumonia with bacterial pneumonia and septic shock requiring aggressive IV fluid and pressor therapy. Hydrocortisone given due to prednisone dependence and that was switched to Decadron. Patient historically has had multiple medical issues of which I have managed in my clinic for the past 15 years including oxygen dependent COPD, DEMARCO on CPAP, osteoporosis, nonhealing ulcer right ankle managed with wound care at [facility], factor V Leiden maintained on Coumadin, and diastolic dysfunction heart failure status post septic shock on presentation precluded anything but a guarded prognosis. She was ultimately complete decompensation with liver shock and liver failure kidney failure and encephalopathy and the decision was made to withdraw aggressive care and place her on comfort care protocol after updating at the bedside. She was placed on comfort care protocol but daughters arrived from out of state and after 24 hours of comfort care protocol she opened her eyes and family changed her mind and wanted IV fluids and IV antibiotics restarted. She remained semi-comatose IV fluids and IV antibiotics were initiated. Palliative care nurse and all nurses agreed she was end-of-life. Patient continued to declined and was noted to have severe mottling over her entire body and was unable to tolerate p.o. due to comatose state but family decided to take patient out of the hospital AGAINST MEDICAL ADVICE and place her in a private vehicle because they were told she could not be transported by ambulance because [facility] was on diversion they would turn away an ambulance but they could not turn away a private vehicle so they placed the terminally ill nearly comatose patient in a private vehicle and took her to [facility]. Labs (last 24 hrs) Laboratory Tests 02/01/21 11:35: White Blood Count 9.7, Red Blood Count 4.33, Hemoglobin 14.9, Hematocrit 44, Mean Corpuscular Volume 103H, Mean Corpuscular Hemoglobin 34, Mean Corpuscular Hemoglobin Concent 34, Red Cell Distribution Width 14.5, Platelet Count 269, Mean Platelet Volume 10.0, Immature Granulocyte % (Auto) 1, Neutrophils (%) (Auto) 68, Lymphocytes (%) (Auto) 26, Monocytes (%) (Auto) 6, Eosinophils (%) (Auto) 0, Basophils (%) (Auto) 0, Neutrophils # (Auto) 6.5, Lymphocytes # (Auto) 2.5, Monocytes # (Auto) 0.6, Eosinophils # (Auto) 0.0, Basophils # (Auto) 0.0, Immature Granulocyte # (Auto) 0.1, Prothrombin Time 36.6H, INR Comment 3.6H, Activated Partial Thromboplast Time 54H, D-Dimer 0.42, Urine Color YELLOW, Urine Clarity CLEAR, Urine pH 6.0, Urine Specific [place] 1.010L, Urine Protein NEGATIVE, Urine Glucose (UA) NEGATIVE, Urine Ketones NEGATIVE, Urine Nitrite NEGATIVE, Urine Bilirubin NEGATIVE, Urine Urobilinogen 0.2, Urine Leukocyte Esterase NEGATIVE, Urine RBC (Auto) NEGATIVE, Urine RBC RARE, Urine WBC NONE, U rine Squamous Epithelial Cells 2-5, Urine Crystals NONE, Urine Bacteria NEGATIVE, Urine Casts NONE, Urine Mucus NEGATIVE, Urine Culture Indicated NO, Sodium Level 138, Potassium Level 2.9L, Chloride Level 95L, Carbon Dioxide Level 26, Anion Gap 17H, Blood Urea Nitrogen 18, Creatinine 1.30, Estimat Glomerular Filtration Rate 41, BUN/Creatinine Ratio 14, Glucose Level 83, Lactic Acid Level 3.29*H, Calcium Level 9.5, Corrected Calcium 9.6, Total Bilirubin 0.9, Aspartate Amino Transf (AST/SGOT) 31, Alanine Aminotransferase (ALT/SGPT) 22, Alkaline Phosphatase 35L, C-Reactive Protein High Sensitivity 13.53H, Total Protein 6.4, Albumin 3.9, Procalcitonin 20.05H, SARS-CoV-2 RNA (RT-PCR) DetectedH 02/01/21 12:05: Blood Gas Puncture Site R RADIAL, Blood Gas Patient Temperature 102, Arterial Blood pH 7.37, Arterial Blood Partial Pressure CO2 39, Arterial Blood Partial Pressure O2 55L, Arterial Blood HCO3 21L, Arterial Blood Total CO2 22.5, Arterial Blood Oxygen Saturation 77L, Arterial Blood Base Excess -2.6L, Ian Test YES-POS, Blood Gas Ventilator Setting NO, Blood Gas Inspired Oxygen 5 02/01/21 12:51: Lab Scanned Report Referred Lab Report 02/01/21 14:30: Lactic Acid Level 1.84 02/01/21 20:15: Sodium Level 140, Potassium Level 3.3L, Chloride Level 105, Carbon Dioxide Level 18L, Anion Gap 17H, Blood Urea Nitrogen 16, Creatinine 1.00, Estimat Glomerular Filtration Rate 55, BUN/Creatinine Ratio 16, Glucose Level 100, Calcium Level 7.8L, Phosphorus Level 3.2, Magnesium Level 1.3L 02/02/21 05:00: Sodium Level 136, Potassium Level 3.3L, Chloride Level 102, Carbon Dioxide Level 19L, Anion Gap 15H, Blood Urea Nitrogen 12, Creatinine 0.76, Estimat Glomerular Filtration Rate 75, BUN/Creatinine Ratio 16, Glucose Level 104, Calcium Level 8.1L, Phosphorus Level 1.5L, Magnesium Level 2.7H, White Blood Count 12.3H, Red Blood Count 3.77L, Hemoglobin 12.8, Hematocrit 37, Mean Corpuscular Volume 99, Mean Corpuscular Hemoglobin 34, Mean Corpuscular Hemoglobin Concent 34, Red Cell Distribution Width 14.4, Platelet Count 194, Mean Platelet Volume 9.6, Immature Granulocyte % (Auto) 1, Neutrophils (%) (Auto) 87H, Lymphocytes (%) (Auto) 5L, Monocytes (%) (Auto) 6, Eosinophils (%) (Auto) 0, Basophils (%) (Auto) 0, Neutrophils # (Auto) 10.8H, Lymphocytes # (Auto) 0.6L, Monocytes # (Auto) 0.8, Eosinophils # (Auto) 0.0, Basophils # (Auto) 0.0, Immature Granulocyte # (Auto) 0.1, Neutrophils % (Manual) 57, Lymphocytes % (Manual) 7, Monocytes % (Manual) 8, Band Neutrophils 28, Blood Morphology Comment NORMAL, Prothrombin Time 43.8H, INR Comment 4.6H, Corrected Calcium 8.8, Total Bilirubin 0.6, Aspartate Amino Transf (AST/SGOT) 35H, Alanine Aminotransferase (ALT/SGPT) 22, Alkaline Phosphatase 27L, Total Protein 5.4L, Albumin 3.1L 02/02/21 14:55: Prothrombin Time 52.8*H, INR Comment 5.8*H 02/03/21 04:50: Sodium Level 137, Potassium Level 3.8, Chloride Level 105, Carbon Dioxide Level 20L, Anion Gap 12, Blood Urea Nitrogen 10, Creatinine 0.61, Estimat Glomerular Filtration Rate 97, BUN/Creatinine Ratio 16, Glucose Level 101, Calcium Level 8.3L, Phosphorus Level 1.2L, Magnesium Level 2.1, White Blood Count 16.7H, Red Blood Count 3.72L, Hemoglobin 12.6, Hematocrit 37, Mean Corpuscular Volume 100H, Mean Corpuscular Hemoglobin 34, Mean Corpuscular Hemoglobin Concent 34, Red Cell Distribution Width 14.6H, Platelet Count 180, Mean Platelet Volume 9.6, Immature Granulocyte % (Auto) 0, Neutrophils (%) (Auto) 88H, Lymphocytes (%) (Auto) 5L, Monocytes (%) (Auto) 6, Eosinophils (%) (Auto) 0, Basophils (%) (Auto) 0, Neutrophils # (Auto) 14.7H, Lymphocytes # (Auto) 0.8L, Monocytes # (Auto) 1.0, Eosinophils # (Auto) 0.1, Basophils # (Auto) 0.1, Immature Granulocyte # (Auto) 0.1, Prothrombin Time 53.1*H, INR Comment 5.9*H, Corrected Calcium 9.0, Total Bi lirubin 0.7, Aspartate Amino Transf (AST/SGOT) 29, Alanine Aminotransferase (ALT/SGPT) 17, Alkaline Phosphatase 45, Total Protein 5.7L, Albumin 3.1L 02/03/21 10:33: Glucometer 137H 02/04/21 04:30: White Blood Count 17.7H, Red Blood Count 3.78L, Hemoglobin 12.7, Hematocrit 38, Mean Corpuscular Volume 100H, Mean Corpuscular Hemoglobin 34, Mean Corpuscular Hemoglobin Concent 34, Red Cell Distribution Width 14.6H, Platelet Count 173, Mean Platelet Volume 10.3, Immature Granulocyte % (Auto) 0, Neutrophils (%) (Auto) 88H, Lymphocytes (%) (Auto) 4L, Monocytes (%) (Auto) 8, Eosinophils (%) (Auto) 0, Basophils (%) (Auto) 0, Neutrophils # (Auto) 15.5H, Lymphocytes # (Auto) 0.6L, Monocytes # (Auto) 1.4H, Eosinophils # (Auto) 0.0, Basophils # (Auto) 0.1, Immature Granulocyte # (Auto) 0.1, Prothrombin Time 51.8*H, INR Comment 5.7*H, Sodium Level 138, Potassium Level 3.9, Chloride Level 104, Carbon Dioxide Level 21, Anion Gap 13, Blood Urea Nitrogen 14, Creatinine 0.61, Estimat Glomerular Filtration Rate 97, BUN/Creatinine Ratio 23, Glucose Level 111H, Calcium Level 8.4L, Corrected Calcium 9.2, Magnesium Level 1.9, Total Bilirubin 0.8, Aspartate Amino Transf (AST/SGOT) 23, Alanine Aminotransferase (ALT/SGPT) 16, Alkaline Phosphatase 48, Total Protein 5.5L, Albumin 3.0L 02/04/21 16:40: Prealbumin 8.8L 02/05/21 05:38: White Blood Count 13.4H, Red Blood Count 3.53L, Hemoglobin 12.0, Hematocrit 36, Mean Corpuscular Volume 101H, Mean Corpuscular Hemoglobin 34, Mean Corpuscular Hemoglobin Concent 34, Red Cell Distribution Width 14.6H, Platelet Count 212, Mean Platelet Volume 10.6, Immature Granulocyte % (Auto) 1, Neutrophils (%) (Auto) 86H, Lymphocytes (%) (Auto) 4L, Monocytes (%) (Auto) 10, Eosinophils (%) (Auto) 0, Basophils (%) (Auto) 0, Neutrophils # (Auto) 11.4H, Lymphocytes # (Auto) 0.5L, Monocytes # (Auto) 1.3H, Eosinophils # (Auto) 0.0, Basophils # (Auto) 0.0, Immature Granulocyte # (Auto) 0.1, Prothrombin Time 49.0*H, INR Comment 5.3*H, Sodium Level 134L, Potassium Level 4.4, Chloride Level 102, Carbon Dioxide Level 20L, Anion Gap 12, Blood Urea Nitrogen 27H, Creatinine 0.78, Estimat Glomerular Filtration Rate 73, BUN/Creatinine Ratio 35, Glucose Level 137H, Calcium Level 8.6, Corrected Calcium 9.4, Magnesium Level 1.9, Total Bilirubin 0.9, Aspartate Amino Transf (AST/SGOT) 86H, Alanine Aminotransferase (ALT/SGPT) 70H, Alkaline Phosphatase 51, Total Protein 5.6L, Albumin 3.0L 02/05/21 16:50: Blood Gas Puncture Site RBRACH, Blood Gas Patient Temperature 36.2, Arterial Blood pH 7.42, Arterial Blood Partial Pressure CO2 28L, Arterial Blood Partial Pressure O2 77L, Arterial Blood HCO3 18L, Arterial Blood Total CO2 18.7L, A rterial Blood Oxygen Saturation 96, Arterial Blood Base Excess -6.0L, Ian Test POS, Blood Gas Ventilator Setting NO, Blood Gas Inspired Oxygen 2L 02/05/21 21:20: White Blood Count 12.1H, Red Blood Count 3.51L, Hemoglobin 12.0, Hematocrit 36, Mean Corpuscular Volume 103H, Mean Corpuscular Hemoglobin 34, Mean Corpuscular Hemoglobin Concent 33, Red Cell Distribution Width 14.8H, Platelet Count 198, Mean Platelet Volume 10.8, Immature Granulocyte % (Auto) 2, Neutrophils (%) (Auto) 80H, Lymphocytes (%) (Auto) 3L, Monocytes (%) (Auto) 15H, Eosinophils (%) (Auto) 0, Basophils (%) (Auto) 0, Neutrophils # (Auto) 9.7H, Lymphocytes # (Auto) 0.4L, Monocytes # (Auto) 1.8H, Eosinophils # (Auto) 0.0, Basophils # (Auto) 0.0, Immature Granulocyte # (Auto) 0.2H, Prothrombin Time 65.1*H, INR Comment 7.7*H, Sodium Level 136, Potassium Level 5.6H, Chloride Level 105, Carbon Dioxide Level 13L, Anion Gap 18H, Blood Urea Nitrogen 29H, Creatinine 0.90, Estimat Glomerular Filtration Rate 62, BUN/Creatinine Ratio 32, Glucose Level 96, Calcium Level 8.0L, Phosphorus Level 3.2, Magnesium Level 1.9, Total Bilirubin 1.6H, Direct Bilirubin 1.1H, Indirect Bilirubin 0.5, Aspartate Amino Transf (AST/SGOT) 1460#H, Alanine Aminotransferase (ALT/SGPT) 1009#H, Alkaline Phosphatase 87, Total Protein 5.1L, Albumin 2.9L, Thyroid Stimulating Hormone (TSH) 1.36 02/05/21 21:48: Blood Gas Puncture Site LFT RAD, Blood Gas Patient Temperature 34.7, Arterial Blood pH 7.27*L, Arterial Blood Partial Pressure CO2 23L, Arterial Blood Partial Pressure O2 77L, Arterial Blood HCO3 11*L, Arterial Blood Total CO2 11.4L, Arterial Blood Oxygen Saturation 94, Arterial Blood Base Excess -15.4L, Ian Test POS, Blood Gas Ventilator Setting NO, Blood Gas Inspired Oxygen 14L 02/06/21 03:55: Blood Gas Puncture Site LEFT RADIAL, Blood Gas Patient Temperature 36.0, Arterial Blood pH 7.22*L, Arterial Blood Partial Pressure CO2 26L, Arterial Blood Partial Pressure O2 281H, Arterial Blood HCO3 11*L, Arterial Blood Total CO2 11.4L, Arterial Blood Oxygen Saturation 99, Arterial Blood Base Excess - 15.8L, Ian Test YES-POS, Blood Gas Ventilator Setting YES, Blood Gas Inspired Oxygen 100%, White Blood Count 20.7H, Red Blood Count 3.15L, Hemoglobin 10.7L, Hematocrit 34L, Mean Corpuscular Volume 106H, Mean Corpuscular Hemoglobin 34, Mean Corpuscular Hemoglobin Concent 32, Red Cell Distribution Width 15.0H, Plate let Count 178, Mean Platelet Volume 11.3, Immature Granulocyte % (Auto) 7, Neutrophils (%) (Auto) 81H, Lymphocytes (%) (Auto) 2L, Monocytes (%) (Auto) 10, Eosinophils (%) (Auto) 0, Basophils (%) (Auto) 0, Neutrophils # (Auto) 16.6H, Lymphocytes # (Auto) 0.4L, Monocytes # (Auto) 2.1H, Eosinophils # (Auto) 0.0, Basophils # (Auto) 0.1, Immature Granulocyte # (Auto) 1.4H, Prothrombin Time 105.0*H, INR Comment 14.2*H, Sodium Level 138, Potassium Level 6.6#*H, Chloride Level 109H, Carbon Dioxide Level 10L, Anion Gap 19H, Blood Urea Nitrogen 34H, Creatinine 1.32H, Estimat Glomerular Filtration Rate 40, BUN/Creatinine Ratio 26, Glucose Level 52*L, Calcium Level 7.2L, Phosphorus Level 6.1H, Magnesium Level 2.0, Total Bilirubin 2.2H, Aspartate Amino Transf (AST/SGOT) 5876#H, Alanine Aminotransferase (ALT/SGPT) 3255#H, Alkaline Phosphatase 114, Total Protein 5.0L, Albumin 2.8L, Neutrophils % (Manual) 84, Lymphocytes % (Manual) 1, Monocytes % (Manual) 11, Band Neutrophils 4, Macrocytosis MODERATE, Crenated Cell MARKED, Fibrinogen 721H, Corrected Calcium 8.2L 02/07/21 11:40: White Blood Count 16.9H, Red Blood Count 3.54L, Hemoglobin 12.1, Hematocrit 36, Mean Corpuscular Volume 102H, Mean Corpuscular Hemoglobin 34, Mean Corpuscular Hemoglobin Concent 34, Red Cell Distribution Width 15.0H, Platelet Count 166, Mean Platelet Volume 11.4, Immature Granulocyte % (Auto) 7, Neutrophils (%) (Auto) 86H, Lymphocytes (%) (Auto) 4L, Monocytes (%) (Auto) 3, Eosinophils (%) (Auto) 0, Basophils (%) (Auto) 1, Neutrophils # (Auto) 14.5H, Lymphocytes # (Auto) 0.7L, Monocytes # (Auto) 0.5, Eosinophils # (Auto) 0.0, Basophils # (Auto) 0.1, Immature Granulocyte # (Auto) 1.2H, Prothrombin Time 63.6*H, INR Comment 7.4*H, Sodium Level 143, Potassium Level 5.0, Chloride Level 112H, Carbon Dioxide Level 19L, Anion Gap 12, Blood Urea Nitrogen 59H, Creatinine 1.81H, Estimat Glomerular Filtration Rate 28, BUN/Creatinine Ratio 33, Glucose Level 68L, Lactic Acid Level 2.51*H, Calcium Level 7.9L, Corrected Calcium 8.9, Total Bilirubin 1.8H, Aspartate Amino Transf (AST/SGOT) > 4202#H, Alanine Aminotransferase (ALT/SGPT) 5037#H, Alkaline Phosphatase 150H, Troponin I 0.329*H, B-Type Natriuretic Peptide 1294.9H, Total Protein 5.1L, Albumin 2.7L, Procalcitonin 7.37H 02/07/21 13:40: Lactic Acid Level 2.43*H 02/08/21 06:25: White Blood Count 13.6H, Red Blood Count 3.59L, Hemoglobin 12.2, Hematocrit 37, Mean Corpuscular Volume 102H, Mean Corpuscular Hemoglobin 34, Mean Corpuscular Hemoglobin Concent 33, Red Cell Distribution Width 15.2H, Platelet Count 175, Mean Platelet Volume 11.7, Immature Granulocyte % (Auto) 7, Neutrophils (%) (Auto) 80H, Lymphocytes (%) (Auto) 9L, Monocytes (%) (Auto) 3, Eosinophils (%) (Auto) 0, Basophils (%) (Auto) 1, Neutrophils # (Auto) 10.9H, Lymphocytes # (Auto) 1.2, Monocytes # (Auto) 0.4, Eosinophils # (Auto) 0.0, Basophils # (Auto) 0.1, Immature Granulocyte # (Auto) 1.0H, Prothrombin Time 46.1*H, INR Comment 4.9H, Sodium Level 150H, Potassium Level 4.5, Chloride Level 120H, Carbon Dioxide Level 14L, Anion Gap 16H, Blood Urea Nitrogen 45H, Creatinine 1.20, Estimat Glomerular Filtration Rate 45, BUN/Creatinine Ratio 38, Glucose Level 70, Calcium Level 7.7L, Corrected Calcium 8.8, Total Bilirubin 1.8H, Aspartate Amino Transf (AST/SGOT) 2242#H, Alanine Aminotransferase (ALT/SGPT) 3022#H, Alkaline Phosphatase 143H, Total Protein 5.0L, Albumin 2.6L Microbiology 02/01/21 C. difficile GDH Antigen & Toxins - Final, Complete 02/01/21 Blood Culture - Final, Complete No growth 02/01/21 Urine Culture - Final, Complete NO GROWTH Pending Labs Microbiology Date/Time Source Procedure Growth Status 02/01/21 12:05 Stool C. difficile GDH Antigen & Toxins - Final Complete 02/01/21 11:52 Peripheral Rt Ac Blood Culture - Final No growth Complete 02/01/21 11:35 Urine Mehta Cath Urine Culture - Final NO GROWTH Complete 02/01/21 11:35 Peripheral Lt Ac Blood Culture - Final No growth Complete Laboratory Tests 02/01/21 11:35: White Blood Count 9.7, Red Blood Count 4.33, Hemoglobin 14.9, Hematocrit 44, Mean Corpuscular Volume 103, Mean Corpuscular Hemoglobin 34, Mean Corpuscular Hemoglobin Concent 34, Red Cell Distribution Width 14.5, Platelet Count 269, Mean Platelet Volume 10.0, Immature Granulocyte % (Auto) 1, Neutrophils (%) (Auto) 68, Lymphocytes (%) (Auto) 26, Monocytes (%) (Auto) 6, Eosinophils (%) (Auto) 0, Basophils (%) (Auto) 0, Neutrophils # (Auto) 6.5, Lymphocytes # (Auto) 2.5, Monocytes # (Auto) 0.6, Eosinophils # (Auto) 0.0, Basophils # (Auto) 0.0, Immature Granulocyte # (Auto) 0.1, Prothrombin Time 36.6, INR Comment 3.6, Activated Partial Thromboplast Time 54, D-Dimer 0.42, Urine Color YELLOW, Urine Clarity CLEAR, Urine pH 6.0, Urine Specific [place] 1.010, Urine Protein NEGATIVE, Urine Glucose (UA) NEGATIVE, Urine Ketones NEGATIVE, Urine Nitrite NEGATIVE, Urine Bilirubin NEGATIVE, Urine Urobilinogen 0.2, Urine Leukocyte Esterase NEGATIVE, Urine RBC (Auto) NEGATIVE, Urine RBC RARE, Urine WBC NONE, Urine Squamous Epithelial Cells 2-5, Urine Crystals NONE, Urine Bacteria NEGATIVE, Urine Casts NONE, Urine Mucus NEGATIVE, Urine Culture Indicated NO, Sodium Level 138, Potassium Level 2.9, Chloride Level 95, Carbon Dioxide Level 26, Anion Gap 17, Blood Urea Nitrogen 18, Creatinine 1.30, Estimat Glomerular Filtration Rate 41, BUN/Creatinine Ratio 14, Glucose Level 83, Lactic Acid Level 3.29, Calcium Level 9.5, Corrected Calcium 9.6, Total Bilirubin 0.9, Aspartate Amino Transf (AST/SGOT) 31, Alanine Aminotransferase (ALT/SGPT) 22, Alkaline Phosphatase 35, C-Reactive Protein High Sensitivity 13.53, Total Protein 6.4, Albumin 3.9, Procalcitonin 20.05, SARS-CoV-2 RNA (RT-PCR) Detected 02/01/21 12:05: Blood Gas Puncture Site R RADIAL, Blood Gas Patient Temperature 102, Arterial Blood pH 7.37, Arterial Blood Partial Pressure CO2 39, Arterial Blood Partial Pressure O2 55, Arterial Blood HCO3 21, Arterial Blood Total CO2 22.5, Arterial Blood Oxygen Saturation 77, Arterial Blood Base Excess -2.6, Ian Test YES-POS, Blood Gas Ventilator Setting NO, Blood Gas Inspired Oxygen 5 02/01/21 12:51: Lab Scanned Report Referred Lab Report 02/01/21 14:30: Lactic Acid Level 1.84 02/01/21 20:15: Sodium Level 140, Potassium Level 3.3, Chloride Level 105, Carbon Dioxide Level 18, Anion Gap 17, Blood Urea Nitrogen 16, Creatinine 1.00, Estimat Glomerular Filtration Rate 55, BUN/Creatinine Ratio 16, Glucose Level 100, Calcium Level 7.8, Phosphorus Level 3.2, Magnesium Level 1.3 02/02/21 05:00: Sodium Level 136, Potassium Level 3.3, Chloride Level 102, Carbon Dioxide Level 19, Anion Gap 15, Blood Urea Nitrogen 12, Creatinine 0.76, Estimat Glomerular Filtration Rate 75, BUN/Creatinine Ratio 16, Glucose Level 104, Calcium Level 8.1, Phosphorus Level 1.5, Magnesium Level 2.7, White Blood Count 12.3, Red Blood Count 3.77, Hemoglobin 12.8, Hematocrit 37, Mean Corpuscular Volume 99, Mean Corpuscular Hemoglobin 34, Mean Corpuscular Hemoglobin Concent 34, Red Cell Distribution Width 14.4, Platelet Count 194, Mean Platelet Volume 9.6, Immature Granulocyte % (Auto) 1, Neutrophils (%) (Auto) 87, Lymphocytes (%) (Auto) 5, Monocytes (%) (Auto) 6, Eosinophils (%) (Auto) 0, Basophils (%) (Auto) 0, Neutrophils # (Auto) 10.8, Lymphocytes # (Auto) 0.6, Monocytes # (Auto) 0.8, Eosinophils # (Auto) 0.0, Basophils # (Auto) 0.0, Immature Granulocyte # (Auto) 0.1, Neutrophils % (Manual) 57, Lymphocytes % (Manual) 7, Monocytes % (Manual) 8, Band Neutrophils 28, Blood Morphology Comment NORMAL, Prothrombin Time 43.8, INR Comment 4.6, Corrected Calcium 8.8, Total Bilirubin 0.6, Aspartate Amino Transf (AST/SGOT) 35, Alanine Aminotransferase (ALT/SGPT) 22, Alkaline Phosphatase 27, Total Protein 5.4, Albumin 3.1 02/02/21 14:55: Prothrombin Time 52.8, INR Comment 5.8 02/03/21 04:50: Sodium Level 137, Potassium Level 3.8, Chloride Level 105, Carbon Dioxide Level 20, Anion Gap 12, Blood Urea Nitrogen 10, Creatinine 0.61, Estimat Glomerular Filtration Rate 97, BUN/Creatinine Ratio 16, Glucose Level 101, Calcium Level 8.3, Phosphorus Level 1.2, Magnesium Level 2.1, White Blood Count 16.7, Red Blood Count 3.72, Hemoglobin 12.6, Hematocrit 37, Mean Corpuscular Volume 100, Mean Corpuscular Hemoglobin 34, Mean Corpuscular Hemoglobin Concent 34, Red Cell Distribution Width 14.6, Platelet Count 180, Mean Platelet Volume 9.6, Immature Granulocyte % (Auto) 0, Neutrophils (%) (Auto) 88, Lymphocytes (%) (Auto) 5, Monocytes (%) (Auto) 6, Eosinophils (%) (Auto) 0, Basophils (%) (Auto) 0, Neutrophils # (Auto) 14.7, Lymphocytes # (Auto) 0.8, Monocytes # (Auto) 1.0, Eosinophils # (Auto) 0.1, Basophils # (Auto) 0.1, Immature Granulocyte # (Auto) 0.1, Prothrombin Time 53.1, INR Comment 5.9, Corrected Calcium 9.0, Total Bilirubin 0.7, Aspartate Amino Transf (AST/SGOT) 29, Alanine Aminotransferase (ALT/SGPT) 17, Alkaline Phosphatase 45, Total Protein 5.7, Albumin 3.1 02/03/21 10:33: Glucometer 137 02/04/21 04:30: White Blood Count 17.7, Red Blood Count 3.78, Hemoglobin 12.7, Hematocrit 38, Mean Corpuscular Volume 100, Mean Corpuscular Hemoglobin 34, Mean Corpuscular Hemoglobin Concent 34, Red Cell Distribution Width 14.6, Platelet Count 173, Mean Platelet Volume 10.3, Immature Granulocyte % (Auto) 0, Neutrophils (%) (Auto) 88, Lymphocytes (%) (Auto) 4, Monocytes (%) (Auto) 8, Eosinophils (%) (Auto) 0, Basophils (%) (Auto) 0, Neutrophils # (Auto) 15.5, Lymphocytes # (Auto) 0.6, Monocytes # (Auto) 1.4, Eosinophils # (Auto) 0.0, Basophils # (Auto) 0.1, Immature Granulocyte # (Auto) 0.1, Prothrombin Time 51.8, INR Comment 5.7, Sodium Level 138, Potassium Level 3.9, Chloride Level 104, Carbon Dioxide Level 21, Anion Gap 13, Blood Urea Nitrogen 14, Creatinine 0.61, Estimat Glomerular Filtration Rate 97, BUN/Creatinine Ratio 23, Glucose Level 111, Calcium Level 8.4, Corrected Calcium 9.2, Magnesium Level 1.9, Total Bilirubin 0.8, Aspartate Amino Transf (AST/SGOT) 23, Alanine Aminotransferase (ALT/SGPT) 16, Alkaline Phosphatase 48, Total Protein 5.5, Albumin 3.0 02/04/21 16:40: Prealbumin 8.8 02/05/21 05:38: White Blood Count 13.4, Red Blood Count 3.53, Hemoglobin 12.0, Hematocrit 36, Mean Corpuscular Volume 101, Mean Corpuscular Hemoglobin 34, Mean Corpuscular Hemoglobin Concent 34, Red Cell Distribution Width 14.6, Platelet Count 212, Mean Platelet Volume 10.6, Immature Granulocyte % (Auto) 1, Neutrophils (%) (Auto) 86, Lymphocytes (%) (Auto) 4, Monocytes (%) (Auto) 10, Eosinophils (%) (Auto) 0, Basophils (%) (Auto) 0, Neutrophils # (Auto) 11.4, Lymphocytes # (Auto) 0.5, Monocytes # (Auto) 1.3, Eosinophils # (Auto) 0.0, Basophils # (Auto) 0.0, Immature Granulocyte # (Auto) 0.1, Prothrombin Time 49.0, INR Comment 5.3, Sodium Level 134, Potassium Level 4.4, Chloride Level 102, Carbon Dioxide Level 20, Anion Gap 12, Blood Urea Nitrogen 27, Creatinine 0.78, Estimat Glomerular Filtration Rate 73, BUN/Creatinine Ratio 35, Glucose Level 137, Calcium Level 8.6, Corrected Calcium 9.4, Magnesium Level 1.9, Total Bilirubin 0.9, Aspartate Amino Transf (AST/SGOT) 86, Alanine Aminotransferase (ALT/SGPT) 70, Alkaline Phosphatase 51, Total Protein 5.6, Albumin 3.0 02/05/21 16:50: Blood Gas Puncture Site RBRACH, Blood Gas Patient Temperature 36.2, Arterial Blood pH 7.42, Arterial Blood Partial Pressure CO2 28, Arterial Blood Partial Pressure O2 77, Arterial Blood HCO3 18, Arterial Blood Total CO2 18.7, Arterial Blood Oxygen Saturation 96, Arterial Blood Base Excess -6.0, Ian Test POS, Blood Gas Ventilator Setting NO, Blood Gas Inspired Oxygen 2L 02/05/21 21:20: White Blood Count 12.1, Red Blood Count 3.51, Hemoglobin 12.0, Hematocrit 36, Mean Corpuscular Volume 103, Mean Corpuscular Hemoglobin 34, Mean Corpuscular Hemoglobin Concent 33, Red Cell Distribution Width 14.8, Platelet Count 198, Mean Platelet Volume 10.8, Immature Granulocyte % (Auto) 2, Neutrophils (%) (Auto) 80, Lymphocytes (%) (Auto) 3, Monocytes (%) (Auto) 15, Eosinophils (%) (Auto) 0, Basophils (%) (Auto) 0, Neutrophils # (Auto) 9.7, Lymphocytes # (Auto) 0.4, Monocytes # (Auto) 1.8, Eosinophils # (Auto) 0.0, Basophils # (Auto) 0.0, Immature Granulocyte # (Auto) 0.2, Prothrombin Time 65.1, INR Comment 7.7, Sodium Level 136, Potassium Level 5.6, Chloride Level 105, Carbon Dioxide Level 13, Anion Gap 18, Blood Urea Nitrogen 29, Creatinine 0.90, Estimat Glomerular Filtration Rate 62, BUN/Creatinine Ratio 32, Glucose Level 96, Calcium Level 8.0, Phosphorus Level 3.2, Magnesium Level 1.9, Total Bilirubin 1.6, Direct Bilirubin 1.1, Indirect Bilirubin 0.5, Aspartate Amino Transf (AST/SGOT) 1460, Alanine Aminotransferase (ALT/SGPT) 1009, Alkaline Phosphatase 87, Total Protein 5.1, Albumin 2.9, Thyroid Stimulating Hormone (TSH) 1.36 02/05/21 21:48: Blood Gas Puncture Site LFT RAD, Blood Gas Patient Temperature 34.7, Arterial Blood pH 7.27, Arterial Blood Partial Pressure CO2 23, Arterial Blood Partial Pressure O2 77, Arterial Blood HCO3 11, Arterial Blood Total CO2 11.4, Arterial Blood Oxygen Saturation 94, Arterial Blood Base Excess -15.4, Ian Test POS, Blood Gas Ventilator Setting NO, Blood Gas Inspired Oxygen 14L 02/06/21 03:55: Blood Gas Puncture Site LEFT RADIAL, Blood Gas Patient Temperature 36.0, Arterial Blood pH 7.22, Arterial Blood Partial Pressure CO2 26, Arterial Blood Partial Pressure O2 281, Arterial Blood HCO3 11, Arterial Blood Total CO2 11.4, Arterial Blood Oxygen Saturation 99, Arterial Blood Base Excess -15.8, Ian Test YES-POS, Blood Gas Ventilator Setting YES, Blood Gas Inspired Oxygen 100%, White Blood Count 20.7, Red Blood Count 3.15, Hemoglobin 10.7, Hematocrit 34, Mean Corpuscular Volume 106, Mean Corpuscular Hemoglobin 34, Mean Corpuscular Hemoglobin Concent 32, Red Cell Distribution Width 15.0, Platelet Count 178, Mean Platelet Volume 11.3, Immature Granulocyte % (Auto) 7, Neutrophils (%) (Auto) 81, Lymphocytes (%) (Auto) 2, Monocytes (%) (Auto) 10, Eosinophils (%) (Auto) 0, Basophils (%) (Auto) 0, Neutrophils # (Auto) 16.6, Lymphocytes # (Auto) 0.4, Monocytes # (Auto) 2.1, Eosinophils # (Auto) 0.0, Basophils # (Auto) 0.1, Immature Granulocyte # (Auto) 1.4, Prothrombin Time 105.0, INR Comment 14.2, Sodium Level 138, Potassium Level 6.6, Chloride Level 109, Carbon Dioxide Level 10, Anion Gap 19, Blood Urea Nitrogen 34, Creatinine 1.32, Estimat Glomerular Filtration Rate 40, BUN/Creatinine Ratio 26, Glucose Level 52, Calcium Level 7.2, Phosphorus Level 6.1, Magnesium Level 2.0, Total Bilirubin 2.2, Aspartate Amino Transf (AST/SGOT) 5876, Alanine Aminotransferase (ALT/SGPT) 3255, Alkaline Phosphatase 114, Total Protein 5.0, Albumin 2.8, Neutrophils % (Manual) 84, Lymphocytes % (Manual) 1, Monocytes % (Manual) 11, Band Neutrophils 4, Macrocytosis MODERATE, Crenated Cell MARKED, Fibrinogen 721, Corrected Calcium 8.2 02/07/21 11:40: White Blood Count 16.9, Red Blood Count 3.54, Hemoglobin 12.1, Hematocrit 36, Mean Corpuscular Volume 102, Mean Corpuscular Hemoglobin 34, Mean Corpuscular Hemoglobin Concent 34, Red Cell Distribution Width 15.0, Platelet Count 166, Mean Platelet Volume 11.4, Immature Granulocyte % (Auto) 7, Neutrophils (%) (Auto) 86, Lymphocytes (%) (Auto) 4, Monocytes (%) (Auto) 3, Eosinophils (%) (Auto) 0, Basophils (%) (Auto) 1, Neutrophils # (Auto) 14.5, Lymphocytes # (Auto) 0.7, Monocytes # (Auto) 0.5, Eosinophils # (Auto) 0.0, Basophils # (Auto) 0.1, Immature Granulocyte # (Auto) 1.2, Prothrombin Time 63.6, INR Comment 7.4, Sodium Level 143, Potassium Level 5.0, Chloride Level 112, Carbon Dioxide Level 19, Anion Gap 12, Blood Urea Nitrogen 59, Creatinine 1.81, Estimat Glomerular Filtration Rate 28, BUN/Creatinine Ratio 33, Glucose Level 68, Lactic Acid Level 2.51, Calcium Level 7.9, Corrected Calcium 8.9, Total Bilirubin 1.8, Aspartate Amino Transf (AST/SGOT) > 4202, Alanine Aminotransferase (ALT/SGPT) 5037, Alkaline Phosphatase 150, Troponin I 0.329, B-Type Natriuretic Peptide 1294.9, Total Protein 5.1, Albumin 2.7, Procalcitonin 7.37 02/07/21 13:40: Lactic Acid Level 2.43 02/08/21 06:25: White Blood Count 13.6, Red Blood Count 3.59, Hemoglobin 12.2, Hematocrit 37, Mean Corpuscular Volume 102, Mean Corpuscular Hemoglobin 34, Mean Corpuscular Hemoglobin Concent 33, Red Cell Distribution Width 15.2, Platelet Count 175, Mean Platelet Volume 11.7, Immature Granulocyte % (Auto) 7, Neutrophils (%) (Auto) 80, Lymphocytes (%) (Auto) 9, Monocytes (%) (Auto) 3, Eosinophils (%) (Auto) 0, Basophils (%) (Auto) 1, Neutrophils # (Auto) 10.9, Lymphocytes # (Auto) 1.2, Monocytes # (Auto) 0.4, Eosinophils # (Auto) 0.0, Basophils # (Auto) 0.1, Immature Granulocyte # (Auto) 1.0, Prothrombin Time 46.1, INR Comment 4.9, Sodium Level 150, Potassium Level 4.5, Chloride Level 120, Carbon Dioxide Level 14, Anion Gap 16, Blood Urea Nitrogen 45, Creatinine 1.20, Estimat Glomerular Filtration Rate 45, BUN/Creatinine Ratio 38, Glucose Level 70, Calcium Level 7.7, Corrected Calcium 8.8, Total Bilirubin 1.8, Aspartate Amino Transf (AST/SGOT) 2242, Alanine Aminotransferase (ALT/SGPT) 3022, Alkaline Phosphatase 143, Total Protein 5.0, Albumin 2.6 Discharge Home Medications: Active Scripts Active Reported Vitamin D3 Complete Caplet (Mv-Mn/Iron/FA/Herbal Cmplx#190) 1 Each Tablet 1 Each PO DAILY Niacin ER (Niacin) 1,000 Mg Tab.er.24h 1,000 Mg PO DAILY Iodosorb (Cadexomer Iodine) 40 Gm Gel..gram. 40 Gm TP UD Miralax (Polyethylene Glycol 3350) 17 Gm Powd.pack 17 Gm PO DAILY Euthyrox (Levothyroxine Sodium) 88 Mcg Tablet 88 Mcg PO DAILY Atorvastatin Calcium 40 Mg Tablet 40 Mg PO DAILY Warfarin Sodium 2.5 Mg Tablet 5 Mg PO MON,FR Repatha Sureclick (Evolocumab) 140 Mg/1 Ml Pen.injctr 140 Mg SQ EVERY 2 WEEKS Prolia (Denosumab) 60 Mg/1 Ml Disp.syrin 60 Mg SQ EVERY 6 MONTHS Xalatan (Latanoprost) 2.5 Ml Drops 1 Drop OU HS Fenofibrate 54 Mg Tablet 54 Mg PO DAILY Allopurinol 100 Mg Tablet 100 Mg PO DAILY Vitamin B-12 (Cyanocobalamin (Vitamin B-12)) 5,000 Mcg Tab.rapdis 5,000 Mcg PO 1800 Folic Acid 1 Mg Tablet 3 Mg PO DAILY TAKES 3 (1MG) TABS [place] 3-6-9 Complex Softgel (Fish Oil/Borage/Flax/Om3,6,9#1) 400 Mg Capsule 800 Mg PO BID WITH MEALS Prednisone 10 Mg Tab 10 Mg PO DAILY Advair 250-50 Diskus (Fluticasone/Salmeterol) 1 Each Blst.w.dev 1 Each IH BID TAKES AT 0000 AND 1200 Metoprolol Tartrate 50 Mg Tablet 50 Mg PO BID LAST FILLED 02-27-2020 #180/90 DAY SUPPLY Warfarin Sodium 2.5 Mg Tablet 2.5 Mg PO THU,,,,SAT Proair Hfa (Albuterol Sulfate) 1 Puff Puff 2 Puff IH Q4H PRN Potassium Chloride 10 Meq Tab.er.prt 10 Meq PO BID Methotrexate (Methotrexate Sodium) 2.5 Mg Tablet 10 Mg PO TU TAKES 4 (2.5MG) TABLETS Flonase Allergy Relief (Fluticasone Propionate) 9.9 Ml [place].susp 2 [place] NS DAILY PRN Furosemide 40 Mg Tablet 40 Mg PO DAILY Tramadol HCl 50 Mg Tablet 50 Mg PO 0800,1800,2200 Montelukast Sodium 10 Mg Tablet 10 Mg PO 1800 Lisinopril 20 Mg Tablet 20 Mg PO BID Aspirin EC (Aspirin) 81 Mg Tablet.dr 81 Mg PO DAILY Cetirizine HCl 10 Mg Tablet 10 Mg PO 1800 Acetaminophen Extra Strength (Acetaminophen) 500 Mg Tablet 500 Mg PO QID PRN Iron (Ferrous Sulfate) 325 Mg Tablet 325 Mg PO BID WITH MEALS Align (Bifidobacterium Infantis) 4 Mg Capsule 4 Mg PO DAILY Preservision Areds Tablet (Vit A/Vit C/Vit E/Zinc/Copper) 1 Each Tablet 1 Tab PO 1800 Pantoprazole Sodium 40 Mg Tablet.dr 40 Mg PO BID Instructions to patient/family Please see electronic discharge instructions given to patient. Diagnosis/Problems Diagnosis/Problems (1) Septic shock Status: Acute (2) Respiratory failure Status: Acute (3) COVID-19 Status: Acute (4) Anticoagulated on warfarin Status: Chronic (5) Steroid dependence Status: Chronic (6) Factor V Leiden Status: Chronic (7) Brittle bone disease Status: Chronic MIKE CASANOVA DO Feb 08, 2021 14:05
== END 2021-02-08 15:00 | disposition left against medical advice (07) | DRG 871 ==
LOC: EDUNIT# 11:28 → ER 11:29 → ICU 12:51 → CSD 02-03 13:08 → 4TH 02-04 18:10 → ICU 02-05 18:40 → 4TH 02-06 18:13
PROVIDERS: ADMIT Internal Medicine; ATTEND Internal Medicine
PROC: 5A09357 Assistance with Respiratory Ventilation, Less than 24 Consecutive Hours, Continuous Positive Airway Pressure (ICD-10-PCS; principal; 2021-02-05)
DX: A41.89 Other specified sepsis (principal); J12.82 Pneumonia due to coronavirus disease 2019; J15.9 Unspecified bacterial pneumonia; J96.01 Acute respiratory failure with hypoxia; K72.00 Acute and subacute hepatic failure without coma; R65.21 Severe sepsis with septic shock; J44.0 Chronic obstructive pulmonary disease with (acute) lower respiratory infection; D68.9 Coagulation defect, unspecified; D68.51 Activated protein C resistance; N17.9 Acute kidney failure, unspecified; E87.2 Acidosis; I42.9 Cardiomyopathy, unspecified; A04.72 Enterocolitis due to Clostridium difficile, not specified as recurrent; I95.9 Hypotension, unspecified; E86.1 Hypovolemia; G47.33 Obstructive sleep apnea (adult) (pediatric); M32.9 Systemic lupus erythematosus, unspecified; E11.40 Type 2 diabetes mellitus with diabetic neuropathy, unspecified; K21.9 Gastro-esophageal reflux disease without esophagitis; M19.90 Unspecified osteoarthritis, unspecified site; I11.0 Hypertensive heart disease with heart failure; G89.29 Other chronic pain; M54.9 Dorsalgia, unspecified; E03.9 Hypothyroidism, unspecified; M81.0 Age-related osteoporosis without current pathological fracture; E87.5 Hyperkalemia; E83.39 Other disorders of phosphorus metabolism; I50.9 Heart failure, unspecified; L89.90 Pressure ulcer of unspecified site, unspecified stage; Z66 Do not resuscitate; Z79.52 Long term (current) use of systemic steroids; Z79.82 Long term (current) use of aspirin; Z79.01 Long term (current) use of anticoagulants; E78.00 Pure hypercholesterolemia, unspecified; Z85.820 Personal history of malignant melanoma of skin; E87.6 Hypokalemia; E78.5 Hyperlipidemia, unspecified
CPT/HCPCS: 36415; 36600; 51702; 70450; 71045; 80048; 80053; 80076; 81000; 82805; 82947; 83605; 83735; 83880; 84100; 84134; 84145; 84443; 84484; 85007; 85025; 85027; 85379; 85384; 85610; 85730; 86141; 87040; 87088; 87324; 87449; 87636; 93005; 94640; 94660; 94664; 94760; 96361; 96365; 96375; 99291